=== PATIENT | male | born 1945 | race Caucasian/White ===

== ENCOUNTER 2016-04-29 14:59 | Inpatient (IN) | payer MEDICAID, MEDICARE ==
[~2016-04-29] VITALS: Ht 182.9 cm; Wt 86.3 kg
[2016-04-29] VITALS (9 sets, daily range): BP systolic 110–142; BP diastolic 62–98; PULSE 105–118; RESP 20–28; O2SAT 95–98
[~2016-04-29 14:59] MED LIST: AMLO10TA3 PO; ATOR20TA65 PO; BUPR150T12 PO; DOXY100C PO; METF1000 PO; MUPI22OI2 TOPICAL; ZOV800 PO
--- NOTE | 2016-04-29 15:19 | ED.REPORT ---
HPI-General Illness Date of Service Apr 29, 2016 ED Provider: Ricki Manriquez MD Pt is a 70 y/o male w/ a hx of HTN, diabetes, presenting to the ED via EMS c/o flu-like symptoms onset 3 days ago. He c/o fever, chills, myalgias, fatigue, cough, vomiting, diarrhea, left-sided abdominal pain. He denies bloody stool, chest pain, hematemesis, SOB. He has a caregiver that comes and sees him occasionally because he is "tired and old". His caregiver has noticed that he has had a decline in general function for the past 2 months. Nursing Notes Stated Complaint: WEAKNESS Chief Complaint: FLU/Cold Symptoms Nursing Notes Reviewed: Yes Allergies: Coded Allergies: No Known Allergies (Unverified , 04/29/16) Scheduled Acyclovir (Acyclovir) 800 Mg Tab 800 MG PO BID Amlodipine (Amlodipine) 10 Mg Tablet 10 MG PO DAILY Atorvastatin Calcium (Atorvastatin Calcium) 20 Mg Tablet 20 MG PO PM Bupropion ER (Bupropion ER) 150 Mg Tablet.er 150 MG PO BID Doxycycline Hyclate (Vibramycin) 100 Mg Capsule 100 MG PO BID Metformin (Glucophage) 1,000 Mg Tablet 1,000 MG PO BIDWM Mupirocin (Mupirocin Ointment) 22 Gm Oint...g. 1 APPLIC TOPICAL BID General Time Seen by MD: 15:19 Chief Complaint Multip medical complaints Hx Obtained From: Patient, EMS Arrived By: Ambulance Sudden in Onset?: No Onset Occurred: 3 days ago Symptom Duration: Since onset Quality: Aching (diffuse) Severity: Current: Mild Severity: Maximum: Mild Past Medical History Past Medical History Hypertension Diabetes Depression Denies: Asthma, COPD, Cancer, Coronary artery disease, Stroke Past Surgical History None reported Smoking History Current Some Day Smoker Social History Alcohol Use: "Social" Drug Use: Meth, THC Ambulatory Status Independent Review of Systems Full Review of Systems Constitutional: Reports: Chills, Fatigue, Fever, Weakness - generalized Respiratory: Reports: Non-productive cough, Denies: Shortness of breath Cardiovascular: Denies: Chest pain GI: Reports: Abdominal pain, Diarrhea, Nausea, Vomiting, Denies: Hematemesis, Hematochezia Musculoskeletal: Reports: Myalgia Complete sys rev & neg: except as marked. Physical Exam Vital Signs Vital Signs Date Time Temp Pulse Resp B/P Pulse Ox O2 Delivery O2 Flow Rate FiO2 04/29/16 18:12 39.2 118 04/29/16 17:41 117 25 110/66 98 Room Air 04/29/16 17:02 111 20 98 Room Air 04/29/16 16:57 38.6 117 28 142/85 95 Room Air 04/29/16 15:41 112 23 98 Room Air 04/29/16 15:04 36.5 105 23 141/98 98 Room Air Initial VS: Reviewed, Vital signs abnormal Head / Eyes: Atraumatic, Normocephalic, PERRL ENT: Mucous membranes moist, Conjunctiva normal, No scleral icterus Neck: Supple, Full range of motion Abdomen / GI: Soft, Non-tender, No guarding, No rebound, No distention Skin: Warm, Dry, No cyanosis Neurologic: Alert, Oriented, Nonfocal Psychiatric: Mood/affect normal, Behavior normal, Normal thought content General/Constitutional: Awake, Alert, No acute distress, Cooperative, Not toxic appearing Respiratory / Chest: Atraumatic, Breath sounds = bilat, No respiratory distress , No rales, No rhonchi, No retractions, No stridor, No chest tenderness, No chest wall deformity, No crepitus Scattered expiratory wheezing Cardiovascular: Regular rhythm, Heart sounds NL, No gallop, No murmurs, No rubs , Cap refill not delayed, Peripheral circulation NL Heart Rate / Rhythm: Positive: Tachycardia Lower Extremity / Pelvis / MS: Atraumatic, No deformity, Neurologic intact, Vascular intact Significant edema of the left leg with significant erythema and warmth. 1x1 cm open sore over lateral left leg. Interpretation & Diagnostics Lab Results Interpretation Result Diagram: 04/29/16 1516 04/29/16 1720 Test 04/29/16 15:16 04/29/16 17:20 White Blood Count 14.8th/mm3 (3.8-10.1) Red Blood Count 3.90mil/mm3 (4.40-5.80) Hemoglobin 11.5g/dL (13.8-17.2) Hematocrit 33.3% (41.0-50.0) Mean Corpuscular Volume 85.4fL (81-100) Mean Corpuscular Hemoglobin 29.5pg (27.0-35.0) Mean Corpuscular Hemoglobin Concent 34.5% (32.0-37.0) Red Cell Distribution Width 12.8% (12.3-15.4) Platelet Count 110bil/L (150-400) Neutrophils (%) (Auto) 84% (40-74) Lymphocytes (%) (Auto) 2% (14-46) Monocytes (%) (Auto) 1% (4-12) Eosinophils (%) (Auto) 0% (0-5) Basophils (%) (Auto) 0% (0-3) Band Neutrophils % 13% (1-5) Sodium Level 129mEq/L (134-144) Potassium Level 4.6mEq/L (3.5-5.2) Chloride Level 89mEq/L (97-108) Carbon Dioxide Level 19mmol/L (18-29) Blood Urea Nitrogen 102mg/dL (8-27) Creatinine 5.42mg/dL (0.76-1.27) Estimat Glomerular Filtration Rate 11mL/min (>59) Glucose Level 192mg/dL (60-99) Lactic Acid Level 2.8mmol/L (0.4-2.0) Calcium Level 8.8mg/dL (8.5-10.1) Magnesium Level 1.7mg/dL (1.6-2.6) Total Bilirubin 0.7mg/dL (0.0-1.2) Aspartate Amino Transf (AST/SGOT) 80U/L (0-50) Alanine Aminotransferase (ALT/SGPT) 53U/L (0-44) Alkaline Phosphatase 72U/L (25-160) Total Protein 7.4g/dL (6.4-8.4) Albumin 3.6g/dL (3.4-5.0) Lipase 29U/L (13-60) Lab Results Interpretation: Flu negative ECG Interpretation ECG Interpretation: Sinus tachycardia rate 109 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 Dictated by: Tara Martin M.D. on 04/29/2016 at 16:26 Approved by: Tara Martin M.D. on 04/29/2016 at 16:26 View: Portable, 1 view Interpretation / Wet Read by: Interpret - Radiologist Re-Eval/Medical Decision Med Decision/Clinical Course Newman catheter placed with difficulty. Cloudy urine present. Time of Eval: 17:06 Re-Evaluation/Progress Note: Pt rechecked. His temperature is increasing and he is becoming increasingly tachycardic and tachypneic. IV Tylenol ordered. He will likely be admitted. Time of Eval: 17:59 Re-Evaluation/Progress Note: Pt rechecked. Pt informed of need for admission. Pt understands and agrees with plan for admission. All questions addressed. Consultation #1: Referral / Consult Name: Jose G Diana MD Consulted With: Nephrology Call Returned at: 18:06 Term[employer] Service Representative: Accepts admit Note: Recommends noncontrast CT Consultation #2: Referral / Consult Name: Bora Velazquez MD Consulted With: Hospitalist Call Returned at: 18:19 Termite Control Service Representative: Accepts admit Counseled Regarding: Diagnosis, Lab results, Need for admission Discharge & Departure Primary Impression: Sepsis Sepsis type: sepsis due to unspecified organism Qualified Code: A41.9 - Sepsis, unspecified organism Additional Impressions: Cellulitis Site of cellulitis: extremity Site of cellulitis of extremity: lower extremity Laterality: left Qualified Code: L03.116 - Cellulitis of left lower limb Acute renal failure Acute urinary retention Urinary tract infection Disposition: ADMITTED TO HOSPITAL Discharge Condition All VS Reviewed: Yes Condition: Stable Referrals: NOPCP (PCP) Crit Care Except Billable Proc Time Spent: 30-74 minutes Services Performed: Patient management by me, Time spent at bedside, Reviewing test results, Reviewing imaging, Discussing patient care, Documentation in record Scribe Attestation Portions of this note were transcribed by Guanaco Bradley. I, Dr. Manriquez personally performed the history, physical exam and medical decision-making; I reviewed and confirmed the accuracy of the information in the transcribed note. Signed by Errol Khalil, 04/29/16 - 1599 Ricki Manriquez MD Apr 29, 2016 15:19 GUANACO BRADLEY Apr 29, 2016 15:20
[2016-04-29 16:16] LABS: Mean Corpuscular Hemoglobin 29.5 pg (27.0-35.0); Mean Corpuscular Volume 85.4 fL (81-100)
[2016-04-29 16:17] LABS: BASOPHILS % (AUTO) 0 % (0-3); EOSINOPHILS % (AUTO) 0 % (0-5); MONOCYTES % (AUTO) 1 % (4-12); NEUTROPHILS % (AUTO) 84 % (40-74); Platelet Count 110 bil/L (150-400)
--- NOTE | 2016-04-29 16:28 | DRSVH ---
PROCEDURE: X-RAY CHEST ONE VIEW, PORTABLE ([id number]) INDICATIONS: cough wheezing TECHNIQUE: One view of the chest was acquired. COMPARISON: [facility], CR, XR CHEST 1VW (PORTABLE), 01/21/2016, 5:25. FINDINGS: Surgical changes and devices: None. Lungs and pleura: No pleural effusions or pneumothorax. Lungs are clear. Mediastinum: Mediastinal contours appear normal. Heart size is normal. Bones and chest wall: No suspicious bony lesions. Overlying soft tissues appear unremarkable. IMPRESSION: No acute process. Dictated by: Tara Martin M.D. on 04/29/2016 at 16:26 Approved by: Tara Martin M.D. on 04/29/2016 at 16:26
[2016-04-29] MEDS ORDERED: 0.9% Sodium Chloride 1,000 ML IV ONE (16:37)
[2016-04-29] MEDS ORDERED: Albuterol-Ipratropium 3 mL Inhalation Solution NEB ONE (16:40)
[2016-04-29] MEDS ORDERED: Meropenem Inj 1,000 MG in 0.9% Sodium Chloride 100 ML IV ONE (16:40)
[2016-04-29] MEDS ORDERED: metroNIDAZOLE Inj 500 MG in IV Premix 1 EACH IV ONE (16:40)
[2016-04-29] MEDS ORDERED: Clindamycin Inj 900 MG in IV Premix 1 EACH IV ONE (16:40)
[2016-04-29] MEDS ORDERED: Acetaminophen IV 1,000 MG in IV Premix 1 EACH IV ONE (17:05)
[2016-04-29 17:53] LABS: Magnesium 1.7 mg/dL (1.6-2.6)
[2016-04-29] MEDS ORDERED: Ondansetron 2 mg/mL 2 mL Inj IVPUSH PRN ×2 (18:30→19:55)
[2016-04-29] MEDS ORDERED: Alum-Mag Hydrox-Simeth 30 mL Suspension PO PRN ×2 (18:30→19:55)
[2016-04-29 18:53] LABS: APPEARANCE,URINE HAZY (CLEAR,HAZY); COLOR,URINE YELLOW (YELLOW); OCCULT BLOOD,URINE LARGE (NEGATIVE); UROBILINOGEN,URINE NORMAL (NORMAL)
--- NOTE | 2016-04-29 19:18 | DRSVH ---
PROCEDURE: CT ABDOMEN AND PELVIS WITHOUT CONTRAST ([id number]) INDICATIONS: acute renal failure TECHNIQUE: Noncontrast 5 mm thick sections acquired from the diaphragms to the symphysis. 5 mm coronal and sagi ttal reformats were then performed. For radiation dose reduction, the following was used: automated exposure control, adjustment of mA and/or kV according to patient size. COMPARISON: None. FINDINGS: Image quality: Degraded by motion artifact. ABDOMEN: Lung bases: Lung bases are clear. Heart size is normal. Solid organs: Liver and spleen are normal in size. Gallbladder demonstrates high density foci withi n its lumen. Pancreas is normal in contours. Calcification of the pancreatic head is present. No ad renal nodules. Kidneys are normal in size. Mild bilateral hydronephrosis and ureteral dilatation. Peritoneum and bowel: Unenhanced bowel loops demonstrate normal wall thickness and caliber. No free fluid or air. Nodes and vessels: No retroperitoneal or mesenteric adenopathy by size criteria. Aorta and inferior vena cava are normal in caliber. Miscellaneous: No ventral hernias. PELVIS: Genitourinary: The urinary bladder is decompressed, limiting evaluation. A Newman catheter is present. There appears to be severe diffuse urinary bladder wall thickening, allowing for decompression. Miscellaneous: No inguinal hernias or adenopathy. Bones: No suspicious bony lesions. Multilevel endplate osteophytes within the thoracolumbar spine. No vertebral body compression fractures. IMPRESSION: 1. Findings suggestive of severe cystitis. Recommend correlation with urinalysis. There is associated bilateral ureteral dilatation and hydronephrosis, without evidence of ureteral calcifications. 2. Cholelithiasis. 3. Chronic pancreatitis. 4. Appendix not seen. No evidence of appendicitis. Dictated by: Tara Martin M.D. on 04/29/2016 at 19:14 Approved by: Tara Martin M.D. on 04/29/2016 at 19:16
[2016-04-29] MEDS ORDERED: 0.9% Sodium Chloride 1,000 ML IV SCH (19:51)
[2016-04-29] MEDS ORDERED: Polyethylene Glycol (PEG) 17 Gm Powder PO PRN (19:55)
--- NOTE | 2016-04-29 20:16 | ABG ---
DateTimeAnalyzed 20:12:00 -_ pH ____7.383 - 7.350 7.450 pCO2 ___29.8__ -mmHg 35.0 45.0 pO2 ___71.4__ -mmHg 69.0 116 HCO3- ___17.3__ -mmol/L 22.0 26.0 ABE ___-6.4__ -mmol/L -2.0 2.0 tHb ____8.9__ -g/dL O2Hb ___92.2__ -% COHb ____1.0__ -% MetHb ____1.1__ -% sO2 ___94.2__ -% 25.0 FIO2 ___21.0__ -% Drawn By blf - Date/Time Notified____ 20:16:00 -_ Spontaneous_RR ___22.0__ -b/min Oxygen Device 1 _ROOM AIR - Notified By blf - Notified Whom ___Dr. Shayan - B 768 -mmHg tO2 ___11.7__ -Vol% Solomon test _Positive -
[2016-04-29] MEDS: 0.9% Sodium Chloride 1,000 ML IV SCH (21:03)
--- NOTE | 2016-04-29 21:13 | NUR ---
Admit Pt arrived on unit at 193 on [facility]. Pt is total assist to transfer to bed. VSS. Pt arousable only to painful stimuli at this time. aware. CPOx placed, 95% on RA, HR 100's. Tele placed. IVF started. Pt very diaphoretic. At 2100 pt arousable to voice for a short time, unable to answer orientation questions. Answered date correctly. Most other questions answered inappropriately. Pt asked why he is here, responded "To see you. You're the one babe." to this RN. Pt reoriented to place and year. Pt falls back asleep quickly, snoring and heavy breathing. Admission assessment completed using recall data. See flowsheet for full assessment.
--- NOTE | 2016-04-29 21:32 | PCM.HPMED ---
Subjective Date of Service Apr 29, 2016 Primary Provider: Admitting Physician: Bora Velazquez MD Primary Care Physician: Nopsahil Attending Physician: Bora Velazquez MD Admit Status: From the Emergency Department, [facility] Telemetry Chief Complaint: fever, chills, myalgias, fatigue, cough, vomiting, diarrhea, left-sided abdominal pain History of Present Illness: Patient is a 70 y/o male w/ a hx of HTN, diabetes, presenting to the ED via EMS c/o flu-like symptoms onset 3 days ago. He c/o fever, chills, myalgias, fatigue , cough, vomiting, diarrhea, left-sided abdominal pain. He denies bloody stool, chest pain, hematemesis, SOB. He has a caregiver that comes and sees him occasionally because he is "tired and old". His caregiver has noticed that he has had a decline in general function for the past 2 months. In the ED, initial vitals T 36.5, P 105, RR 23, BP 141/98, 98% on RA. Later with T Labs significant for WBC 14.8 with left shift, sodium 129, Cl 89, BUN 102 , Creatinine 5.43, glucose 192. UA positive for leukocyte esterase, WBC >50. Flu swab negative. CXR negative for any acute processes.CT abd showed severe cystitis with bilateral ureteral dilation and hydronephrosis. Cholelithiasis. Patient started on IV Meropenem, Clindamycin and metronidazole in the ED. Patient was admitted for further treatment and management. Review of Systems: Unable to obtain due to patient being unresponsive to questioning. Allergies Coded Allergies: No Known Allergies (Unverified , 04/29/16) Home Medications Acyclovir (Acyclovir) 800 Mg Tab 800 MG PO BID Amlodipine (Amlodipine) 10 Mg Tablet 10 MG PO DAILY Atorvastatin Calcium (Atorvastatin Calcium) 20 Mg Tablet 20 MG PO PM Bupropion ER (Bupropion ER) 150 Mg Tablet.er 150 MG PO BID Doxycycline Hyclate (Vibramycin) 100 Mg Capsule 100 MG PO BID Metformin (Glucophage) 1,000 Mg Tablet 1,000 MG PO BIDWM Mupirocin (Mupirocin Ointment) 22 Gm Oint...g. 1 APPLIC TOPICAL BID PMH Hypertension Diabetes Depression Denies: Asthma, COPD, Cancer, Coronary artery disease, Stroke Surgical History None reported Family History Unable to obtain at this time. Social History Hx Alcohol Use: Yes (does not quantify) Hx Substance Use: Yes (meth, THC) Hx Tobacco Use: No Smoking Status: Current Some Day Smoker Living Arrangement: with Friends/Roommate Exam Vital Signs Vital Sign - Last Date Time Temp Pulse Resp B/P Pulse Ox O2 Delivery O2 Flow Rate FiO2 04/29/16 19:10 38.6 118 23 117/68 95 Room Air Exam GEN: In moderate distress Diaphoretic, not responding to questions, but responds to painful stimuli HEENT: NC/AT, sluggish pupils, does not follow object, sclera anicteric, dry mucous membranes, swollen tongue Neck: Supple, full passive ROM, trachea at midline CV: Tachycardia, regular rhythm, normal S1, S2, no murmurs, rubs or gallops. Cap fill <3 sec. Normal peripheral pulses Lungs: CTAB, in mild respiratory distress Skin: left lower leg swollen with significant erythema and warmth, with 1x1cm open sore on anterior mcmahan, poor skin turgor Neuro: not alert or oriented Lab and Diagnostics Result Diagram: 04/29/16 1516 04/29/16 1720 X-Rays, CTs and MRIs Date of Service: 04/29/16 1602 PROCEDURE: X-RAY CHEST ONE VIEW, PORTABLE ([id number]) IMPRESSION: No acute process. Dictated by: Tara Martin M.D. on 04/29/2016 at 16:26 Date of Service: 04/29/16 1811 PROCEDURE: CT ABDOMEN AND PELVIS WITHOUT CONTRAST ([id number]) INDICATIONS: acute renal failure IMPRESSION: 1. Findings suggestive of severe cystitis. Recommend correlation with urinalysis. There is associated bilateral ureteral dilatation and hydronephrosis , without evidence of ureteral calcifications. 2. Cholelithiasis. 3. Chronic pancreatitis. 4. Appendix not seen. No evidence of appendicitis. Dictated by: Tara Martin M.D. 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 He c/o fever, chills, myalgias, fatigue , cough, vomiting, diarrhea, left-sided abdominal pain. Sepsis (T39.2, P118, RR25, WBC14.8) Lactic acid 2.8, with cystitis and cellulitis, present on admission. Acute. - ABG 7.38/30/71.4/17.3 - IVF - Procal, BCx, UCx pending - trend lactic acid Q2H until normalizes Acute kidney injury, present on admission. Active. - BUN 102, creatinine 5.42, most likely post renal due to his severe cystitis with hydronephrosis - baseline creatinine 0.67 on 01/20/16 - IVF - telemetry - Dr. Park to see patient in am Severe cystitis with bilateral hydronephrosis, present on admission. Acute. - CT abd/pelv showed "severe cystitis with bilateral ureteral dilation and hydronephrosis" - Metronidazole started in ED - now on Zosyn - Urology consult in am Cellulitis of lower leg, present on admission. Acute. - patient's med list shows doxycycline and mupirocin, most likely has been treating - Meropenem and clindamycin started in ED - now on Linezolid and Zosyn - consult ID in am - wound care Hyponatremia, present on admission. Acute. - serum osmolality elevated at 305, hyponatremia most likely due to renal failure with elevated BUN - IVF NS Anion gap metabolic acidosis, present on admission. Acute. - most likely due to elevated lactic acid and BUN Elevated liver enzymes, present on admission. Acute. - patient on statin, patient also has chronic pancreatitis, may also be acute reactant to current infection - CMP in am Chronic conditions: Diabetes mellitus type 2 - metformin held,continue atorvastatin - low correctional insulin protocol - HgbA1c pending Hypertension - continue home dose amlodipine Chronic pancreatitis - as seen on CT Depression - will hold Bupropion due to being on Linezolid PRNs - Acetaminophen as needed for mild pain/fever/headache - Bowel regimen as needed - Antiemetic as needed Patient admitted under inpatient status with expected length of stay greater than 2 midnights due to severity of presenting symptoms, risk of adverse event, and complexity of treatment plan. DVT: heparin subQ GI: not indicated CODE: FULL GI Prophylaxis: Not indicated VTE Prophylaxis: Sub-Q Heparin (Unfractionated) Resuscitation Status: CPR: Attempt Resuscitation Attending Statement The patient was seen and examined together with house staff on 04/30/2016 and I agree with the history, exam and plan as outlined in the note above. Massimo Downey DO Apr 29, 2016 19:34 Neda Cueto DO Apr 30, 2016 05:58
[2016-04-29 22:59] LABS: Magnesium 1.6 mg/dL (1.6-2.6); Phosphorus 4.6 mg/dL (2.5-4.9)
[2016-04-30] VITALS (9 sets, daily range): BP systolic 109–130; BP diastolic 68–82; PULSE 96–110; RESP 19–20; O2SAT 93–99
[2016-04-30] MEDS: Sodium Chloride LOK Flush 10 mL Syringe IVFLUSH SCH ×4 (00:30→23:14)
[2016-04-30] MEDS: Heparin 5,000 Unit/mL Inj SUBQ SCH ×3 (01:40→18:47)
[2016-04-30] MEDS ORDERED: Glucose 40% Oral Gel 15 Gm Tube PO PRN (02:20)
[2016-04-30 03:23] LABS: BASOPHILS % (AUTO) 0 % (0-3); EOSINOPHILS % (AUTO) 0 % (0-5); MONOCYTES % (AUTO) 10.2 % (4-12); Mean Corpuscular Volume 85.3 fL (81-100); NEUTROPHILS % (AUTO) 85.5 % (40-74); Platelet Count 101 bil/L (150-400)
[2016-04-30] MEDS: Albuterol-Ipratropium 3 mL Inhalation Solution NEB PRN (03:24)
[2016-04-30] MEDS: 0.9% Sodium Chloride 1,000 ML IV SCH ×3 (04:26→20:38)
[2016-04-30] MEDS: Piperacillin-Tazo 3.375 Gm Inj 3.375 GM in Dextrose 5% Minibag Plus 50 ML IV SCH ×2 (05:28→18:47)
--- NOTE | 2016-04-30 07:25 | PCM.PNMED ---
Subjective Date of Service Apr 30, 2016 Subjective Patient denies chest pain, dyspnea or nausea and vomiting Exam Vital Signs Vital Sign - Last Date Time Temp Pulse Resp B/P Pulse Ox O2 Delivery O2 Flow Rate FiO2 04/30/16 04:33 37.4 110 20 115/68 97 Room Air Intake and Output 04/29/16 04/29/16 04/30/16 Cumulative From/Thru 14:59 22:59 06:59 04/29/16 15:04 - 04/30/16 06:15 Intake Total 1000 ml 400 ml 1400 ml Output Total 1900 ml 1900 ml Balance 1000 ml -1500 ml -500 ml Intake Oral 400 ml 400 ml IV Total 1000 ml 1000 ml Output Urine Total 1900 ml 1900 ml # Voids 1 1 Exam Gen.- A+ O 3 no apparent distress. Lying in bed pleasant Eyes- open conjunctiva clear, pupils equal nonicteric ENT- ears normal, nose normal Neck- supple/trach midline CVS- RRR no murmur or gallop Lungs CTA GI- NABS/NT soft Musc- moving 4 no obvious deformity Neuro- cranial nerves II through XII intact to gross examination, nonfocal Skin- warm, no rashes/lesions/wounds noted a little diaphoretic Psych- pleasant and appropriate, Lab and Diagnostics AST 88, ALT 53 04/29, 68/51 04/30, lactate 2.81, 1.2 04/30 Result Diagram: 04/30/16 0310 04/30/16 0310 X-Rays, CTs and MRIs us kidney: 04/30 1. Mild left hydronephrosis and inferior pole left renal exophytic cyst redemonstrated. 2. Newman catheter present and there is diffuse urinary bladder wall thickening as was seen on prior CT scan in this patient with history of severe cystitis. Correlate clinically. CT abd/pelvis w/o contrast 04/29 personally/concurrently reviewed by Daniel 1. Findings suggestive of severe cystitis. Recommend correlation with urinalysis. There is associated bilateral ureteral dilatation and hydronephrosis , without evidence of ureteral calcifications. 2. Cholelithiasis. 3. Chronic pancreatitis. 4. Appendix not seen. No evidence of appendicitis. Date of Service: 04/29/16 1602 PROCEDURE: X-RAY CHEST ONE VIEW, PORTABLE ([id number]) IMPRESSION: No acute process. Dictated by: Tara Martin M.D. on 04/29/2016 at 16:26 Date of Service: 04/29/16 181 PROCEDURE: CT ABDOMEN AND PELVIS WITHOUT CONTRAST ([id number]) INDICATIONS: acute renal failure IMPRESSION: 1. Findings suggestive of severe cystitis. Recommend correlation with urinalysis. There is associated bilateral ureteral dilatation and hydronephrosis , without evidence of ureteral calcifications. 2. Cholelithiasis. 3. Chronic pancreatitis. 4. Appendix not seen. No evidence of appendicitis. Dictated by: Tara Martin M.D. 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 He c/o fever, chills, myalgias, fatigue, cough, vomiting, diarrhea, left-sided abdominal pain. Sepsis -urinary source being treated 2 blood cultures positive patient's on Zosyn sepsis resolved Gram-negative bacteremia-secondary to UTI patient is on Zosyn awaiting cultures and sensitivities ESTELA- likely secondary to urinary obstruction, hydrating however BUN and creatinine are not returning to normal yet. cr 0.67 01/20/16, 5.42 04/29, 5.49 , cont- IVF. Renal? to see her admit her but I am not sure this is necessary given that this seems urologic. Severe cystitis with bilateral hydronephrosis, flagyl in ED? Zosyn 04/29-, I may speak to urology but the Newman catheterization patient needs Flomax/+/- finasteride and probably urology Urology follow-up as outpatient Cellulitis LEs?, Suspect only stasis dermatitis will discontinue linezolid no indication. I do not see an indication for an infectious disease consultation either. We will examine whether wound care is necessary may have already been ordered from ED. Hyponatremia, serum osmolality elevated at 305, hyponatremia most likely due to renal failure with elevated BUN, continue IVF NS, Na 129 04/29, 132 04/30 Anion gap metabolic acidosis, most likely due to elevated lactic acid and BUN treat underlying cause/ sepsis Transaminitis- patient on statin, patient also has chronic pancreatitis, may also be acute reactant to current infection, will follow also has something of a pattern for alcohol AST double ALT and AST/ALT 89/53 04/29, 68/51 04/30 Diabetes mellitus type 2-- metformin 2' renal failure, low correctional insulin protocol, HgbA1c pending Hypertension - continue home dose amlodipine Chronic pancreatitis- as seen on CT Depression- resume Bupropion 04/30 due to being on Linezolid d/c' 04/30 Prophylaxis-DVT, heparin probably no SCDs given stasis dermatitis, GI not indicated Disposition-from home with caregivers for code First day meeting medically complex patient at high risk for complications 04/30 GI Prophylaxis: Not indicated VTE Prophylaxis: Sub-Q Heparin (Unfractionated) Resuscitation Status: CPR: Attempt Resuscitation Romulo Sanchez MD Apr 30, 2016 07:25 - will hold Bupropion due to being on Linezolid PRNs - Acetaminophen as needed for mild pain/fever/headache - Bowel regimen as needed - Antiemetic as needed Patient admitted under inpatient status with expected length of stay greater than 2 midnights due to severity of presenting symptoms, risk of adverse event, and complexity of treatment plan. DVT: heparin subQ GI: not indicated CODE: FULL GI Prophylaxis: Not indicated VTE Prophylaxis: Sub-Q Heparin (Unfractionated) Resuscitation Status: CPR: Attempt Resuscitation Romulo Sanchez MD Apr 30, 2016 07:25 VTE Prophylaxis: Sub-Q Heparin (Unfractionated) Resuscitation Status: CPR: Attempt Resuscitation Romulo Sanchez MD Apr 30, 2016 07:25
[2016-04-30] MEDS: Insulin LISPRO 300 Unit/3 mL Inj SUBQ SCH ×4 (08:00→22:00)
[2016-04-30] MEDS ORDERED: buPROPion SR 150 mg ER12 Tablet PO SCH (08:30)
[2016-04-30] MEDS ORDERED: Linezolid Inj 600 MG in IV Premix 1 EACH IV SCH (08:30)
--- NOTE | 2016-04-30 13:56 | DRSVH ---
PROCEDURE: US RENAL SONOGRAM INDICATIONS: obstruction/hydronephrosis TECHNIQUE: Real-time scanning was performed of the kidneys and bladder, with image documentation. COMPARISON: [facility], CT, CT ABD PELVIS WO CON, 04/29/2016, 18:49. FINDINGS: Kidneys: Kidneys are normal in size. Right kidney measures 13.8 cm long; left kidney measures 12.3 cm long. Right renal cortical thickness is 2.2 cm; left renal cortical thickness is 1.5 cm. Renal c ortical echotexture is normal. Mild left hydronephrosis. Exophytic, simple in left renal cyst measu ring 3.2 cm in the inferior pole left kidney. Bladder: A Newman catheter is present. The urinary bladder is decompressed. Urinary bladder wall dif fusely thickened measuring up to 2.5 cm. Miscellaneous: No free pelvic fluid. IMPRESSION: 1. Mild left hydronephrosis. 2. A simple cyst in the inferior pole left kidney. 3. Diffuse urinary bladder wall thickening. Differential diagnoses include cystitis, bladder outlet o bstruction and bladder neoplasm. Dictated by: Pepe Reyes [facility] Interpreted: Shantal Adame MD on 04/30/2016 at 13:53 Transcribed by: NILDA on 04/30/2016 at 13:56 Approved by: Shantal Adame M.D. on 05/01/2016 at 8:11
--- NOTE | 2016-04-30 14:55 | NUR ---
CARLOS Initial Assessment: SW met with patient at bedside to discuss discharge plan. SW attempted to verify information with patient at bedside to discuss discharge plan. Patient became irritable during assessment and requested that contact to friend Carin be made. SW contacted friend Carin, who verified patient information. Patient is a 70 year old male admitted on 04/29/16 for sepsis, acute renal failure and cellulitis. Patient payer as Medicare. Patient has no VA benefits. Patient has penitentiary disability per patient friend. patient PCP as MD Ojeda. Patient resides in a one story home in [facility] with friend Carin. Patient friend states that she works realtime captioner and assists patient with care needs. Carin states that patient is primarily independent with needs with feeding and bathing. Patient no long drives and friend assists with transport. Patient has no previous HHC or SNF history. Patient has AD per friend dictating Carin as POA, SW encouraged her to bring in copy for hospital records. Patient has a walker, cane and wheelchair at home for use. Carin requesting possible SNF vs HHC assistance. SNF/HHC choice list provided to patient at bedside for review. Carin states that patient care needs have increased and she prefers SNF placement if appropriate. SW discussed SNF and HHC expectations. Carin requesting referral to [facility] if recommended by therapy. SW to request PT eval in rounds. SW to follow. PLAN: Resides with friend Jovana who assists with patient needs. Possible SNF ([facility]) vs HHC, pending PT eval and clinical course. CARLOS to follow. Melchor GUEVARA Addendum: 04/30/16 at 1506 by FATUMA VALDIVIA Amended: Links added.
[2016-04-30] MEDS ORDERED: Lactulose 20 Gm/30 mL 30 mL Syrup PO PRN (15:00)
--- NOTE | 2016-04-30 16:22 | DRSVH ---
PROCEDURE: X-RAY KUB ([id number]) INDICATIONS: Acute kidney injury TECHNIQUE: One view of the abdomen acquired. COMPARISON: [facility], CT, CT ABD PELVIS WO CON, 04/29/2016, 18:49. FINDINGS: Surgical changes and devices: Newman catheter present. Bowel: Bowel gas pattern is normal. Soft tissues: No suspicious abdominal calcifications. Visualized solid organ contours appear normal in size. Vascular calcifications indicate atherosclerosis. Bones: No suspicious bony lesions. IMPRESSION: Normal bowel gas pattern. Dictated by: Pepe Reyes RRPeter Interpreted: Estella Lou MD on 04/30/2016 at 16:20 Transcribed by: RACHEL on 04/30/2016 at 16:21 Approved by: Estella Lou MD, PhD on 04/30/2016 at 17:09
--- NOTE | 2016-04-30 17:26 | NUR ---
Wound Care Wound evaluation to address left lower leg was received, pt seen at bedside this afternoon with nursing present. Patient is a 70 y/o male w/ a hx of HTN, diabetes, presenting to the ED via EMS c/o flu-like symptoms onset 3 days ago. His white count at admit was 14.8 and temp 39.2. Currently patient is in a regular hospital bed and has a Newman catheter in place, patient is pleasantly confused and rather rigid with bed mobility requiring max assist of 2 for turning. Patient has erythema at his left lower leg in a gaiter distribution and a small lateral ulceration that is crusted over and dime sized, on his left lateral leg he has 2 small skin abrasions that are dry and without erythema. I don't think that this patients leg ulcers are the root of his infectious problem. I do recommend however placement of mepilex foam dressings at the left and right lateral leg ulcers to be changed by nursing staff q 48 to 72 hrs. Also please foot this patients heels when he is on his back.
--- NOTE | 2016-04-30 19:45 | NUR ---
Output/Skin/Strength Patient alert and oriented x3 throughout shift, answering questions appropriately, tolerating clear liquid diet well. No reports of pain, no n/v/d/c. Coude catheter patent draining light caty, cloudy urine with sediment to gravity -- 3000 out and 3970 in (1650 IV, 2320 oral). Patient very stiff and 2PA to turn when providing patient care/skin check with wound therapy. Patient was unable to stand at bedside. Red, macerated R groin fold as well as skin break down on scrotum. See wound care note.
--- NOTE | 2016-04-30 20:39 | CONS ---
[address] [address] CONSULTATION REPORT PATIENT: GLADYS CLAY : 1945 MR#: [id number] ADMIT: 04/29/2016 JOB ID: [id number] DATE OF SERVICE: The patient is a 70-year-old white male who was admitted to [facility] for sepsis and acute kidney injury. Renal consultation is being sought for further evaluation of his acute kidney injury. The patient is a very poor historian and is unable to give much information. Majority of the information has been obtained from his caregiver and the previous admission charts. In December 2015, during an admission, his creatinine was 0.67. Upon admission yesterday, his creatinine had risen to a level of 5.42, with a BUN of 102 respectively. He denies a history of any prior renal problems but does have a history of both diabetes and hypertension for which he could tell me very little. He lives with several other people and has a guest relations representative who make sure he gets his medications on a regular basis. Apparently, three days prior to admission, he began to have flu-like symptoms which included fever, chills, fatigue, myalgias, cough, vomiting, diarrhea, left-sided abdominal pain, and decreased oral intake. Apparently, in the last several months, his general condition has worsened with a decreasing level of activity, appetite, and increasing confusion. His initial evaluation in the emergency department revealed an elevated urinary leukocyte esterase, with urinary WBCs greater than 50. The cultures at that time are still pending. His chest x-ray was negative. However, his CT showed severe bladder wall thickening with cystitis and hydronephrosis. He was started on antibiotics and admitted. This morning, his blood pressure has been in the upper 100s to one-teens. His BUN and creatinine have worsened somewhat at a level of 101 and 5.49, respectively. During our interview, he was able to only answer the simplest of questions. He denies any history of any prostate problems, hematuria, proteinuria, new medications, or frequent use of nonsteroidal anti-inflammatory medications. PAST MEDICAL HISTORY: Significant for bdx-adzrurd-jcrtozthh diabetes mellitus, hypertension with probable hypertensive heart disease, depression, and history of alcoholism. Although, he denies a history of COPD, I would suspect that there is probably a component of this. PAST SURGICAL HISTORY: Unremarkable. He is not allergic to any food or any medications. SOCIAL HISTORY: He apparently has had a history of heavy ethanol use in the past and continues to drink. However, the quantity is unsure. Apparently, there is a history in the past of both methamphetamine and cannabis use. He also is a daily smoker and has smoked for a number of decades. FAMILY HISTORY: Noncontributory. REVIEW OF SYSTEMS: As detailed above. Otherwise, he denies any abdominal pain, skin rashes, diarrhea, arthralgias, or wheezing. MEDICATIONS: At time of admission include acyclovir, amlodipine, atorvastatin, bupropion, doxycycline, metformin, and mupirocin. PHYSICAL EXAMINATION: Revealed a somewhat frail-appearing, 70-year-old, white male who looked considerably older than his stated age. He was only able answer the simplest of questions. His vital signs at time of my evaluation include a blood pressure of 129/76, and a pulse of 106. HEENT examination is remarkable for pale sclerae and dry mucous membranes. Neck is supple without adenopathy or thyromegaly. However, there was some mild to moderate jugular venous distention at about 60 degrees. Lungs showed a few scattered end-expiratory wheezes but no rales or rhonchi were noted. Heart was regular and rhythmical with a soft systolic murmur. Abdomen is soft, without any tenderness, rebound, guarding, masses or hepatosplenomegaly. Extremities showed evidence of clubbing. However, there was no cyanosis or edema noted. Skin turgor was diminished and there was no evidence of any rashes. LABORATORY EXAMINATION: This morning, his sodium is 142, potassium is 4.3, chloride 93, CO2 17. BUN and creatinine are 101 and 5.49. His AST was 68 with an ALT of 51. His albumin was 2.9. Lactic acid from yesterday evening was 1.2. His blood sugar is 150, phosphorus is 4.6, and magnesium is 1.6. This morning, his white count was 11.4, which is down from yesterday. Hemoglobin also had dropped to 9.9 and hematocrit was 29.1. Red cell indices were unremarkable. Platelet count was slightly diminished at 101, and there were 85% neutrophils and 4% lymphs. On yesterday's CBC, there were 13 bands. Urinalysis showed a specific gravity of 1.015, pH was 6. Tests for protein and occult blood were positive. There were 3-10 RBCs per high-power field and greater than 50 WBCs per high-power field, and remaining urinalysis was unremarkable. His urine sodium was 49. A followup renal ultrasound showed left hydronephrosis with a left renal exophytic cyst and diffuse thickening of the bladder wall was noted. His blood cultures revealed gram-negative rods. However, a species has not been completed. IMPRESSION: 1. Acute tubular necrosis secondary to hypotension, pyelonephritis, and left hydronephrosis. 2. Obstructive uropathy. 3. Diabetic nephropathy. 4. Hypertension with hypertensive heart disease and hypertensive nephrosclerosis. RECOMMENDATION: 1. I would like to get a urine for eosinophils along with a total CPK. 2. I would strongly recommend discontinuing Zosyn and linezolid as these are nephrotoxins and I would use them only if absolutely necessary. 3. I would continue his cautious hydration. 4. I would like to check a serum protein electrophoresis, uric acid level, and a hepatitis profile. Once again, I would like to thank you for allowing me to participate in the care of this rather unfortunate patient. I will be following him closely with you.
[2016-05-01] VITALS (9 sets, daily range): BP systolic 105–121; BP diastolic 63–75; PULSE 82–96; RESP 16–28; O2SAT 96–97
[2016-05-01] MEDS: Heparin 5,000 Unit/mL Inj SUBQ SCH ×4 (01:21→23:58)
[2016-05-01] MEDS: 0.9% Sodium Chloride 1,000 ML IV SCH ×3 (01:51→21:51)
[2016-05-01] MEDS: Albuterol-Ipratropium 3 mL Inhalation Solution NEB PRN (02:56)
--- NOTE | 2016-05-01 03:51 | NUR ---
Respiratory: this AM expiatory wheeze noted to be more prominent. Pt had been placed on 2 L for desating when sleeping. RT at bedside to assess pt and administer nex tx. Wheezing decreased and pt reports breathing more comfortably post nex tx. Dr. Solomon paged and made aware of pt new 02 requirements, as well as intake and output. Pt had NS running @125 ml/hr-- pt taking in ample amount of fluid and putting out over 3 L from reyes cath. Order received to decrease IVF to 100ml/hr. Pt currently resting comfortably, Sp02 high 90s on 2 L NC
[2016-05-01] MEDS: Piperacillin-Tazo 3.375 Gm Inj 3.375 GM in Dextrose 5% Minibag Plus 50 ML IV SCH (05:45)
[2016-05-01] MEDS: Insulin LISPRO 300 Unit/3 mL Inj SUBQ SCH ×4 (08:04→20:50)
[2016-05-01] MEDS: Sodium Chloride LOK Flush 10 mL Syringe IVFLUSH SCH ×3 (08:10→20:55)
[2016-05-01 08:58] LABS: BASOPHILS % (AUTO) 0.1 % (0-3); EOSINOPHILS % (AUTO) 0.1 % (0-5); MONOCYTES % (AUTO) 11.2 % (4-12); Mean Corpuscular Hemoglobin 29.1 pg (27.0-35.0); Mean Corpuscular Volume 83.4 fL (81-100); NEUTROPHILS % (AUTO) 81.3 % (40-74); Platelet Count 99 bil/L (150-400)
--- NOTE | 2016-05-01 09:43 | NUR ---
Infection Prevention Patient is in strict Contact isolation precautions; urine positive for possible carbapenum resistant e. coli; blood cultures also positive for gram negative rods ,4/4 bottles. Nurses instructed to wear full PPE (gown, gloves, shoe covers); restrict visitors to adults only. Patient has negative MRSA screen this admission.
--- NOTE | 2016-05-01 10:14 | PCM.PNMED ---
Subjective Date of Service May 01, 2016 Subjective Little sore and tired for lying in bed but otherwise no chest pain, no dyspnea, no nausea vomiting Exam Vital Signs Vital Sign - Last Date Time Temp Pulse Resp B/P Pulse Ox O2 Delivery O2 Flow Rate FiO2 05/01/16 02:58 96 24 97 Nasal Cannula 2.00 05/01/16 02:53 37.0 120/75 Intake and Output 04/30/16 04/30/16 05/01/16 Cumulative From/Thru 15:00 23:00 07:00 04/29/16 15:04 - 05/01/16 06:26 Intake Total 3970 ml 4452 ml 9822 ml Output Total 3000 ml 5000 ml 9900 ml Balance 970 ml -548 ml -78 ml Intake Oral 2320 ml 3280 ml 6000 ml IV Total 1650 ml 1172 ml 3822 ml Output Urine Total 3000 ml 5000 ml 9900 ml # Voids 1 Exam Gen.- A+ O 3 no apparent distress. Lying in bed pleasant Eyes- open conjunctiva clear, pupils equal nonicteric ENT- ears normal, nose normal Neck- supple/trach midline CVS- RRR no murmur or gallop Lungs CTA GI- NABS/NT soft Musc- moving 4 no obvious deformity Neuro- cranial nerves II through XII intact to gross examination, nonfocal Skin- warm, no rashes/lesions/wounds noted a little diaphoretic Psych- pleasant and appropriate, Lab and Diagnostics Organism 1 CARBAPENEM RESISTANT E. COLI U COLONY COUNT/QUANTITY >100,000 CFU/ml SENSITIVITY COMMENTS Presumptive Identification confirmation pending Result Diagram: 05/01/16 0850 05/01/16 0320 X-Rays, CTs and MRIs us kidney: 04/30 1. Mild left hydronephrosis and inferior pole left renal exophytic cyst redemonstrated. 2. Newman catheter present and there is diffuse urinary bladder wall thickening as was seen on prior CT scan in this patient with history of severe cystitis. Correlate clinically. CT abd/pelvis w/o contrast 04/29 personally/concurrently reviewed by Daniel 1. Findings suggestive of severe cystitis. Recommend correlation with urinalysis. There is associated bilateral ureteral dilatation and hydronephrosis , without evidence of ureteral calcifications. 2. Cholelithiasis. 3. Chronic pancreatitis. 4. Appendix not seen. No evidence of appendicitis. Date of Service: 04/29/16 1602 PROCEDURE: X-RAY CHEST ONE VIEW, PORTABLE ([id number]) IMPRESSION: No acute process. Dictated by: Tara Martin M.D. on 04/29/2016 at 16:26 Date of Service: 04/29/16 1811 PROCEDURE: CT ABDOMEN AND PELVIS WITHOUT CONTRAST ([id number]) INDICATIONS: acute renal failure IMPRESSION: 1. Findings suggestive of severe cystitis. Recommend correlation with urinalysis. There is associated bilateral ureteral dilatation and hydronephrosis , without evidence of ureteral calcifications. 2. Cholelithiasis. 3. Chronic pancreatitis. 4. Appendix not seen. No evidence of appendicitis. Dictated by: Tara Martin M.D. 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 He c/o fever, chills, myalgias, fatigue, cough, vomiting, diarrhea, left-sided abdominal pain. Cultured carbomepenem resistant Escherichia coli (CRE) from urine, blood culture still pending. Patient anxious to get up and about he will leave his room or getting a physical therapy consult. He was pretty somnolent today 05/01 reportedly and may be having some metabolic encephalopathy. CRE/Sepsis - urine/2 blood cultures (+) on Zosyn 03/29-05/01 sepsis resolved 04/30, CRE urine 05/01, ID consult 05/[address] Tucker Colistin 05/01- Grm (-) bacteremia-secondary to UTI patient is on Zosyn awaiting cultures and sensitivities, carbomepenem resistant Escherichia coli from urine 05/01 ID consult 05/[address] Tucker ESTELA- likely secondary to urinary obstruction, hydrating however BUN and creatinine are not returning to normal yet. cr 0.67 01/20/16, 5.42 04/29, 5.49 , 3.96 05/01 cont- IVF i/os match 05/04 roughly thank you renal consult will need out pt f/u. Severe cystitis w/ bilateral hydron, flagyl in ED? Zosyn 04/29-, I may speak to urology but the Newman catheterization patient needs Flomax/+/-finasteride and probably urology Urology follow-up as outpatient Cellulitis LEs? ruled out 05/01, Suspect only stasis dermatitis will discontinue linezolid no indication. Hyponatremia, serum osmolality elevated at 305, hyponatremia most likely due to renal failure with elevated BUN, continue IVF NS, Na 129 04/29, 132 04/30 Anion gap metabolic acidosis, most likely due to elevated lactic acid and BUN treat underlying cause/ sepsis Transaminitis- pt on statin, AST/ALT 89/53 04/29, 68/51, 04/30 40/47 05/01 resolved Diabetes mellitus type 2-- metformin 2' renal failure, low correctional insulin protocol, HgbA1c 7.9 04/30 BS [id number] 05/01 will add 5U prandial 05/01 Hypertension - continue home dose amlodipine SBP 110-120 Chronic pancreatitis- as seen on CT Depression- resume Bupropion 04/30 due to being on Linezolid d/c' 04/30 Prophylaxis-DVT, heparin probably no SCDs given stasis dermatitis, GI not indicated Disposition-from home with caregivers for code First day meeting medically complex patient at high risk for complications 04/30 GI Prophylaxis: Not indicated VTE Prophylaxis: Sub-Q Heparin (Unfractionated) Resuscitation Status: CPR: Attempt Resuscitation Romulo Sanchez MD May 01, 2016 10:14
[2016-05-01] MEDS ORDERED: Potassium Chloride 20 mEq SR Tablet PO ONE (10:25)
[2016-05-01] MEDS: DEXTROSE 5% IV SCH ×3 (12:38→20:45)
[2016-05-01] MEDS: AVIBACTAM IV SCH ×2 (12:38→20:45)
[2016-05-01] MEDS: CEFTAZIDIME IV SCH ×2 (12:38→20:45)
--- NOTE | 2016-05-01 13:21 | NUR ---
Temp/PO intake Pt had a temp of 38.0 this am, during rounds asked for Tylenol. Administered tylenol at 1230. Will check back and see if it worked. Pt has been taking in lots of PO liquids and already has voided 2400 pale urine.MD made aware, IV fluids discontinued, Will only use as IV push through.
--- NOTE | 2016-05-01 15:11 | CONS ---
[address] [address] CONSULTATION REPORT PATIENT: GLADYS CLAY : 1945 MR#: [id number] ADMIT: 04/29/2016 JOB ID: [id number] DATE OF SERVICE: 05/01/2016 INFECTIOUS DISEASE CONSULTATION: I thank Dr. Sanchez for this consult. 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 HISTORY OF PRESENT ILLNESS: The patient is a complex gentleman known to me from an admission late in 2015. He has a history of hypertension, diabetes, and polysubstance abuse. He presented to the ED on April 29 and was admitted with flu-like symptoms he said started about April 26. He specifically noted fevers, chills, sweats, fatigue, myalgias, arthralgias, vomiting, diarrhea, nausea, and some left-sided abdominal pain. He denied having any significant shortness of breath, cough, or chest pain. He was subsequently admitted to the hospital and cultures of both blood and urine are growing highly resistant organisms. It is worth noting the patient has been followed in the wound clear center for some shallow ulcerations over his bilateral lower extremities and has been receiving doxycycline for that on an ongoing basis. Other than that, the patient states he has no prior recent antibiotic use other than some acyclovir for oral herpes. When I speak to the patient this afternoon he is slightly confused, which is from his admission in the fall. The patient is aware of where he is, and in general time and place, but his answers are sometimes quite tangential or odd. He tells me he did not have fevers, chills, or sweats when he came to the ER two days ago, which is inconsistent with the medical record. Additionally he does not now recall having any significant pulmonary or GI symptoms and he specifically denies urgency, frequency, or dysuria. At this point he states he feels relatively well and actually would like to be discharged home. This is at variance with the story he gave in the ED and also with his markedly abnormal lab values, which when he came to the emergency department included a white count of 15,000 and a creatinine of 5.5. Intense history taking from this patient is virtually impossible. He basically denies his symptoms, or he denies having any symptoms, or makes fun of the questions that were asked, but supplies no additional information other than what was stated above. PAST MEDICAL HISTORY: 1. Diabetes. 2. Hypertension. 3. Depression. 4. Diabetic neuropathy. 5. History of diabetic foot infections. 6. Polysubstance abuse including meth, cocaine, and marijuana. SOCIAL HISTORY: The patient is an infrequent cigarette smoker but says he has smoked meth, cocaine, and marijuana in the past. He states lately that has tapered off, but when pressed for any details about quantities, frequency, or last use he is very very unclear. The patient also reports he was a heavy alcohol drinker in the past but he says that has also tapered off, but the details are vague. FAMILY HISTORY: Including his parents, siblings, and children negative for tuberculosis. REVIEW OF SYSTEMS: Was done. The patient says he does not have a headache, except when I talk to him too much, and then he does. He denies any visual change, sore throat, trouble swallowing, stiff neck, cough, shortness of breath, chest pain, nausea, vomiting, diarrhea, dysuria, urgency, frequency, or additional problems with his legs. He does note he has had some scrapes or shallow ulcers on his legs and has been seen in the [facility], and then things start getting better. When pressed for details about how far he can ambulate and how much he can do for himself, he basically just said he is old and cannot do as much as he used to, but there is no quantitation or detail with it. Otherwise the complete review of systems was noncontributory. PHYSICAL EXAMINATION: Reveals a gentleman who is currently febrile to 38 degrees, pulse 96, respiratory rate 18, blood pressure 121/68. He is saturating well on 2 L. He is in no acute distress; in fact, I think he is a bit sharper from a mental status view than he was when I saw him earlier, when I saw him previously in 2016. He is oriented but his answers are tangential and sometimes very fanciful. Examination of the head reveals no trauma. His sinuses are nontender. Eyes without conjunctivitis or scleral icterus. Oral cavity without thrush or hairy leukoplakia. His teeth are in fair repair. His neck is supple and without any adenopathy. His lungs are relatively clear. Cardiac tones without significant murmur. Regular rate and rhythm. His abdomen is soft and nontender today, without hepatosplenomegaly. He has a Newman catheter. Penis and scrotum appear normal. Urine is pale yellow and clear. The extremities notable for some minimal edema in the lower extremities. There are shallow ulcers underneath dressings, which I removed, on both of his lateral calves. These lesions are quite shallow and definitely uninfected. His feet are without any diabetic foot type ulcerations he does have a significant peripheral neuropathy in the stocking distribution. His muscle strength is reasonably good throughout. No skin rashes noted. LABORATORIES: Include a white count of 11,300, platelet count 99,000, which has been declining since admission basically. He had 13 bands on admission; that is resolved. His creatinine is 3.96; it was 5.5 yesterday, so much better without dialysis. Potassium 3.3. Glucose 164. Calcium 7.3, ALT is 47, albumin 2.7. Urinalysis was notable for packed white cells when he came in on the . A urine tox screen was positive for amphetamines as well as cannabinoids. Alcohol blood level negative when he came in. Hep C is pending from this admission. During his admission in December he had a negative HIV and negative QuantiFERON gold, so these need to be repeated on this admission. Micro studies are of great interest. On April 29, the day of admission, two sets of blood cultures grew an E. coli. A simultaneous urine culture yielded a panresistant, carbapenem-resistant E. coli. This is completely resistant to all tested drugs including imipenem, with an PRASANNA of 16 for imipenem. Meropenem was not tested. Ertapenem was greater than 8. I have requested additional testing including ceftazidime, avibactam, ceftolozane, tazobactam, tigecycline, and colistin on this highly-resistant organism. IMAGING: Includes a chest x-ray which is clear, an abdominopelvic CT that shows severe cystitis. There is also bilateral hydronephrosis. An ultrasound shows mild left hydronephrosis and diffuse bladder wall thickening. IMPRESSION: This is a perplexing case. This patient is well known to this medical facility for history of shallow leg ulcers as well as a prior admission in December when there was concerned about herpes encephalitis, which ultimately was proven not to be the case. He has really had little in the way of antibiotic pressure over the past few months, though he has been going to our wound clinic for ongoing care. He now presents with bacteremic carbapenem-resistant E. coli complicated urinary tract infection with associated leukocytosis and renal failure. Where he would have acquired such a super-resistant organism is really a bit unclear, as he has not received a great deal of antibiotics. It is conceivable that he acquired it in wound care, although this would seem to be quite unusual. The next question is what to do with this very resistant organism. These carbapenem-resistant organisms are associated with high mortality, especially in bacteremic patients. The standard drug until recently was colistin, which is a drug which often produces renal failure. Alternatives might include tigecycline, though the data is fairly limited in terms of bacteremic infections, and it is often used as an add-on drug in an attempt to give two drugs for the possible CRE. Other possibilities here would include the new drugs and ceftazidime/avibactam and ceftolozane/tazobactam. Recent presentations at the ID meetings in the fall suggested that these were useful in the majority of cases, but by no means in all cases, and the data is fairly limited today. RECOMMENDATIONS: 1. After prolonged discussion with the intensive care unit pharmacist and reviewing the literature, I think the best way to proceed is with colistin in a total dose of 2.5 mg/kg once a day plus ceftazidime/avibactam with appropriate renal adjustments, which I am working out with the pharmacist. 2. I have asked the lab to send this for susceptibility to all four of the above-mentioned drugs. 3. Followup studies of his ureters and kidneys are going to be indicated to see if there is some structural reason that he was predisposed to this life-threatening and bacteremic urinary tract infection. 4. I have discussed this with the infection control team as we recently have had two of these CRE cases and we are trying to figure out if there could be a common source. 5. This case discussed in great detail with Dr. Sanchez as well as the nursing staff, infection control, pharmacy, and many others.
[2016-05-01] MEDS: COLISTIN IV SCH (15:34)
--- NOTE | 2016-05-01 16:18 | PCM.PNMED ---
Subjective Date of Service May 01, 2016 Subjective Nephrology Progress Note: Attending Dr. Dais Dawit Millerjuan diegolidia is a 70-year-old male who presented to [facility] emergency department via EMS 04/29/2016 for complaints of flu-like symptoms including fever, chills, myalgias, fatigue, cough, vomiting, diarrhea and left- sided abdominal pain 3 days. Hospital day #3. Overnight: The patient had increased oxygen needs and was placed on supplemental oxygen. His IV fluids were decreased from NS at 125 mL/hr to 100 mL/hr. Otherwise there are no acute events. The patient is resting comfortably in bed in no acute distress. The patient appears diaphoretic and is hot to the touch. He is rather somnolent and a very vague historian. He reports occasional cough. He denies headache, chest pain, shortness of breath, abdominal pain, nausea, vomiting, fever, chills, dysuria, diarrhea or constipation. He is voiding via Newman catheter with light yellow urine output. He has not had a bowel movement in several days. . Exam Vital Signs Vital Sign - Last Date Time Temp Pulse Resp B/P Pulse Ox O2 Delivery O2 Flow Rate FiO2 05/01/16 12:31 37.0 96 18 121/68 96 Nasal Cannula 2.00 Intake and Output 04/30/16 04/30/16 05/01/16 Cumulative From/Thru 15:00 23:00 07:00 04/29/16 15:04 - 05/01/16 06:26 Intake Total 3970 ml 4452 ml 9822 ml Output Total 3000 ml 5000 ml 9900 ml Balance 970 ml -548 ml -78 ml Intake Oral 2320 ml 3280 ml 6000 ml IV Total 1650 ml 1172 ml 3822 ml Output Urine Total 3000 ml 5000 ml 9900 ml # Voids 1 Exam General: Elderly disheveled gentleman lying in bed and in no acute distress, well-developed, well-nourished, rather somnolent. HEENT: Normocephalic, atraumatic. External ears without defect. Pupils equal, round, and reactive to light. Anicteric sclerae, moist conjunctivae, and no lid lag. Neck: Supple with full range of motion. No jugular venous distension. No bruits. Poor skin turgor. No lymphadenopathy or thyromegaly. Cardiovascular: Regular rate and rhythm with soft systolic murmur. No rubs or gallops appreciated. Pulmonary: Clear to auscultation bilaterally with no crackles, wheezes, or rhonchi. Normal respiratory effort with no use of accessory muscles. Genitourinary: Newman catheter in place. Abdomen: Soft, nontender, mildly distended, bowel sounds present. No hepatosplenomegaly or masses appreciated. Extremities: No cyanosis or edema. Clubbing present. Skin: Hot to touch, poor skin turgor,; no rash, ulcers, or subcutaneous nodules appreciated. Neurological: Cranial nerves grossly intact. Psychiatric: Somnolent. . IVs and Medications Medications Reviewed: Medications were reviewed in detail Lab and Diagnostics Item Value Date Time Uric Acid 7.5 mg/dL H 05/01/16 0320 Calcium Level 7.3 mg/dL L 05/01/16 032 Total Bilirubin 0.7 mg/dL 05/01/16 032 Aspartate Amino Transf (AST/SGOT) 40 U/L 05/01/16 0320 Alanine Aminotransferase (ALT/SGPT) 47 U/L H 05/01/16 032 Alkaline Phosphatase 61 U/L 05/01/16 0320 Total Protein 5.6 g/dL L 05/01/16 0320 Albumin 2.7 g/dL L 05/01/16 032 Result Diagram: 05/01/16 0850 05/01/16319 Microbiology Influenza screen negative. Blood cultures 2 positive for out of 4 bottles for gram-negative rods preliminarily Escherichia coli. Urine culture positive for carbon dependent resistant Escherichia coli. Respiratory viral PCR negative. MRSA screen negative. Urine eosinophil negative. . X-Rays, CTs and MRIs X-RAY CHEST ONE VIEW, PORTABLE IMPRESSION: No acute process. Dictated by: Tara Martin M.D. on 04/29/2016 at 16:26 Approved by: Tara Martin M.D. on 04/29/2016 at 16:26 CT ABDOMEN AND PELVIS WITHOUT CONTRAST IMPRESSION: 1. Findings suggestive of severe cystitis. Recommend correlation with urinalysis. There is associated bilateral ureteral dilatation and hydronephrosis , without evidence of ureteral calcifications. 2. Cholelithiasis. 3. Chronic pancreatitis. 4. Appendix not seen. No evidence of appendicitis. Dictated by: Tara Martin M.D. on 04/29/2016 at 19:14 Approved by: Tara Martin M.D. on 04/29/2016 at 19:16 US RENAL SONOGRAM IMPRESSION: 1. Mild left hydronephrosis. 2. A simple cyst in the inferior pole left kidney. 3. Diffuse urinary bladder wall thickening. Differential diagnoses include cystitis, bladder outlet obstruction and bladder neoplasm. Dictated by: Pepe LEONARD Interpreted: Shantal Adame MD on 04/30/2016 at 13:53 Transcribed by: NILDA on 04/30/2016 at 13:56 Approved by: Shantal Adame M.D. on 05/01/2016 at 8:11 X-RAY KUB IMPRESSION: Normal bowel gas pattern. Dictated by: Pepe LEONARD Interpreted: Estella Lou MD on 04/30/2016 at 16:20 Transcribed by: RACHEL on 04/30/2016 at 16:21 Approved by: Estella Lou MD, PhD on 04/30/2016 at 17:09 . Assessment & Plan Dawit Hansen is a 70-year-old male who presented to [facility] emergency department via EMS 04/29/2016 for complaints of flu-like symptoms including fever, chills, myalgias, fatigue, cough, vomiting, diarrhea and left- sided abdominal pain 3 days. Hospital day #3. Impression: 1. Acute tubular necrosis secondary to hypotension, pyelonephritis secondary to CRE, and left hydronephrosis. 2. Obstructive uropathy. 3. Diabetic nephropathy. 4. Hypertension with hypertensive heart disease and hypertensive nephrosclerosis. 5. Postobstructive diuresis. Recommendations: - Urine eosinophils negative. No rhabdo present as total CPK is only slightly elevated at 837. - Baseline renal function 0.64. Renal function slowly improving. Avoid nephrotoxic agents. - Continue to cautiously hydrate with fluid repletion at approximately two thirds the urine output over 8 hours. - SPEP pending. - Hepatitis profile pending. - KUB shows ileus for which we will start lactulose 20 g 3 times a day or until having a bowel movement then may stop. . GI Prophylaxis: Not indicated VTE Prophylaxis: Sub-Q Heparin (Unfractionated) Resuscitation Status: CPR: Attempt Resuscitation Attending Statement She was seen and examined along with the internal medicine resident. We have thoroughly discussed the patient's case and I have reviewed the patient's progress note and agree with findings. Norah Chowdhury DO May 01, 2016 16:18 Son Dias DO May 01, 2016 17:27
[2016-05-01] MEDS ORDERED: Lactulose 20 Gm/30 mL 30 mL Syrup PO SCH (20:30)
[2016-05-02] VITALS (7 sets, daily range): BP systolic 106–134; BP diastolic 63–78; PULSE 77–93; RESP 16–20; O2SAT 94–99
[2016-05-02] MEDS: 0.9% Sodium Chloride 1,000 ML IV SCH ×2 (03:56→17:51)
--- NOTE | 2016-05-02 05:06 | NUR ---
BM/ TEMP Pt had 2, x large incontinent stools overnight post lactulose administration. Pt did spike tep of 38.3 PO Tylenol given with good results. pt currently afebrile.
[2016-05-02 06:11] LABS: Hepatitis A Antibody IgM Negative (Negative); Hepatitis B Core Antibody IgM Negative (Negative)
[2016-05-02] MEDS ORDERED: Lactulose 20 Gm/30 mL 30 mL Syrup PO PRN (09:00)
[2016-05-02] MEDS: Heparin 5,000 Unit/mL Inj SUBQ SCH ×2 (09:19→17:28)
[2016-05-02] MEDS: Insulin LISPRO 300 Unit/3 mL Inj SUBQ SCH ×4 (09:20→20:56)
[2016-05-02] MEDS: Sodium Chloride LOK Flush 10 mL Syringe IVFLUSH SCH ×3 (09:21→20:57)
[2016-05-02] MEDS: COLISTIN IV SCH (09:22)
[2016-05-02] MEDS: DEXTROSE 5% IV SCH (09:22)
[2016-05-02 09:35] LABS: BASOPHILS % (AUTO) 0.2 % (0-3); EOSINOPHILS % (AUTO) 0.8 % (0-5); MONOCYTES % (AUTO) 10.8 % (4-12); Mean Corpuscular Hemoglobin 29.2 pg (27.0-35.0); Mean Corpuscular Volume 84.5 fL (81-100); NEUTROPHILS % (AUTO) 79.2 % (40-74); Platelet Count 125 bil/L (150-400)
[2016-05-02 10:10] LABS: Magnesium 1.3 mg/dL (1.6-2.6); Phosphorus 3.2 mg/dL (2.5-4.9)
--- NOTE | 2016-05-02 10:57 | PROG NOTE ---
[address] [address] PROGRESS NOTE PATIENT: GLADYS CLAY : 1945 MR#: [id number] ADMIT: 04/29/2016 JOB ID: [id number] DATE: 05/02/2016 INFECTIOUS DISEASE FOLLOW UP NOTE: REASON FOR FOLLOWUP: Bacteremia and sepsis due to ESBL E. coli. INTERVAL HISTORY: The patient has improved somewhat overnight. He has noted that his fevers, chills and sweats have dramatically improved as has to some degree his left-sided abdominal pain. He is not having any significant pulmonary symptoms such as cough, shortness of breath or chest pain. He is thirsty and hopes that in the near future he can start to drink and eat. Today, he is much more alert than he was yesterday in terms of mental status and ability to give history. He is confused, however, a little bit about why he has a Newman catheter. PHYSICAL EXAMINATION: Reveals a gentleman whose temperature was 37.9 late last night but otherwise has been afebrile, right now 37.4. Pulse 93, respiratory rate 18, blood pressure 134/78, without vasopressor agents. He is saturating well on 2 L. The patient is awake and oriented and much better than yesterday. Eyes without conjunctivitis. Oral cavity without thrush. Lungs quite clear. Cardiac tones without murmur. His abdomen is benign. He still has a little bit of trace flank pain bilaterally interestingly but not much and that is just to percussion. Newman catheter is present. There is a great deal of urine output which is pale yellow in color. LABORATORIES: Include white count now down to 12,800, still with left shift, platelets 125. Creatinine 2.7 which is down over a full point from yesterday's 4, which was down in turn from 5.5 on April 30. So his creatinine is rapidly and dramatically improving. Liver function tests normal except ALT 47. Hep C negative. Micro studies are important and have changed. We now have a switch in the E. coli susceptibilities. Recall that E. coli has grown from multiple blood cultures as well as urine and that the patient has heavy pyuria, consistent with a complicated urinary tract infection. Yesterday, the lab had initially reported this was a CRE and that the E. coli was resistant to carbapenems. We now have new and updated susceptibilities that show that this highly resistant organism is at least sensitive to ertapenem and meropenem and is, therefore, an ESBL rather than a CRE. It appears from the blood isolate that it may also be susceptible to Zosyn which may account for his initial improvement when he was started on Zosyn initially but is probably not the drug of choice. RECOMMENDATIONS: 1. Will discontinue the colistin and ceftazidime/avibactam he had been receiving and simplify to ertapenem once a day. 2. I am going to give 1 g a day of ertapenem even though his calculated creatinine clearance is 25, because we know that it is actually much better than that given the rapid fall in his creatinine. Thank you very much. Note that this case was discussed in person at the bedside with nephrology as well as with the nurse.
[2016-05-02] MEDS: Ertapenem Inj 1,000 MG in 0.9% Sodium Chloride 50 ML IV SCH (11:42)
--- NOTE | 2016-05-02 11:49 | PCM.PNMED ---
Subjective Date of Service May 02, 2016 Subjective Nephrology Progress Note: Attending Dr. Arun Pastor Trinadodielidia is a 70-year-old male who presented to [facility] emergency department via EMS 04/29/2016 for complaints of flu-like symptoms including fever, chills, myalgias, fatigue, cough, vomiting, diarrhea and left- sided abdominal pain 3 days. Hospital day #4. Overnight: There are no acute events. Patient had two large BM's after the lactulose. The patient is resting comfortably in bed in no acute distress. The patient is somnolent and is hot to the touch. He is a poor historian. He reports occasional cough. He denies headache, chest pain, shortness of breath, abdominal pain, nausea, vomiting, fever, chills, dysuria, diarrhea or constipation. He is voiding via Newman catheter with light yellow urine output. He is eliminating without difficulty. . Exam Vital Signs Vital Sign - Last Date Time Temp Pulse Resp B/P Pulse Ox O2 Delivery O2 Flow Rate FiO2 05/02/16 09:14 Supplement Oxygen 05/02/16 09:10 37.4 93 18 134/78 99 2.00 Intake and Output 05/01/16 05/01/16 05/02/16 Cumulative From/Thru 15:00 23:00 07:00 04/29/16 15:04 - 05/02/16 05:00 Intake Total 3380 ml 2379 ml 65652 ml Output Total 4300 ml 3000 ml 06060 ml Balance -920 ml -621 ml -1619 ml Intake Oral 2474 ml 1800 ml 49422 ml IV Total 906 ml 579 ml 5307 ml Output Urine Total 4300 ml 3000 ml 13825 ml # Voids 1 # Bowel Movements 0 2 2 Exam General: Elderly disheveled gentleman lying in bed and in no acute distress, well-developed, well-nourished, somnolent. HEENT: Normocephalic, atraumatic. External ears without defect. Pupils equal, round, and reactive to light. Anicteric sclerae, moist conjunctivae, and no lid lag. Neck: Supple with full range of motion. No jugular venous distension. No bruits. Poor skin turgor. No lymphadenopathy or thyromegaly. Cardiovascular: Regular rate and rhythm with soft systolic murmur. No rubs or gallops appreciated. Pulmonary: Clear to auscultation bilaterally with no crackles, wheezes, or rhonchi. Normal respiratory effort with no use of accessory muscles. Genitourinary: Newman catheter in place. Abdomen: Soft, nontender, mildly distended, bowel sounds present. No hepatosplenomegaly or masses appreciated. Extremities: No cyanosis or edema. Clubbing present. Skin: Hot to touch, poor skin turgor,; no rash, ulcers, or subcutaneous nodules appreciated. Neurological: Cranial nerves grossly intact. Psychiatric: Somnolent. . IVs and Medications Medications Reviewed: Medications were reviewed in detail Lab and Diagnostics Item Value Date Time Procalcitonin 1.80 ng/mL H 05/02/16 0859 Item Value Date Time Phosphorus Level 3.2 mg/dL 05/02/1615 Magnesium Level 1.3 mg/dL L 05/02/16914 Result Diagram: 05/02/1691405/02/16814 Microbiology Influenza screen negative. Blood cultures 2 positive for out of 4 bottles for gram-negative rods preliminarily Escherichia coli. Urine culture positive for ESBL. Respiratory viral PCR negative. MRSA screen negative. Urine eosinophil negative. . X-Rays, CTs and MRIs X-RAY CHEST ONE VIEW, PORTABLE IMPRESSION: No acute process. Dictated by: Tara Martin M.D. on 04/29/2016 at 16:26 Approved by: Tara Martin M.D. on 04/29/2016 at 16:26 CT ABDOMEN AND PELVIS WITHOUT CONTRAST IMPRESSION: 1. Findings suggestive of severe cystitis. Recommend correlation with urinalysis. There is associated bilateral ureteral dilatation and hydronephrosis , without evidence of ureteral calcifications. 2. Cholelithiasis. 3. Chronic pancreatitis. 4. Appendix not seen. No evidence of appendicitis. Dictated by: Tara Martin M.D. on 04/29/2016 at 19:14 Approved by: Tara Martin M.D. on 04/29/2016 at 19:16 US RENAL SONOGRAM IMPRESSION: 1. Mild left hydronephrosis. 2. A simple cyst in the inferior pole left kidney. 3. Diffuse urinary bladder wall thickening. Differential diagnoses include cystitis, bladder outlet obstruction and bladder neoplasm. Dictated by: Pepe LEONARD Interpreted: Shantal Adame MD on 04/30/2016 at 13:53 Transcribed by: NILDA on 04/30/2016 at 13:56 Approved by: Shantal Adame M.D. on 05/01/2016 at 8:11 X-RAY KUB IMPRESSION: Normal bowel gas pattern. Dictated by: Pepe Reyes RRA Interpreted: Estella Lou MD on 04/30/2016 at 16:20 Transcribed by: RACHEL on 04/30/2016 at 16:21 Approved by: Estella Lou MD, PhD on 04/30/2016 at 17:09 . Assessment & Plan Dawit Hansen is a 70-year-old male who presented to [facility] emergency department via EMS 04/29/2016 for complaints of flu-like symptoms including fever, chills, myalgias, fatigue, cough, vomiting, diarrhea and left- sided abdominal pain 3 days. Hospital day #4. Impression: 1. Acute tubular necrosis secondary to hypotension, pyelonephritis secondary to ESBL, and left hydronephrosis. 2. Obstructive uropathy. 3. Diabetic nephropathy. 4. Hypertension with hypertensive heart disease and hypertensive nephrosclerosis. 5. Postobstructive diuresis. 6. Ileus. Resolved. Recommendations: - Baseline renal function 0.64. Renal function slowly improving. Avoid nephrotoxic agents. - Continue to cautiously hydrate with fluid repletion at approximately two thirds the urine output over 8 hours. - SPEP pending. - Hepatitis profile pending. - Antibiotics switched from Zosyn to Ertapenem. . GI Prophylaxis: Not indicated VTE Prophylaxis: Sub-Q Heparin (Unfractionated) Resuscitation Status: CPR: Attempt Resuscitation Attending Statement Nephrology attending: Palate and some numbness identification of the patient's organism from their urine and blood. The patient is continuing to show some marked improvement with continuing decrease in his creatinine and increased urine output. I have examined the patient and discussed the case along with our internal medicine resident Dr. Cohwdhury and agree with therapeutic plan detailed above. Norah Chowdhury DO May 02, 2016 11:49 Son Dias DO May 02, 2016 16:09
--- NOTE | 2016-05-02 12:51 | PCM.PNMED ---
Subjective Date of Service May 02, 2016 Subjective He is doing well. He denies any pain or shortness of breath. No nausea. No vomiting. He has some diarrhea. No abdominal bloating. He denies any dysuria. No fevers or chills. Exam Vital Signs Vital Sign - Last Date Time Temp Pulse Resp B/P Pulse Ox O2 Delivery O2 Flow Rate FiO2 05/02/16 11:59 37.1 86 18 113/64 94 Nasal Cannula 2.00 Intake and Output 05/01/16 05/01/16 05/02/16 Cumulative From/Thru 15:00 23:00 07:00 04/29/16 15:04 - 05/02/16 05:00 Intake Total 3380 ml 2379 ml 38475 ml Output Total 4300 ml 3000 ml 18588 ml Balance -920 ml -621 ml -1619 ml Intake Oral 2474 ml 1800 ml 00442 ml IV Total 906 ml 579 ml 5307 ml Output Urine Total 4300 ml 3000 ml 69283 ml # Voids 1 # Bowel Movements 0 2 2 Exam Alert oriented 3, fluent speech. No distress. Normal skull Anicteric sclera. Neck supple. Lungs are clear and normal effort. Heart is irregular without murmur gallop or rub Abdomen is soft nondistended Extremities are free of edema No skin rash or lesions IVs and Medications Medications Reviewed: Medications were reviewed in detail Lab and Diagnostics Result Diagram: 05/02/16 0915 05/02/16 0815 Microbiology Influenza screen negative. Blood cultures 2 positive for out of 4 bottles for gram-negative rods preliminarily Escherichia coli. Urine culture positive for carbon dependent resistant Escherichia coli. Respiratory viral PCR negative. MRSA screen negative. Urine eosinophil negative. . X-Rays, CTs and MRIs X-RAY CHEST ONE VIEW, PORTABLE IMPRESSION: No acute process. Dictated by: Tara Martin M.D. on 04/29/2016 at 16:26 Approved by: Tara Martin M.D. on 04/29/2016 at 16:26 CT ABDOMEN AND PELVIS WITHOUT CONTRAST IMPRESSION: 1. Findings suggestive of severe cystitis. Recommend correlation with urinalysis. There is associated bilateral ureteral dilatation and hydronephrosis , without evidence of ureteral calcifications. 2. Cholelithiasis. 3. Chronic pancreatitis. 4. Appendix not seen. No evidence of appendicitis. Dictated by: Tara Martin M.D. on 04/29/2016 at 19:14 Approved by: Tara Martin M.D. on 04/29/2016 at 19:16 US RENAL SONOGRAM IMPRESSION: 1. Mild left hydronephrosis. 2. A simple cyst in the inferior pole left kidney. 3. Diffuse urinary bladder wall thickening. Differential diagnoses include cystitis, bladder outlet obstruction and bladder neoplasm. Dictated by: Pepe LEONARD Interpreted: Shantal Adame MD on 04/30/2016 at 13:53 Transcribed by: NILDA on 04/30/2016 at 13:56 Approved by: Shantal Adame M.D. on 05/01/2016 at 8:11 X-RAY KUB IMPRESSION: Normal bowel gas pattern. Dictated by: Pepe LEONARD Interpreted: Estella Lou MD on 04/30/2016 at 16:20 Transcribed by: RACHEL on 04/30/2016 at 16:21 Approved by: Estella Lou MD, PhD on 04/30/2016 at 17:09 . Assessment & Plan 1. Pyelonephritis and bacteremia. In fact sensitivities confirm that this is ESBL and not CRE today. -Dr. Tucker has changed antibiotics from previous to ertapenem at this point. 2. ESTELA-multifactorial. Likely partially related to ATN and possibly partially related to obstructive uropathy in context of a chronic diabetic nephropathy. We will continue to encourage volume as well as output with Lasix. Probably she is assisting. 3. Possible bladder outlet obstruction. We will follow closely and decompress if necessary. T 4. Hyponatremia, continue normal saline 5. Anion gap metabolic acidosis, most likely due to elevated lactic acid and BUN treat underlying cause/ sepsis, follow clinically 6. Transaminitis- pt on statin, AST/ALT 89/53 04/29, 68/51, 04/30 40/47 05/01 resolved 7. Diabetes mellitus type 2-- metformin 2' renal failure, low correctional insulin protocol, HgbA1c 7.9 04/30 BS 160-459 05/01 will add 5U prandial 05/01 stable on current medical regimen. Hypertension - continue home dose amlodipine SBP 110-120 Chronic pancreatitis- as seen on CT Depression- resume Bupropion 04/30 due to being on Linezolid d/c' 04/30 Prophylaxis-DVT, heparin probably no SCDs given stasis dermatitis, GI not indicated Disposition-from home with caregivers for code .17:00 addendum. Some signs of tachy danyel . Will continue to watch. Not on blocking drugs. Pain Evaluation: Adequate Pain Control GI Prophylaxis: Not indicated VTE Prophylaxis: Sub-Q Heparin (Unfractionated) Resuscitation Status: CPR: Attempt Resuscitation Time spent 30 minutes Solomon Kaminski MD May 02, 2016 12:51 BUN treat underlying cause/ sepsis, follow clinically 7. Transaminitis- pt on statin, AST/ALT 89/53 04/29, 68/51, 04/30 40/47 05/01 resolved 8. Diabetes mellitus type 2-- metformin 2' renal failure, low correctional insulin protocol, HgbA1c 7.9 04/30 BS 160-459 05/01 will add 5U prandial 05/01 stable on current medical regimen. Hypertension - continue home dose amlodipine SBP 110-120 Chronic pancreatitis- as seen on CT Depression- resume Bupropion 04/30 due to being on Linezolid d/c' 04/30 Prophylaxis-DVT, heparin probably no SCDs given stasis dermatitis, GI not indicated Disposition-from home with caregivers for code .17:00 addendum. Some signs of tachy danyel . Will continue to watch. Not on blocking drugs. Pain Evaluation: Adequate Pain Control GI Prophylaxis: Not indicated VTE Prophylaxis: Sub-Q Heparin (Unfractionated) Resuscitation Status: CPR: Attempt Resuscitation Time spent 30 minutes Solomon Kaminski MD May 02, 2016 12:51
--- NOTE | 2016-05-02 16:01 | NUR ---
Gave access and faxed facesheet to Karen Pino per SILO PAINTER
--- NOTE | 2016-05-02 17:57 | NUR ---
O2 needs/Bradycardia SVT Pt is currently on 2L NC and sats are 94%, sometimes he pulls the NC out and then sats 90-91% on room air. With activity pt will drop to low 80's on room air. Early this am Pt would sometimes have a few beats of SVT and get up to 150's but then would come back down to 70's. Late afternoon Pt started to go danyel sometimes lowest being 38 with non conductive PAC's. MD made aware and he said to continue to monitor and if sustained in the 30's ACLs would cover for Atropine and or needing pacer pads.
[2016-05-03] VITALS (8 sets, daily range): BP systolic 92–122; BP diastolic 59–69; PULSE 55–93; RESP 17–19; O2SAT 94–96
[2016-05-03] MEDS: Heparin 5,000 Unit/mL Inj SUBQ SCH ×3 (00:12→18:11)
[2016-05-03] MEDS: 0.9% Sodium Chloride 1,000 ML IV SCH ×3 (00:13→21:09)
[2016-05-03] MEDS ORDERED: [UNRECOGNIZED DRUG - OTHER] IV ONE (08:15)
[2016-05-03] MEDS ORDERED: MAGNESIUM SULF IV ONE (08:15)
[2016-05-03] MEDS ORDERED: KCl 40 mEq/D5W 500 mL 40 MEQ in IV Premix 500 EACH IV ONE ×2 (08:15→19:50)
[2016-05-03] MEDS: Insulin LISPRO 300 Unit/3 mL Inj SUBQ SCH ×4 (08:53→21:07)
[2016-05-03] MEDS: Sodium Chloride LOK Flush 10 mL Syringe IVFLUSH SCH ×2 (08:54→16:30)
[2016-05-03] MEDS: Ertapenem Inj 1,000 MG in 0.9% Sodium Chloride 50 ML IV SCH (08:54)
[2016-05-03 09:32] LABS: BASOPHILS % (AUTO) 0.2 % (0-3); EOSINOPHILS % (AUTO) 1.1 % (0-5); MONOCYTES % (AUTO) 8.6 % (4-12); Mean Corpuscular Volume 86.6 fL (81-100); NEUTROPHILS % (AUTO) 77.9 % (40-74); Platelet Count 135 bil/L (150-400)
[2016-05-03 10:28] LABS: Magnesium 1.1 mg/dL (1.6-2.6)
[2016-05-03] MEDS ORDERED: Magnesium Sulf 2 Gm/50mL Water 2 GM in IV Premix 1 EACH IV ONE (11:05)
--- NOTE | 2016-05-03 11:14 | PCM.PNMED ---
Subjective Date of Service May 03, 2016 Subjective Nephrology Progress Note: Attending Dr. Arun Pastor Trinadodielidia is a 70-year-old male who presented to [facility] emergency department via EMS 04/29/2016 for complaints of flu-like symptoms including fever, chills, myalgias, fatigue, cough, vomiting, diarrhea and left- sided abdominal pain 3 days. Hospital day #5. Overnight: There are no acute events. Telemetry overnight: Sinus rhythm, heart rate 60 to 80s, frequent PACs. The patient is resting comfortably in bed in no acute distress. The patient is somnolent and is hot to the touch. He is a poor historian. He reports fever and chills with occasional cough. He denies headache, chest pain, shortness of breath, abdominal pain, nausea, vomiting, dysuria, diarrhea or constipation. He is voiding via Newman catheter with light yellow urine output. He is eliminating without difficulty. . Exam Vital Signs Vital Sign - Last Date Time Temp Pulse Resp B/P Pulse Ox O2 Delivery O2 Flow Rate FiO2 05/03/16 09:02 36.9 55 18 122/65 95 Nasal Cannula 2.00 Intake and Output 05/02/16 05/02/16 05/03/16 Cumulative From/Thru 15:00 23:00 07:00 04/29/16 15:04 - 05/03/16 05:44 Intake Total 3031 ml 3025 ml 38227 ml Output Total 4700 ml 3200 ml 80083 ml Balance -1669 ml -175 ml -3463 ml Intake Oral 1720 ml 1840 ml 65603 ml IV Total 1311 ml 1185 ml 7803 ml Output Urine Total 4700 ml 3200 ml 79302 ml # Voids 1 # Bowel Movements 2 1 5 Exam General: Elderly disheveled gentleman lying in bed and in no acute distress, well-developed, well-nourished, somnolent. HEENT: Normocephalic, atraumatic. External ears without defect. Pupils equal, round, and reactive to light. Anicteric sclerae, moist conjunctivae, and no lid lag. Neck: Supple with full range of motion. No jugular venous distension. No bruits. Poor skin turgor. No lymphadenopathy or thyromegaly. Cardiovascular: Regular rate and rhythm with soft systolic murmur. No rubs or gallops appreciated. Pulmonary: Clear to auscultation bilaterally with no crackles, wheezes, or rhonchi. Normal respiratory effort with no use of accessory muscles. Genitourinary: Newman catheter in place. Abdomen: Soft, nontender, mildly distended, bowel sounds present. No hepatosplenomegaly or masses appreciated. Extremities: No cyanosis or edema. Clubbing present. Skin: Hot to touch, poor skin turgor,; no rash, ulcers, or subcutaneous nodules appreciated. Neurological: Cranial nerves grossly intact. Psychiatric: Irritable. IVs and Medications Medications Reviewed: Medications were reviewed in detail Lab and Diagnostics Item Value Date Time Procalcitonin 1.80 ng/mL H 05/02/1659 Procalcitonin 1.07 ng/mL H 05/03/16918 Item Value Date Time Calcium Level 7.1 mg/dL L 05/03/16918 Aspartate Amino Transf (AST/SGOT) 33 U/L 05/03/16918 Total Bilirubin 0.7 mg/dL 05/03/16918 Alanine Aminotransferase (ALT/SGPT) 42 U/L 05/03/16918 Alkaline Phosphatase 66 U/L 05/03/16918 Total Protein 5.7 g/dL L 05/03/16918 Albumin 3.0 g/dL L 05/03/16918 Item Value Date Time Magnesium Level 1.3 mg/dL L 05/02/16914 Magnesium Level 1.1 mg/dL *L 05/03/16918 Result Diagram: 05/03/1691805/03/16918 Microbiology Influenza screen negative. Blood cultures 2 positive for out of 4 bottles for ESBL. Urine culture positive for ESBL. Respiratory viral PCR negative. MRSA screen negative. Urine eosinophil negative. . X-Rays, CTs and MRIs X-RAY CHEST ONE VIEW, PORTABLE IMPRESSION: No acute process. Dictated by: Tara Martin M.D. on 04/29/2016 at 16:26 Approved by: Tara Martin M.D. on 04/29/2016 at 16:26 CT ABDOMEN AND PELVIS WITHOUT CONTRAST IMPRESSION: 1. Findings suggestive of severe cystitis. Recommend correlation with urinalysis. There is associated bilateral ureteral dilatation and hydronephrosis , without evidence of ureteral calcifications. 2. Cholelithiasis. 3. Chronic pancreatitis. 4. Appendix not seen. No evidence of appendicitis. Dictated by: Tara Martin M.D. on 04/29/2016 at 19:14 Approved by: Tara Martin M.D. on 04/29/2016 at 19:16 US RENAL SONOGRAM IMPRESSION: 1. Mild left hydronephrosis. 2. A simple cyst in the inferior pole left kidney. 3. Diffuse urinary bladder wall thickening. Differential diagnoses include cystitis, bladder outlet obstruction and bladder neoplasm. Dictated by: Pepe LEONARD Interpreted: Shantal Adame MD on 04/30/2016 at 13:53 Transcribed by: NILDA on 04/30/2016 at 13:56 Approved by: Shantal Adame M.D. on 05/01/2016 at 8:11 X-RAY KUB IMPRESSION: Normal bowel gas pattern. Dictated by: Pepe LEONARD Interpreted: Estella Lou MD on 04/30/2016 at 16:20 Transcribed by: RACHEL on 04/30/2016 at 16:21 Approved by: Estella Lou MD, PhD on 04/30/2016 at 17:09 . Assessment & Plan Dawit Hansen is a 70-year-old male who presented to [facility] emergency department via EMS 04/29/2016 for complaints of flu-like symptoms including fever, chills, myalgias, fatigue, cough, vomiting, diarrhea and left- sided abdominal pain 3 days. Hospital day #4. Impression: 1. Acute tubular necrosis secondary to hypotension, pyelonephritis secondary to ESBL, and left hydronephrosis. 2. ESBL bacteremia. 3. Obstructive uropathy with now postobstructive diuresis. 4. Diabetic nephropathy. 5. Hypertension with hypertensive heart disease and hypertensive nephrosclerosis. 6. Ileus. Resolved. Recommendations: - Baseline renal function 0.64. Renal function slowly improving. Avoid nephrotoxic agents. - Continue to cautiously hydrate with fluid repletion at approximately two thirds the urine output over 8 hours, NS currently running at 100 mL/hr. - SPEP pending. - Hepatitis profile negative. - Antibiotics switched from Zosyn to Ertapenem. . GI Prophylaxis: Not indicated VTE Prophylaxis: Sub-Q Heparin (Unfractionated) Resuscitation Status: CPR: Attempt Resuscitation Attending Statement Nephrology attending: Discussed the case thoroughly reviewed the note of the internal medicine resident and agree with return above. Need to emphasize that we need to continue to monitor the patient's potassium, magnesium, and phosphorus over the next few days. Norah Chowdhury DO May 03, 2016 11:14 Son Dias DO May 03, 2016 17:07
--- NOTE | 2016-05-03 13:44 | PROG NOTE ---
[address] [address] PROGRESS NOTE PATIENT: GLADYS CLAY : 1945 MR#: [id number] ADMIT: 04/29/2016 JOB ID: [id number] DATE: 05/03/2016 INFECTIOUS DISEASE FOLLOW UP NOTE: REASON FOR FOLLOW UP: Bacteremic ESBL E coli complicated urinary tract infection. INTERVAL HISTORY: The patient reports he continues to feel gradually better. He states he has been up and about walking a little bit in his room. He denies fevers, chills, confusion, shortness of breath or chest pain. He has no nausea or vomiting. He has a Newman catheter so he is not aware of any urinary symptoms. PHYSICAL EXAMINATION: Reveals an afebrile gentleman, temperature 36.8, pulse 91, respiratory rate 18, blood pressure 92/69. He is saturating well on 2 L. He is awake and alert. Oral cavity negative. Lungs fairly clear anteriorly. Abdomen soft and nontender. He has a Newman catheter draining copious amounts of thin yellow urine. LABORATORIES: Include a white count of 12,000, 78% segs. His creatinine is 2.1 down from an admission level of 5.5, so it continues to dramatically improve. His LFTs are normal. Procalcitonin is 1 at this point. It was 1.8 earlier. Hep C is negative. Micro studies include the ESBL which grew from blood in urine. It was an ESBL E. coli. Urine eosinophils have come back and they are negative. IMPRESSION: This patient suffered a bacteremic complicated E coli ESBL infection. This bounced back from this life-threatening infection which was associated with some degree of hypotension as well as acute renal failure and is now rapidly regaining his renal function. We are continuing to treat the patient with ertapenem which is undoubtedly the drug of choice in this circumstance. RECOMMENDATIONS: 1. I would treat with ertapenem 1 g once a day through May 10 to complete 10 days of effective therapy. 2. The patient need not stay in the hospital to complete this but could come back and [place] [facility] [place] or could be transferred to a SNF or some other circumstances to complete his treatment. He is stable enough.
--- NOTE | 2016-05-03 14:58 | PCM.PNMED ---
Subjective Date of Service May 03, 2016 Subjective He is somewhat lethargic but denies any difficulty with rhinorrhea, sore throat chest pain or breathing. No bowel pain nausea or vomiting. He has a Newman in place. No diarrhea. Exam Vital Signs Vital Sign - Last Date Time Temp Pulse Resp B/P Pulse Ox O2 Delivery O2 Flow Rate FiO2 05/03/16 12:33 36.8 91 18 92/69 94 Nasal Cannula 2.00 Intake and Output 05/02/16 05/02/16 05/03/16 Cumulative From/Thru 15:00 23:00 07:00 04/29/16 15:04 - 05/03/16 05:44 Intake Total 3031 ml 3025 ml 13081 ml Output Total 4700 ml 3200 ml 37648 ml Balance -1669 ml -175 ml -3463 ml Intake Oral 1720 ml 1840 ml 41980 ml IV Total 1311 ml 1185 ml 7803 ml Output Urine Total 4700 ml 3200 ml 79989 ml # Voids 1 # Bowel Movements 2 1 5 Exam Lethargic, fluent speech Anicteric sclerae. Neck supple. Lungs are clear. Heart is regular without murmur gallop or rub. Abdomen is soft nontender. Extremities are free of edema good pedal pulses. Skin is free of rash or lesions IVs and Medications Medications Reviewed: Medications were reviewed in detail Lab and Diagnostics Result Diagram: 05/03/1691805/03/16918 Microbiology Influenza screen negative. Blood cultures 2 positive for out of 4 bottles for gram-negative rods preliminarily Escherichia coli. Urine culture positive for ESBL. Respiratory viral PCR negative. MRSA screen negative. Urine eosinophil negative. . X-Rays, CTs and MRIs X-RAY CHEST ONE VIEW, PORTABLE IMPRESSION: No acute process. Dictated by: Tara Martin M.D. on 04/29/2016 at 16:26 Approved by: Tara Martin M.D. on 04/29/2016 at 16:26 CT ABDOMEN AND PELVIS WITHOUT CONTRAST IMPRESSION: 1. Findings suggestive of severe cystitis. Recommend correlation with urinalysis. There is associated bilateral ureteral dilatation and hydronephrosis , without evidence of ureteral calcifications. 2. Cholelithiasis. 3. Chronic pancreatitis. 4. Appendix not seen. No evidence of appendicitis. Dictated by: Tara Martin M.D. on 04/29/2016 at 19:14 Approved by: Tara Martin M.D. on 04/29/2016 at 19:16 US RENAL SONOGRAM IMPRESSION: 1. Mild left hydronephrosis. 2. A simple cyst in the inferior pole left kidney. 3. Diffuse urinary bladder wall thickening. Differential diagnoses include cystitis, bladder outlet obstruction and bladder neoplasm. Dictated by: Pepe LEONARD Interpreted: Shantal Adame MD on 04/30/2016 at 13:53 Transcribed by: NILDA on 04/30/2016 at 13:56 Approved by: Shantal Adame M.D. on 05/01/2016 at 8:11 X-RAY KUB IMPRESSION: Normal bowel gas pattern. Dictated by: Pepe LEONARD Interpreted: Estella Lou MD on 04/30/2016 at 16:20 Transcribed by: RACHEL on 04/30/2016 at 16:21 Approved by: Estella Lou MD, PhD on 04/30/2016 at 17:09 . Assessment & Plan . 1. ESBL Escherichia coli pyelonephritis and bacteremia, septicemia. We will continue ertapenem. The patient appears to be clinically stable to slowly improving 2. AK I. Multifactorial. We will continue fluid resuscitation and follow indices. This is improving. 3. Diabetic nephropathy, POA. 4. Hypertension, POA. 5. DM 2. POA. Controlled. 6. Hypomagnesemia. The patient is given 4 g of magnesium today we will recheck and follow. 7. Hypokalemia. Patient is given repletion today and will recheck. Patient will likely be in the hospital for every 2-3 more days given his slow clinical improvement. GI Prophylaxis: Not indicated VTE Prophylaxis: Sub-Q Heparin (Unfractionated) Resuscitation Status: CPR: Attempt Resuscitation Time spent 25 minutes Solomon Kaminski MD May 03, 2016 14:58
--- NOTE | 2016-05-03 15:19 | NUR ---
Social Work: Readiness for Discharge D: Pt discussed in am rounds. Pt will be medically stable for a discharge to skilled rehab in 1-2 days. Pt will require Ertapenem IV Abx until May 10, 2016, per ID MD note. PT recommendation remains for Skilled rehab as pt is moderate assistance for mobility and will require additional strengthening due to DLOF. CONSUMER SALES REPRESENTATIVE spoke with Tabitha at [facility] to inquire about IV Abx. They will need to review the cost of the medication and review with their director to determine if they are able to accomodate the pt on this medication. She will review and return contact with CONSUMER SALES REPRESENTATIVE. PPW on chart. PASSR lvl 2 exemption required- In folder for MD signature. A: Pt who will require SNF for continued strengthening P: Anticipate pt to discharge to Skilled Rehab pending accepting facility; Karen Pino is reviewing. CONSUMER SALES REPRESENTATIVE to continue to follow ISMAEL Livingston
--- NOTE | 2016-05-03 18:27 | NUR ---
Leg wounds Right leg wound dressing changed at 1800 with saline and guaze with a mepilex placed on top. Other little abrasions on bilateral legs I cleaned and just placed a little antibiotic ointment on them.
[2016-05-03 19:29] LABS: Magnesium 2.3 mg/dL (1.6-2.6)
--- NOTE | 2016-05-03 19:53 | NUR ---
potassium: Repeat k 3.0. Dr. Mcconnell made aware. Order received for additional K rider. AM labs to be rechecked early AM. Addendum: 05/04/16 at 0559 by GREGORY PICKETT RN repeat k 3.3- dr. Mcconnell notified. additional 20MEQ IV ordered and infusing. repeat lab ordered for 11am
[2016-05-04] VITALS (9 sets, daily range): BP systolic 101–125; BP diastolic 51–71; PULSE 71–86; RESP 17–19; O2SAT 93–99
[2016-05-04] MEDS: Heparin 5,000 Unit/mL Inj SUBQ SCH ×3 (00:49→17:19)
[2016-05-04] MEDS: Sodium Chloride LOK Flush 10 mL Syringe IVFLUSH SCH ×3 (00:49→16:30)
[2016-05-04 04:19] LABS: Magnesium 1.9 mg/dL (1.6-2.6); Phosphorus 2.8 mg/dL (2.5-4.9)
[2016-05-04] MEDS ORDERED: KCl 20 mEq/250 mL D5W (K 3 - 3.7 & Cr 2.1 - 2.9) IV ONE ×2 (05:00)
[2016-05-04] MEDS: Insulin LISPRO 300 Unit/3 mL Inj SUBQ SCH ×4 (07:40→22:00)
[2016-05-04] MEDS: Ertapenem Inj 1,000 MG in 0.9% Sodium Chloride 50 ML IV SCH (07:41)
[2016-05-04 11:08] LABS: Mean Corpuscular Hemoglobin 28.8 pg (27.0-35.0); Mean Corpuscular Volume 86.4 fL (81-100)
--- NOTE | 2016-05-04 11:57 | PCM.PNMED ---
Subjective Date of Service May 04, 2016 Subjective Nephrology Progress Note: Attending Dr. Dias Dawit Hansen is a 70-year-old male who presented to [facility] emergency department via EMS 04/29/2016 for complaints of flu-like symptoms including fever, chills, myalgias, fatigue, cough, vomiting, diarrhea and left- sided abdominal pain 3 days. Hospital day #5. Overnight: There are no acute events. Telemetry overnight: Sinus rhythm, heart rate 60 to 80s, frequent PACs. The patient is resting comfortably in bed in no acute distress. The patient is somnolent and is hot to the touch. He is a poor historian. He has no complaints and reports he wants to get out of the hospital. He denies headache , chest pain, shortness of breath, abdominal pain, nausea, vomiting, dysuria, diarrhea or constipation. He is voiding via Newman catheter with light yellow urine output. He is eliminating without difficulty. . Exam Vital Signs Vital Sign - Last Date Time Temp Pulse Resp B/P Pulse Ox O2 Delivery O2 Flow Rate FiO2 05/04/16 08:00 78 05/04/16 07:24 Supplement Oxygen 05/04/16 07:21 36.5 18 103/71 95 2.00 Intake and Output 05/03/16 05/03/16 05/04/16 Cumulative From/Thru 15:00 23:00 07:00 04/29/16 15:04 - 05/04/16 06:52 Intake Total 3268 ml 4016 ml 40214 ml Output Total 3700 ml 7025 ml 02493 ml Balance -432 ml -3009 ml -6904 ml Intake Oral 1518 ml 3010 ml 88651 ml IV Total 1750 ml 1006 ml 58802 ml Output Urine Total 3700 ml 7025 ml 74911 ml # Voids 1 # Bowel Movements 2 7 Exam General: Elderly disheveled gentleman lying in bed and in no acute distress, well-developed, well-nourished, somnolent. HEENT: Normocephalic, atraumatic. External ears without defect. Pupils equal, round, and reactive to light. Anicteric sclerae, moist conjunctivae, and no lid lag. Neck: Supple with full range of motion. No jugular venous distension. No bruits. Poor skin turgor. No lymphadenopathy or thyromegaly. Cardiovascular: Regular rate and rhythm with soft systolic murmur. No rubs or gallops appreciated. Pulmonary: Clear to auscultation bilaterally with no crackles, wheezes, or rhonchi. Normal respiratory effort with no use of accessory muscles. Genitourinary: Newman catheter in place. Abdomen: Soft, nontender, mildly distended, bowel sounds present. No hepatosplenomegaly or masses appreciated. Extremities: No cyanosis or edema. Clubbing present. Skin: Hot to touch, poor skin turgor,; no rash, ulcers, or subcutaneous nodules appreciated. Neurological: Cranial nerves grossly intact. Psychiatric: Irritable. . IVs and Medications Medications Reviewed: Medications were reviewed in detail Lab and Diagnostics Item Value Date Time Calcium Level 7.1 mg/dL L 05/04/16 1100 Total Bilirubin 0.6 mg/dL 05/04/16 1100 Aspartate Amino Transf (AST/SGOT) 57 U/L H 05/04/16 1100 Alanine Aminotransferase (ALT/SGPT) 52 U/L H 05/04/16 1100 Alkaline Phosphatase 77 U/L 05/04/16 1100 Total Protein 5.7 g/dL L 05/04/16 1100 Albumin 2.7 g/dL L 05/04/16 1100 Result Diagram: 05/04/16 1100 05/04/16 1100 Microbiology Influenza screen negative. Blood cultures 2 positive for out of 4 bottles for gram-negative rods preliminarily Escherichia coli. Urine culture positive for ESBL. Respiratory viral PCR negative. MRSA screen negative. Urine eosinophil negative. . X-Rays, CTs and MRIs X-RAY CHEST ONE VIEW, PORTABLE IMPRESSION: No acute process. Dictated by: Tara Martin M.D. on 04/29/2016 at 16:26 Approved by: Tara Martin M.D. on 04/29/2016 at 16:26 CT ABDOMEN AND PELVIS WITHOUT CONTRAST IMPRESSION: 1. Findings suggestive of severe cystitis. Recommend correlation with urinalysis. There is associated bilateral ureteral dilatation and hydronephrosis , without evidence of ureteral calcifications. 2. Cholelithiasis. 3. Chronic pancreatitis. 4. Appendix not seen. No evidence of appendicitis. Dictated by: Tara Martin M.D. on 04/29/2016 at 19:14 Approved by: Tara Martin M.D. on 04/29/2016 at 19:16 US RENAL SONOGRAM IMPRESSION: 1. Mild left hydronephrosis. 2. A simple cyst in the inferior pole left kidney. 3. Diffuse urinary bladder wall thickening. Differential diagnoses include cystitis, bladder outlet obstruction and bladder neoplasm. Dictated by: Pepe LEONARD Interpreted: Shantal Adame MD on 04/30/2016 at 13:53 Transcribed by: NILDA on 04/30/2016 at 13:56 Approved by: Shantal Adame M.D. on 05/01/2016 at 8:11 X-RAY KUB IMPRESSION: Normal bowel gas pattern. Dictated by: Pepe LEONARD Interpreted: Estella Lou MD on 04/30/2016 at 16:20 Transcribed by: RACHEL on 04/30/2016 at 16:21 Approved by: Estella Lou MD, PhD on 04/30/2016 at 17:09 . Assessment & Plan Dawit Hansen is a 70-year-old male who presented to [facility] emergency department via EMS 04/29/2016 for complaints of flu-like symptoms including fever, chills, myalgias, fatigue, cough, vomiting, diarrhea and left- sided abdominal pain 3 days. Hospital day #4. Impression: 1. Acute tubular necrosis secondary to hypotension, pyelonephritis secondary to ESBL, and left hydronephrosis. 2. ESBL bacteremia. 3. Obstructive uropathy with now postobstructive diuresis. 4. Diabetic nephropathy. 5. Hypertension with hypertensive heart disease and hypertensive nephrosclerosis. 6. Ileus. Resolved. Recommendations: - Placed on a fluid restriction of 2000 mL daily. - Baseline renal function 0.64. Renal function slowly improving. Avoid nephrotoxic agents. - Decreased IV fluids to 50 mL/hr. - SPEP pending. - Hepatitis profile negative. - Antibiotics are currently Ertapenem per ID. . GI Prophylaxis: Not indicated VTE Prophylaxis: Sub-Q Heparin (Unfractionated) Resuscitation Status: CPR: Attempt Resuscitation Norah Chowdhury DO May 04, 2016 11:57
--- NOTE | 2016-05-04 13:20 | PCM.PNMED ---
Subjective Date of Service May 04, 2016 Subjective He is comfortable. Denies shortness of breath or abdominal pain. No nausea vomiting or diarrhea. He has a Newman catheter in place. He has not had a lot of thirst and polydipsia. He has had increased urine output as a result. Exam Vital Signs Vital Sign - Last Date Time Temp Pulse Resp B/P Pulse Ox O2 Delivery O2 Flow Rate FiO2 05/04/16 12:38 36.6 84 18 118/67 94 Nasal Cannula 2.00 Intake and Output 05/03/16 05/03/16 05/04/16 Cumulative From/Thru 15:00 23:00 07:00 04/29/16 15:04 - 05/04/16 06:52 Intake Total 3268 ml 4016 ml 42998 ml Output Total 3700 ml 7025 ml 28193 ml Balance -432 ml -3009 ml -6904 ml Intake Oral 1518 ml 3010 ml 03278 ml IV Total 1750 ml 1006 ml 45519 ml Output Urine Total 3700 ml 7025 ml 19694 ml # Voids 1 # Bowel Movements 2 7 Exam Similar lethargic, but alert and oriented 3 Anicteric sclerae. Neck supple Lungs are clear, normal effort and rate. Heart is regular without murmur gallop or rub. Abdomen soft nontender. Extremities significant pedal pulses IVs and Medications Medications Reviewed: Medications were reviewed in detail Lab and Diagnostics Result Diagram: 05/04/16 1100 05/04/16 1100 Microbiology X-Rays, CTs and MRIs X Assessment & Plan Dawit Hansen is a 70-year-old male who presented to [facility] emergency department via EMS 04/29/2016 for complaints of flu-like symptoms including fever, chills, myalgias, fatigue, cough, vomiting, diarrhea and left- sided abdominal pain 3 days. Hospital day #4. 1. ESBL Escherichia coli pyelonephritis and bacteremia. Continue ertapenem through May 10. In working with fdc facility see if this can be managed in that setting. 2. Acute kidney injury, POA. Multifactorial. The predominant component is felt to be obstructed. The patient did have severe cystitis with evidence of bilateral hydroureter likely secondary to the inflammatory process infiltrating obstruction. 3. DM 2, controlled 4. Hypo-May, repleted. We will follow clinically 5. Hypokalemia, repleted. We will follow clinically. Patient is inpatient status. Start plan is as noted above GI Prophylaxis: Not indicated VTE Prophylaxis: Sub-Q Heparin (Unfractionated) Resuscitation Status: CPR: Attempt Resuscitation Time spent 25 minute Solomon Kaminski MD May 04, 2016 13:20 Dictated by: Pepe LEONARD Interpreted: Shantal Adame MD on 04/30/2016 at 13:53 Transcribed by: NILDA on 04/30/2016 at 13:56 Approved by: Shantal Adame M.D. on 05/01/2016 at 8:11 X-RAY KUB IMPRESSION: Normal bowel gas pattern. Dictated by: Pepe LEONARD Interpreted: Estella Lou MD on 04/30/2016 at 16:20 Transcribed by: RACHEL on 04/30/2016 at 16:21 Approved by: Estella Lou MD, PhD on 04/30/2016 at 17:09 . Assessment & Plan Dawit Hansen is a 70-year-old male who presented to [facility] emergency department via EMS 04/29/2016 for complaints of flu-like symptoms including fever, chills, myalgias, fatigue, cough, vomiting, diarrhea and left- sided abdominal pain 3 days. Hospital day #4. 1. ESBL Escherichia coli pyelonephritis and bacteremia. Continue ertapenem through May 10. In working with fdc facility see if this can be managed in that setting. 2. Acute kidney injury, POA. Multifactorial. The predominant component is felt to be obstructed. The patient did have severe cystitis with evidence of bilateral hydroureter likely secondary to the inflammatory process infiltrating obstruction. 3. DM 2, controlled 4. Hypo-May, repleted. We will follow clinically 5. Hypokalemia, repleted. We will follow clinically. Patient is inpatient status. Start plan is as noted above GI Prophylaxis: Not indicated VTE Prophylaxis: Sub-Q Heparin (Unfractionated) Resuscitation Status: CPR: Attempt Resuscitation Time spent 25 minute Solomon Kaminski MD May 04, 2016 13:20 Solomon Kaminski MD May 04, 2016 13:20
--- NOTE | 2016-05-04 14:21 | NUR ---
Social Work: Readiness for Discharge D: Pt discussed in am rounds. From a medical standpoint pt will be stable for discharge to skilled rehab on Saturday. Pt is currently on IV ABX- Ertapenem until May 10, 2016. Pt continues to work with PT require Mod/Max assist for STS; recommendation still remains for SNF cabulance. Pt's preference is for [facility]. RAG WASHER spoke with media coordinator, Tabitha Fofana, who states that they will accept the pt with the Ertapenem tomorrow (05/05). They are requesting pt have his dose of abx tomorrow prior to d/c. They also need clear discharge instructions with pt's isolation precautions. RAG WASHER informed MD. PPW on chart PASSR Signed by and faxed to [facility]. Original on chart A: Pt who will require SNF for continued strengthening. P: Anticipate pt to discharge to [facility] on Saturday via cabulance; RAG WASHER to continue to follow. ISMAEL Livingston
[2016-05-04] MEDS: 0.9% Sodium Chloride 1,000 ML IV SCH (15:01)
--- NOTE | 2016-05-04 15:05 | PROG NOTE ---
[address] [address] PROGRESS NOTE PATIENT: GLADYS CLAY : 1945 MR#: [id number] ADMIT: 04/29/2016 JOB ID: [id number] DATE: 05/04/2016 INFECTIOUS DISEASE FOLLOWUP NOTE: REASON FOR FOLLOWUP: ESBL E. coli bacteremic urinary tract infection. INTERVAL HISTORY: The patient reports he is continuing to do better and better. No fevers, chills, or sweats. No shortness of breath, nausea, vomiting, diarrhea, or dysuria. He still has a Newman catheter in place. PHYSICAL EXAMINATION: Reveals an afebrile gentleman. Temp 36.6, pulse 84, respiratory rate 18, blood pressure 118/67, saturating well on room air. Mental status is increasingly clear. Oral cavity negative, except for some poor dentition. Lungs quite clear. Abdomen benign. LABORATORIES: Include white count 13,600, platelets 184 which is much improved. Creatinine 2.15. It has now stabilized at that level and has stopped dropping, unfortunately. Hep C negative. Urine eosinophils negative. Recall that blood and urine grew a highly resistant ESBL E. coli which was sensitive to ertapenem which we are treating with that agent. IMAGING: No new imaging has been done. IMPRESSION: This patient had a highly resistant bacteremic, complicated Escherichia coli infection. He is now much improved, though his creatinine has stopped improving at a level around 2. We are continuing to treat the patient with ertapenem. RECOMMENDATIONS: 1. I would continue with ertapenem 1 g a day through May 10 to complete 10 days of therapy. 2. It is being considered that the patient be moved to a fdc facility to complete this course of therapy, and I think that would be very reasonable. Unfortunately, we have no viable oral agent, and he will have to continue with ertapenem. Thank you very much for allowing me to see this patient again today. [facility]
--- NOTE | 2016-05-04 15:14 | NUR ---
Oral Intake Pt has been reduced to 2000ml fluid restriction today. Pt seems to have polydipsia and polyuria. Pt's electrolytes have been very low secondary to fluid excessiveness intake. IV NS reduced to 50ml/hr.
[2016-05-05 00:16] VITALS: BP 106/59; PULSE 76; RESP 18; O2SAT 96
[2016-05-05] MEDS: Sodium Chloride LOK Flush 10 mL Syringe IVFLUSH SCH ×2 (00:30→09:13)
[2016-05-05] MEDS: Heparin 5,000 Unit/mL Inj SUBQ SCH ×3 (00:30→09:13)
[2016-05-05 04:57] VITALS: BP 117/74; PULSE 78; RESP 17; O2SAT 95
[2016-05-05 05:42] VITALS: PULSE 79
--- NOTE | 2016-05-05 06:37 | NUR ---
Overnight Patient awake off and on throughout the night. Frequent requests for water despite 2000mL fluid restriction. Becomes agitated and swears at staff when requests for water are deferred. Alert and oriented to self and place. Continue to monitor.
[2016-05-05] MEDS ORDERED: KCl 40 mEq/D5W 500 mL 40 MEQ in IV Premix 500 EACH IV ONE (08:40)
--- NOTE | 2016-05-05 08:45 | PCM.PNMED ---
Subjective Date of Service May 05, 2016 Subjective Nephrology Progress Note: Attending Dr. Dias Dawit Millerjuan diegolidia is a 70-year-old male who presented to [facility] emergency department via EMS 04/29/2016 for complaints of flu-like symptoms including fever, chills, myalgias, fatigue, cough, vomiting, diarrhea and left- sided abdominal pain 3 days. Hospital day #7. Overnight: The patient requested water despite fluid restriction. There are no acute events. Telemetry overnight: Sinus rhythm, heart rate 70 to 80s, IVCD and frequent PACs. The patient is resting comfortably in bed in no acute distress. He is a poor historian. He has continues to be quite agitated. He denies headache, chest pain, shortness of breath, abdominal pain, nausea, vomiting, dysuria, diarrhea or constipation. He is voiding via Newman catheter with light yellow urine output. He has not had a BM in several days. . Exam Vital Signs Vital Sign - Last Date Time Temp Pulse Resp B/P Pulse Ox O2 Delivery O2 Flow Rate FiO2 05/05/16 05:42 79 05/05/16 04:57 36.5 17 117/74 95 Nasal Cannula 3.50 Intake and Output 05/04/16 05/04/16 05/05/16 Cumulative From/Thru 15:00 23:00 07:00 04/29/16 15:04 - 05/05/16 04:57 Intake Total 932 ml 2387 ml 69872 ml Output Total 3300 ml 3300 ml 64790 ml Balance -2368 ml -913 ml -42071 ml Intake Oral 932 ml 580 ml 40227 ml IV Total 1807 ml 16883 ml Output Urine Total 3300 ml 3300 ml 56486 ml # Voids 1 # Bowel Movements 7 Exam General: Elderly disheveled gentleman lying in bed and in no acute distress, well-developed, well-nourished, somnolent. HEENT: Normocephalic, atraumatic. External ears without defect. Pupils equal, round, and reactive to light. Anicteric sclerae, moist conjunctivae, and no lid lag. Neck: Supple with full range of motion. No jugular venous distension. No bruits. Poor skin turgor. No lymphadenopathy or thyromegaly. Cardiovascular: Regular rate and rhythm with soft systolic murmur. No rubs or gallops appreciated. Pulmonary: Clear to auscultation bilaterally with no crackles, wheezes, or rhonchi. Normal respiratory effort with no use of accessory muscles. Genitourinary: Newman catheter in place. Abdomen: Soft, nontender, mildly distended, bowel sounds present. No hepatosplenomegaly or masses appreciated. Extremities: No cyanosis or edema. Clubbing present. Skin: Hot to touch, poor skin turgor,; no rash, ulcers, or subcutaneous nodules appreciated. Neurological: Cranial nerves grossly intact. Psychiatric: Irritable. . IVs and Medications Medications Reviewed: Medications were reviewed in detail Lab and Diagnostics Item Value Date Time Calcium Level 7.1 mg/dL L 05/04/16 1100 Total Bilirubin 0.6 mg/dL 05/04/16 1100 Aspartate Amino Transf (AST/SGOT) 57 U/L H 05/04/16 1100 Alanine Aminotransferase (ALT/SGPT) 52 U/L H 05/04/16 1100 Alkaline Phosphatase 77 U/L 05/04/16 1100 Total Protein 5.7 g/dL L 05/04/16 1100 Albumin 2.7 g/dL L 05/04/16 1100 Procalcitonin 0.47 ng/mL H 05/05/16 0813 Result Diagram: 05/04/16 1100 05/04/16 1100 Microbiology Influenza screen negative. Blood cultures 2 positive for out of 4 bottles for gram-negative rods preliminarily Escherichia coli. Urine culture positive for ESBL. Respiratory viral PCR negative. MRSA screen negative. Urine eosinophil negative. . 12-lead ECG X-RAY CHEST ONE VIEW, PORTABLE IMPRESSION: No acute process. Dictated by: Tara Martin M.D. on 04/29/2016 at 16:26 Approved by: Tara Martin M.D. on 04/29/2016 at 16:26 CT ABDOMEN AND PELVIS WITHOUT CONTRAST IMPRESSION: 1. Findings suggestive of severe cystitis. Recommend correlation with urinalysis. There is associated bilateral ureteral dilatation and hydronephrosis , without evidence of ureteral calcifications. 2. Cholelithiasis. 3. Chronic pancreatitis. 4. Appendix not seen. No evidence of appendicitis. Dictated by: Tara Martin M.D. on 04/29/2016 at 19:14 Approved by: Tara Martin M.D. on 04/29/2016 at 19:16 US RENAL SONOGRAM IMPRESSION: 1. Mild left hydronephrosis. 2. A simple cyst in the inferior pole left kidney. 3. Diffuse urinary bladder wall thickening. Differential diagnoses include cystitis, bladder outlet obstruction and bladder neoplasm. Dictated by: Pepe LEONARD Interpreted: Shantal Adame MD on 04/30/2016 at 13:53 Transcribed by: NILDA on 04/30/2016 at 13:56 Approved by: Shantal Adame M.D. on 05/01/2016 at 8:11 X-RAY KUB IMPRESSION: Normal bowel gas pattern. Dictated by: Pepe LEONARD Interpreted: Estella Lou MD on 04/30/2016 at 16:20 Transcribed by: RACHEL on 04/30/2016 at 16:21 Approved by: Estella Lou MD, PhD on 04/30/2016 at 17:09 . Assessment & Plan Dawit Hansen is a 70-year-old male who presented to [facility] emergency department via EMS 04/29/2016 for complaints of flu-like symptoms including fever, chills, myalgias, fatigue, cough, vomiting, diarrhea and left- sided abdominal pain 3 days. Hospital day #7. Impression: 1. Acute tubular necrosis secondary to hypotension, pyelonephritis secondary to ESBL, and left hydronephrosis. 2. ESBL bacteremia. 3. Obstructive uropathy with now postobstructive diuresis. 4. Diabetic nephropathy. 5. Hypertension with hypertensive heart disease and hypertensive nephrosclerosis. 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 Recommendations: - Start chlorthalidone 25 mg daily and DDAVP for possible nephrogenic diabetes insipidus. - Placed on a fluid restriction of 2000 mL daily. - Replaced potassium with 40 mEq KCl IV. Checked a magnesium level and would replete if low. - Baseline renal function 0.64. Renal function slowly improving. Avoid nephrotoxic agents. - Continue IV fluids with NS to 50 mL/hr. - SPEP shows upper limit of alpha 2 globulins but is relatively within normal limits. - Hepatitis profile negative. - Antibiotics are currently Ertapenem per ID. . GI Prophylaxis: Not indicated VTE Prophylaxis: Sub-Q Heparin (Unfractionated) Resuscitation Status: CPR: Attempt Resuscitation Attending Statement Nephrology attending: The patient was seen and examined along with the internal medicine resident we have thoroughly discussed the case and our findings and plan are detailed above. With his increased urine output I am concerned that he may have a component of nephrogenic diabetes insipidus. We are adding 25 mg of chlorthalidone once a day and I am would like to give him a dose of 2 g of DDAVP IV twice a day for the next several days to see if this has not affect on his urine output. Norah Chowdhury DO May 05, 2016 08:45 Son Dias DO May 05, 2016 12:05
[2016-05-05 09:00] VITALS: BP 107/67; PULSE 89; RESP 16; O2SAT 96
[2016-05-05] MEDS: Ertapenem Inj 1,000 MG in 0.9% Sodium Chloride 50 ML IV SCH (09:23)
[2016-05-05] MEDS: Insulin LISPRO 300 Unit/3 mL Inj SUBQ SCH ×2 (09:26→12:15)
[2016-05-05] MEDS ORDERED: Magnesium Sulf 2 Gm/50mL Water 2 GM in IV Premix 1 EACH IV ONE ×2 (10:00→12:55)
[2016-05-05 10:23] VITALS: PULSE 85
[2016-05-05] MEDS ORDERED: INSLIS SUBQ (11:35)
[2016-05-05] MEDS ORDERED: ERTA1VIA2 IV (11:36)
--- NOTE | 2016-05-05 11:36 | PCM.DIMED ---
Discharge Instructions Date of Service May 05, 2016 Dates of Hospitalization Apr 29, 2016 at 19:11 Discharge Diagnosis Discharge Diagnosis 1. ESBL Escherichia coli pyelonephritis. 2. Acute kidney injury, improved 3. Diabetes mellitus to, controlled 4. Hypomagnesemia, improved 5. Hypokalemia, improved. 6. Obstructive uropathy secondary to severe cystitis 7. Polydipsia with concern for possible diabetes insipidus. Diet Diabetic Activity No restrictions Call your provider Fever or Chills, Shortness of breath Patient Instructions PCP within 10 days Follow-up plan 1. BMP and magnesium Saturday 05/06 and 05/10. Send to [facility] 2. Appt with Dr Dias renal in 7-10 days, 3. 2000 ml free water, liquid restriction each day 4. Newman catheter DC at the time of discharge.. Check PVR Q shift and call MD if greater than 350. Solomon Kaminski MD May 05, 2016 11:36
[2016-05-05] MEDS ORDERED: HYG25 PO (11:39)
[2016-05-05 11:52] LABS: Mean Corpuscular Hemoglobin 28.8 pg (27.0-35.0); Mean Corpuscular Volume 88.3 fL (81-100)
[2016-05-05 12:05] LABS: Magnesium 1.4 mg/dL (1.6-2.6)
--- NOTE | 2016-05-05 12:25 | NUR ---
Social work note - Discharge MUSEUM SERVICE SCHEDULER met with pt - pt's friend Jovana also in the room. Pt states he is willing to go to SNF - he does not like it, stating that he would prefer to go home but knows he needs more help. Jovana states that she will need home health when he is ready to d/c from [facility] - MUSEUM SERVICE SCHEDULER asked her to follow up with SW at [facility]. MUSEUM SERVICE SCHEDULER spoke with Anu at [facility] - [phone] who will set up cabulance transfer for 1400. Chart copied and faxed, paperwork complete. No other needs identified. MUSEUM SERVICE SCHEDULER updated RN. Plan: To [facility] ([facility] by Cabulance. JESICA Davis
[2016-05-05 12:52] VITALS: BP 119/62; PULSE 79; RESP 17; O2SAT 98
[2016-05-05] MEDS ORDERED: MAGN400T39 PO (12:55)
--- NOTE | 2016-05-05 13:40 | PCM.DC.MED ---
Discharge Summary Date of Service May 05, 2016 Dates of Hospitalization Date of Hospital Admission Apr 29, 2016 at 19:11 Date of Discharge: May 05, 2016 Providers: Admitting Physician: Bora Velazquez MD Primary Care Physician: Nopsahil Attending Physician: Bora Velazquez MD Diagnosis at Time of Discharge Diagnosis at Time of Discharge 1. ESBL Escherichia coli pyelonephritis. 2. Acute kidney injury, improved 3. Diabetes mellitus to, controlled 4. Hypomagnesemia, improved 5. Hypokalemia, improved Consultations Infectious disease, Dr. Tucker Nephrology, Dr. Dias Procedures XRay, CTs & MRIs Chest x-ray unremarkable CT scan of the abdomen indicates severe cystitis with bilateral mild hydronephrosis. Renal ultrasound indicates mild left hydronephrosis and a fairly normal- appearing kidneys. ECG 12 Lead X-RAY CHEST ONE VIEW, PORTABLE IMPRESSION: No acute process. Dictated by: Tara Martin M.D. on 04/29/2016 at 16:26 Approved by: Tara Martin M.D. on 04/29/2016 at 16:26 CT ABDOMEN AND PELVIS WITHOUT CONTRAST IMPRESSION: 1. Findings suggestive of severe cystitis. Recommend correlation with urinalysis. There is associated bilateral ureteral dilatation and hydronephrosis , without evidence of ureteral calcifications. 2. Cholelithiasis. 3. Chronic pancreatitis. 4. Appendix not seen. No evidence of appendicitis. Dictated by: Tara Martin M.D. on 04/29/2016 at 19:14 Approved by: Tara Martin M.D. on 04/29/2016 at 19:16 US RENAL SONOGRAM IMPRESSION: 1. Mild left hydronephrosis. 2. A simple cyst in the inferior pole left kidney. 3. Diffuse urinary bladder wall thickening. Differential diagnoses include cystitis, bladder outlet obstruction and bladder neoplasm. Dictated by: Pepe LEONARD Interpreted: Shantal Adame MD on 04/30/2016 at 13:53 Transcribed by: NILDA on 04/30/2016 at 13:56 Approved by: Shantal Adame M.D. on 05/01/2016 at 8:11 X-RAY KUB IMPRESSION: Normal bowel gas pattern. Dictated by: Pepe LEONARD Interpreted: Estella Lou MD on 04/30/2016 at 16:20 Transcribed by: RACHEL on 04/30/2016 at 16:21 Approved by: Estella Lou MD, PhD on 04/30/2016 at 17:09 . Invasive Procedures None Brief History Patient is a 70 y/o male w/ a hx of HTN, diabetes, presenting to the ED via EMS c/o flu-like symptoms onset 3 days ago. He c/o fever, chills, myalgias, fatigue , cough, vomiting, diarrhea, left-sided abdominal pain. He denies bloody stool, chest pain, hematemesis, SOB. He has a caregiver that comes and sees him occasionally because he is "tired and old". His caregiver has noticed that he has had a decline in general function for the past 2 months. In the ED, initial vitals T 36.5, P 105, RR 23, BP 141/98, 98% on RA. Later with T Labs significant for WBC 14.8 with left shift, sodium 129, Cl 89, BUN 102 , Creatinine 5.43, glucose 192. UA positive for leukocyte esterase, WBC >50. Flu swab negative. CXR negative for any acute processes.CT abd showed severe cystitis with bilateral ureteral dilation and hydronephrosis. Cholelithiasis. Patient started on IV Meropenem, Clindamycin and metronidazole in the ED. Patient was admitted for further treatment and management. Hospital Course Dawit Hansen is a 70-year-old male who presented to [facility] emergency department via EMS 04/29/2016 for complaints of flu-like symptoms including fever, chills, myalgias, fatigue, cough, vomiting, diarrhea and left- sided abdominal pain 3 days. Hospital day #7. Impression: 1. Acute tubular necrosis secondary to hypotension, pyelonephritis secondary to ESBL, and left hydronephrosis. 2. ESBL bacteremia. 3. Obstructive uropathy with now postobstructive diuresis. 4. Diabetic nephropathy. 5. Hypertension with hypertensive heart disease and hypertensive nephrosclerosis. 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 Recommendations: - Start chlorthalidone 25 mg daily and DDAVP for possible nephrogenic diabetes insipidus. - Placed on a fluid restriction of 2000 mL daily. - Replaced potassium with 40 mEq KCl IV. Checked a magnesium level and would replete if low. - Baseline renal function 0.64. Renal function slowly improving. Avoid nephrotoxic agents. - Continue IV fluids with NS to 50 mL/hr. - SPEP shows upper limit of alpha 2 globulins but is relatively within normal limits. - Hepatitis profile negative. - Antibiotics are currently Ertapenem per ID. Hospital course. This patient was initially admitted with symptoms of influenza. He had general malaise. A PCR of the nares is negative for influenza. The patient was found have evidence of AK I possibly ATN. He was initially covered with empiric antibiotics blood cultures and urine culture initially grew out GNR is none there was a concern for CRE. The patient was covered with cholestyramine initially. Ultimately these cultures proved to be Escherichia coli, ESBL producing. The patient was then converted to ertapenem per infectious disease. The patient evidence of acute kidney injury with a baseline creatinine of 0.64. He was fluid resuscitated, there was concern for ATN. Ultimately the creatinine plateaued at just around 2 and then began to improve on the day of discharge at about 1.7. The patient had a Newman placed at the time of admission but there is really no evidence of LL obstruction. CT scan indicated a severe cystitis with secondary bilateral hydronephrosis consistent with a secondary obstructive uropathy. The patient did have some polydipsia which she states is fairly chronic. There was a concern for possible diabetes insipidus. He was placed on chlorthalidone for this possibility and fluid restricted. He also had recurrent hypokalemia and hypomagnesemia which was corrected.. If on the day of discharge it was felt that he be reasonable for discharge to residential facility with close follow-up on electrolytes including potassium and magnesium, close follow-up on urinary output and renal functions. We will continue a 2 L day fluid restriction. We will watch his electrolytes twice a week and try to expedite follow-up with nephrology. His Newman catheter will be taken out as early as no evidence of a bladder obstruction and is thought that the risks of clinical malady outweigh the benefits. . Exam Vital Signs (Last) Date Time Temp Pulse Resp B/P Pulse Ox O2 Delivery O2 Flow Rate FiO2 05/05/16 12:52 36.7 79 17 119/62 98 Nasal Cannula 3.50 Exam Alert oriented, somewhat lethargic Lungs clear normal effort rate. Heart is regular without murmur. Abdomen is soft Extremities are free of edema good pedal pulses Skin is free of rash or lesions Test 04/29/16 15:16 04/29/16 17:20 04/29/16 18:34 04/29/16 22:30 Band Neutrophils % 13% (1-5) Miscellaneous Test See comment Lipase 29U/L (13-60) Urine Color Yellow (YELLOW) Urine Appearance Hazy (CLEAR,HAZY) Urine pH 6.0 (5.0-8.0) Urine Specific Dewey 1.015 (1.003-1.035) Urine Protein 30mg/dL (NEG,TRACE) Urine Glucose (UA) Negativemg/dL (NEGATIVE) Urine Ketones Negativemg/dL (NEGATIVE) Urine Occult Blood Large (NEGATIVE) Urine Nitrite Negative (NEGATIVE) Urine Bilirubin Negative (NEGATIVE) Urine Urobilinogen Normalmg/dL (NORMAL) Urine Leukocyte Esterase Large (NEGATIVE) Urine RBC 3-10/hpf (0-2) Urine WBC >50/hpf (0-5) Urine Epithelial Cells Few/hpf (NONE-MOD) Urine Crystals None seen (NONE SEEN) Urine Bacteria Many/hpf (NONE-FEW) Urine Hyaline Casts None/lpf (NONE) Urine Granular Casts None seen (NONE SEEN) Urine Waxy Casts None seen (NONE SEEN) Urine Red Blood Cell Casts None seen (NONE SEEN) Urine White Blood Cell Casts None seen (NONE SEEN) Urine Mucus None seen (None Seen) Urine Trichomonas None seen (NONE SEEN) Urine Yeast None (NONE SEEN) Urinalysis Comment None Urine Culture Reflexed Indicated Urine Random Creatinine 72mg/dL (22-328) Urine Random Sodium 49mEq/L Urine Urea Nitrogen 315mg/dL (Not Estab.) Hemoglobin A1c 7.8% (4.8-5.6) Lactic Acid Level 1.2mmol/L (0.4-2.0) Test 04/30/16 15:15 04/30/16 21:58 05/01/16 03:20 05/03/16 09:19 Total Creatine Kinase 837U/L (21-232) Hold Urine Received (Received) Uric Acid 7.5mg/dL (2.6-7.2) Globulin (PEP) 3.0g/dL (2.2-3.9) Albumin/Globulin Ratio 0.7 (0.7-1.7) Jrpjm-8-Xrollzuvp 0.4g/dL (0.0-0.4) Pppyk-1-Ozsgijesa 1.1g/dL (0.4-1.0) Beta Globulins 0.8g/dL (0.7-1.3) Gamma Globulins 0.8g/dL (0.4-1.8) Serum Monoclonal Protein Not observedg/dL Protein Electrophoresis Comment Comment (.) Protein Electrophoresis Interpret Comment (.) Hepatitis A IgM Antibody Negative (Negative) Hepatitis B Surface Antigen Negative (Negative) Hepatitis B Core IgM Antibody Negative (Negative) Hepatitis C Antibody <0.1s/co ratio (0.0-0.9) Hepatitis C Comment Comment (.) Neutrophils (%) (Auto) 77.9% (40-74) Lymphocytes (%) (Auto) 11.5% (14-46) Monocytes (%) (Auto) 8.6% (4-12) Eosinophils (%) (Auto) 1.1% (0-5) Basophils (%) (Auto) 0.2% (0-3) Test 05/04/16 03:45 05/05/16 08:13 Phosphorus Level 2.8mg/dL (2.5-4.9) White Blood Count 16.3th/mm3 (3.8-10.1) Red Blood Count 3.68mil/mm3 (4.40-5.80) Hemoglobin 10.6g/dL (13.8-17.2) Hematocrit 32.5% (41.0-50.0) Mean Corpuscular Volume 88.3fL (81-100) Mean Corpuscular Hemoglobin 28.8pg (27.0-35.0) Mean Corpuscular Hemoglobin Concent 32.6% (32.0-37.0) Red Cell Distribution Width 13.7% (12.3-15.4) Platelet Count 219bil/L (150-400) Sodium Level 137mEq/L (134-144) Potassium Level 3.8mEq/L (3.5-5.2) Chloride Level 96mEq/L (97-108) Carbon Dioxide Level 23mmol/L (18-29) Blood Urea Nitrogen 31mg/dL (8-27) Creatinine 1.76mg/dL (0.76-1.27) Estimat Glomerular Filtration Rate 41mL/min (>59) Glucose Level 142mg/dL (60-99) Calcium Level 7.8mg/dL (8.5-10.1) Magnesium Level 1.4mg/dL (1.6-2.6) Total Bilirubin 0.8mg/dL (0.0-1.2) Aspartate Amino Transf (AST/SGOT) 89U/L (0-50) Alanine Aminotransferase (ALT/SGPT) 78U/L (0-44) Alkaline Phosphatase 85U/L (25-160) Total Protein 6.4g/dL (6.4-8.4) Albumin 3.0g/dL (3.4-5.0) Procalcitonin 0.47ng/mL (0.00-0.08) Microbiology Results Influenza screen negative. Blood cultures 2 positive for out of 4 bottles for gram-negative rods preliminarily Escherichia coli. Urine culture positive for ESBL. Respiratory viral PCR negative. MRSA screen negative. Urine eosinophil negative. All cultures of urine and blood ultimately were consistent with ESBL Escherichia coli . Discharge Medications Discharge Medications Acyclovir (Acyclovir) 800 Mg Tab 800 MG PO BID Prescribed by: THEODORA BROWN DO Amlodipine (Amlodipine) 10 Mg Tablet 10 MG PO DAILY (Reported) Atorvastatin Calcium (Atorvastatin Calcium) 20 Mg Tablet 20 MG PO PM (Reported) Bupropion ER (Bupropion ER) 150 Mg Tablet.er 150 MG PO BID (Reported) Chlorthalidone (Chlorthalidone) 25 Mg Tablet 25 MG PO DAILY Prescribed by: SOLOMON MONTALVO MD Doxycycline Hyclate (Vibramycin) 100 Mg Capsule 100 MG PO BID Prescribed by: THEODORA BROWN DO Ertapenem Sodium (Invanz) 1 Gm Vial.port 1 GM IV DAILY Prescribed by: SOLOMON MONTALVO MD Insulin Human Lispro (HumaLOG U100 Insulin Vial) 100 Unit/Ml Unit 5 UNIT SUBQ TIDAC Check blood sugars before meals and at bedtime. Use correction factor only before meals. Blood Sugar Lispro Correction: <151, 0 units; 151-175, 1 unit; 176-200, 2 units; 201-225, 3 units; 226-250, 4 units; 251-275, 5 units; 276-300 , 6 units; 301-325, 7 units; 326-350, 8 units; 351-375, 9 units; 376-400, 10 units; >400, 12 units. Prescribed by: SOLOMON MONTALVO MD Magnesium Oxide (Magnesium) 400 Mg Tablet 400 MG PO DAILY Prescribed by: SOLOMON MONTALVO MD Followup Plan [facility] Follow-up plan 1. [facility] and magnesium [facility]06 [facility]. Appt with Dr Dias renal in 7-10 days, 3. 2000 ml free water, liquid restriction each day 4. Newman catheter out in 5 days, 05/10. Check PVR Q shift and call MD if greater than 350. Discharge Diet: Diabetic Discharge Activity: No restrictions Patient Instructions PCP within 10 days Time spent 60 minutes Solomon Montalvo MD May 05, 2016 13:40
--- NOTE | 2016-05-05 14:37 | NUR ---
Discharge Pt. discharged to [facility] with belongings and informational packet. Pt. was taken in wheelchair to transport vehicle, Pt. did not c/o pain, SOB, or CP. Two pairs of glasses and tablet was sent with Pt. in plastic bag. IV in left wrist was left in place for continual medication treatment. Trent was DC'D at `1330. Transfer report done with
== END 2016-05-05 14:30 | DRG 871 ==
LOC: EDBD 14:59 → SED 14:59 → PCC 19:11
PROVIDERS: ADMIT Internal Medicine; ATTEND Internal Medicine
PROC: 4A033R1 Measurement of Arterial Saturation, Peripheral, Percutaneous Approach (ICD-10-PCS; principal; 2016-04-29)
DX: A41.51 Sepsis due to Escherichia coli [E. coli] (principal); N17.0 Acute kidney failure with tubular necrosis; N13.30 Unspecified hydronephrosis; E87.1 Hypo-osmolality and hyponatremia; E87.2 Acidosis; K86.1 Other chronic pancreatitis; K56.7 Ileus, unspecified; N10 Acute pyelonephritis; N30.00 Acute cystitis without hematuria; L97.829 Non-pressure chronic ulcer of other part of left lower leg with unspecified severity; L97.819 Non-pressure chronic ulcer of other part of right lower leg with unspecified severity; B96.20 Unspecified Escherichia coli [E. coli] as the cause of diseases classified elsewhere; I13.10 Hypertensive heart and chronic kidney disease without heart failure, with stage 1 through stage 4 chronic kidney disease, or unspecified chronic kidney disease; E11.21 Type 2 diabetes mellitus with diabetic nephropathy; F32.9 Major depressive disorder, single episode, unspecified; F17.200 Nicotine dependence, unspecified, uncomplicated; E11.40 Type 2 diabetes mellitus with diabetic neuropathy, unspecified; B96.29 Other Escherichia coli [E. coli] as the cause of diseases classified elsewhere; Z16.11 Resistance to penicillins; Z16.19 Resistance to other specified beta lactam antibiotics; Z16.23 Resistance to quinolones and fluoroquinolones; N18.9 Chronic kidney disease, unspecified; E83.42 Hypomagnesemia; Z79.84 Long term (current) use of oral hypoglycemic drugs; Z87.898 Personal history of other specified conditions

== ENCOUNTER 2016-05-11 19:35 | Inpatient (IN) | payer MEDICARE, MEDICAID ==
[~2016-05-11] VITALS: Ht 182.9 cm; Wt 78.2 kg
[~2016-05-11 19:35] MED LIST changes: +ERTA1VIA2 IV; +HYG25 PO; +INSLIS SUBQ; +MAGN400T39 PO; -METF1000 PO; -MUPI22OI2 TOPICAL
[2016-05-11 19:40] VITALS: BP 114/57; PULSE 75; RESP 18; O2SAT 100
--- NOTE | 2016-05-11 20:09 | ED.REPORT ---
HPI-Abd Pain M 40 and Over Date of Service May 11, 2016 ED Provider: Navneet Gregory MD 70 y/o male with a history of ESBL Escherichia coli pyelonephritis, hypertension , diabetes mellitus type II, presents to ED via EMS from [facility] complaining of fatigue. He also reports vague diffuse generalized pain. He denies any fever , SOB, cough, dysuria, abdominal pain, vomiting, diarrhea, rash, or swelling. He reports no falls since he has been out of the hospital and states that his left leg swells up occasionally. Per [facility] report, they attempted to place a Newman catheter 4 times without success. They have noticed confusion and speech changes as well. They also noted a bump in his creatinine to >5.0. Nursing Notes Stated Complaint: UTI, WORSENING KIDNEY FUNCTION Chief Complaint: General Complaint Nursing Notes Reviewed: Yes Allergies: Coded Allergies: No Known Allergies (Unverified , 05/11/16) Scheduled Acyclovir (Acyclovir) 800 Mg Tab 800 MG PO BID Amlodipine (Amlodipine) 10 Mg Tablet 10 MG PO DAILY Atorvastatin Calcium (Atorvastatin Calcium) 20 Mg Tablet 20 MG PO PM Bupropion ER (Bupropion ER) 150 Mg Tablet.er 150 MG PO BID Chlorthalidone (Chlorthalidone) 25 Mg Tablet 25 MG PO DAILY Doxycycline Hyclate (Vibramycin) 100 Mg Capsule 100 MG PO BID Ertapenem Sodium (Invanz) 1 Gm Vial.port 1 GM IV DAILY Insulin Human Lispro (HumaLOG U100 Insulin Vial) 100 Unit/Ml Unit 5 UNIT SUBQ TIDAC Check blood sugars before meals and at bedtime. Use correction factor only before meals. Blood Sugar Lispro Correction: <151, 0 units; 151-175, 1 unit; 176-200, 2 units; 201-225, 3 units; 226-250, 4 units; 251-275, 5 units; 276-300 , 6 units; 301-325, 7 units; 326-350, 8 units; 351-375, 9 units; 376-400, 10 units; >400, 12 units. Magnesium Oxide (Magnesium) 400 Mg Tablet 400 MG PO DAILY General Time Seen by MD: 19:59 Chief Complaint Other (Fatigue) Hx Obtained From: Patient, EMS Arrived By: Ambulance Sudden in Onset?: No Onset Occurred: 5 - 8 hours ago Symptom Duration: Since onset Progression since Onset: Unchanged Severity: Current: Mild (vague diffuse) Severity: Maximum: Mild Recent Healthcare: Recent doctor visit, Recent hospitalization, Recent testing , Previous diagnosis, Prior workup Similar Sx Previous: No Past Medical History Past Medical History ESBL E. coli pyelonephritis Hypertension Diabetes Depression Past Surgical History Neck Smoking History Never Smoker Social History Alcohol Use: "Social" Drug Use: Meth, THC Other Social History: Lives in [facility] Ambulatory Status Independent Review of Systems Constitutional: Reports: Fatigue, Denies: Fever Respiratory: Denies: Non-productive cough, Shortness of breath GI: Denies: Abdominal pain, Diarrhea, Vomiting Male: Denies Dysuria Complete sys rev & neg: except as marked. Skin: Denies Rash, Denies Swelling Neurologic: Reports: Confusion, Slurred speech Physical Exam Initial Vital Signs Vital Signs (First) Date Time Temp Pulse Resp B/P Pulse Ox O2 Delivery O2 Flow Rate FiO2 05/11/16 19:40 36.3 75 18 114/57 100 Room Air Initial VS: Reviewed Skin: Warm, Dry, No cyanosis General/Constitutional: Awake Fatigued and globally weak Pt opens eyes when he tries to aswer questions. He complains of weakness but nothing else. He cannot articulate what brought him to the ED. Respiratory / Chest: Atraumatic, Breath sounds NL, Breath sounds = bilat, No respiratory distress, No rales, No rhonchi, No wheezing, No retractions, No stridor, No chest tenderness, No chest wall deformity, No crepitus Cardiovascular: Heart rate NL, Regular rhythm, Heart sounds NL, No gallop, No murmurs, No rubs Abdomen: Atraumatic, Soft, Non-tender, No guarding, No rebound Back: Full range of motion Head / Eyes: Atraumatic, Normocephalic Conjunctiva / Sclera: Positive: Pallor Neurologic: No sensory deficits No focal deficit. Symmetric smile. Can lift either leg off the bed 3 inches with struggle. His speech is very difficult to interpret but when he really focuses, his speech is interpretable. Lower Extremity / Pelvis / MS: Atraumatic, No deformity, Vascular intact, No compartment syndrome Edema present on both legs, left being slightly larger than right. Interpretation & Diagnostics Lab Results Interpretation Result Diagram: 05/11/16 2100 05/11/16 2100 Test 05/11/16 21:00 05/11/16 22:09 White Blood Count 10.6th/mm3 (3.8-10.1) Red Blood Count 2.80mil/mm3 (4.40-5.80) Hemoglobin 8.2g/dL (13.8-17.2) Hematocrit 25.2% (41.0-50.0) Mean Corpuscular Volume 90.0fL (81-100) Mean Corpuscular Hemoglobin 29.3pg (27.0-35.0) Mean Corpuscular Hemoglobin Concent 32.5% (32.0-37.0) Red Cell Distribution Width 13.5% (12.3-15.4) Platelet Count 292bil/L (150-400) Neutrophils (%) (Auto) 75.8% (40-74) Lymphocytes (%) (Auto) 11.7% (14-46) Monocytes (%) (Auto) 11.6% (4-12) Eosinophils (%) (Auto) 0.5% (0-5) Basophils (%) (Auto) 0.2% (0-3) Sodium Level 136mEq/L (134-144) Potassium Level 4.4mEq/L (3.5-5.2) Chloride Level 95mEq/L (97-108) Carbon Dioxide Level 22mmol/L (18-29) Blood Urea Nitrogen 88mg/dL (8-27) Creatinine 4.35mg/dL (0.76-1.27) Estimat Glomerular Filtration Rate 14mL/min (>59) Glucose Level 167mg/dL (60-99) Lactic Acid Level 1.2mmol/L (0.4-2.0) Calcium Level 8.3mg/dL (8.5-10.1) Total Bilirubin 0.4mg/dL (0.0-1.2) Aspartate Amino Transf (AST/SGOT) 20U/L (0-50) Alanine Aminotransferase (ALT/SGPT) 23U/L (0-44) Alkaline Phosphatase 83U/L (25-160) Total Protein 6.8g/dL (6.4-8.4) Albumin 3.3g/dL (3.4-5.0) Urine Color Straw (YELLOW) Urine Appearance Clear (CLEAR,HAZY) Urine pH 5.5 (5.0-8.0) Urine Specific [place] 1.015 (1.003-1.035) Urine Protein Negativemg/dL (NEG,TRACE) Urine Glucose (UA) Negativemg/dL (NEGATIVE) Urine Ketones Negativemg/dL (NEGATIVE) Urine Occult Blood Moderate (NEGATIVE) Urine Nitrite Negative (NEGATIVE) Urine Bilirubin Negative (NEGATIVE) Urine Urobilinogen Normalmg/dL (NORMAL) Urine Leukocyte Esterase Trace (NEGATIVE) Urine RBC 3-10/hpf (0-2) Urine WBC 0-5/hpf (0-5) Urine Epithelial Cells Occasional/hpf (NONE-MOD) Urine Crystals None seen (NONE SEEN) Urine Bacteria Few/hpf (NONE-FEW) Urine Hyaline Casts None/lpf (NONE) Urine Granular Casts None seen (NONE SEEN) Urine Waxy Casts None seen (NONE SEEN) Urine Red Blood Cell Casts None seen (NONE SEEN) Urine White Blood Cell Casts None seen (NONE SEEN) Urine Mucus None seen (None Seen) Urine Trichomonas None seen (NONE SEEN) Urine Yeast None (NONE SEEN) Urinalysis Comment None Urine Culture Reflexed Indicated Lab Results Interpretation: CBC leukocytosis is improved, anemia significant-and represents a significant decline from May 05, but is a value that is unchanged from May 01 CMP, acute renal failure X-Ray Chest Interpretation Chest Xray Interpretation: IMPRESSION: Diffuse scarring and blunted appearance of the left costophrenic angle however unchanged appearance since 04/29/16. No new consolidation Dictated by: Aaron Garcia M.D. on 05/11/2016 at 21:02 Approved by: Aaron Garcia M.D. on 05/11/2016 at 21:03 View: Portable, 1 view Interpretation / Wet Read by: Interpret - Radiologist CT Head Interpretation IMPRESSION: No acute intracranial process Dictated by: Aaron Garcia M.D. on 05/11/2016 at 20:51 Approved by: Aaron Garcia M.D. on 05/11/2016 at 20:53 Study: Head CT no contrast Interpretation / Wet Read by: Interpret - Radiologist US Focused Lower Ext Venous Exam Performed by: Allied health pract Exam Interpreted by: Allied health pract Indication: Leg swelling left Interpretation: No evid deep vein thromb Re-Eval/Medical Decision Med Decision/Clinical Course This is a 70-year-old male who was recently admitted ESBL E Coli pyelonephritis and bacteremia along with acute obstructive uropathy leading to acute renal failure who was discharged to a care home facility on May 05 with a PICC line and CONTINUED IV ANTIBIOTICS WITH MEROPENEM. The patient today according to the written notes and sentiment from [facility] had outpatient labs revealed a climbing creatinine, and is concern for recurrent neuropathy as his Newman. Removed prior to discharge. However attempt 4 were unsuccessful at Newman catheter placement admit history, so sent to the ED. On arrival to ED, the patient is also noted to be somewhat altered, his speech is quite abnormal and difficult to understand, although when pressed he can make his speech clear. However the time of onset and last known normal unknown. Hospital records there is some periods dimensions of description of confusion, but nonobstructive description of difficulties with expressive aphasia and slurring of his speech. I contacted the [facility], however shift transfer had occurred and I was not able to talk to a provider who knew the recent course of the patient-although the provider indicated that according to their recollection several days ago the patient's speech was normal. he does not have any visible signs of trauma, does not have focal deficits on exam but is globally weak, and can lift both legs up off the gurney for only a few inches with mild drift, but it is symmetric without focal motor deficit. Patient also appears clinically profoundly fatigued and mildly ill. Patient is not a candidate for TPA, as the diagnosis is unclear if it is related to stroke and the timeline's are totally unclear. Further more the patient has multiple complications/comorbitieis and a clinical prsentation suggesting it is likely not a stroke, and more likely to be alternate metabolic or infectious pathology causing his altered mental status and potentially speech findings. CT head was obtained and was normal. Blood work read demonstrated anemia, the same levels as May 01, and new worsening renal failure with a recurrence of a creatinine bump, with an elevated BM-such that uremia is in the differential as well. The patient did indeed found to have obstructive uropathy with a coudet Newman placed in the department and draining 1100 mL of urine. (Note I contacted urology prior to attempting Newman placement, given the history of failed placement attempts at the care home facility, the verified urology was okay with our attempting in the [facility], and they did approve our attempted placement.) Repeat cultures were drawn given the recent Escherichia coli bacteremia, the patient was maintained with isolation precautions given the ESBL status. The patient is being hydrated, received a liter fluids, was giving a second liter 250 mL per hour for that second liter. The case is been discussed with urology. Urology as indicated that at this time they do not see signs for need for the initial consultation request, as they would simply recommend Flomax and Newman catheter with outpatient follow them-but they have indicated that if the hospitalist team wants urology to see the patient to have them call urology directly. This seems reasonable, and certainly there is no need for emergent urology intervention tonight. Nephrology was consulted again, they followed the patient previously. They will continue to follow. Additionally the patient had some swelling of his lower extremities, left greater than right duplex ultrasound given his recent immobilized status was obtained and was negative for DVT bilaterally. Patient maintained nothing by mouth. A speech evaluation will be indicated. Source of Hx: Old records, EMS Time of Eval: 22:20 Re-Evaluation/Progress Note: Pt rechecked. Informed pt of need for admission. Pt understands and agrees with plan for admission. All questions addressed. Consultation #1: Referral / Consult Name: Carla Bermudez MD Consulted With: Urology Call Returned at: 20:49 Manager Managed Care: Agrees with eval, Agrees with plan Consultation #2: Call Returned at: 21:09 Note: Discussed case with [facility]. To their knowledge patient speech and confusion is new or worse. Consultation #3: Referral / Consult Name: Francisco Benoit MD Consulted With: Hospitalist Call Returned at: 22:11 Manager Managed Care: Will see patient, Agrees with eval, Agrees with plan, Accepts admit Consultation #4: Referral / Consult Name: Carla Bermudez MD Consulted With: Urology Call Returned at: 22:21 Manager Managed Care: Agrees with eval, Agrees with plan Note: She says, "I'm willing to consult but all we're going to do is say keep the Newman in and add Flomax and have pt follow up after discharge. If hospitalist want consult, they should ask Consultation #5: Referral / Consult Name: Jose G Diana MD Consulted With: Nephrology Call Returned at: 22:26 Manager Managed Care: Will see patient, Agrees with eval, Agrees with plan Differential Diagnosis: Negative: Abdominal aortic aneurysm, Angina / [place], Dyspepsia, Esophageal rupture, Pancreatitis, Stab wound abdomen, Trauma, abdominal Counseled Regarding: Diagnosis, Lab results, Need for admission Discharge & Departure Primary Impression: Acute renal failure Acute renal failure type: unspecified Qualified Code: N17.9 - Acute kidney failure, unspecified Additional Impressions: Altered mental status Altered mental status type: unspecified Qualified Code: R41.82 - Altered mental status, unspecified Complication of Newman catheter Encounter type: initial encounter Qualified Code: T83.9XXA - Unspecified complication of genitourinary prosthetic device, implant and graft, initial encounter Anemia Anemia type: unspecified type Qualified Code: D64.9 - Anemia, unspecified Pyelonephritis Acute urinary retention Expressive aphasia Obstructive uropathy History of infection due to ESBL Escherichia coli Disposition: ADMITTED TO HOSPITAL Vital Signs - All Vital Signs Date Time Temp Pulse Resp B/P Pulse Ox O2 Delivery O2 Flow Rate FiO2 05/11/16 19:40 36.3 75 18 114/57 100 Room Air )( All Prior VS Reviewed: Yes Condition: Stable Referrals: NOPCP (PCP) Crit Care Except Billable Proc Time Spent: 30-74 minutes Services Performed: Patient management by me, Time spent at bedside, Reviewing test results, Reviewing imaging, Discussing patient care, Documentation in record Scribe Attestation Portions of this note were transcribed by Ernesto Bradley. I, Dr. Gregory personally performed the history, physical exam and medical decision -making; I reviewed and confirmed the accuracy of the information in the transcribed note. Signed by: Errol James, 05/11/2016 and Navneet Gregory MD May 11, 2016 20:09 Ernesto Galvan May 11, 2016 20:25 SOLO BRADLEY May 11, 2016 20:56
[2016-05-11] MEDS ORDERED: Lidocaine 2% 5 mL Urojet Topical Jelly Syringe MUC_MEMBRM ONE (20:50)
--- NOTE | 2016-05-11 20:55 | DRSVH ---
PROCEDURE: CT BRAIN WITHOUT CONTRAST ([id number]) INDICATIONS: altered LOC TECHNIQUE: Noncontrast 4.5 mm thick angled axial sections acquired from the foramen magnum to the vertex, with c oronal reformats. COMPARISON: [facility], CT, CT BRAIN WO CON, 01/17/2016, 20:23. FINDINGS: Image quality: Excellent. CSF spaces: Basal cisterns are patent. No extra-axial fluid collections. The ventricles are symmet sonya in size and shape. Brain: No intracranial bleeds or masses. There is cerebral volume loss for age, with resultant vent ricular and sulcal prominence. There are periventricular and deep white matter chronic small vessel ischemic changes. There is intracranial internal carotid artery atherosclerosis. Skull and face: Calvarium and visualized facial bones appear intact, without suspicious lesions. Po ssible subcutaneous stranding involving the left posterior neck and base of skull however the appeara nce is grossly unchanged since 01/17/16. Recommend clinical correlation Sinuses: Visualized sinuses and mastoids are clear. IMPRESSION: No acute intracranial process Dictated by: Aaron Garcia M.D. on 05/11/2016 at 20:51 Approved by: Aaron Garcia M.D. on 05/11/2016 at 20:53
--- NOTE | 2016-05-11 21:05 | DRSVH ---
PROCEDURE: X-RAY CHEST ONE VIEW, PORTABLE ([id number]) INDICATIONS: recent bacteremia, now altered ro pneumonia TECHNIQUE: One view of the chest was acquired. COMPARISON: [facility], CR, XR CHEST 1VW (PORTABLE), 04/29/2016, 16:00. FINDINGS: Surgical changes and devices: None. Lungs and pleura: No pleural effusions or pneumothorax. Lungs are clear. Blunting of the left costo phrenic angle however this is unchanged. There is diffuse scarring/atelectasis Mediastinum: Mediastinal contours appear normal. Heart size is normal. Bones and chest wall: No suspicious bony lesions. Overlying soft tissues appear unremarkable. IMPRESSION: Diffuse scarring and blunted appearance of the left costophrenic angle however unchanged appearance since 04/29/16. No new consolidation Dictated by: Aaron Garcia M.D. on 05/11/2016 at 21:02 Approved by: Aaron Garcia M.D. on 05/11/2016 at 21:03
[2016-05-11 21:12] LABS: BASOPHILS % (AUTO) 0.2 % (0-3); EOSINOPHILS % (AUTO) 0.5 % (0-5); MONOCYTES % (AUTO) 11.6 % (4-12); Mean Corpuscular Hemoglobin 29.3 pg (27.0-35.0); NEUTROPHILS % (AUTO) 75.8 % (40-74); Platelet Count 292 bil/L (150-400)
[2016-05-11] MEDS ORDERED: Lidocaine 2% 6mL Topical Jelly ONE (21:49)
[2016-05-11] MEDS ORDERED: Ondansetron 2 mg/mL 2 mL Inj IVPUSH PRN (22:15)
[2016-05-11] MEDS ORDERED: Polyethylene Glycol (PEG) 17 Gm Powder PO PRN (22:15)
[2016-05-11] MEDS ORDERED: Alum-Mag Hydrox-Simeth 30 mL Suspension PO PRN (22:15)
[2016-05-11 22:18] LABS: APPEARANCE,URINE CLEAR (CLEAR,HAZY); COLOR,URINE STRAW (YELLOW); OCCULT BLOOD,URINE MODERATE (NEGATIVE); PH,URINE 5.5 (5.0-8.0); UROBILINOGEN,URINE NORMAL (NORMAL)
[2016-05-11] MEDS ORDERED: Glucose 40% Oral Gel 15 Gm Tube PO PRN (23:00)
[2016-05-11] MEDS ORDERED: 0.9% Sodium Chloride 1,000 ML IV ONE (23:10)
[2016-05-11] MEDS: 0.9% Sodium Chloride 1,000 ML IV SCH (23:25)
[2016-05-11 23:42] VITALS: BP 119/64; PULSE 81; RESP 20; O2SAT 98
[2016-05-11 23:55] VITALS: BP 120/80; PULSE 81; RESP 18; O2SAT 98
[2016-05-12] VITALS (8 sets, daily range): BP systolic 113–131; BP diastolic 51–72; PULSE 74–84; RESP 16–22; O2SAT 97–100
--- NOTE | 2016-05-12 00:21 | PCM.HPMED ---
Subjective Date of Service May 11, 2016 Primary Provider: Admitting Physician: Primary Care Physician: César Attending Physician: Admit Status: From the Emergency Department, Full Admit Chief Complaint: Weakness with worsening renal failure History of Present Illness: Dawit Hansen is a 70 yo male with ESBL Escherichia coli pyelonephritis, hypertension, diabetes mellitus type II, presents to [facility] emergency department via EMS from [facility] complaining of fatigue. For the last few days patient has been complaining of vague diffuse generalized pain. Denies any fever, dyspnea, cough, dysuria, abdominal pain, vomiting, diarrhea, rash, or swelling. He was noted to be confused and poor historian Per [facility]'s report, they attempted to place a Reyes catheter 4 times without success. They also noted a bump in his creatinine to >5.0. It is unclear if the patient was exposed to a nephrotoxic medication at [facility] Patient was on Ertapenem Iv till May 11 for treatment of ESBL E coli pyelonephritis. He also had renal issues during last hospitalization that resolved by the time of discharge. Case discussed with Dr Gregory, reyes placed with significant amount of urine output. Patient noted to be confused with some speech delay noted in the department. CT head negative. Review of Systems: unable to be obtained due to confusion Allergies Coded Allergies: No Known Allergies (Unverified , 05/11/16) Home Medications From Discharge Summary Acyclovir (Acyclovir) 800 Mg Tab 800 MG PO BID Prescribed by: THEODORA BROWN DO Amlodipine (Amlodipine) 10 Mg Tablet 10 MG PO DAILY (Reported) Atorvastatin Calcium (Atorvastatin Calcium) 20 Mg Tablet 20 MG PO PM (Reported) Bupropion ER (Bupropion ER) 150 Mg Tablet.er 150 MG PO BID (Reported) Chlorthalidone (Chlorthalidone) 25 Mg Tablet 25 MG PO DAILY Prescribed by: ALEKSANDER MONTALVO MD Doxycycline Hyclate (Vibramycin) 100 Mg Capsule 100 MG PO BID Prescribed by: THEODORA BROWN DO Ertapenem Sodium (Invanz) 1 Gm Vial.port 1 GM IV DAILY Prescribed by: ALEKSANDER MONTALVO MD Insulin Human Lispro (HumaLOG U100 Insulin Vial) 100 Unit/Ml Unit 5 UNIT SUBQ TIDAC Check blood sugars before meals and at bedtime. Use correction factor only before meals. Blood Sugar Lispro Correction: <151, 0 units; 151-175, 1 unit; 176-200, 2 units; 201-225, 3 units; 226-250, 4 units; 251-275, 5 units; 276-300 , 6 units; 301-325, 7 units; 326-350, 8 units; 351-375, 9 units; 376-400, 10 units; >400, 12 units. Prescribed by: ALEKSANDER MONTALVO MD Magnesium Oxide (Magnesium) 400 Mg Tablet 400 MG PO DAILY Prescribed by: ALEKSANDER MONTALVO MD [facility] Hypertension Diabetes Depression Asthma COPD Cancer Coronary artery disease Stroke . Surgical History None reported Family History No of significance Social History Hx Alcohol Use: Yes (does not quantify) Hx Substance Use: Yes (meth, THC) Hx Tobacco Use: No Smoking Status: Never Smoker Living Arrangement: Care Home Facility ([facility]) Exam Vital Signs Vital Sign - Last Date Time Temp Pulse Resp B/P Pulse Ox O2 Delivery O2 Flow Rate FiO2 05/11/16 19:40 36.3 75 18 114/57 100 Room Air Exam General: Alert, Oriented X3, Cooperative, No acute Distress Eyes: PERRLA, Scleral Anicteric Mouth: Mouth Normal, Mucous Membranes Moist/[place] Neck: Supple, no Thyromegaly, trachea central. Chest & Lungs: Clear to auscultation & percussion, No adventitious breath sounds, no crackles, no wheeze Cardiovascular: Normal S1, Normal S2, No Murmurs/Rubs/Gallops, Regular Rate/ Rhythm, (No JVD, no peripheral edema) Pulses: Radial (present and equal), Dorsalis Pedi (present and equal) Abdomen: Soft, Non-tender, Non-distended, Normoactive bowel tones. Musculoskeletal: Unremarkable. Normal range of motion, no swollen or erythematous joints Extremities: No edema, no cyanosis, no clubbing. Skin: No rashes. Warm and dry, no erythematous areas Neurological: Grossly neurologically intact, has generalized weakness, Normal Speech, Sensation Intact Lymphatic: Lymph nodes Cervical and Axillary not palpable. Lab and Diagnostics Labs Laboratory Tests Test 05/11/16 21:00 05/11/16 22:09 White Blood Count 10.6th/mm3 (3.8-10.1) Red Blood Count 2.80mil/mm3 (4.40-5.80) Hemoglobin 8.2g/dL (13.8-17.2) Hematocrit 25.2% (41.0-50.0) Mean Corpuscular Volume 90.0fL (81-100) Mean Corpuscular Hemoglobin 29.3pg (27.0-35.0) Mean Corpuscular Hemoglobin Concent 32.5% (32.0-37.0) Red Cell Distribution Width 13.5% (12.3-15.4) Platelet Count 292bil/L (150-400) Neutrophils (%) (Auto) 75.8% (40-74) Lymphocytes (%) (Auto) 11.7% (14-46) Monocytes (%) (Auto) 11.6% (4-12) Eosinophils (%) (Auto) 0.5% (0-5) Basophils (%) (Auto) 0.2% (0-3) Sodium Level 136mEq/L (134-144) Potassium Level 4.4mEq/L (3.5-5.2) Chloride Level 95mEq/L (97-108) Carbon Dioxide Level 22mmol/L (18-29) Blood Urea Nitrogen 88mg/dL (8-27) Creatinine 4.35mg/dL (0.76-1.27) Estimat Glomerular Filtration Rate 14mL/min (>59) Glucose Level 167mg/dL (60-99) Lactic Acid Level 1.2mmol/L (0.4-2.0) Calcium Level 8.3mg/dL (8.5-10.1) Total Bilirubin 0.4mg/dL (0.0-1.2) Aspartate Amino Transf (AST/SGOT) 20U/L (0-50) Alanine Aminotransferase (ALT/SGPT) 23U/L (0-44) Alkaline Phosphatase 83U/L (25-160) Total Protein 6.8g/dL (6.4-8.4) Albumin 3.3g/dL (3.4-5.0) Urine Color Straw (YELLOW) Urine Appearance Clear (CLEAR,HAZY) Urine pH 5.5 (5.0-8.0) Urine Specific [place] 1.015 (1.003-1.035) Urine Protein Negativemg/dL (NEG,TRACE) Urine Glucose (UA) Negativemg/dL (NEGATIVE) Urine Ketones Negativemg/dL (NEGATIVE) Urine Occult Blood Moderate (NEGATIVE) Urine Nitrite Negative (NEGATIVE) Urine Bilirubin Negative (NEGATIVE) Urine Urobilinogen Normalmg/dL (NORMAL) Urine Leukocyte Esterase Trace (NEGATIVE) Result Diagram: 05/11/16209905/11/162099 X-Rays, CTs and MRIs X-RAY CHEST ONE VIEW, PORTABLE 05/11 IMPRESSION: Diffuse scarring and blunted appearance of the left costophrenic angle however unchanged appearance since 04/29/16. No new consolidation Dictated by: Aaron Garcia M.D. on 05/11/2016 at 21:02 Approved by: Aaron Garcia M.D. on 05/11/2016 at 21:03 CT BRAIN WITHOUT CONTRAST 05/11 IMPRESSION: No acute intracranial process Dictated by: Aaron Garcia M.D. on 05/11/2016 at 20:51 Approved by: Aaron Garcia M.D. on 05/11/2016 at 20:53 Assessment & Plan Dawit Hansen is a 70 yo male with ESBL Escherichia coli pyelonephritis, hypertension, diabetes mellitus type II, presents to [facility] emergency department via EMS from [facility] complaining of fatigue and found to have renal failure again 1. Acute Kidney Injury. Present on admission Possible bladder outlet obstruction was discussed during last hospitalization. Patient also had recent renal injury possible related to Acute tubular necrosis and chronic diabetic nephropathy. - continue Reyes catheter - IV fluids resuscitations - Urology and Nephrology was consulted 2. Acute Encephalopathy. 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 Differential diagnosis includes Stroke (no focal neurological deficit) - avoid psychoactive medications - high risk for delirium - treat underlying cause 3. Recent ESBL Pyelonephritis. under therapy, improving Dr. Tucker was following - today was the last course for Ertapenem - new urinalysis to follow up 4. Diabetes mellitus type 2 Previously on Metformin but was appropriately discontinued due to renal issues - low correctional Lispro protocol 5. Hypertension presumed stable - continue Amlodipine - Acetaminophen as needed for mild pain/fever/headache - Bowel regimen as needed - Antiemetic as needed Patient admitted under inpatient status with expected length of stay > 2 midnights for severity of present symptoms, complexities of treatment plan and risk for adverse event . Resuscitation Status: CPR: Attempt Resuscitation Francisco Benoit MD May 11, 2016 22:29
[2016-05-12] MEDS: 0.9% Sodium Chloride 1,000 ML IV SCH ×6 (02:40→20:33)
--- NOTE | 2016-05-12 03:25 | NUR ---
Admit Patient admitted to [facility] 2001 from the ED at 2340. Patient alert, restless, oriented to self and location. Oriented to room, bed, call light. Patient verbalizes understanding of all instructions. Continue to monitor.
[2016-05-12 03:46] LABS: BASOPHILS % (AUTO) 0.3 % (0-3); EOSINOPHILS % (AUTO) 0.4 % (0-5); MONOCYTES % (AUTO) 8.1 % (4-12); Mean Corpuscular Hemoglobin 29.3 pg (27.0-35.0); Mean Corpuscular Volume 89.2 fL (81-100); NEUTROPHILS % (AUTO) 76.3 % (40-74); Platelet Count 282 bil/L (150-400)
--- NOTE | 2016-05-12 07:56 | DRSVH ---
PROCEDURE: US VENOUS LEG DUPLEX BILATERAL INDICATIONS: L>R leg swelling in immobilized pt ro DVT TECHNIQUE: Real-time imaging, as well as color and pulse Doppler interrogation, were performed of the deep veins of both legs from the inguinal ligament to the popliteal fossa. COMPARISON: None. FINDINGS: The deep veins are normally compressible, and free of intraluminal thrombus. Color and pu lse Doppler demonstrate normal phasic intravascular flow. There is normal augmentation response to d istal compression maneuver. IMPRESSION: No DVT of the bilateral lower extremities. Dictated by: Mirlande Thompson M.D. on 05/12/2016 at 7:53 Approved by: Mirlande Thompson M.D. on 05/12/2016 at 7:54
--- NOTE | 2016-05-12 08:06 | NUR ---
Social Work: Initial Assessment Attempt: Data& Assessment: EMR reviewed. Patient is a 70 y/o male who admitted on 05/11/2016 for Acute Renal Failure. SW attempted to complete initial assessment with patient, but the patient was unable to answer the questions. SW attempted to call MARIBEL Myers at the following numbers [phone], and [phone], but there was no answer. SW left a message with her name and number requesting a call back. Pt has Medicare for insurance coverage and no MD listed for primary care. Pt is a resident at [facility]. SW will attempt to complete assessment tomorrow. SW to continue to follow if any needs arise. Plan: Anticipated discharge back to [facility] when medically ready. SW to continue to follow and attempt to contact family. Edelmira Marc, FLO, ACM
[2016-05-12] MEDS: Insulin LISPRO 300 Unit/3 mL Inj SUBQ SCH ×4 (08:40→22:00)
--- NOTE | 2016-05-12 10:26 | NUR ---
Evaluation completed. Please go to "Notes" then click on "Assessments and Notes" (bottom left corner of screen). Then select appropriate discipline tab on top of screen.
[2016-05-12 13:33] LABS: Magnesium 1.8 mg/dL (1.6-2.6); Phosphorus 6.6 mg/dL (2.5-4.9)
--- NOTE | 2016-05-12 13:53 | PCM.PNMED ---
Subjective Date of Service May 12, 2016 Subjective Dawit Hansen is a 70 yo male with ESBL Escherichia coli pyelonephritis, hypertension, diabetes mellitus type II, presents to [facility] emergency department via EMS from [facility] complaining of fatigue. For the last few days patient has been complaining of vague diffuse generalized pain. Denies any fever, dyspnea, cough, dysuria, abdominal pain, vomiting, diarrhea, rash, or swelling. He was noted to be confused and poor historian Per [facility]'s report, they attempted to place a Reyes catheter 4 times without success. They also noted a bump in his creatinine to >5.0. It is unclear if the patient was exposed to a nephrotoxic medication at [facility] Patient was on Ertapenem Iv till May 11 for treatment of ESBL E coli pyelonephritis. He also had renal issues during last hospitalization that resolved by the time of discharge. Case discussed with Dr Gregory, reyes placed with significant amount of urine output. Patient noted to be confused with some speech delay noted in the department. CT head negative. Of note, patient was placed on doxycycline and acyclovir in December and should not be continued upon discharge. Overnight: Patient had no acute overnight events. Currently polyuric overnight after Reyes catheter was placed patient on a roughly 4600 mL output of urine. Patient stated the Reyes catheter placement was very painful. Today: Patient lying in bed comfortably. Speech is bit muffled and garbled at times, and is most likely baseline. Patient has no other reports of pain or discomfort aside from initial placement of Reyes catheter. He denies nausea, vomiting, headache, dizziness, chest pain, shortness of breath, abdominal pain, constipation. Exam Vital Signs Vital Sign - Last Date Time Temp Pulse Resp B/P Pulse Ox O2 Delivery O2 Flow Rate FiO2 05/12/16 12:10 36.7 74 22 113/62 98 Room Air Intake and Output 05/11/16 05/11/16 05/12/16 Cumulative From/Thru 15:00 23:00 07:00 05/11/16 19:40 - 05/12/16 06:11 Intake Total 4146 ml 4146 ml Output Total 1100 ml 4600 ml 5700 ml Balance -1100 ml -454 ml -1554 ml Intake Oral 1100 ml 1100 ml IV Total 3046 ml 3046 ml Output Urine Total 1100 ml 4600 ml 5700 ml Bladder Scan Volume Amount >999mL Exam Review of Systems: unable to be obtained due to confusion Allergies Coded Allergies: No Known Allergies (Unverified , 05/11/16) Home Medications From Discharge Summary Acyclovir (Acyclovir) 800 Mg Tab 800 MG PO BID Prescribed by: THEODORA BROWN DO Amlodipine (Amlodipine) 10 Mg Tablet 10 MG PO DAILY (Reported) Atorvastatin Calcium (Atorvastatin Calcium) 20 Mg Tablet 20 MG PO PM (Reported) General: Alert, Oriented X3, Cooperative, No acute Distress Eyes: PERRLA, Scleral Anicteric Mouth: Mouth Normal, Mucous Membranes Moist/[place] Neck: Supple, no Thyromegaly, trachea central. Chest & Lungs: Clear to auscultation & percussion, No adventitious breath sounds, no crackles, no wheeze Cardiovascular: Normal S1, Normal S2, No Murmurs/Rubs/Gallops, Regular Rate/ Rhythm, (No JVD, no peripheral edema) Pulses: Radial (present and equal), Dorsalis Pedi (present and equal) Abdomen: Soft, Non-tender, Non-distended, Normoactive bowel tones. Musculoskeletal: Unremarkable. Normal range of motion, no swollen or erythematous joints Extremities: No edema, no cyanosis, no clubbing. Skin: No rashes. Warm and dry, no erythematous areas Neurological: Grossly neurologically intact, has generalized weakness, Normal Speech, Sensation Intact Lymphatic: Lymph nodes Cervical and Axillary not palpable. IVs and Medications Medications Reviewed: Medications were reviewed in detail Lab and Diagnostics Result Diagram: 05/12/16 0321 05/12/16 0321 X-Rays, CTs and MRIs X-RAY CHEST ONE VIEW, PORTABLE 05/11 IMPRESSION: Diffuse scarring and blunted appearance of the left costophrenic angle however unchanged appearance since 04/29/16. No new consolidation Dictated by: Aaron Garcia M.D. on 05/11/2016 at 21:02 Approved by: Aaron Garcia M.D. on 05/11/2016 at 21:03 CT BRAIN WITHOUT CONTRAST 05/11 IMPRESSION: No acute intracranial process Dictated by: Aaron Garcia M.D. on 05/11/2016 at 20:51 US VENOUS LEG DUPLEX BILATERAL IMPRESSION: No DVT of the bilateral lower extremities. Dictated by: Mirlande Thompson M.D. on 05/12/2016 at 7:53 Assessment & Plan Dawit Hansen is a 70 yo male with ESBL Escherichia coli pyelonephritis, hypertension, diabetes mellitus type II, presents to [facility] emergency department via EMS from [facility] complaining of fatigue and found to have renal failure again. 1. Acute Kidney Injury. Present on admission, active. Possible bladder outlet obstruction was discussed during last hospitalization, obstruction most likely prostatic. Patient also had recent renal injury possible related to Acute tubular necrosis and chronic diabetic nephropathy. - Continue Reyes catheter - Creatinine on admission 4.35, currently 3.30. - Urology and Nephrology was consulted - Urine osmol pending. - Fluid rate currently at 150 mls/hour NS. 2. Recent ESBL Pyelonephritis. Under therapy, improving - Dr. Tucker was following - Today was the last course for Ertapenem - New urinalysis to follow up 3. Diabetes mellitus type 2, present on admission. Active. - Previously on Metformin but was appropriately discontinued due to renal issues - Low correctional Lispro protocol 4. History of Hypertension, not present on admission. Stable. - Continue Amlodipine 5. Acute Encephalopathy. Present on admission, stable. 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 Differential diagnosis includes Stroke (no focal neurological deficit) - Avoid psychoactive medications - High risk for delirium Acetaminophen as needed for mild pain/fever/headache Bowel regimen as needed Antiemetic as needed SubQ heparin held for now. SCDs in place. High-risk medications: Patient admitted under inpatient status with expected length of stay > 2 midnights for severity of present symptoms, complexities of treatment plan and risk for adverse event. . Pain Evaluation: Adequate Pain Control Resuscitation Status: CPR: Attempt Resuscitation Attending Statement The patient was seen and examined together with Dr. Irving on 05/12/2016 and I agree with the history, exam and plan as outlined in the note above. . DANIKA IRVING DO May 12, 2016 13:53 Scout Vance MD May 13, 2016 08:07
--- NOTE | 2016-05-12 14:07 | CONS ---
[address] [address] CONSULTATION REPORT PATIENT: GLADYS CLAY : 1945 MR#: [id number] ADMIT: 05/11/2016 JOB ID: [id number] DATE OF SERVICE: 05/12/2016 NEPHROLOGY CONSULTATION: REQUESTING PHYSICIAN: Francisco Benoit MD REASON FOR CONSULTATION: Management of abnormal kidney function. CHIEF COMPLAINT: Abnormal kidney function test and urinary retention. HISTORY OF PRESENT ILLNESS: This is a 70-year-old male with significant past medical history of hypertension, type 2 diabetes, depression, dyslipidemia, COPD, who was sent from [facility] due to urinary retention and worsening kidney function test. The patient was recently admitted at [facility] between April 29 and May 05, 2016, due to acute kidney injury secondary to obstructive uropathy and ESBL E. coli, acute pyelonephritis. At that time he came in with a serum creatinine of 5.43 and improved to 1.7 on discharge. The patient will finished the course of IV ertapenem. Yesterday I received a call from Dr. Berta Clarke stating that the patient had worsening kidney function with the serum creatinine over 4. Nursing staff at [facility] attempted Newman catheter placement x4 without success. I discussed with Dr. Clarke. We decided to bring the patient to the emergency department for further investigation. The ER physician was able to evaluate the patient. Newman catheter was inserted. Overnight, he had urine output over 5 L. Of note, the ED physician reported that the patient had altered mental status. CT brain was done, showed no acute intracranial process. His initial serum creatinine was 4.35. Today came down to 3.50. Repeat UA did not show any pyuria, though with mild hematuria noted. RBC between 3 and 10. Of note, the patient was started on chlorthalidone 25 mg daily and DDAVP during the last hospitalization. Dr. Dias evaluated the patient and raised the concern of nephrogenic DI. During my visit today, the patient is comfortable. He has no chest pain. No shortness of breath. PAST MEDICAL HISTORY: 1. Type 2 diabetes. 2. Hypertension. 3. Depression. 4. Polysubstance abuse. 5. Diabetic neuropathy. 6. Diabetic retinopathy. PAST SURGICAL HISTORY: None. SOCIAL HISTORY: The patient has history of alcoholism. He had history of polysubstance abuse including meth, cannabis, alcohol, and tobacco abuse. He is a [facility] resident. FAMILY HISTORY: Noncontributory. SOCIAL HISTORY: Denies current use of alcohol, tobacco, or illicit drugs. MEDICATIONS: Reviewed. ALLERGIES: No known drug allergies. PHYSICAL EXAMINATION: Vitals: Temperature 36.7, pulse 74, respiratory rate 22, blood pressure 113/62, 98% on room air. General appearance: Awake, alert, oriented x3, in no acute distress. HEENT: Mild pallor. No jaundice. No JVD. No lymphadenopathy. No thyroid enlargement. Atraumatic. Moist mucous membranes. Heart: Regular rhythm. Normal S1 and S2. No murmurs, rubs, or gallops. Lungs: Clear to auscultation bilaterally. No wheezing. No rhonchi. Abdomen: Soft, active bowel sounds. Nontender, nondistended. No hepatosplenomegaly. Extremities: No edema, cyanosis, or clubbing of the fingers. Diffuse muscle atrophy. LABORATORY: UA: pH 5.5, specific gravity 1.015, RBC 3-10, WBC 0-5. Sodium 139, potassium 4.4, chloride 100, bicarb 22, BUN 80, creatinine 3.50, glucose 152, calcium 8.3. CT brain showed no acute intracranial process. Chest x-ray showed diffuse scarring and blunted appearance of the left costophrenic angle. No new consolidation. Lower extremity venous Doppler showed no evidence of DVT. ASSESSMENT: 1. Acute kidney injury secondary to obstructive uropathy. 2. Status post Newman catheter reinsertion. The patient produces urine volume more than [address] Bermudez was contacted by the ED physician and was told that she would like to keep the Newman catheter, start Flomax, and see the patient in the clinic. No urgent intervention required at this moment. 3. Polyuria with underlying disease of obstructive uropathy. 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 The patient does not have hypokalemia or hypercalcemia leading to nephrogenic diabetes insipidus. 4. History of hypertension. 5. Recent history of ESBL E. coli, acute pyelonephritis, status post IV ertapenem. 6. 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 7. Acute altered mental status, resolved. PLAN: At this point I will add checked his urine osmolality. Will continue normal saline rehydration. Will increase the rate to 150 mL/hour. Add Flomax 0.4 mg at bedtime. Will resume chlorthalidone 12.5 mg once a day in the morning. Repeat kidney function test in the morning. Repeat magnesium and phosphorus level. Thank you for the consultation. We will monitor along with you.
[2016-05-12] MEDS ORDERED: buPROPion SR 150 mg ER12 Tablet PO SCH ×2 (16:25→17:30)
[2016-05-12] MEDS: buPROPion SR 150 mg ER12 Tablet PO SCH (18:07)
--- NOTE | 2016-05-12 18:38 | NUR ---
Activity Pt up to chair w/ FWW and [address]. Sat in chair for about an hour. No c/o SOB or pain.
[2016-05-13 02:42] VITALS: BP 131/75; PULSE 74; RESP 20; O2SAT 99
[2016-05-13 03:16] LABS: BASOPHILS % (AUTO) 0.3 % (0-3); EOSINOPHILS % (AUTO) 0.6 % (0-5); MONOCYTES % (AUTO) 9.5 % (4-12); Mean Corpuscular Volume 89.7 fL (81-100); NEUTROPHILS % (AUTO) 74.1 % (40-74); Platelet Count 288 bil/L (150-400)
[2016-05-13] MEDS: 0.9% Sodium Chloride 1,000 ML IV SCH ×3 (03:20→17:22)
--- NOTE | 2016-05-13 04:26 | NUR ---
Urine Output/Mental Status Patient continues to have significant urine output overnight; reyes bag emptied multiple times for >1000 ml each time. Patient oriented to self and place, confused frequently. Difficult to reorient, but easily distracted with snacks. Continue to monitor.
[2016-05-13 07:58] VITALS: BP 112/64; PULSE 66; RESP 20; O2SAT 99
[2016-05-13] MEDS: buPROPion SR 150 mg ER12 Tablet PO SCH ×2 (08:04→17:26)
[2016-05-13] MEDS: Insulin LISPRO 300 Unit/3 mL Inj SUBQ SCH ×4 (08:05→21:57)
[2016-05-13 12:14] VITALS: BP 115/63; PULSE 74; RESP 16; O2SAT 98
--- NOTE | 2016-05-13 13:28 | NUR ---
[place] Patient is non-decisional and SW attempted to call NOK, Carin Myers, but there was no answer. SW will continue to try and contact patient's NOK.
--- NOTE | 2016-05-13 13:50 | PCM.PNMED ---
Subjective Date of Service May 13, 2016 Subjective (+) polyuria, stable BP. improving kidney function. no new complaint today. Exam Vital Signs Vital Sign - Last Date Time Temp Pulse Resp B/P Pulse Ox O2 Delivery O2 Flow Rate FiO2 05/13/16 12:52 Room Air 05/13/16 12:14 36.5 74 16 115/63 98 Intake and Output 05/12/16 05/12/16 05/13/16 Cumulative From/Thru 15:00 23:00 07:00 05/11/16 19:40 - 05/13/16 05:59 Intake Total 2639 ml 2368 ml 9153 ml Output Total 4900 ml 3300 ml 76127 ml Balance -2261 ml -932 ml -4747 ml Intake Oral 1200 ml 660 ml 2960 ml IV Total 1439 ml 1708 ml 6193 ml Output Urine Total 4900 ml 3300 ml 85482 ml # Bowel Movements 0 0 Exam General appearance: Awake, alert, oriented x3, in no acute distress. HEENT: Mild pallor. No jaundice. No JVD. No lymphadenopathy. No thyroid enlargement. Atraumatic. Moist mucous membranes. Heart: Regular rhythm. Normal S1 and S2. No murmurs, rubs, or gallops. Lungs: Clear to auscultation bilaterally. No wheezing. No rhonchi. Abdomen: Soft, active bowel sounds. Nontender, nondistended. No hepatosplenomegaly. Extremities: No edema, cyanosis, or clubbing of the fingers. Diffuse muscle atrophy. : reyes cath in place with yellowish urine. Lab and Diagnostics Result Diagram: 05/13/165 05/13/16 0245 X-Rays, CTs and MRIs X-RAY CHEST ONE VIEW, PORTABLE 05/11 IMPRESSION: Diffuse scarring and blunted appearance of the left costophrenic angle however unchanged appearance since 04/29/16. No new consolidation Dictated by: Aaron Garcia M.D. on 05/11/2016 at 21:02 Approved by: Aaron Garcia M.D. on 05/11/2016 at 21:03 CT BRAIN WITHOUT CONTRAST 05/11 IMPRESSION: No acute intracranial process Dictated by: Aaron Garcia M.D. on 05/11/2016 at 20:51 US VENOUS LEG DUPLEX BILATERAL IMPRESSION: No DVT of the bilateral lower extremities. Dictated by: Mirlande Thompson M.D. on 05/12/2016 at 7:53 Assessment & Plan ASSESSMENT: 1. Acute kidney injury secondary to obstructive uropathy s/p reyes cath placement. 2. 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 3. History of hypertension. 4. Recent history of ESBL E. coli, acute pyelonephritis, status post IV ertapenem. 5. 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 6. Acute altered mental status, resolved. PLAN: - continue NS 150 ml/hr. - chlorthalidone 25 mg daily. - will give one dose of DDAVP 1 mcg subQ x 1. Resuscitation Status: CPR: Attempt Resuscitation Jose G Diana MD May 13, 2016 13:50
[2016-05-13 16:00] VITALS: BP 100/61; PULSE 86; RESP 14; O2SAT 99
--- NOTE | 2016-05-13 16:09 | PCM.PNMED ---
Subjective Date of Service May 13, 2016 Subjective Overnight: He continues to have significant urine output, pt oriented x2 but becomes confused easily. No acute events overnight. Today: He reports neck and arm pain, but denies chest pain, shortness of breath , abdominal pain, nausea, vomiting, diarrhea, fevers, or chills. Exam Vital Signs Vital Sign - Last Date Time Temp Pulse Resp B/P Pulse Ox O2 Delivery O2 Flow Rate FiO2 05/13/16 16:00 36.5 86 14 100/61 99 Room Air Intake and Output 05/12/16 05/12/16 05/13/16 Cumulative From/Thru 15:00 23:00 07:00 05/11/16 19:40 - 05/13/16 05:59 Intake Total 2639 ml 2368 ml 9153 ml Output Total 4900 ml 3300 ml 73876 ml Balance -2261 ml -932 ml -4747 ml Intake Oral 1200 ml 660 ml 2960 ml IV Total 1439 ml 1708 ml 6193 ml Output Urine Total 4900 ml 3300 ml 75584 ml # Bowel Movements 0 0 Exam General: Alert, Oriented X3, Cooperative, No Acute Distress Head: Normocephalic, atraumatic. External ears normal. Eyes: PERRLA, EOMI. Anicteric sclerae. Mouth: Mouth Normal, Mucous Membranes Moist/Gu-Win Neck: Neck supple with full range of motion. Chest & Lungs: Clear to auscultation bilaterally with no crackles, wheezes, or rhonchi. Cardiovascular: Regular Rate/Rhythm, Normal S1, Normal S2, No Murmurs/Rubs/ Gallops Abdomen: Non-tender, Non-distended, No masses, Normoactive bowel tones, Soft Musculoskeletal: Normal Range of Motion Extremities: No cyanosis/clubbing/edema bilaterally Neurological: Grossly Neurologically Intact, Normal Speech Lab and Diagnostics Result Diagram: 05/13/1624405/13/16244 X-Rays, CTs and MRIs X-RAY CHEST ONE VIEW, PORTABLE 05/11 IMPRESSION: Diffuse scarring and blunted appearance of the left costophrenic angle however unchanged appearance since 04/29/16. No new consolidation Dictated by: Aaron Garcia M.D. on 05/11/2016 at 21:02 Approved by: Aaron Garcia M.D. on 05/11/2016 at 21:03 CT BRAIN WITHOUT CONTRAST 05/11 IMPRESSION: No acute intracranial process Dictated by: Aaron Garcia M.D. on 05/11/2016 at 20:51 US VENOUS LEG DUPLEX BILATERAL IMPRESSION: No DVT of the bilateral lower extremities. Dictated by: Mirlande Thompson M.D. on 05/12/2016 at 7:53 Assessment & Plan Dawit Hansen is a 70 yo male with ESBL Escherichia coli pyelonephritis, hypertension, diabetes mellitus type II, presents to [facility] emergency department via EMS from [facility] complaining of fatigue and found to have renal failure again. 1. Acute Kidney Injury. Present on admission. Improving. 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 Pt had 9.5 L out of urine yesterday through the Newman. Patient also had recent renal injury possible related to Acute tubular necrosis and chronic diabetic nephropathy. Cr is currently improving. - Continue Newman catheter. - Urology and Nephrology were consulted - Urine osmol pending. - Fluid rate currently at 150 mls/hour NS. - Chlorthalidone 25 mg daily. 2. Recent ESBL Pyelonephritis. Under therapy, improving - Dr. Tucker was following - Today was the last course for Ertapenem - New urinalysis to follow up 3. Diabetes mellitus type 2, present on admission. Active. - Previously on Metformin but was appropriately discontinued due to renal issues - Low correctional Lispro protocol 4. History of Hypertension, not present on admission. Stable. - Continue Amlodipine 5. Acute Encephalopathy. Present on admission, stable. 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 Differential diagnosis includes Stroke (no focal neurological deficit) vs delirium. - Avoid psychoactive medications Acetaminophen as needed for mild pain/fever/headache Bowel regimen as needed Antiemetic as needed SubQ heparin held for now. SCDs in place. Resuscitation Status: CPR: Attempt Resuscitation Attending Statement The patient was seen and examined together with Dr. Gayle on 05/13/2016 and I agree with the history, exam and plan as outlined in the note above. . Grayson Gayle May 13, 2016 16:09 Scout Vance MD May 14, 2016 04:28
--- NOTE | 2016-05-13 16:24 | NUR ---
Mentation/Activity Pt alert and oriented to self and place. Pt became very agitated when asked place and time, stating that everyone keeps asking him that question. Pt mumbles and talks very quickly and it is difficult to decipher what he is saying as he becomes agitated. Pt up with PT today, in chair for meals, one person assist. tolerates activity fair. Pt has difficulty processing multiple commands when transferring, he is able to follow commands in regards to using his hands to help move himself, but continues to have an unsteady gait and has difficulty coordinating movement of his lower extremities.
[2016-05-13 19:59] VITALS: BP 125/73; PULSE 75; RESP 16; O2SAT 97
[2016-05-14] MEDS: 0.9% Sodium Chloride 1,000 ML IV SCH ×3 (00:32→18:12)
[2016-05-14 00:36] VITALS: BP 115/66; PULSE 78; RESP 16; O2SAT 97
--- NOTE | 2016-05-14 01:23 | NUR ---
Skin Patient restless in bed at 2330. Assisted patient up to dangle at bedside; new open area noted on left mcmahan. Patient states "it just gets that way, that happens all the time." Patient's lower legs have been mildly edematous with dry, scaling skin since admit. Non-adherent pad placed over wound and secured with tegaderm.
--- NOTE | 2016-05-14 04:31 | NUR ---
Arrival to Room 1027 Patient arrived to room 1027 at 0211 accompanied by Mirella AGUIAR and BULLDOGGER. Patient cooperative but confused. VSS. NS running at 150ml/hr. Patient has right arm PICC. Bedside blood glucose 143 at 0320. Patient resting off and on. Call light within reach. Care continues.
[2016-05-14 05:44] LABS: BASOPHILS % (AUTO) 0.5 % (0-3); EOSINOPHILS % (AUTO) 1.2 % (0-5); MONOCYTES % (AUTO) 9.5 % (4-12); Mean Corpuscular Hemoglobin 28.8 pg (27.0-35.0); Mean Corpuscular Volume 91.2 fL (81-100); NEUTROPHILS % (AUTO) 72.6 % (40-74); Platelet Count 244 bil/L (150-400)
[2016-05-14 06:20] VITALS: BP 136/72; PULSE 82; RESP 16; O2SAT 98
[2016-05-14] MEDS: buPROPion SR 150 mg ER12 Tablet PO SCH ×2 (08:22→18:12)
[2016-05-14] MEDS: Insulin LISPRO 300 Unit/3 mL Inj SUBQ SCH ×4 (08:28→21:51)
--- NOTE | 2016-05-14 08:44 | NUR ---
NESHA: Patient is unable to accept NESHA asked REGIONAL ACCOUNT DIRECTOR to follow up with family via phone.
--- NOTE | 2016-05-14 11:11 | NUR ---
Social Work-initial Assessment: Data:See initial assessment. Patient is a 70 year old male admitted on 05/11/16 for acute renal failure per H&P. Pt's insurance is [facility] and PCP Is Dr. Ojeda. EMR reviewed. CARLOS placed a call to friend Carin [phone] to complete assessment, SW role explained. Pt normally resides in a one story home in [facility] with friend Carin. Pt's friend states that she works maritime pilot and assists patient with care needs. Carin states that pt is normally independent, but needs assistance with feeding and bathing. Pt does not drive and friend assists with transport. Pt has no history of HH, but has been to [facility]. Pt has a walker, cane and wheelchair at home for use. Jovana states for the last few weeks pt has been at [facility] for Rehab and she anticipates pt to return to [facility]. CARLOS discussed DPOA/advanced directive, Carin states that [facility] has a copy of this paperwork. CARLOS called and spoke with Vashti,catia at [facility] who states they are able to accept pt back at discharge with Dr. Clarke to follow. Vashti to look into DPOA/ advanced directive paperwork and fax it over to CARLOS. Paperwork placed in the chart. CARLOS will continue to follow. Assessment:Pt to benefit from SNF. Plan:Pt to discharge back to [facility] with Dr. Clarke to follow when medically stable. Paperwork placed in the chart. CARLOS will continue to follow. ISMAEL Newton Addendum: 05/14/16 at 1120 by FRANCIS VALDIVIA Amended: Links added.
--- NOTE | 2016-05-14 11:20 | NUR ---
Karen Pino can accept back with Dr. Clarke to follow. ISMAEL Newton
--- NOTE | 2016-05-14 11:20 | NUR ---
NESHA signed with Friend Jovana Isaac MSW
[2016-05-14 13:49] VITALS: BP 104/66; PULSE 83; RESP 20; O2SAT 99
--- NOTE | 2016-05-14 14:58 | PCM.PNMED ---
Subjective Date of Service May 14, 2016 Subjective Continues to have good urine output, creatinine continues to improve. Had dark stool today, send for occult blood test. 1 g hemoglobin drop noted Exam Vital Signs Vital Sign - Last Date Time Temp Pulse Resp B/P Pulse Ox O2 Delivery O2 Flow Rate FiO2 05/14/16 13:49 37.2 83 20 104/66 99 Room Air Intake and Output 05/13/16 05/13/16 05/14/16 Cumulative From/Thru 15:00 23:00 07:00 05/11/16 19:40 - 05/14/16 06:37 Intake Total 2848 ml 1776 ml 84409 ml Output Total 2700 ml 43873 ml Balance 148 ml 1776 ml -2823 ml Intake Oral 1100 ml 4060 ml IV Total 1748 ml 1776 ml 9717 ml Output Urine Total 2700 ml 86928 ml # Bowel Movements 2 2 Exam General: Alert, Oriented X3, Cooperative, No Acute Distress Head: Normocephalic, atraumatic. External ears normal. Eyes: PERRLA, EOMI. Anicteric sclerae. Mouth: Mouth Normal, Mucous Membranes Moist/Keeler Neck: Neck supple with full range of motion. Chest & Lungs: Clear to auscultation bilaterally with no crackles, wheezes, or rhonchi. Cardiovascular: Regular Rate/Rhythm, Normal S1, Normal S2, GII/Vi systolic murmur at LLSB Abdomen: Non-tender, Non-distended, No masses, Normoactive bowel tones, Soft Musculoskeletal: Normal Range of Motion Extremities: No cyanosis/clubbing/edema bilaterally Neurological: Grossly Neurologically Intact, Normal Speech SAE reyes in place draining clear urine IVs and Medications Medications Reviewed: Medications were reviewed in detail Lab and Diagnostics Result Diagram: 05/14/1652405/14/16524 X-Rays, CTs and MRIs X-RAY CHEST ONE VIEW, PORTABLE 05/11 IMPRESSION: Diffuse scarring and blunted appearance of the left costophrenic angle however unchanged appearance since 04/29/16. No new consolidation Dictated by: Aaron Garcia M.D. on 05/11/2016 at 21:02 Approved by: Aaron Garcia M.D. on 05/11/2016 at 21:03 CT BRAIN WITHOUT CONTRAST 05/11 IMPRESSION: No acute intracranial process Dictated by: Aaron Garcia M.D. on 05/11/2016 at 20:51 US VENOUS LEG DUPLEX BILATERAL IMPRESSION: No DVT of the bilateral lower extremities. Dictated by: Mirlande Thompson M.D. on 05/12/2016 at 7:53 Assessment & Plan Dawit Hansen is a 70 yo male with ESBL Escherichia coli pyelonephritis, hypertension, diabetes mellitus type II, presents to [facility] emergency department via EMS from [facility] complaining of fatigue and found to have renal failure again. 1. Acute Kidney Injury due to obstructive uropathy. Present on admission. Improving. 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 Pt had 9.5 L out of urine yesterday through the Reyes. Patient also had recent renal injury possible related to Acute tubular necrosis and chronic diabetic nephropathy. Cr is currently improving. - Continue Reyes catheter. - Urology Dr Bermudez consulted by ED,recommended dischargeing with reyes and on flomax and followup with her outpatient - Nephrology were consulted - Fluid rate currently at 150 mls/hour NS. - Chlorthalidone 25 mg daily. 2. Recent ESBL Pyelonephritis. Under therapy, improving - Dr. Tucker was following - completed a course for Ertapenem on 05/13 - New urinalysis to follow up 3. Diabetes mellitus type 2, present on admission. Active. - Previously on Metformin but was appropriately discontinued due to renal issues - Low correctional Lispro protocol 4. History of Hypertension, not present on admission. Stable. - Continue Amlodipine 5. Acute Encephalopathy. Present on admission, stable. 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 Differential diagnosis includes Stroke (no focal neurological deficit) vs delirium. - Avoid psychoactive medications 6.Anemia,acute on chronic -stool for occult blood pending Acetaminophen as needed for mild pain/fever/headache Bowel regimen as needed Antiemetic as needed SubQ heparin held for now. SCDs in place. disposition:possible discharge to SNF tomorrow with reyes VTE Mechanical Devices: Intermittant Pneumatic CD Resuscitation Status: CPR: Attempt Resuscitation Viraj Saldaña MD May 14, 2016 14:58
--- NOTE | 2016-05-14 15:49 | NUR ---
Social Work-readiness for discharge: Data:EMR reviewed. Pt is on day 3 of hospitalization for acute renal failure per H&P. Per Md, pt may be ready to discharge tomorrow. PT has been working with pt and recommending SNF. SW confirmed with pt's friend Carin of return to [facility]. Vashti at [facility] confirms they can accept pt back at discharge. CARLOS received a call from HCS worker Radha Draper [phone] questioning she should complete assessment in the hospital or back at [facility]. CARLOS explained that pt will likely be ready to discharge tomorrow, but CARLOS will plan on following up with Radha when pt does discharge. Paperwork in the chart. SW will continue to follow. Assessment:Pt who would benefit from SNF. Plan:Pt to discharge back to [facility] when medically stable with Dr. Clarke to follow. Paperwork in the chart. CARLOS will continue to follow. ISMAEL Newton
--- NOTE | 2016-05-14 17:31 | PCM.PNMED ---
Subjective Date of Service May 14, 2016 Subjective Patient is well-known to me from previous extended evaluation from approximately a week and a half ago. He had developed acute kidney injury and also had pyelonephritis along with bladder obstruction. He initially went to a postobstructive diuresis which maintained itself for as greater than expected time period. I was concerned about possible nephrogenic diabetes insipidus and he was discharged to extended care facility prior to her workup. Last week in my office spent a considerable time trying to get some blood work and urine test done and trying to coordinate a follow-up appointment none of which were successful. He states that he still feels thirsty and is continuing to have a considerable amount of urine output. Exam Vital Signs Vital Sign - Last Date Time Temp Pulse Resp B/P Pulse Ox O2 Delivery O2 Flow Rate FiO2 05/14/16 13:49 37.2 83 20 104/66 99 Room Air Intake and Output 05/13/16 05/13/16 05/14/16 Cumulative From/Thru 15:00 23:00 07:00 05/11/16 19:40 - 05/14/16 06:37 Intake Total 2848 ml 1776 ml 26734 ml Output Total 2700 ml 73916 ml Balance 148 ml 1776 ml -2823 ml Intake Oral 1100 ml 4060 ml IV Total 1748 ml 1776 ml 9717 ml Output Urine Total 2700 ml 91294 ml # Bowel Movements 2 2 Exam Neck is supple without adenopathy, thyromegaly, venous distention. Lungs are clear to auscultation. Heart was regular and rhythmic with a soft systolic murmur. Abdomen soft without any tenderness rebound guarding masses or hepatosplenomegaly. Extremities not 20 evidence of any clubbing cyanosis or edema. Skin turgor diminished there is no evidence of any rashes. Lab and Diagnostics Result Diagram: 05/14/16 0525 05/14/16 0525 X-Rays, CTs and MRIs X-RAY CHEST ONE VIEW, PORTABLE 05/11 IMPRESSION: Diffuse scarring and blunted appearance of the left costophrenic angle however unchanged appearance since 04/29/16. No new consolidation Dictated by: Aaron Garcia M.D. on 05/11/2016 at 21:02 Approved by: Aaron Garcia M.D. on 05/11/2016 at 21:03 CT BRAIN WITHOUT CONTRAST 05/11 IMPRESSION: No acute intracranial process Dictated by: Aaron Garcia M.D. on 05/11/2016 at 20:51 US VENOUS LEG DUPLEX BILATERAL IMPRESSION: No DVT of the bilateral lower extremities. Dictated by: Mirlande Thompson M.D. 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 I will on based on this I may continue his DDAVP. VTE Mechanical Devices: Intermittant Pneumatic CD Resuscitation Status: CPR: Attempt Resuscitation Son Dias DO May 14, 2016 17:31
--- NOTE | 2016-05-14 18:35 | NUR ---
Update: Pt has been alert and awake most of this shift. He is not word searching as he was this a.m., less mumbling. Has had 0 px or aggitation. Newman cath is patent and Pt has had no complaints of pain at meatus or attempts to remove. He was up with PT to chair. Continues with low H/H, 2 loose BM's, awaiting results of guaiac.
[2016-05-14 19:47] VITALS: BP 127/61; PULSE 78; RESP 18; O2SAT 98
[2016-05-15 04:06] VITALS: BP 116/74; PULSE 82; RESP 20; O2SAT 99
[2016-05-15] MEDS: 0.9% Sodium Chloride 1,000 ML IV SCH ×4 (04:24→18:31)
[2016-05-15 07:23] LABS: BASOPHILS % (AUTO) 0.5 % (0-3); EOSINOPHILS % (AUTO) 1.7 % (0-5); MONOCYTES % (AUTO) 10.7 % (4-12); Mean Corpuscular Hemoglobin 29.3 pg (27.0-35.0); Mean Corpuscular Volume 91.4 fL (81-100); NEUTROPHILS % (AUTO) 73.2 % (40-74); Platelet Count 262 bil/L (150-400)
--- NOTE | 2016-05-15 07:27 | NUR ---
Activity Pt up to commode, bedside chair, and transfers w/ walker and 1-2 p assist. Pt calls but is frustrated with caregivers and word searches when asked his preferences. IV patent infusing NS at 150. Attempted BM with no luck. Newman in place for urinary retention, patent and draining. Care continues
[2016-05-15 07:55] LABS: Phosphorus 2.9 mg/dL (2.5-4.9)
[2016-05-15] MEDS: Insulin LISPRO 300 Unit/3 mL Inj SUBQ SCH ×4 (08:00→22:00)
[2016-05-15 08:12] LABS: Magnesium 1.2 mg/dL (1.6-2.6)
[2016-05-15] MEDS ORDERED: Potassium Chloride 20 mEq SR Tablet PO ONE (08:25)
[2016-05-15] MEDS ORDERED: Magnesium Sulf 4 Gm/100 mL H2O 4 GM in IV Premix 1 EACH IV ONE ×2 (08:25→11:05)
[2016-05-15 08:40] LABS: OSMOLALITY, URINE 320 mOs/kH2O (250-1200)
[2016-05-15] MEDS: buPROPion SR 150 mg ER12 Tablet PO SCH ×2 (09:18→17:26)
[2016-05-15] MEDS ORDERED: DESMOPRESSIN 4 MCG/ML SUBQ SCH (11:05)
[2016-05-15] MEDS ORDERED: Darbepoetin Alfa 60 mCg/0.3 mL Inj SUBQ ONE (15:00)
--- NOTE | 2016-05-15 15:02 | PCM.PNMED ---
Subjective Date of Service May 15, 2016 Subjective The patient has not been given any previously ordered DDAVP from admission. Because of this he has continued to have significant urine output requiring additional fluid replacement. Yesterday he had 5043 in and 4850 out. I have ordered the DDAVP and had a lengthy discussion with the pharmacist about this. Otherwise the patient continues to be thirsty and denies any chest pain, shortness of breath, or diarrhea. Lab obtained this morning showed a urine osmolarity of 320 and a urine sodium of 41. His serum osmolarity was 298 with a sodium of 142, potassium 3.4, chloride 105, CO2 24, BUN and creatinine were 20 and 1.58 which is improved. His magnesium is low at 1.2. Exam Vital Signs Vital Sign - Last Date Time Temp Pulse Resp B/P Pulse Ox O2 Delivery O2 Flow Rate FiO2 05/15/16 04:06 37.0 82 20 116/74 99 Room Air Intake and Output 05/14/16 05/14/16 05/15/16 Cumulative From/Thru 15:00 23:00 07:00 05/11/16 19:40 - 05/15/16 06:11 Intake Total 920 ml 2347 ml 650 ml 22698 ml Output Total 2450 ml 2400 ml 3300 ml 07247 ml Balance -1530 ml -53 ml -2650 ml -7056 ml Intake Oral 920 ml 1250 ml 650 ml 6880 ml IV Total 1097 ml 24990 ml Output Urine Total 2450 ml 2400 ml 3300 ml 93209 ml # Bowel Movements 1 2 5 Exam HEENT examination is remarkable for L sclera and some mild bitemporal wasting. Neck is supple without adenopathy, thyromegaly, or jugular venous distention. Clear to auscultation. Heart regular with soft systolic murmur. Abdomen is soft nontender rebound guarding masses or hepatosplenomegaly. Extremities and actually evidence of any clubbing cyanosis or edema. Skin turgor is good nourished no evidence of any rashes. Lab and Diagnostics Result Diagram: 05/15/1671405/15/16714 X-Rays, CTs and MRIs X-RAY CHEST ONE VIEW, PORTABLE 05/11 IMPRESSION: Diffuse scarring and blunted appearance of the left costophrenic angle however unchanged appearance since 04/29/16. No new consolidation Dictated by: Aaron Garcia M.D. on 05/11/2016 at 21:02 Approved by: Aaron Garcia M.D. on 05/11/2016 at 21:03 CT BRAIN WITHOUT CONTRAST 05/11 IMPRESSION: No acute intracranial process Dictated by: Aaron Garcia M.D. on 05/11/2016 at 20:51 US VENOUS LEG DUPLEX BILATERAL IMPRESSION: No DVT of the bilateral lower extremities. Dictated by: Mirlande Thompson M.D. 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 Recommendations #1 I will restart his DDAVP with 4 g subcutaneous now and 2 mg twice a day. I would like to gauge status against his urine output. Would also like to start him on Aranesp 60 mg subcutaneous now. VTE Mechanical Devices: Intermittant Pneumatic CD Resuscitation Status: CPR: Attempt Resuscitation Son Dias DO May 15, 2016 15:02
[2016-05-15 15:13] VITALS: BP 130/70; PULSE 77; RESP 16; O2SAT 100
--- NOTE | 2016-05-15 17:06 | PCM.PNMED ---
Subjective Date of Service May 15, 2016 Subjective Patient continues to be polyuric. He did not receive DDAVP which was ordered on 05/13 as per pharmacy Exam Vital Signs Vital Sign - Last Date Time Temp Pulse Resp B/P Pulse Ox O2 Delivery O2 Flow Rate FiO2 05/15/16 15:13 36.8 77 16 130/70 100 Room Air Intake and Output 05/14/16 05/14/16 05/15/16 Cumulative From/Thru 15:00 23:00 07:00 05/11/16 19:40 - 05/15/16 06:11 Intake Total 920 ml 2347 ml 650 ml 13355 ml Output Total 2450 ml 2400 ml 3300 ml 02901 ml Balance -1530 ml -53 ml -2650 ml -7056 ml Intake Oral 920 ml 1250 ml 650 ml 6880 ml IV Total 1097 ml 69015 ml Output Urine Total 2450 ml 2400 ml 3300 ml 71084 ml # Bowel Movements 1 2 5 Exam General: Alert, Oriented X3, Cooperative, No Acute Distress Head: Normocephalic, atraumatic. External ears normal. Eyes: PERRLA, EOMI. Anicteric sclerae. Mouth: Mouth Normal, Mucous Membranes Moist/[place] Neck: Neck supple with full range of motion. Chest & Lungs: Clear to auscultation bilaterally with no crackles, wheezes, or rhonchi. Cardiovascular: Regular Rate/Rhythm, Normal S1, Normal S2, GII/Vi systolic murmur at LLSB Abdomen: Non-tender, Non-distended, No masses, Normoactive bowel tones, Soft Musculoskeletal: Normal Range of Motion Extremities: No cyanosis/clubbing/edema bilaterally Neurological: Grossly Neurologically Intact, Normal Speech SAE reyes in place draining clear urine IVs and Medications Medications Reviewed: Medications were reviewed in detail Lab and Diagnostics Result Diagram: 05/15/1671405/15/16714 X-Rays, CTs and MRIs X-RAY CHEST ONE VIEW, PORTABLE 05/11 IMPRESSION: Diffuse scarring and blunted appearance of the left costophrenic angle however unchanged appearance since 04/29/16. No new consolidation Dictated by: Aaron Garcia M.D. on 05/11/2016 at 21:02 Approved by: Aaron Garcia M.D. on 05/11/2016 at 21:03 CT BRAIN WITHOUT CONTRAST 05/11 IMPRESSION: No acute intracranial process Dictated by: Aaron Garcia M.D. on 05/11/2016 at 20:51 US VENOUS LEG DUPLEX BILATERAL IMPRESSION: No DVT of the bilateral lower extremities. Dictated by: Mirlande Thompson M.D. on 05/12/2016 at 7:53 Assessment & Plan Dawit Hansen is a 70 yo male with ESBL Escherichia coli pyelonephritis, hypertension, diabetes mellitus type II, presents to [facility] emergency department via EMS from [facility] complaining of fatigue and found to have renal failure again. 1. Acute Kidney Injury due to obstructive uropathy. Present on admission. Improving. 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 Pt had 9.5 L out of urine yesterday through the Reyes. Patient also had recent renal injury possible related to Acute tubular necrosis and chronic diabetic nephropathy. Cr is currently improving. -polyuria due to postobstructive diuresis VS diabetes insipidus versus psychogenic polydipsia -started DDAVP with 4 g subcutaneous now and 2 mg twice a day by nephrology - Urology Dr Bermudez consulted by ED,recommended discharging with reyes and on flomax and followup with her outpatient - Nephrology on board - Fluid rate currently at 150 mls/hour NS. - Chlorthalidone 25 mg daily. 2. Recent ESBL Pyelonephritis. Under therapy, improving - Dr. Tucker was following - completed a course for Ertapenem on 05/13 - New urinalysis to follow up 3. Diabetes mellitus type 2, present on admission. Active. - Previously on Metformin but was appropriately discontinued due to renal issues - Low correctional Lispro protocol 4. History of Hypertension, not present on admission. Stable. - Continue Amlodipine 5. Acute Encephalopathy. Present on admission, stable. 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 - Avoid psychoactive medications 6.Anemia,acute on chronic -stool for occult blood pending 7.Low Mg -due to dieresis -repelete Acetaminophen as needed for mild pain/fever/headache Bowel regimen as needed Antiemetic as needed SubQ heparin held for now. SCDs in place. disposition:possible discharge to SNF 1-2 with reyes VTE Mechanical Devices: Intermittant Pneumatic CD Resuscitation Status: CPR: Attempt Resuscitation Viraj Saldaña MD May 15, 2016 17:06
--- NOTE | 2016-05-15 18:44 | NUR ---
Shift update Pt up to chair x1, refused all other offers/attempts to get OOB, refused to get up with Pt. Pt alert to self, pleasant. Continues to mumble words at times and get agitated when he forgets what he wants to say. Rec'd darbepoetin inj, desmopression inj due to anemia and low H/H, platelets. Magnesium value 1.2, rec'd magnesium sulf. Pt c/o px to upper arms- stated they ache, like arthritis, PRN tylenol effective. Midline patent, NS running at 150ml. 0 BM today.
--- NOTE | 2016-05-15 18:49 | NUR ---
addition: Newman cath remains in place due to retention. Draining clear yellow urine to gravity with no c/o px at meatus
[2016-05-15 19:11] VITALS: BP 123/72; PULSE 79; RESP 16; O2SAT 98
[2016-05-16] MEDS: 0.9% Sodium Chloride 1,000 ML IV SCH (01:03)
--- NOTE | 2016-05-16 02:09 | NUR ---
Activity Pt is confused at times, oriented to self and place. Begins to yell when you try to ask him questions. Denies pain. NS continues at 150. Pt has already had out 2,000 ml from reyes cath, clear and pale urine. Desmopressin subq given per eMAR. [place] bed alarm in place.
[2016-05-16 06:06] LABS: Unsaturated Iron Binding 164.3 ug/dL
[2016-05-16 06:14] VITALS: BP 129/73; PULSE 75; RESP 20; O2SAT 97
[2016-05-16] MEDS ORDERED: Potassium Chloride 20 mEq SR Tablet PO ONE (08:00)
[2016-05-16] MEDS: buPROPion SR 150 mg ER12 Tablet PO SCH ×2 (09:04→16:20)
--- NOTE | 2016-05-16 09:08 | NUR ---
NESHA: Patient unable to accept NESHA asked LEARNING CENTER COORDINATOR to follow up with family/friend via phone to deliver NESHA
[2016-05-16] MEDS: Insulin LISPRO 300 Unit/3 mL Inj SUBQ SCH ×4 (09:30→22:00)
--- NOTE | 2016-05-16 12:14 | NUR ---
NESHA Signed. Mellisa Cheatham TANK CAR REPAIRER
[2016-05-16 13:04] VITALS: BP 92/61; PULSE 78; RESP 18; O2SAT 97
--- NOTE | 2016-05-16 13:04 | NUR ---
Social Work- Readiness for Discharge Data: EMR reviewed. Pt is on day 5 of hospitalization for acute renal failure per H&P. Pt is not medically stable for discharge, anticipate 1-2 more days. PT recommending SNF via cabulance at this time. Pt comes to hospital from [facility] and is amenable to returning there. CARLOS called Vashti, admissions at [facility] [phone], and they have accepted patient to return at time of discharge with Dr. Clarke to follow. Paperwork is in chart. CARLOS updated Home and Community Services worker Radha [phone] so that she can perform timely re-evaluation. CARLOS also updated friend Carin [phone], NESHA signed at this time. SW continues to follow. Assessment: Pt who would benefit from SNF. Plan: Anticipate pt to discharge in 1-2 more days to [facility]. Paperwork in chart. CARLOS continues to follow. ISMAEL Aquino
[2016-05-16] MEDS ORDERED: KCl 20 mEq/100 mL(CENTRAL) 20 MEQ in IV Premix 1 EACH IV ONE (14:35)
--- NOTE | 2016-05-16 14:35 | PCM.PNMED ---
Subjective Date of Service May 16, 2016 Subjective She continues to have considerable urine output despite multiple doses of DDAVP. Should his intake was 3619 was 6000 in urine output. Sodium is 140, potassium 3.4, chloride of 103, and bicarbonate was 24. BUN/creatinine were 23 and 1.14 respectively. Exam Vital Signs Vital Sign - Last Date Time Temp Pulse Resp B/P Pulse Ox O2 Delivery O2 Flow Rate FiO2 05/16/16 13:04 36.6 78 18 92/61 97 Room Air Intake and Output 05/15/16 05/15/16 05/16/16 Cumulative From/Thru 15:00 23:00 07:00 05/11/16 19:40 - 05/16/16 06:13 Intake Total 1869 ml 1100 ml 86382 ml Output Total 2700 ml 40681 ml Balance 1869 ml -1600 ml -6787 ml Intake Oral 1100 ml 7980 ml IV Total 1869 ml 03944 ml Output Urine Total 2700 ml 04135 ml # Bowel Movements 1 6 Exam Neck is supple without adenopathy thyromegaly or jugular venous distention. Lungs are clear to auscultation. Heart is regular and rhythmical with a soft systolic murmur. Abdomen is soft without tenderness rebound guarding masses or hepatosplenomegaly. Extremities do not show any evidence of any clubbing, cyanosis, or edema. Lab and Diagnostics Result Diagram: 05/15/16 0715 05/16/16 0500 X-Rays, CTs and MRIs X-RAY CHEST ONE VIEW, PORTABLE 05/11 IMPRESSION: Diffuse scarring and blunted appearance of the left costophrenic angle however unchanged appearance since 04/29/16. No new consolidation Dictated by: Aaron Garcia M.D. on 05/11/2016 at 21:02 Approved by: Aaron Garcia M.D. on 05/11/2016 at 21:03 CT BRAIN WITHOUT CONTRAST 05/11 IMPRESSION: No acute intracranial process Dictated by: Aaron Garcia M.D. on 05/11/2016 at 20:51 US VENOUS LEG DUPLEX BILATERAL IMPRESSION: No DVT of the bilateral lower extremities. Dictated by: Mirlande Thompson M.D. on 05/12/2016 at 7:53 Assessment & Plan Impression #1 resolving acute kidney injury with postobstructive diuresis. #2 polyuria which does not appear to be consistent with diabetes insipidus Recommendations #1 over to stop his IV fluid and the DDAVP. I would also like to see how he adjusts to be enough fluids. VTE Mechanical Devices: Intermittant Pneumatic CD Resuscitation Status: CPR: Attempt Resuscitation Son Dias DO May 16, 2016 14:35
[2016-05-16] MEDS ORDERED: SODIUM CHLORIDE 0.9% IV ONE (14:50)
[2016-05-16] MEDS ORDERED: POTASSIUM CHLORIDE IV ONE (14:50)
--- NOTE | 2016-05-16 15:27 | PCM.PNMED ---
Subjective Date of Service May 16, 2016 Subjective No new complaints. Continues to have polyuria, uop 6L / 24-hour despite DDAVP. Exam Vital Signs Vital Sign - Last Date Time Temp Pulse Resp B/P Pulse Ox O2 Delivery O2 Flow Rate FiO2 05/16/16 13:04 36.6 78 18 92/61 97 Room Air Intake and Output 05/15/16 05/15/16 05/16/16 Cumulative From/Thru 15:00 23:00 07:00 05/11/16 19:40 - 05/16/16 06:13 Intake Total 1869 ml 1100 ml 84231 ml Output Total 2700 ml 56186 ml Balance 1869 ml -1600 ml -6787 ml Intake Oral 1100 ml 7980 ml IV Total 1869 ml 62112 ml Output Urine Total 2700 ml 78530 ml # Bowel Movements 1 6 Exam General: Alert, Oriented X3, Cooperative, No Acute Distress Head: Normocephalic, atraumatic. External ears normal. Eyes: PERRLA, EOMI. Anicteric sclerae. Mouth: Mouth Normal, Mucous Membranes Moist/[place] Neck: Neck supple with full range of motion. Chest & Lungs: Clear to auscultation bilaterally with no crackles, wheezes, or rhonchi. Cardiovascular: Regular Rate/Rhythm, Normal S1, Normal S2, GII/Vi systolic murmur at LLSB Abdomen: Non-tender, Non-distended, No masses, Normoactive bowel tones, Soft Musculoskeletal: Normal Range of Motion Extremities: No cyanosis/clubbing/edema bilaterally Neurological: Grossly Neurologically Intact, Normal Speech SAE reyes in place draining clear urine IVs and Medications Medications Reviewed: Medications were reviewed in detail Lab and Diagnostics Result Diagram: 05/15/16 0715 05/16/16 0500 X-Rays, CTs and MRIs X-RAY CHEST ONE VIEW, PORTABLE 05/11 IMPRESSION: Diffuse scarring and blunted appearance of the left costophrenic angle however unchanged appearance since 04/29/16. No new consolidation Dictated by: Aaron Garcia M.D. on 05/11/2016 at 21:02 Approved by: Aaron Garcia M.D. on 05/11/2016 at 21:03 CT BRAIN WITHOUT CONTRAST 05/11 IMPRESSION: No acute intracranial process Dictated by: Aaron Garcia M.D. on 05/11/2016 at 20:51 US VENOUS LEG DUPLEX BILATERAL IMPRESSION: No DVT of the bilateral lower extremities. Dictated by: Mirlande Thompson M.D. on 05/12/2016 at 7:53 Assessment & Plan Dawit Hansen is a 70 yo male with ESBL Escherichia coli pyelonephritis, hypertension, diabetes mellitus type II, presents to [facility] emergency department via EMS from [facility] complaining of fatigue and found to have renal failure again. #. Acute Kidney Injury due to obstructive uropathy. Present on admission. Improving. 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 Cr is currently improving. -Patient continues to have polyuria -polyuria due to postobstructive diuresis VS diabetes insipidus versus psychogenic polydipsia -started DDAVP with 4 g subcutaneous now and 2 mg twice a day by nephrology , no response,will stop ddavp and IV fluid and re evaluate - Urology Dr Bermudez consulted by ED,recommended discharging with reyes and on flomax and followup with her outpatient - Nephrology on board - Chlorthalidone 25 mg daily. #. Recent ESBL Pyelonephritis. Under therapy, improving - Dr. Tucker was following - completed a course for Ertapenem on 05/13 - New urinalysis to follow up #. Diabetes mellitus type 2, present on admission. Active. - Previously on Metformin but was appropriately discontinued due to renal issues - Low correctional Lispro protocol #. History of Hypertension, not present on admission. Stable. - Continue Amlodipine #. Acute Encephalopathy. Present on admission, stable.resolved -due to Uremic encephalopathy which is resolved #.Anemia,acute on chronic -stool for occult blood positive -recommend outpatient workup 7.Low Mg -due to dieresis -repelete Acetaminophen as needed for mild pain/fever/headache Bowel regimen as needed Antiemetic as needed SubQ heparin . SCDs in place. disposition:possible discharge to SNF 1-2 with reyes VTE Mechanical Devices: Intermittant Pneumatic CD Resuscitation Status: CPR: Attempt Resuscitation Viraj Saldaañ MD May 16, 2016 15:27
--- NOTE | 2016-05-16 18:06 | NUR ---
Mentation patient is alert with mild confusion. Able to make needs known. Denies pain or discomfort. new orders for potassium chloride and it is running IV as ordered. Physical therapy this shift and patient up in the stone way with PT and walked 80 feet. stable blood sugars and insulin given as ordered. Bed alarm on for safety. Newman draining clear yellow urine and patent. Urine out put 1100cc. continue to monitor urine out put, pain, safety and mental status. PICC line to right arm and dressing site is clean dry and intact.
[2016-05-16] MEDS: Heparin 5,000 Unit/mL Inj SUBQ SCH (20:09)
[2016-05-16 20:20] VITALS: BP 121/74; PULSE 72; RESP 18; O2SAT 96
--- NOTE | 2016-05-17 05:16 | NUR ---
Activity Pt restful and relaxed this shift, calls appropriately and makes needs known. AOx2. No complaints of pain, SOB, or GI distress. Pt requests snacks this shift, HS blood sugar required no insulin coverage. Monitoring reyes output, PO fluids only this shift. Care continues
[2016-05-17 05:30] VITALS: BP 122/72; PULSE 71; RESP 16; O2SAT 99
[2016-05-17 07:30] LABS: Magnesium 1.6 mg/dL (1.6-2.6)
[2016-05-17] MEDS: buPROPion SR 150 mg ER12 Tablet PO SCH ×2 (10:02→18:01)
[2016-05-17] MEDS: Heparin 5,000 Unit/mL Inj SUBQ SCH ×2 (10:03→21:07)
[2016-05-17] MEDS: Insulin LISPRO 300 Unit/3 mL Inj SUBQ SCH ×4 (10:03→20:59)
--- NOTE | 2016-05-17 11:10 | PCM.PNMED ---
Subjective Date of Service May 17, 2016 Subjective Patient's overall condition continues to improve. Patient is much more alert and interactive and denies any chest pain, shortness of breath, vomiting or diarrhea. He is also has some increased strength and is able to ambulate with a walker. His blood pressures are good and his intake and output plus 24-hour sitters 2546 and and 4500 out. Exam Vital Signs Vital Sign - Last Date Time Temp Pulse Resp B/P Pulse Ox O2 Delivery O2 Flow Rate FiO2 05/17/16 05:30 37.0 71 16 122/72 99 Room Air Intake and Output 05/16/16 05/16/16 05/17/16 Cumulative From/Thru 15:00 23:00 07:00 05/11/16 19:40 - 05/16/16 17:09 Intake Total 2906 ml 640 ml 42084 ml Output Total 3400 ml 1100 ml 49803 ml Balance -494 ml -460 ml -7741 ml Intake Oral 800 ml 640 ml 9420 ml IV Total 2106 ml 36830 ml Output Urine Total 3400 ml 1100 ml 44098 ml # Bowel Movements 0 6 Exam HEENT examination is remarkable for bitemporal wasting and pale sclera. Lungs were clear to auscultation. Heart is regular with a soft systolic murmur. Abdomen is soft without tenderness rebound guarding masses or hepatosplenomegaly. Extremities do not show any evidence of any clubbing, cyanosis, or edema. Skin turgor is good and there was no evidence of any rashes. Lab and Diagnostics Result Diagram: 05/15/16 0715 05/17/16 0600 X-Rays, CTs and MRIs X-RAY CHEST ONE VIEW, PORTABLE 05/11 IMPRESSION: Diffuse scarring and blunted appearance of the left costophrenic angle however unchanged appearance since 04/29/16. No new consolidation Dictated by: Aaron Garcia M.D. on 05/11/2016 at 21:02 Approved by: Aaron Garcia M.D. on 05/11/2016 at 21:03 CT BRAIN WITHOUT CONTRAST 05/11 IMPRESSION: No acute intracranial process Dictated by: Aaron Garcia M.D. on 05/11/2016 at 20:51 US VENOUS LEG DUPLEX BILATERAL IMPRESSION: No DVT of the bilateral lower extremities. Dictated by: Mirlande Thompson M.D. on 05/12/2016 at 7:53 Assessment & Plan Impression #1 acute on chronic kidney injury which is resolving #2 polyuria multiple etiologies clearly is not diabetes insipidus #3 anemia which is multifactorial #4 chronic interstitial nephritis #5 hypertension with hypertensive heart disease and hypertensive nephrosclerosis Recommendations #1 I would like to put him on a 2000 mL fluid restriction and continue to follow his I's and O's. Most likely he can be discharged tomorrow. VTE Mechanical Devices: Intermittant Pneumatic CD Resuscitation Status: CPR: Attempt Resuscitation Son Dias DO May 17, 2016 11:10
[2016-05-17 14:08] VITALS: BP 90/59; PULSE 78; RESP 16; O2SAT 98
[2016-05-17 14:09] VITALS: BP 84/54; PULSE 78; RESP 16; O2SAT 98
[2016-05-17] MEDS ORDERED: 0.9% Sodium Chloride 500 ML IV ONE (14:10)
--- NOTE | 2016-05-17 14:50 | PCM.PNMED ---
Subjective Date of Service May 17, 2016 Subjective polyuria improving, UOP 4.5 L in 24 hours. Had dizziness and orthostatic hypotension, BP 84/54. Gave 500 ml NS bolus and put him back on NS at 100ml/h Exam Vital Signs Vital Sign - Last Date Time Temp Pulse Resp B/P Pulse Ox O2 Delivery O2 Flow Rate FiO2 05/17/16 14:09 36.3 78 16 84/54 98 Room Air Intake and Output 05/16/16 05/16/16 05/17/16 Cumulative From/Thru 15:00 23:00 07:00 05/11/16 19:40 - 05/16/16 17:09 Intake Total 2906 ml 640 ml 03804 ml Output Total 3400 ml 1100 ml 51150 ml Balance -494 ml -460 ml -7741 ml Intake Oral 800 ml 640 ml 9420 ml IV Total 2106 ml 22299 ml Output Urine Total 3400 ml 1100 ml 35183 ml # Bowel Movements 0 6 Exam General: Alert, Oriented X3, Cooperative, No Acute Distress Head: Normocephalic, atraumatic. External ears normal. Eyes: PERRLA, EOMI. Anicteric sclerae. Mouth: Mouth Normal, Mucous Membranes Moist/[place] Neck: Neck supple with full range of motion. Chest & Lungs: Clear to auscultation bilaterally with no crackles, wheezes, or rhonchi. Cardiovascular: Regular Rate/Rhythm, Normal S1, Normal S2, GII/Vi systolic murmur at LLSB Abdomen: Non-tender, Non-distended, No masses, Normoactive bowel tones, Soft Musculoskeletal: Normal Range of Motion Extremities: No cyanosis/clubbing/edema bilaterally Neurological: Grossly Neurologically Intact, Normal Speech SAE reyes in place draining clear urine IVs and Medications Medications Reviewed: Medications were reviewed in detail Lab and Diagnostics Result Diagram: 05/15/16 0715 05/17/16 0600 X-Rays, CTs and MRIs X-RAY CHEST ONE VIEW, PORTABLE 05/11 IMPRESSION: Diffuse scarring and blunted appearance of the left costophrenic angle however unchanged appearance since 04/29/16. No new consolidation Dictated by: Aaron Garcia M.D. on 05/11/2016 at 21:02 Approved by: Aaron Garcia M.D. on 05/11/2016 at 21:03 CT BRAIN WITHOUT CONTRAST 05/11 IMPRESSION: No acute intracranial process Dictated by: Aaron Garcia M.D. on 05/11/2016 at 20:51 US VENOUS LEG DUPLEX BILATERAL IMPRESSION: No DVT of the bilateral lower extremities. Dictated by: Mirlande Thompson M.D. on 05/12/2016 at 7:53 Assessment & Plan Dawit Hansen is a 70 yo male with ESBL Escherichia coli pyelonephritis, hypertension, diabetes mellitus type II, presents to [facility] emergency department via EMS from [facility] complaining of fatigue and found to have renal failure again. #. Acute Kidney Injury due to obstructive uropathy. Present on admission. Improving. 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 Cr is currently improving. -Patient continues to have polyuria - Urology Dr Bermudez consulted by ED,recommended discharging with reyes and on flomax and followup with her outpatient - Nephrology on board - Chlorthalidone 25 mg daily. # Polyuria due to post obstructive diuresis -polyuria due to postobstructive diuresis VS diabetes insipidus versus psychogenic polydipsia -started DDAVP with 4 g subcutaneous now and 2 mg twice a day by nephrology , no response, stopped ddavp and IV fluid on 05/16 -as above -failed DDAVP challenge # hypotension due to postobstructive diuresis -BP 84/54 today 05/17 -gave 500ml bolus and styarted NS at 100ml/h #. Recent ESBL Pyelonephritis. Under therapy, improving - Dr. Tucker was following - completed a course for Ertapenem on 05/13 - New urinalysis to follow up #. Diabetes mellitus type 2, present on admission. Active. - Previously on Metformin but was appropriately discontinued due to renal issues - Low correctional Lispro protocol #. History of Hypertension, not present on admission. Stable. - Continue Amlodipine #. Acute Encephalopathy. Present on admission, stable.resolved -due to Uremic encephalopathy which is resolved #.Anemia,acute on chronic -stool for occult blood positive -recommend outpatient workup #.Low Mg -due to dieresis -repelete Acetaminophen as needed for mild pain/fever/headache Bowel regimen as needed Antiemetic as needed SubQ heparin . SCDs in place. disposition:possible discharge to SNF 1-2 with reyes VTE Mechanical Devices: Intermittant Pneumatic CD Resuscitation Status: CPR: Attempt Resuscitation Viraj Saldaña MD May 17, 2016 14:50
[2016-05-17] MEDS: 0.9% Sodium Chloride 1,000 ML IV SCH (15:10)
[2016-05-17 18:30] VITALS: BP 101/63; PULSE 75; RESP 16; O2SAT 95
--- NOTE | 2016-05-17 18:31 | NUR ---
Activity Pt became agitated during AM assessment when asking neuro questions, but mood improved over day. Is A&O x 3, but forgetful and slightly confused when woken up. Pt is agreeable to care, but can be gruff. PT tried working with pt, but he became lightheaded when standing. BP taken and they were 90/59 and 84/54. 500ml fluid bolus given and then NS 100ml/hr running into right PICC line. Pt's repeat BP was 101/63. Encouraged increased PO intake. Hospitalist dc'd fluid restrictions on pt. Pt's Newman output was 1050.
[2016-05-17 20:57] VITALS: BP 106/67; PULSE 75; RESP 16; O2SAT 97
[2016-05-18] MEDS: 0.9% Sodium Chloride 1,000 ML IV SCH ×3 (02:28→20:41)
--- NOTE | 2016-05-18 04:16 | NUR ---
Behavior/Activity Patient alert and appropriate this shift. Cooperative with care and noted to be joking around with staff. Up to BSC with one person assist using FWW. No episodes of hypotension or dizziness/lightheadedness. VSS this shift thus far.
[2016-05-18 05:21] VITALS: BP 125/75; PULSE 72; RESP 16; O2SAT 96
[2016-05-18 05:39] LABS: BASOPHILS % (AUTO) 0.3 % (0-3); EOSINOPHILS % (AUTO) 0.8 % (0-5); MONOCYTES % (AUTO) 10.9 % (4-12); Mean Corpuscular Hemoglobin 29.7 pg (27.0-35.0); Mean Corpuscular Volume 91.6 fL (81-100); NEUTROPHILS % (AUTO) 71.4 % (40-74); Platelet Count 233 bil/L (150-400)
[2016-05-18 06:04] LABS: Magnesium 1.5 mg/dL (1.6-2.6)
[2016-05-18] MEDS: Insulin LISPRO 300 Unit/3 mL Inj SUBQ SCH ×4 (08:00→21:53)
[2016-05-18] MEDS: Heparin 5,000 Unit/mL Inj SUBQ SCH ×2 (08:44→20:41)
[2016-05-18] MEDS: buPROPion SR 150 mg ER12 Tablet PO SCH ×2 (08:44→17:48)
[2016-05-18] MEDS ORDERED: Magnesium Sulf 4 Gm/100 mL H2O 4 GM in IV Premix 1 EACH IV ONE (09:05)
--- NOTE | 2016-05-18 10:29 | NUR ---
NESHA: Patient is unable to accept NESHA at this time asked CABLE ARMORER to follow up with family.
--- NOTE | 2016-05-18 10:33 | NUR ---
Called and spoke with Vashti Arana and checked on patient status and if she can take patient back today. She is needing to go in a review patient as of today and make sure she has appropriate bed. Updated OPTIC FIBRE DRAWER Addendum: 05/18/16 at 1054 by BETTY CALZADA Vashti has reviewed and is able to take patient today when ready Updated [employer] DRAWER
[2016-05-18 11:30] VITALS: BP 82/54
[2016-05-18 12:19] VITALS: BP 116/75; PULSE 61; RESP 16; O2SAT 97
--- NOTE | 2016-05-18 14:13 | PCM.PNMED ---
Subjective Date of Service May 18, 2016 Subjective Patient had some increased urine output so this considerably less than yesterday. He is orthostatic and I feel that he may once again have some transient intravascular volume depletion. Patient offers no new complaints. His intake and output from yesterday was 20 7320 450 out with 2350 out the first 8 hours of today. His sodium is 137, potassium 3.7, chloride 99, CO2 25, BUN and creatinine were 29 and 1.76 which is a bit higher than it was yesterday. Exam Vital Signs Vital Sign - Last Date Time Temp Pulse Resp B/P Pulse Ox O2 Delivery O2 Flow Rate FiO2 05/18/16 12:19 36.6 61 16 116/75 97 Room Air Intake and Output 05/17/16 05/17/16 05/18/16 Cumulative From/Thru 15:00 23:00 07:00 05/11/16 19:40 - 05/18/16 06:23 Intake Total 250 ml 1823 ml 1790 ml 10693 ml Output Total 1400 ml 1050 ml 2350 ml 46334 ml Balance -1150 ml 773 ml -560 ml -8678 ml Intake Oral 250 ml 1076 ml 800 ml 35114 ml IV Total 747 ml 990 ml 41463 ml Output Urine Total 1400 ml 1050 ml 2350 ml 12226 ml # Bowel Movements 0 1 7 Exam Patient's neck is supple without adenopathy or jugular venous distention. Lungs clear to auscultation. Heart was regular rhythm abdomen soft systolic murmur. Abdomen soft benign tenderness rebound guarding masses or hepatosplenomegaly. Extremities do not show any evidence of any clubbing, cyanosis, or edema. Skin turgor is Lab and Diagnostics Result Diagram: 05/18/16 0520 05/18/16 0520 X-Rays, CTs and MRIs X-RAY CHEST ONE VIEW, PORTABLE 05/11 IMPRESSION: Diffuse scarring and blunted appearance of the left costophrenic angle however unchanged appearance since 04/29/16. No new consolidation Dictated by: Aaron Garcia M.D. on 05/11/2016 at 21:02 Approved by: Aaron Garcia M.D. on 05/11/2016 at 21:03 CT BRAIN WITHOUT CONTRAST 05/11 IMPRESSION: No acute intracranial process Dictated by: Aaron Garcia M.D. on 05/11/2016 at 20:51 US VENOUS LEG DUPLEX BILATERAL IMPRESSION: No DVT of the bilateral lower extremities. Dictated by: Mirlande Thompson M.D. on 05/12/2016 at 7:53 Assessment & Plan Impression #1 dehydration with mild increase in his renal indices #2 orthostatic hypotension from transient intravascular volume depletion #3 obstructive uropathy #4 chronic interstitial nephritis. Condition #1 with getting him some saline for the next 12 hours and then see how he responds to this. VTE Mechanical Devices: Intermittant Pneumatic CD Resuscitation Status: CPR: Attempt Resuscitation Son Dias DO May 18, 2016 14:13
--- NOTE | 2016-05-18 17:12 | PCM.PNMED ---
Subjective Date of Service May 18, 2016 Subjective Continues to have orthostatic hypotension despite IV fluids and slowing of polyuria to only 2.5 L. Chlorthalidone discontinued. ESTELA slightly worse today Exam Vital Signs Vital Sign - Last Date Time Temp Pulse Resp B/P Pulse Ox O2 Delivery O2 Flow Rate FiO2 05/18/16 12:19 36.6 61 16 116/75 97 Room Air Intake and Output 05/17/16 05/17/16 05/18/16 Cumulative From/Thru 15:00 23:00 07:00 05/11/16 19:40 - 05/18/16 06:23 Intake Total 250 ml 1823 ml 1790 ml 35328 ml Output Total 1400 ml 1050 ml 2350 ml 57925 ml Balance -1150 ml 773 ml -560 ml -8678 ml Intake Oral 250 ml 1076 ml 800 ml 39390 ml IV Total 747 ml 990 ml 91885 ml Output Urine Total 1400 ml 1050 ml 2350 ml 31174 ml # Bowel Movements 0 1 7 Exam General: Alert, Oriented X3, Cooperative, No Acute Distress Head: Normocephalic, atraumatic. External ears normal. Eyes: PERRLA, EOMI. Anicteric sclerae. Mouth: Mouth Normal, Mucous Membranes Moist/[place] Neck: Neck supple with full range of motion. Chest & Lungs: Clear to auscultation bilaterally with no crackles, wheezes, or rhonchi. Cardiovascular: Regular Rate/Rhythm, Normal S1, Normal S2, GII/Vi systolic murmur at LLSB Abdomen: Non-tender, Non-distended, No masses, Normoactive bowel tones, Soft Musculoskeletal: Normal Range of Motion Extremities: No cyanosis/clubbing/edema bilaterally Neurological: Grossly Neurologically Intact, Normal Speech SAE reyes in place draining clear urine IVs and Medications Medications Reviewed: Medications were reviewed in detail Lab and Diagnostics Result Diagram: 05/18/1651905/18/16519 X-Rays, CTs and MRIs X-RAY CHEST ONE VIEW, PORTABLE 05/11 IMPRESSION: Diffuse scarring and blunted appearance of the left costophrenic angle however unchanged appearance since 04/29/16. No new consolidation Dictated by: Aaron Garcia M.D. on 05/11/2016 at 21:02 Approved by: Aaron Garcia M.D. on 05/11/2016 at 21:03 CT BRAIN WITHOUT CONTRAST 05/11 IMPRESSION: No acute intracranial process Dictated by: Aaron Garcia M.D. on 05/11/2016 at 20:51 US VENOUS LEG DUPLEX BILATERAL IMPRESSION: No DVT of the bilateral lower extremities. Dictated by: Mirlande Thompson M.D. on 05/12/2016 at 7:53 Assessment & Plan Dawit Hansen is a 70 yo male with ESBL Escherichia coli pyelonephritis, hypertension, diabetes mellitus type II, presents to [facility] emergency department via EMS from [facility] complaining of fatigue and found to have renal failure again. #. Acute Kidney Injury due to obstructive uropathy. Present on admission. Improving. 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 Cr is currently improving. -Patient continues to have polyuria - Urology Dr Bermudez consulted by ED,recommended discharging with reyes and on flomax and followup with her outpatient - Nephrology on board - On Chlorthalidone 25 mg daily. Discontinued today 05/18 # Polyuria due to post obstructive diuresis -polyuria due to postobstructive diuresis VS diabetes insipidus versus psychogenic polydipsia -started DDAVP with 4 g subcutaneous now and 2 mg twice a day by nephrology , no response, stopped ddavp and IV fluid on 05/16 -as above -failed DDAVP challenge # hypotension due to postobstructive diuresis -Continues to have orthostatic hypotension despite IV fluids and slowing of polyuria to only 2.5 L. Chlorthalidone discontinued. -on NS at 100ml/h #. Recent ESBL Pyelonephritis. Under therapy, improving - Dr. Tucker on consult - completed a course for Ertapenem on 05/13 #. Diabetes mellitus type 2, present on admission. Active. - Previously on Metformin but was appropriately discontinued due to renal issues - Low correctional Lispro protocol #. History of Hypertension, not present on admission. Stable. - Continue Amlodipine #. Acute Encephalopathy. Present on admission, stable.resolved -due to Uremic encephalopathy which is resolved #.Anemia,acute on chronic -stool for occult blood positive -recommend outpatient workup #.Low Mg -due to dieresis -repelete Acetaminophen as needed for mild pain/fever/headache Bowel regimen as needed Antiemetic as needed SubQ heparin . SCDs in place. disposition:possible discharge to SNF 1-2 with reyes pending improvement of hypotension VTE Mechanical Devices: Intermittant Pneumatic CD Resuscitation Status: CPR: Attempt Resuscitation Viraj Saldaña MD May 18, 2016 17:12
--- NOTE | 2016-05-18 18:29 | NUR ---
orthostatic hypotension, pain, constipation pt. worked with PT today; standing at eob pt. had symptomatic orthostatic hypotension, 82/54; c/o dizziness and weakness. notified; iv fluids infusing per orders. C/o generalized pain this am; prn tylenol given with relief. Pt. states he has a bm everyday and did not have one today; prn senna given per pt. request, gave half dose per pt. request; no stool at this time.
[2016-05-18 20:29] VITALS: BP 127/74; PULSE 72; RESP 16; O2SAT 96
[2016-05-19] VITALS (8 sets, daily range): BP systolic 95–138; BP diastolic 59–83; PULSE 62–76; RESP 16–18; O2SAT 95–98
--- NOTE | 2016-05-19 04:13 | NUR ---
Pain Patient c/o mild left shoulder pain, rating it a 2/10. Received Tylenol 650mg PO at HS per request, with effective results. No further c/o breakthrough pain or discomfort. Noted to be resting with eyes closed most of shift.
[2016-05-19] MEDS: 0.9% Sodium Chloride 1,000 ML IV SCH ×2 (06:24→12:35)
[2016-05-19] MEDS: Insulin LISPRO 300 Unit/3 mL Inj SUBQ SCH ×4 (07:42→21:11)
[2016-05-19] MEDS: buPROPion SR 150 mg ER12 Tablet PO SCH ×2 (07:49→17:38)
[2016-05-19] MEDS: Heparin 5,000 Unit/mL Inj SUBQ SCH ×2 (07:50→20:30)
[2016-05-19] MEDS ORDERED: Potassium Chloride 20 mEq SR Tablet PO ONE (08:55)
[2016-05-19] MEDS ORDERED: 0.9% Sodium Chloride 500 ML IV ONE (10:05)
--- NOTE | 2016-05-19 12:28 | NUR ---
Orthostatic hypotension Continues; symptomatic with pt stating "I feel weak, I need to sit down" and becoming pale and tilting sideways. Recovers when laying down. Fluid bolus given as ordered, hypotension and symptoms improved but still present when standing. See VS. MD aware. Will hold discharge for today. Continue to monitor.
--- NOTE | 2016-05-19 12:41 | PCM.PNMED ---
Subjective Date of Service May 19, 2016 Subjective Recent blood pressure has improved somewhat as has his renal function. Last 24 hours he has had 4434 4500 out. He denies any headache, chest pain, or shortness of breath. This morning his sodium is 137, potassium 3.3, or 99, carbonate 27 his creatinine is 1.5. Exam Vital Signs Vital Sign - Last Date Time Temp Pulse Resp B/P Pulse Ox O2 Delivery O2 Flow Rate FiO2 05/19/16 10:56 76 95/62 05/19/16 04:45 36.6 16 97 Room Air Intake and Output 05/18/16 05/18/16 05/19/16 Cumulative From/Thru 15:00 23:00 07:00 05/11/16 19:40 - 05/19/16 05:44 Intake Total 2644 ml 1958 ml 11218 ml Output Total 2151 ml 2750 ml 53696 ml Balance 493 ml -792 ml -8977 ml Intake Oral 1417 ml 920 ml 24143 ml IV Total 1227 ml 1038 ml 67068 ml Output Urine Total 2151 ml 2750 ml 00237 ml # Bowel Movements 1 8 Exam Neck is supple without adenopathy, thyromegaly, or jugular venous distention. Lungs are clear to auscultation. Heart regular rhythm with soft systolic murmur. Abdomen soft without any tenderness rebound guarding masses or hepatosplenomegaly. Skin turgor is good. Lab and Diagnostics Result Diagram: 05/18/16 0520 05/19/16 0500 X-Rays, CTs and MRIs X-RAY CHEST ONE VIEW, PORTABLE 05/11 IMPRESSION: Diffuse scarring and blunted appearance of the left costophrenic angle however unchanged appearance since 04/29/16. No new consolidation Dictated by: Aaron Garcia M.D. on 05/11/2016 at 21:02 Approved by: Aaron Garcia M.D. on 05/11/2016 at 21:03 CT BRAIN WITHOUT CONTRAST 05/11 IMPRESSION: No acute intracranial process Dictated by: Aaron Garcia M.D. on 05/11/2016 at 20:51 US VENOUS LEG DUPLEX BILATERAL IMPRESSION: No DVT of the bilateral lower extremities. Dictated by: Mirlande Thompson M.D. on 05/12/2016 at 7:53 Assessment & Plan Impression #1 acute kidney injury which is resolving number to intravascular volume depletion which is resolving Recommendations #1 VTE Mechanical Devices: Intermittant Pneumatic CD Resuscitation Status: CPR: Attempt Resuscitation Son Dias DO May 19, 2016 12:41
--- NOTE | 2016-05-19 14:30 | NUR ---
Social work Note - Readiness for d/c. REFERRAL AGENT met with pt - pt identifies that he is planning to go to SNF for rehab when medically stable. EMR reviewed: Pt continues to have orthostatic hypotension, identifies pt may be ready for transfer tomorrow. REFERRAL AGENT called [facility] and spoke with Anu who states that they will have a bed for pt tomorrow. Plan: To [facility] when medically stable. JESICA Mcgarry
--- NOTE | 2016-05-19 14:30 | NUR ---
SUPERVISOR MOLD YARD witnessed [facility]'s signature Lata Miller
--- NOTE | 2016-05-19 16:26 | PCM.PNMED ---
Subjective Date of Service May 19, 2016 Subjective Continues to have dizziness and orthostatic hypotension.UOP 4.5/24h. Exam Vital Signs Vital Sign - Last Date Time Temp Pulse Resp B/P Pulse Ox O2 Delivery O2 Flow Rate FiO2 05/19/16 13:05 37.0 71 128/75 96 Room Air 05/19/16 04:45 16 Intake and Output 05/18/16 05/18/16 05/19/16 Cumulative From/Thru 15:00 23:00 07:00 05/11/16 19:40 - 05/19/16 05:44 Intake Total 2644 ml 1958 ml 35160 ml Output Total 2151 ml 2750 ml 08900 ml Balance 493 ml -792 ml -8977 ml Intake Oral 1417 ml 920 ml 04864 ml IV Total 1227 ml 1038 ml 18300 ml Output Urine Total 2151 ml 2750 ml 79836 ml # Bowel Movements 1 8 Exam General: Alert, Oriented X3, Cooperative, No Acute Distress Head: Normocephalic, atraumatic. External ears normal. Eyes: PERRLA, EOMI. Anicteric sclerae. Mouth: Mouth Normal, Mucous Membranes Moist/[place] Neck: Neck supple with full range of motion. Chest & Lungs: Clear to auscultation bilaterally with no crackles, wheezes, or rhonchi. Cardiovascular: Regular Rate/Rhythm, Normal S1, Normal S2, GII/Vi systolic murmur at LLSB Abdomen: Non-tender, Non-distended, No masses, Normoactive bowel tones, Soft Musculoskeletal: Normal Range of Motion Extremities: No cyanosis/clubbing/edema bilaterally Neurological: Grossly Neurologically Intact, Normal Speech SAE reyes in place draining clear urine IVs and Medications Medications Reviewed: Medications were reviewed in detail Lab and Diagnostics Result Diagram: 05/18/16 0520 05/19/16 0500 X-Rays, CTs and MRIs X-RAY CHEST ONE VIEW, PORTABLE 05/11 IMPRESSION: Diffuse scarring and blunted appearance of the left costophrenic angle however unchanged appearance since 04/29/16. No new consolidation Dictated by: Aaron Garcia M.D. on 05/11/2016 at 21:02 Approved by: Aaron Garcia M.D. on 05/11/2016 at 21:03 CT BRAIN WITHOUT CONTRAST 05/11 IMPRESSION: No acute intracranial process Dictated by: Aaron Garcia M.D. on 05/11/2016 at 20:51 US VENOUS LEG DUPLEX BILATERAL IMPRESSION: No DVT of the bilateral lower extremities. Dictated by: Mirlande Thompson M.D. on 05/12/2016 at 7:53 Assessment & Plan Dawit Hansen is a 70 yo male with ESBL Escherichia coli pyelonephritis, hypertension, diabetes mellitus type II, presents to [facility] emergency department via EMS from [facility] complaining of fatigue and found to have renal failure again. #. Acute Kidney Injury due to obstructive uropathy. Present on admission. Improving. 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 Cr is currently improving. -Patient continues to have polyuria - Urology Dr Bermudez consulted by ED,recommended discharging with reyes and on flomax and followup with her outpatient - Nephrology on board - On Chlorthalidone 25 mg daily. Discontinued today 05/18 # Polyuria due to post obstructive diuresis -polyuria due to postobstructive diuresis VS diabetes insipidus versus psychogenic polydipsia -started DDAVP with 4 g subcutaneous now and 2 mg twice a day by nephrology , no response, stopped ddavp and IV fluid on 05/16 -as above -failed DDAVP challenge # hypotension due to postobstructive diuresis -Continues to have orthostatic hypotension despite IV fluids . Chlorthalidone discontinued. -on NS at 100ml/h.bolused 500ml today #. Recent ESBL Pyelonephritis. Under therapy, improving - Dr. Tucker on consult - completed a course for Ertapenem on 05/13 #. Diabetes mellitus type 2, present on admission. Active. - Previously on Metformin but was appropriately discontinued due to renal issues - Low correctional Lispro protocol #. History of Hypertension, not present on admission. Stable. - Continue Amlodipine #. Acute Encephalopathy. Present on admission, stable.resolved -due to Uremic encephalopathy which is resolved #.Anemia,acute on chronic -stool for occult blood positive -recommend outpatient workup #.Low Mg -due to dieresis -repelete Acetaminophen as needed for mild pain/fever/headache Bowel regimen as needed Antiemetic as needed SubQ heparin . SCDs in place. disposition:possible discharge to SNF 1-2 with reyes pending improvement of hypotension VTE Mechanical Devices: Intermittant Pneumatic CD Resuscitation Status: CPR: Attempt Resuscitation Viraj Saldaña MD May 19, 2016 16:26
[2016-05-20] MEDS: 0.9% Sodium Chloride 1,000 ML IV SCH (01:34)
--- NOTE | 2016-05-20 03:22 | NUR ---
Pain Patient c/o left shoulder pain @ HS, rating it a 2/10. Received Tylenol PO for pain management with effective results. Resting with eyes closed remainder of shift thus far.
[2016-05-20 04:36] LABS: BASOPHILS % (AUTO) 0.3 % (0-3); EOSINOPHILS % (AUTO) 1.1 % (0-5); MONOCYTES % (AUTO) 10.5 % (4-12); Mean Corpuscular Hemoglobin 29.7 pg (27.0-35.0); Mean Corpuscular Volume 92.2 fL (81-100); NEUTROPHILS % (AUTO) 69.5 % (40-74); Platelet Count 248 bil/L (150-400)
[2016-05-20 04:59] VITALS: BP 144/80; PULSE 71; RESP 18; O2SAT 95
[2016-05-20 05:00] LABS: Magnesium 1.8 mg/dL (1.6-2.6)
[2016-05-20] MEDS: Insulin LISPRO 300 Unit/3 mL Inj SUBQ SCH ×4 (08:00→22:00)
[2016-05-20] MEDS: buPROPion SR 150 mg ER12 Tablet PO SCH ×2 (08:16→17:16)
[2016-05-20] MEDS: Heparin 5,000 Unit/mL Inj SUBQ SCH ×2 (08:17→21:24)
[2016-05-20 08:34] VITALS: BP 143/79
[2016-05-20 08:36] VITALS: BP 126/56
[2016-05-20 08:40] VITALS: BP 84/60
[2016-05-20] MEDS ORDERED: 0.9% Sodium Chloride 500 ML IV ONE (09:00)
--- NOTE | 2016-05-20 11:21 | PCM.PNMED ---
Subjective Date of Service May 20, 2016 Subjective Patient's polyuria continues. His blood pressure has fluctuated considerably from the upper 80s to the mid 1 teens. Her last 24 hours she had 4971 and 4925 out with 2775 out this morning. He states that he has a good appetite and remains thirsty. Exam Vital Signs Vital Sign - Last Date Time Temp Pulse Resp B/P Pulse Ox O2 Delivery O2 Flow Rate FiO2 05/20/16 08:40 84/60 05/20/16 04:59 37.0 71 18 95 Room Air Intake and Output 05/19/16 05/19/16 05/20/16 Cumulative From/Thru 15:00 23:00 07:00 05/11/16 19:40 - 05/20/16 05:45 Intake Total 3013 ml 1804 ml 76196 ml Output Total 2175 ml 2775 ml 50775 ml Balance 838 ml -971 ml -9110 ml Intake Oral 1520 ml 780 ml 35727 ml IV Total 1493 ml 1024 ml 80249 ml Output Urine Total 2175 ml 2775 ml 70072 ml # Bowel Movements 2 0 10 Exam Neck is supple without adenopathy thyromegaly or jugular venous distention.Lungs are clear.Heart regular Abdomen soft, no masses or tenderness, No edema but skin turgor is poor. Lab and Diagnostics Result Diagram: 05/20/1641905/20/16419 X-Rays, CTs and MRIs X-RAY CHEST ONE VIEW, PORTABLE 05/11 IMPRESSION: Diffuse scarring and blunted appearance of the left costophrenic angle however unchanged appearance since 04/29/16. No new consolidation Dictated by: Aaron Garcia M.D. on 05/11/2016 at 21:02 Approved by: Aaron Garcia M.D. on 05/11/2016 at 21:03 CT BRAIN WITHOUT CONTRAST 05/11 IMPRESSION: No acute intracranial process Dictated by: Aaron Garcia M.D. on 05/11/2016 at 20:51 US VENOUS LEG DUPLEX BILATERAL IMPRESSION: No DVT of the bilateral lower extremities. Dictated by: Mirlande Thompson M.D. on 05/12/2016 at 7:53 Assessment & Plan Impression 1. ESTELA resolving with polyuria. 2. Polyruia not DI, but perhaps a component of a solute diuresis from NS Recommendations 1. change IV to 1/2 nS at 75 and see if this will help VTE Mechanical Devices: Intermittant Pneumatic CD Resuscitation Status: CPR: Attempt Resuscitation Son Dias DO May 20, 2016 11:21
[2016-05-20 12:49] VITALS: BP 122/66; PULSE 69; O2SAT 97
--- NOTE | 2016-05-20 14:57 | NUR ---
Ortho HTN Continues symptomatic. Worked with physical therapy per MD. Changed IVF per MD. Continue to monitor.
--- NOTE | 2016-05-20 18:30 | PCM.PNMED ---
Subjective Date of Service May 20, 2016 Subjective Continues to have polyuria UOP 4.5/24h, continues to have dizziness and orthostatic hypotension despite NS at 100ml/h, Exam Vital Signs Vital Sign - Last Date Time Temp Pulse Resp B/P Pulse Ox O2 Delivery O2 Flow Rate FiO2 05/20/16 12:49 36.3 69 122/66 97 Room Air 05/20/16 04:59 18 Intake and Output 05/19/16 05/19/16 05/20/16 Cumulative From/Thru 15:00 23:00 07:00 05/11/16 19:40 - 05/20/16 05:45 Intake Total 3013 ml 1804 ml 69789 ml Output Total 2175 ml 2775 ml 29819 ml Balance 838 ml -971 ml -9110 ml Intake Oral 1520 ml 780 ml 31861 ml IV Total 1493 ml 1024 ml 43983 ml Output Urine Total 2175 ml 2775 ml 84749 ml # Bowel Movements 2 0 10 Exam General: Alert, Oriented X3, Cooperative, No Acute Distress Head: Normocephalic, atraumatic. External ears normal. Eyes: PERRLA, EOMI. Anicteric sclerae. Mouth: Mouth Normal, Mucous Membranes Moist/[place] Neck: Neck supple with full range of motion. Chest & Lungs: Clear to auscultation bilaterally with no crackles, wheezes, or rhonchi. Cardiovascular: Regular Rate/Rhythm, Normal S1, Normal S2, GII/Vi systolic murmur at LLSB Abdomen: Non-tender, Non-distended, No masses, Normoactive bowel tones, Soft Musculoskeletal: Normal Range of Motion Extremities: No cyanosis/clubbing/edema bilaterally Neurological: Grossly Neurologically Intact, Normal Speech SAE reyes in place draining clear urine IVs and Medications Medications Reviewed: Medications were reviewed in detail Lab and Diagnostics Result Diagram: 05/20/1641905/20/16419 X-Rays, CTs and MRIs X-RAY CHEST ONE VIEW, PORTABLE 05/11 IMPRESSION: Diffuse scarring and blunted appearance of the left costophrenic angle however unchanged appearance since 04/29/16. No new consolidation Dictated by: Aaron Garcia M.D. on 05/11/2016 at 21:02 Approved by: Aaron Garcia M.D. on 05/11/2016 at 21:03 CT BRAIN WITHOUT CONTRAST 05/11 IMPRESSION: No acute intracranial process Dictated by: Aaron Garcia M.D. on 05/11/2016 at 20:51 US VENOUS LEG DUPLEX BILATERAL IMPRESSION: No DVT of the bilateral lower extremities. Dictated by: Mirlande Thompson M.D. on 05/12/2016 at 7:53 Assessment & Plan Dawit Hansen is a 70 yo male with ESBL Escherichia coli pyelonephritis, hypertension, diabetes mellitus type II, presents to [facility] emergency department via EMS from [facility] complaining of fatigue and found to have renal failure again. # Polyuria due to post obstructive diuresis -polyuria due to postobstructive diuresis -gave DDAVP with 4 g subcutaneous once and 2 mg twice a day by nephrology on ,no response, stopped ddavp and IV fluid on 05/16 -Patient continues to have polyuria.chlorthalidone stopped but continues to have polyuria,effect may linger more. Diuresis may also worsened by NS, switched 1/2 NS as per nephrology -EFFECT OF CHLORTHALIDONE and postobstruction diuresis MAY LINGER AND MAY NEED TO DISCHARGE PATIENT WITH INSTRUCTION TO [facility] TO REPLACE FLUID BALANCE PRN WITH NS BOLUSES -failed DDAVP challenge # hypotension due to postobstructive diuresis -Continues to have orthostatic hypotension despite IV fluids . Chlorthalidone discontinued. -on NS at 100ml/h.bolused 500ml today #. Acute Kidney Injury due to obstructive uropathy. Present on admission. Improving. 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 Cr is currently improving. - Urology Dr Bermudez consulted by ED,recommended discharging with reyes and on flomax and followup with her outpatient - Nephrology on board - was On Chlorthalidone 25 mg daily. Discontinued 05/18 #. Recent ESBL Pyelonephritis. Under therapy, improving - Dr. Tucker on consult - completed a course for Ertapenem on 05/13 #. Diabetes mellitus type 2, present on admission. Active. - Previously on Metformin but was appropriately discontinued due to renal issues - Low correctional Lispro protocol #. History of Hypertension, not present on admission. Stable. - Continue Amlodipine #. Acute Encephalopathy. Present on admission, stable.resolved -due to Uremic encephalopathy which is resolved #.Anemia,acute on chronic -stool for occult blood positive -recommend outpatient workup #.Low Mg -due to dieresis -repelete Acetaminophen as needed for mild pain/fever/headache Bowel regimen as needed Antiemetic as needed SubQ heparin . SCDs in place. disposition:possible discharge to SNF 1-2 with reeys pending improvement of hypotension VTE Mechanical Devices: Intermittant Pneumatic CD Resuscitation Status: CPR: Attempt Resuscitation Viraj Saldaña MD May 20, 2016 18:30
[2016-05-20 20:56] VITALS: BP 142/73; PULSE 66; RESP 18; O2SAT 98
[2016-05-21 04:36] VITALS: BP_SYST 122; BP_SYST 149; BP_DIAS 79; BP_DIAS 82; PULSE 60; PULSE 67; RESP 18; O2SAT 97
[2016-05-21 04:43] VITALS: BP 112/73; PULSE 69
[2016-05-21 05:21] LABS: BASOPHILS % (AUTO) 0.2 % (0-3); EOSINOPHILS % (AUTO) 1.8 % (0-5); MONOCYTES % (AUTO) 10.5 % (4-12); Mean Corpuscular Hemoglobin 29.8 pg (27.0-35.0); Mean Corpuscular Volume 92.8 fL (81-100); NEUTROPHILS % (AUTO) 69.9 % (40-74); Platelet Count 261 bil/L (150-400)
[2016-05-21 05:58] LABS: Magnesium 1.4 mg/dL (1.6-2.6)
[2016-05-21] MEDS: Heparin 5,000 Unit/mL Inj SUBQ SCH ×2 (08:03→21:12)
[2016-05-21] MEDS: buPROPion SR 150 mg ER12 Tablet PO SCH ×2 (08:03→17:11)
[2016-05-21] MEDS ORDERED: Magnesium Sulf 2 Gm/50mL Water 2 GM in IV Premix 1 EACH IV ONE (08:05)
[2016-05-21] MEDS: Insulin LISPRO 300 Unit/3 mL Inj SUBQ SCH ×4 (08:06→21:19)
--- NOTE | 2016-05-21 09:12 | NUR ---
NESHA: Patient unable to receive NESHA, asked TAPING SUPERVISOR to follow up with NOK or family.
--- NOTE | 2016-05-21 10:20 | NUR ---
NESHA signed by MARIBEL [place]. Mellisa Cheatham, [employer]
--- NOTE | 2016-05-21 11:56 | PCM.PNMED ---
Subjective Date of Service May 21, 2016 Subjective no new event overnight. on 04/02 NS 75 ml/hr, UOP has decreased. I&O: 1672/2300 Exam Vital Signs Vital Sign - Last Date Time Temp Pulse Resp B/P Pulse Ox O2 Delivery O2 Flow Rate FiO2 05/21/16 04:43 69 112/73 05/21/16 04:36 37.0 18 97 Room Air Intake and Output 05/20/16 05/20/16 05/21/16 Cumulative From/Thru 15:00 23:00 07:00 05/11/16 19:40 - 05/21/16 06:05 Intake Total 3162 ml 800 ml 13044 ml Output Total 2150 ml 2300 ml 97486 ml Balance 1012 ml -1500 ml -9598 ml Intake Oral 1570 ml 800 ml 88492 ml IV Total 1592 ml 10741 ml Output Urine Total 2150 ml 2300 ml 84469 ml # Bowel Movements 1 1 12 Exam General appearance: Awake, alert, oriented x3, in no acute distress. HEENT: Mild pallor. No jaundice. No JVD. No lymphadenopathy. No thyroid enlargement. Atraumatic. Moist mucous membranes. Heart: Regular rhythm. Normal S1 and S2. No murmurs, rubs, or gallops. Lungs: Clear to auscultation bilaterally. No wheezing. No rhonchi. Abdomen: Soft, active bowel sounds. Nontender, nondistended. No hepatosplenomegaly. Extremities: No edema, cyanosis, or clubbing of the fingers. Diffuse muscle atrophy. : reyes cath in place with yellowish urine. Lab and Diagnostics Result Diagram: 05/21/16 0510 05/21/16 0510 X-Rays, CTs and MRIs X-RAY CHEST ONE VIEW, PORTABLE 05/11 IMPRESSION: Diffuse scarring and blunted appearance of the left costophrenic angle however unchanged appearance since 04/29/16. No new consolidation Dictated by: Aaron Garcia M.D. on 05/11/2016 at 21:02 Approved by: Aaron Garcia M.D. on 05/11/2016 at 21:03 CT BRAIN WITHOUT CONTRAST 05/11 IMPRESSION: No acute intracranial process Dictated by: Aaron Garcia M.D. on 05/11/2016 at 20:51 US VENOUS LEG DUPLEX BILATERAL IMPRESSION: No DVT of the bilateral lower extremities. Dictated by: Mirlande Thompson M.D. on 05/12/2016 at 7:53 Assessment & Plan 1. Acute kidney injury secondary to obstructive uropathy s/p reyes cath placement. Resolved. 2. Polyuria with underlying disease of obstructive uropathy. - unresponsive with DDAVP and thiazide diuretics. - ? solute diuresis. 3. History of hypertension. 4. Recent history of ESBL E. coli, acute pyelonephritis, status post IV ertapenem. 5. 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 PLAN: - decrease 1/2 NS to 50 ml/hr. - repeat urine Na and urine osm. - monitor UOP closely. VTE Mechanical Devices: Intermittant Pneumatic CD Resuscitation Status: CPR: Attempt Resuscitation Jose G Diana MD May 21, 2016 11:56
[2016-05-21 13:54] VITALS: BP 110/70; PULSE 71; RESP 19; O2SAT 97
--- NOTE | 2016-05-21 14:57 | NUR ---
Fatigue Hypotension Pt continues to have orthostatic hypotension. Educated pt on sitting up slowly and to sit sitting up for a while prior to standing. See PT Ortho vital signs for AM ortho-stats. Pt has been fatigued all day. states that he hasn't slept at all and does nap all day. Awakens easily to sound. Encouraging pt to sit up for longer periods of time but pt continues to lay himself back down. Care continues
[2016-05-21 15:43] LABS: OSMOLALITY, URINE 174 mOs/kH2O (250-1200)
--- NOTE | 2016-05-21 18:24 | PCM.PNMED ---
Subjective Date of Service May 21, 2016 Subjective denies any new issues/complaints Exam Vital Signs Vital Sign - Last Date Time Temp Pulse Resp B/P Pulse Ox O2 Delivery O2 Flow Rate FiO2 05/21/16 13:54 36.3 71 19 110/70 97 Room Air Intake and Output 05/20/16 05/20/16 05/21/16 Cumulative From/Thru 15:00 23:00 07:00 05/11/16 19:40 - 05/21/16 06:05 Intake Total 3162 ml 800 ml 36268 ml Output Total 2150 ml 2300 ml 30847 ml Balance 1012 ml -1500 ml -9598 ml Intake Oral 1570 ml 800 ml 76248 ml IV Total 1592 ml 98917 ml Output Urine Total 2150 ml 2300 ml 87296 ml # Bowel Movements 1 1 12 General: Alert, Cooperative, No Acute Distress Eyes: Scleral Anicteric Nose: Mucous Membr Moist/[place] Mouth: Mucous Membr Moist/[place] Neck: Supple Chest & Lungs: Chest Wall Normal, Clear to auscultation & percussion Cardiovascular: Regular Rate/Rhythm Pulses: NL carotid, radial, femoral, DP, PT Abdomen: Non-tender, Non-distended, Normoactive bowel tones, Soft Extremities: No cyanosis/clubbing/edma bilat Neurological: Grossly Neurologically Intact, Normal Speech IVs and Medications Medications Reviewed: Medications were reviewed in detail Lab and Diagnostics Result Diagram: 05/21/16 0510 05/21/16 0510 X-Rays, CTs and MRIs X-RAY CHEST ONE VIEW, PORTABLE 05/11 IMPRESSION: Diffuse scarring and blunted appearance of the left costophrenic angle however unchanged appearance since 04/29/16. No new consolidation Dictated by: Aaron Garcia M.D. on 05/11/2016 at 21:02 Approved by: Aaron Garcia M.D. on 05/11/2016 at 21:03 CT BRAIN WITHOUT CONTRAST 05/11 IMPRESSION: No acute intracranial process Dictated by: Aaron aGrcia M.D. on 05/11/2016 at 20:51 US VENOUS LEG DUPLEX BILATERAL IMPRESSION: No DVT of the bilateral lower extremities. Dictated by: Mirlande Thompson M.D. on 05/12/2016 at 7:53 Assessment & Plan 70 yo male with ESBL Escherichia coli pyelonephritis, hypertension, diabetes mellitus type II, presents to [facility] emergency department via EMS from [facility] complaining of fatigue and found to have renal failure again. # Acute polyuria with underlying disease of obstructive uropathy, poa. improving - unresponsive with DDAVP and thiazide diuretics (DDAVP with 4 g subcutaneous once and 2 mg twice a day by nephrology on 05/16,no response, stopped ddavp on ) - ? solute diuresis. - appreciate nephrology consult. will f/u w/ recs - decrease 1/2 NS to 50 ml/hr. - repeat urine Na and urine osm. - monitor UOP closely. # Acute kidney injury secondary to obstructive uropathy, poa. - s/p reyes cath placement. - Resolved. - per earlier notes: "Urology Dr Bermudez consulted by ED, recommended discharging with Reyes and on Flomax and followup with her outpatient" # History of hypertension with hypotension due to postobstructive diuresis during this hospital - improving - f/u # Recent ESBL Pyelonephritis. Under therapy, improving - Dr. Tucker on consult - completed a course for Ertapenem on 05/13 # Diabetes mellitus type 2, present on admission. Active. - Previously on Metformin but was appropriately discontinued due to renal issues - Low correctional Lispro protocol # Acute Encephalopathy. Present on admission - resolved - due to Uremic encephalopathy which is resolved # Anemia, acute on chronic - stool for occult blood positive - recommend outpatient workup - h/h stable Dispo: 1-2 days VTE Mechanical Devices: Intermittant Pneumatic CD Resuscitation Status: CPR: Attempt Resuscitation Bartolo Ritchie May 21, 2016 18:24
[2016-05-21 20:37] VITALS: BP 117/66; PULSE 71; RESP 18; O2SAT 99
[2016-05-22] VITALS (8 sets, daily range): BP systolic 57–125; BP diastolic 41–71; PULSE 69–76; RESP 16–18; O2SAT 97–99
--- NOTE | 2016-05-22 04:17 | NUR ---
Shift Note A&Ox3 on RA. Pt has been sleeping throughout shift. Has no c/o pain. Awakens easily to voice. Instructed on use of call light and agrees to use it when needing to get up to the bathroom, reyes in place. Bed down, locked and call light within reach.
[2016-05-22 06:11] LABS: Magnesium 1.9 mg/dL (1.6-2.6)
[2016-05-22] MEDS: Insulin LISPRO 300 Unit/3 mL Inj SUBQ SCH ×4 (07:56→21:02)
[2016-05-22] MEDS: buPROPion SR 150 mg ER12 Tablet PO SCH ×2 (08:22→17:37)
[2016-05-22] MEDS: Heparin 5,000 Unit/mL Inj SUBQ SCH ×2 (08:23→21:01)
--- NOTE | 2016-05-22 11:10 | NUR ---
NUTRITION ASSESSMENT: ASSESS: 70 YO male admitted for acute renal failure which has been improving, but is not yet back to baseline and started trending upward again today. Nephrology following. PMHx: ESBL E Coli pyelonephritis, obstructive uropathy, HTN, DM type 2, depression, asthma, COPD, Cancer, CAD, Stroke. LABS: Reviewed. BUN 28, Cr 1.41, Glu 145, Alb 3.7. MEDS: Reviewed. GI: BM x 1 (05/21) CURRENT WT: 78 kg. Admit wt: 82 kg. Wt changes likely due to fluid losses. DIET: Renal. PO 75-100% of meals. EST. NEEDS (ESTELA, COPD): 1417-4958 kcals (25-35 kcals/kg BW), 65-95 g protein (0.8-1.2 g/kg BW) NUTRITION DIAGNOSIS: 1.) Increased nutrient needs related to increased demand for nutrients for disease state as evidenced by ESTELA and COPD. NUTRITION INTERVENTION: 1.) Continue current diet at this time as po intake appears adequate to meet pt est. needs. MONITOR / EVAL: PO intake, labs, weights, nutritional status. Follow per low nutritional risk guidelines. Addendum: 05/22/16 at [address] DIET: RENAL/DIABETIC, LOW PROTEIN (60 G PER DAY)
--- NOTE | 2016-05-22 11:44 | PCM.PNMED ---
Subjective Date of Service May 22, 2016 Subjective He wants to go home. UOP has been less but he remains polyuric. He is not thirst. He drinks 4-5 glasses of water a day. Exam Vital Signs Vital Sign - Last Date Time Temp Pulse Resp B/P Pulse Ox O2 Delivery O2 Flow Rate FiO2 05/22/16 05:28 36.9 75 18 111/70 97 Room Air Intake and Output 05/21/16 05/21/16 05/22/16 Cumulative From/Thru 15:00 23:00 07:00 05/11/16 19:40 - 05/22/16 06:18 Intake Total 872 ml 1586 ml 1283 ml 81337 ml Output Total 1200 ml 2250 ml 88760 ml Balance 872 ml 386 ml -967 ml -9307 ml Intake Oral 836 ml 750 ml 34768 ml IV Total 872 ml 750 ml 533 ml 93409 ml Output Urine Total 1200 ml 2250 ml 07621 ml # Bowel Movements 12 Exam General appearance: Awake, alert, oriented x3, in no acute distress. HEENT: Mild pallor. No jaundice. No JVD. No lymphadenopathy. No thyroid enlargement. Atraumatic. Moist mucous membranes. Heart: Regular rhythm. Normal S1 and S2. No murmurs, rubs, or gallops. Lungs: Clear to auscultation bilaterally. No wheezing. No rhonchi. Abdomen: Soft, active bowel sounds. Nontender, nondistended. No hepatosplenomegaly. Extremities: No edema, cyanosis, or clubbing of the fingers. Diffuse muscle atrophy. : reyes cath in place with yellowish urine. Lab and Diagnostics Result Diagram: 05/21/16 0510 05/22/16 0530 X-Rays, CTs and MRIs X-RAY CHEST ONE VIEW, PORTABLE 05/11 IMPRESSION: Diffuse scarring and blunted appearance of the left costophrenic angle however unchanged appearance since 04/29/16. No new consolidation Dictated by: Aaron Garcia M.D. on 05/11/2016 at 21:02 Approved by: Aaron Garcia M.D. on 05/11/2016 at 21:03 CT BRAIN WITHOUT CONTRAST 05/11 IMPRESSION: No acute intracranial process Dictated by: Aaron Garcia M.D. on 05/11/2016 at 20:51 US VENOUS LEG DUPLEX BILATERAL IMPRESSION: No DVT of the bilateral lower extremities. Dictated by: Mirlande Thompson M.D. on 05/12/2016 at 7:53 Assessment & Plan 1. Acute kidney injury secondary to obstructive uropathy s/p reyes cath placement. - Resolved. 2. Polyuria with underlying disease of obstructive uropathy. - unresponsive with DDAVP and thiazide diuretics. - ? solute diuresis. - repeat urine osm 174, urine Na 53, serum osm 294, 3. History of hypertension. 4. Recent history of ESBL E. coli, acute pyelonephritis, status post IV ertapenem. 5. 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 PLAN: - d/c 1/2 NS. - drink when thirsty - continue to record intake and output. - likely d/c home within 24 hr. VTE Mechanical Devices: Intermittant Pneumatic CD Resuscitation Status: CPR: Attempt Resuscitation Jose G Diana MD May 22, 2016 11:44
--- NOTE | 2016-05-22 14:41 | NUR ---
Social Work- Readiness for Discharge Data: EMR reviewed. Pt is on day 11 of hospitalization for acute renal failure her H&P. Pt is not medically stable at this time, anticipate 1-2 more days. PT continues to recommend SNF. Pt to return to [facility], who is accepting pt with Vince to follow. CARLOS updated Tabitha at [facility] [phone] of pt discharge status. Paperwork in chart. SW continues to follow. Assessment: Pt who would benefit from SNF. Plan: Pt to discharge back to [facility] at discharge. Paperwork in chart. SW continues to follow. ISMAEL Aquino
--- NOTE | 2016-05-22 16:33 | NUR ---
Blood Pressure Pt got up with PT. When pt stood bp dropped to 57/41. BP laying down is 113/67. notified. Will continue to monitor.
--- NOTE | 2016-05-22 17:31 | PCM.PNMED ---
Subjective Date of Service May 22, 2016 Subjective denies any new issues/complaints Exam Vital Signs Vital Sign - Last Date Time Temp Pulse Resp B/P Pulse Ox O2 Delivery O2 Flow Rate FiO2 05/22/16 17:15 70 05/22/16 16:28 36.6 16 111/71 97 Room Air Intake and Output 05/21/16 05/21/16 05/22/16 Cumulative From/Thru 15:00 23:00 07:00 05/11/16 19:40 - 05/22/16 06:18 Intake Total 872 ml 1586 ml 1283 ml 10605 ml Output Total 1200 ml 2250 ml 08914 ml Balance 872 ml 386 ml -967 ml -9307 ml Intake Oral 836 ml 750 ml 07329 ml IV Total 872 ml 750 ml 533 ml 57831 ml Output Urine Total 1200 ml 2250 ml 40015 ml # Bowel Movements 12 Exam General: Alert, Cooperative, No Acute Distress Eyes: Scleral Anicteric Nose: Mucous Membr Moist/[place] Mouth: Mucous Membr Moist/[place] Neck: Supple Chest & Lungs: Chest Wall Normal, Clear to auscultation bilat Cardiovascular: Regular Rate/Rhythm Pulses: NL carotid, radial, femoral, DP, PT Abdomen: Non-tender, Non-distended, Normoactive bowel tones, Soft Extremities: No cyanosis/clubbing/edema bilat Neurological: Grossly Neurologically Intact, Normal Speech IVs and Medications Medications Reviewed: Medications were reviewed in detail Lab and Diagnostics Result Diagram: 05/21/16 0510 05/22/16 0530 X-Rays, CTs and MRIs X-RAY CHEST ONE VIEW, PORTABLE 05/11 IMPRESSION: Diffuse scarring and blunted appearance of the left costophrenic angle however unchanged appearance since 04/29/16. No new consolidation Dictated by: Aaron Garcia M.D. on 05/11/2016 at 21:02 Approved by: Aaron Garcia M.D. on 05/11/2016 at 21:03 CT BRAIN WITHOUT CONTRAST 05/11 IMPRESSION: No acute intracranial process Dictated by: Aaron Garcia M.D. on 05/11/2016 at 20:51 US VENOUS LEG DUPLEX BILATERAL IMPRESSION: No DVT of the bilateral lower extremities. Dictated by: Mirlande Thompson M.D. on 05/12/2016 at 7:53 Assessment & Plan 70 yo male with ESBL Escherichia coli pyelonephritis, hypertension, diabetes mellitus type II, presents to [facility] emergency department via EMS from [facility] complaining of fatigue and found to have renal failure again. # Acute polyuria with underlying disease of obstructive uropathy, poa. improving - unresponsive with DDAVP and thiazide diuretics (DDAVP with 4 g subcutaneous once and 2 mg twice a day by nephrology on 05/16,no response, stopped ddavp on ) - ? solute diuresis. - appreciate nephrology consult. will f/u w/ recs - stop IVF per nephrology rec - monitor UOP closely. # Acute kidney injury secondary to obstructive uropathy, poa. - s/p reyes cath placement. - Resolved but Cr up again today - per earlier notes: "Urology Dr Bermudez consulted by ED, recommended discharging with Reyes and on Flomax and followup with her outpatient" # History of hypertension with hypotension due to postobstructive diuresis during this hospital - improving - f/u # Recent ESBL Pyelonephritis. Under therapy, improving - Dr. Tucker on consult - completed a course for Ertapenem on 05/13 # Diabetes mellitus type 2, present on admission. Active. - Previously on Metformin but was appropriately discontinued due to renal issues - Low correctional Lispro protocol # Acute Encephalopathy. Present on admission - resolved - due to Uremic encephalopathy which is resolved # Anemia, acute on chronic - stool for occult blood positive - recommend outpatient workup - h/h stable Dispo: 1-2 days pending improved or stable Cr VTE Mechanical Devices: Intermittant Pneumatic CD Resuscitation Status: CPR: Attempt Resuscitation Time spent 30 min Bartolo Ritchie May 22, 2016 17:31
[2016-05-23] VITALS (8 sets, daily range): BP systolic 89–130; BP diastolic 56–74; PULSE 69–84; RESP 16–20; O2SAT 95–98
--- NOTE | 2016-05-23 03:20 | NUR ---
Activity Patient in bed all of shift so far. Noted to be resting with eyes closed pretty much all of shift. Arouses to verbal & tactile stimuli. A&O when awake, cooperative with care. No c/o pain or discomfort. VSS.
[2016-05-23] MEDS: Insulin LISPRO 300 Unit/3 mL Inj SUBQ SCH ×4 (08:00→22:00)
[2016-05-23 08:25] LABS: Mean Corpuscular Hemoglobin 29.6 pg (27.0-35.0); Mean Corpuscular Volume 92.4 fL (81-100)
[2016-05-23] MEDS: buPROPion SR 150 mg ER12 Tablet PO SCH ×2 (08:36→16:43)
[2016-05-23] MEDS: Heparin 5,000 Unit/mL Inj SUBQ SCH ×2 (08:37→22:44)
--- NOTE | 2016-05-23 09:25 | NUR ---
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
--- NOTE | 2016-05-23 09:26 | NUR ---
SW called Carin Myers regarding Dawit Hansen's NESHA. Left message requesting return call. ISMAEL Aquino
[2016-05-23] MEDS: 0.9% Sodium Chloride 1,000 ML IV SCH ×2 (10:44→22:45)
--- NOTE | 2016-05-23 11:59 | PCM.PNMED ---
Subjective Date of Service May 23, 2016 Subjective Despite stopping IVF, his urine output remains high. Of note, he becomes more prerenal and orthostatic. He is feeling weak. Exam Vital Signs Vital Sign - Last Date Time Temp Pulse Resp B/P Pulse Ox O2 Delivery O2 Flow Rate FiO2 05/23/16 10:35 82 05/23/16 09:12 107/57 05/23/16 09:11 36.8 18 98 Room Air Intake and Output 05/22/16 05/22/16 05/23/16 Cumulative From/Thru 15:00 23:00 07:00 05/11/16 19:40 - 05/23/16 06:25 Intake Total 311 ml 1073 ml 1346 ml 67555 ml Output Total 800 ml 2000 ml 80332 ml Balance 311 ml 273 ml -654 ml -9377 ml Intake Oral 1073 ml 1346 ml 76060 ml IV Total 311 ml 10864 ml Output Urine Total 800 ml 2000 ml 04484 ml # Bowel Movements 1 13 Exam General appearance: Awake, alert, oriented x3, in no acute distress. HEENT: Mild pallor. No jaundice. No JVD. No lymphadenopathy. No thyroid enlargement. Atraumatic. Moist mucous membranes. Heart: Regular rhythm. Normal S1 and S2. No murmurs, rubs, or gallops. Lungs: Clear to auscultation bilaterally. No wheezing. No rhonchi. Abdomen: Soft, active bowel sounds. Nontender, nondistended. No hepatosplenomegaly. Extremities: No edema, cyanosis, or clubbing of the fingers. Diffuse muscle atrophy. : reyes cath in place with yellowish urine. Lab and Diagnostics Result Diagram: 05/23/1681105/23/16811 X-Rays, CTs and MRIs X-RAY CHEST ONE VIEW, PORTABLE 05/11 IMPRESSION: Diffuse scarring and blunted appearance of the left costophrenic angle however unchanged appearance since 04/29/16. No new consolidation Dictated by: Aaron Garcia M.D. on 05/11/2016 at 21:02 Approved by: Aaron Garcia M.D. on 05/11/2016 at 21:03 CT BRAIN WITHOUT CONTRAST 05/11 IMPRESSION: No acute intracranial process Dictated by: Aaron Garcia M.D. on 05/11/2016 at 20:51 US VENOUS LEG DUPLEX BILATERAL IMPRESSION: No DVT of the bilateral lower extremities. Dictated by: Mirlande Thompson M.D. on 05/12/2016 at 7:53 Assessment & Plan 1. Acute kidney injury secondary to obstructive uropathy s/p reyes cath placement. - now with prerenal azotemia. 2. Polyuria with underlying disease of obstructive uropathy. - Despite stopping IVF, his urine output remains high. - Of note, he becomes more prerenal and orthostatic. - Repeat urine osm 323, seurm osm 300. - MRI brain in Dec and CT brain showed no brain tumor. 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 - will resume NS 100 ml/hr. - start fludrocortisone to increase Na and fluid retention. 3. History of hypertension. 4. Recent history of ESBL E. coli, acute pyelonephritis, status post IV ertapenem. 5. 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 VTE Mechanical Devices: Intermittant Pneumatic CD Resuscitation Status: CPR: Attempt Resuscitation Jose G Diana MD May 23, 2016 11:59
[2016-05-23 12:35] LABS: APPEARANCE,URINE CLOUDY (CLEAR,HAZY); COLOR,URINE STRAW (YELLOW); OCCULT BLOOD,URINE SMALL (NEGATIVE); UROBILINOGEN,URINE NORMAL (NORMAL)
--- NOTE | 2016-05-23 14:29 | NUR ---
BP/activity Pt was up to chair with PLAN MANAGER. Symptomatic orthostatic hypotension continues. New orders from nephrology. Will continue bedrest with careful, monitored dangling at bedside. Pt agreeable, uses call light appropriately.
--- NOTE | 2016-05-23 16:03 | PCM.PNMED ---
Subjective Date of Service May 23, 2016 Subjective denies any new issues/complaints Exam Vital Signs Vital Sign - Last Date Time Temp Pulse Resp B/P Pulse Ox O2 Delivery O2 Flow Rate FiO2 05/23/16 14:21 36.3 77 113/68 98 Room Air 05/23/16 09:11 18 Intake and Output 05/22/16 05/22/16 05/23/16 Cumulative From/Thru 15:00 23:00 07:00 05/11/16 19:40 - 05/23/16 06:25 Intake Total 311 ml 1073 ml 1346 ml 51113 ml Output Total 800 ml 2000 ml 87308 ml Balance 311 ml 273 ml -654 ml -9377 ml Intake Oral 1073 ml 1346 ml 42586 ml IV Total 311 ml 76696 ml Output Urine Total 800 ml 2000 ml 18714 ml # Bowel Movements 1 13 Exam General: Alert, Cooperative, No Acute Distress Eyes: Scleral Anicteric Nose: Mucous Membr Moist/[place] Mouth: Mucous Membr Moist/[place] Neck: Supple Chest & Lungs: Chest Wall Normal, Clear to auscultation bilat Cardiovascular: Regular Rate/Rhythm Pulses: NL carotid, radial, femoral, DP, PT Abdomen: Non-tender, Non-distended, Normoactive bowel tones, Soft Extremities: No cyanosis/clubbing/edema bilat Neurological: Grossly Neurologically Intact, Normal Speech IVs and Medications Medications Reviewed: Medications were reviewed in detail Lab and Diagnostics Result Diagram: 05/23/16 0812 05/23/16 0812 X-Rays, CTs and MRIs X-RAY CHEST ONE VIEW, PORTABLE 05/11 IMPRESSION: Diffuse scarring and blunted appearance of the left costophrenic angle however unchanged appearance since 04/29/16. No new consolidation Dictated by: Aaron Garcia M.D. on 05/11/2016 at 21:02 Approved by: Aaron Garcia M.D. on 05/11/2016 at 21:03 CT BRAIN WITHOUT CONTRAST 05/11 IMPRESSION: No acute intracranial process Dictated by: Aaron Garcia M.D. on 05/11/2016 at 20:51 US VENOUS LEG DUPLEX BILATERAL IMPRESSION: No DVT of the bilateral lower extremities. Dictated by: Mirlande Thompson M.D. on 05/12/2016 at 7:53 Assessment & Plan 70 yo male with ESBL Escherichia coli pyelonephritis, hypertension, diabetes mellitus type II, presents to [facility] emergency department via EMS from [facility] complaining of fatigue and found to have renal failure again. # Acute polyuria with underlying disease of obstructive uropathy, poa. - unresponsive with DDAVP and thiazide diuretics (DDAVP with 4 g subcutaneous once and 2 mg twice a day by nephrology on 05/16,no response, stopped ddavp on ) - ? solute diuresis. - appreciate nephrology consult. will f/u w/ recs # Acute kidney injury secondary to obstructive uropathy, poa. - s/p reyes cath placement. - Resolved but now with acute worsening again since 05/22 - further management per nephrology recs - resume NS 100 ml/hr. - start fludrocortisone to increase Na and fluid retention. - per earlier notes: "Urology Dr Bermudez consulted by ED, recommended discharging with Reyes and on Flomax and followup with her outpatient" # History of hypertension with hypotension due to postobstructive diuresis during this hospital. - currently with acute orthostatic hypotension - plan as noted above - f/u # Recent ESBL Pyelonephritis. Under therapy, improving - Dr. Tucker on consult - completed a course for Ertapenem on 05/13 # Diabetes mellitus type 2, present on admission. Active. - Previously on Metformin but was appropriately discontinued due to renal issues - Low correctional Lispro protocol # Acute Encephalopathy. Present on admission - resolved - due to Uremic encephalopathy which is resolved # Anemia, acute on chronic - stool for occult blood positive - recommend outpatient workup - h/h stable Dispo: 2-4 days pending improved renal function and orthostatic hypotension VTE Mechanical Devices: Intermittant Pneumatic CD Resuscitation Status: CPR: Attempt Resuscitation Time spent 35 min Bartolo Ritchie May 23, 2016 16:03
[2016-05-24] VITALS (12 sets, daily range): BP systolic 94–152; BP diastolic 66–81; PULSE 55–80; RESP 16–18; O2SAT 96–100
[2016-05-24 05:48] LABS: Magnesium 1.5 mg/dL (1.6-2.6)
--- NOTE | 2016-05-24 07:34 | NUR ---
constipation pt complained of constipation this shift. he says he went yesterday but feels as if he needs to pass a large amount of hard stool. nurse explained to pt that we did not want him trying to strenuously pass stool as this could cause him to pass out with his already low BPs. he was given miralax. no BM yet. will continue to monitor.
[2016-05-24] MEDS ORDERED: Magnesium Sulf 2 Gm/50mL Water 2 GM in IV Premix 1 EACH IV ONE (07:45)
[2016-05-24] MEDS: Insulin LISPRO 300 Unit/3 mL Inj SUBQ SCH ×4 (08:00→22:00)
[2016-05-24] MEDS: 0.9% Sodium Chloride 1,000 ML IV SCH ×2 (09:52→23:03)
[2016-05-24] MEDS: buPROPion SR 150 mg ER12 Tablet PO SCH ×2 (09:59→17:42)
[2016-05-24] MEDS: Heparin 5,000 Unit/mL Inj SUBQ SCH ×2 (10:00→20:41)
--- NOTE | 2016-05-24 11:39 | PCM.PNMED ---
Subjective Date of Service May 24, 2016 Subjective feeling better today. BP improved. Exam Vital Signs Vital Sign - Last Date Time Temp Pulse Resp B/P Pulse Ox O2 Delivery O2 Flow Rate FiO2 05/24/16 08:00 66 05/24/16 04:00 37.0 16 152/80 99 Room Air Intake and Output 05/23/16 05/23/16 05/24/16 Cumulative From/Thru 15:00 23:00 07:00 05/11/16 19:40 - 05/24/16 05:30 Intake Total 1690 ml 513 ml 47523 ml Output Total 1000 ml 1700 ml 40419 ml Balance 690 ml -1187 ml -9874 ml Intake Oral 1040 ml 513 ml 98082 ml IV Total 650 ml 42437 ml Output Urine Total 1000 ml 1700 ml 59124 ml # Bowel Movements 0 13 Exam General appearance: Awake, alert, oriented x3, in no acute distress. HEENT: Mild pallor. No jaundice. No JVD. No lymphadenopathy. No thyroid enlargement. Atraumatic. Moist mucous membranes. Heart: Regular rhythm. Normal S1 and S2. No murmurs, rubs, or gallops. Lungs: Clear to auscultation bilaterally. No wheezing. No rhonchi. Abdomen: Soft, active bowel sounds. Nontender, nondistended. No hepatosplenomegaly. Extremities: No edema, cyanosis, or clubbing of the fingers. Diffuse muscle atrophy. : reyes cath in place with yellowish urine. Lab and Diagnostics Result Diagram: 05/23/16 0812 05/24/16 0517 X-Rays, CTs and MRIs X-RAY CHEST ONE VIEW, PORTABLE 05/11 IMPRESSION: Diffuse scarring and blunted appearance of the left costophrenic angle however unchanged appearance since 04/29/16. No new consolidation Dictated by: Aaron Garcia M.D. on 05/11/2016 at 21:02 Approved by: Aaron Garcia M.D. on 05/11/2016 at 21:03 CT BRAIN WITHOUT CONTRAST 05/11 IMPRESSION: No acute intracranial process Dictated by: Aaron Garcia M.D. on 05/11/2016 at 20:51 US VENOUS LEG DUPLEX BILATERAL IMPRESSION: No DVT of the bilateral lower extremities. Dictated by: Mirlande Thompson M.D. on 05/12/2016 at 7:53 Assessment & Plan 1. Acute kidney injury secondary to obstructive uropathy s/p reyes cath placement. - now with prerenal azotemia. 2. Polyuria with underlying disease of obstructive uropathy. - Despite stopping IVF, his urine output remains high. - Of note, he becomes more prerenal and orthostatic. - Repeat urine osm 323, seurm osm 300. DDAVP given without response. - Chlorthalidone d/c'd due to hypotension. - MRI brain in Oct and CT brain showed no brain tumor. 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 - fludrocortisone started yesterday. - flomax was d/c'd due to orthostatic hypotension. 3. History of hypertension. 4. Recent history of ESBL E. coli, acute pyelonephritis, status post IV ertapenem. 5. 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 6. Hypomagnesemia. Plan: repeat orthostatic BPs if negative, will d/c IVF. increase fludrocortisone to 0.2 mg daily. likely d/c home within 24 hr. VTE Mechanical Devices: Intermittant Pneumatic CD Resuscitation Status: CPR: Attempt Resuscitation Jose G Diana MD May 24, 2016 11:39
--- NOTE | 2016-05-24 17:28 | PCM.PNMED ---
Subjective Date of Service May 24, 2016 Subjective denies any new issues/complaints Exam Vital Signs Vital Sign - Last Date Time Temp Pulse Resp B/P Pulse Ox O2 Delivery O2 Flow Rate FiO2 05/24/16 13:54 36.5 80 16 94/66 99 Room Air Intake and Output 05/23/16 05/23/16 05/24/16 Cumulative From/Thru 15:00 23:00 07:00 05/11/16 19:40 - 05/24/16 05:30 Intake Total 1690 ml 513 ml 88144 ml Output Total 1000 ml 1700 ml 54461 ml Balance 690 ml -1187 ml -9874 ml Intake Oral 1040 ml 513 ml 64696 ml IV Total 650 ml 64840 ml Output Urine Total 1000 ml 1700 ml 63783 ml # Bowel Movements 0 13 Exam General: Alert, Cooperative, No Acute Distress Eyes: Scleral Anicteric Nose: Mucous Membr Moist/[place] Mouth: Mucous Membr Moist/[place] Neck: Supple Chest & Lungs: Chest Wall Normal, Clear to auscultation bilat Cardiovascular: Regular Rate/Rhythm Pulses: NL carotid, radial, femoral, DP, PT Abdomen: Non-tender, Non-distended, Normoactive bowel tones, Soft Extremities: No cyanosis/clubbing/edema bilat Neurological: Grossly Neurologically Intact, Normal Speech IVs and Medications Medications Reviewed: Medications were reviewed in detail Lab and Diagnostics Result Diagram: 05/23/16 0812 05/24/16 0517 X-Rays, CTs and MRIs X-RAY CHEST ONE VIEW, PORTABLE 05/11 IMPRESSION: Diffuse scarring and blunted appearance of the left costophrenic angle however unchanged appearance since 04/29/16. No new consolidation Dictated by: Aaron Garcia M.D. on 05/11/2016 at 21:02 Approved by: Aaron Garcia M.D. on 05/11/2016 at 21:03 CT BRAIN WITHOUT CONTRAST 05/11 IMPRESSION: No acute intracranial process Dictated by: Aaron Garcia M.D. on 05/11/2016 at 20:51 US VENOUS LEG DUPLEX BILATERAL IMPRESSION: No DVT of the bilateral lower extremities. Dictated by: Mirlande Thompson M.D. on 05/12/2016 at 7:53 Assessment & Plan 70 yo male with ESBL Escherichia coli pyelonephritis, hypertension, diabetes mellitus type II, presents to [facility] emergency department via EMS from [facility] complaining of fatigue and found to have renal failure again. # Acute polyuria with underlying disease of obstructive uropathy, poa. - unresponsive with DDAVP and thiazide diuretics (DDAVP with 4 g subcutaneous once and 2 mg twice a day by nephrology on 05/16,no response, stopped ddavp on ) - ? solute diuresis. - appreciate nephrology consult. will f/u w/ recs # Acute kidney injury secondary to obstructive uropathy, poa. - s/p reyes cath placement. - Resolved but now with acute worsening again since 05/22 - further management per nephrology recs - resumed NS 100 ml/hr on 05/23 - started fludrocortisone to increase Na and fluid retention on 05/23 - repeat orthostatic BPs if negative, will d/c IVF. - increase fludrocortisone to 0.2 mg daily. - per earlier notes: "Urology Dr Bermudez consulted by ED, recommended discharging with Reyes and on Flomax and followup with her outpatient" # History of hypertension with hypotension due to postobstructive diuresis during this hospital. - currently with acute orthostatic hypotension - plan as noted above - f/u # Recent ESBL Pyelonephritis. Under therapy, improving - Dr. Tucker on consult - completed a course for Ertapenem on 05/13 # Diabetes mellitus type 2, present on admission. Active. - Previously on Metformin but was appropriately discontinued due to renal issues - Low correctional Lispro protocol # Acute Encephalopathy. Present on admission - resolved - due to Uremic encephalopathy which is resolved # Anemia, acute on chronic - stool for occult blood positive - recommend outpatient workup - h/h stable Dispo: possibly SNF within 24 hr pending improved orthostatic hypotension, improving renal function and nephrology clearance. VTE Mechanical Devices: Intermittant Pneumatic CD Resuscitation Status: CPR: Attempt Resuscitation Time spent 30 min Bartolo Ritchie May 24, 2016 17:28
--- NOTE | 2016-05-24 19:22 | NUR ---
GI/Orthos Pt stating feeling the need to have BM. Received Miralax from NOC shift and PO senna during day. In afternoon pt still stating no BM. Pt up and down to BSC for attempted BM - instructed not to strain for BM. Pt understanding. Orthos - per [facility] Provider Communication. RN FIELD CASE MANAGER and PT both obtained orthostatics on pt. RN FIELD CASE MANAGER's was right at the jono for being positive and per PT, first reading with standing was in the 70s but stated pt was moving his arm and was unsure of the accuracy. Rechecked and BP in mid90s SBP. IVF remain in place until definite neg orthos obtained. Care continues.
[2016-05-25] VITALS (8 sets, daily range): BP systolic 95–151; BP diastolic 61–77; PULSE 61–76; RESP 16–18; O2SAT 96–100
--- NOTE | 2016-05-25 06:12 | NUR ---
Mobility Ortho B/P still shows some drop, pt denies dizziness when up to BSC. Stability is poor, requires assistance; bed alarm engaged for safety. Large BM in evening, pt reports feeling better. Hourly rounding ongoing.
[2016-05-25 07:06] LABS: Magnesium 1.9 mg/dL (1.6-2.6)
[2016-05-25] MEDS: Insulin LISPRO 300 Unit/3 mL Inj SUBQ SCH ×3 (07:47→17:11)
[2016-05-25] MEDS: buPROPion SR 150 mg ER12 Tablet PO SCH ×2 (08:00→17:11)
[2016-05-25] MEDS: Heparin 5,000 Unit/mL Inj SUBQ SCH ×2 (08:00→20:46)
[2016-05-25] MEDS: 0.9% Sodium Chloride 1,000 ML IV SCH ×3 (10:41→20:22)
[2016-05-25] MEDS: cefTRIAXone Inj 1,000 MG in Dextrose 5% Minibag Plus 50 ML IV SCH (12:38)
--- NOTE | 2016-05-25 13:20 | PCM.PNMED ---
Subjective Date of Service May 25, 2016 Subjective U/cx grew GNR 100,000. (+) orthostatic v/s but improved. Exam Vital Signs Vital Sign - Last Date Time Temp Pulse Resp B/P Pulse Ox O2 Delivery O2 Flow Rate FiO2 05/25/16 11:46 36.8 76 18 95/61 99 Room Air Intake and Output 05/24/16 05/24/16 05/25/16 Cumulative From/Thru 15:00 23:00 07:00 05/11/16 19:40 - 05/25/16 06:14 Intake Total 2275 ml 1740 ml 68191 ml Output Total 2450 ml 2400 ml 87989 ml Balance -175 ml -660 ml -65391 ml Intake Oral 1220 ml 800 ml 02930 ml IV Total 1055 ml 940 ml 32625 ml Output Urine Total 2450 ml 2400 ml 61953 ml # Bowel Movements 0 2 15 Exam General appearance: Awake, alert, oriented x3, in no acute distress. HEENT: Mild pallor. No jaundice. No JVD. No lymphadenopathy. No thyroid enlargement. Atraumatic. Moist mucous membranes. Heart: Regular rhythm. Normal S1 and S2. No murmurs, rubs, or gallops. Lungs: Clear to auscultation bilaterally. No wheezing. No rhonchi. Abdomen: Soft, active bowel sounds. Nontender, nondistended. No hepatosplenomegaly. Extremities: No edema, cyanosis, or clubbing of the fingers. Diffuse muscle atrophy. : reyes cath in place with yellowish urine. Lab and Diagnostics Result Diagram: 05/23/16 0812 05/25/16 0500 X-Rays, CTs and MRIs X-RAY CHEST ONE VIEW, PORTABLE 05/11 IMPRESSION: Diffuse scarring and blunted appearance of the left costophrenic angle however unchanged appearance since 04/29/16. No new consolidation Dictated by: Aaron Garcia M.D. on 05/11/2016 at 21:02 Approved by: Aaron Garcia M.D. on 05/11/2016 at 21:03 CT BRAIN WITHOUT CONTRAST 05/11 IMPRESSION: No acute intracranial process Dictated by: Aaron Garcia M.D. on 05/11/2016 at 20:51 US VENOUS LEG DUPLEX BILATERAL IMPRESSION: No DVT of the bilateral lower extremities. Dictated by: Mirlande Thompson M.D. on 05/12/2016 at 7:53 Assessment & Plan 1. Acute kidney injury secondary to obstructive uropathy s/p reyes cath placement. - now with prerenal azotemia. 2. Polyuria with underlying disease of obstructive uropathy. - Despite stopping IVF, his urine output remains high. - Of note, he becomes more prerenal and orthostatic. - Repeat urine osm 323, seurm osm 300. DDAVP given without response. - Chlorthalidone d/c'd due to hypotension. - MRI brain in Dec and CT brain showed no brain tumor. - fludrocortisone started on 05/23. - flomax was d/c'd due to orthostatic hypotension. - suspected renal salt wasting and postobstructive uropathy, recovery phase of ATN. 3. History of hypertension. 4. Recurrent UTI. 5. 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 6. Hypomagnesemia. 7. Recent history of ESBL E. coli, acute pyelonephritis, status post IV ertapenem. Plan: continue NS and fludrocortisone to 0.2 mg daily start IV rocephin for UTI. VTE Mechanical Devices: Intermittant Pneumatic CD Resuscitation Status: CPR: Attempt Resuscitation Jose G Diana MD May 25, 2016 13:20
--- NOTE | 2016-05-25 15:25 | NUR ---
Social Work Discharge: CARLOS conducted discharge planning update. Plan is SNF placement at [facility] with MD Clarke to follow. CARLOS spoke to [facility] rep Lu who states patient accepted and bed to be available over the weekend. SW to follow. PLAN: [facility], bed available over weekend. SW to follow. Melchor GUEVARA Addendum: 05/25/16 at 1547 by FATUMA VALDIVIA Social Work Continued Discharge Planning* not Discharge note as referenced above in title.
--- NOTE | 2016-05-25 19:36 | NUR ---
UTI Pt UA results showing Gram Neg UTI - restarted on Rocephin. Pt tolerated abx. Newman remains in place. POLITICAL CARTOONIST provided sparkle care. Newman patent and continues to appear cloudy; good UO. No acute issues this shift. Continue to monitor.
[2016-05-26] VITALS (11 sets, daily range): BP systolic 106–168; BP diastolic 66–87; PULSE 59–73; RESP 16–20; O2SAT 95–100
--- NOTE | 2016-05-26 00:09 | PCM.PNMED ---
Subjective Date of Service May 25, 2016 Subjective The patient has no new complaints. He still feels very weak but is feeling a little bit better than he was yesterday. Exam Vital Signs Vital Sign - Last Date Time Temp Pulse Resp B/P Pulse Ox O2 Delivery O2 Flow Rate FiO2 05/25/16 20:39 37.0 66 16 151/72 100 Room Air Intake and Output 05/24/16 05/24/16 05/25/16 Cumulative From/Thru 15:00 23:00 07:00 05/11/16 19:40 - 05/25/16 06:14 Intake Total 2275 ml 1740 ml 94257 ml Output Total 2450 ml 2400 ml 51679 ml Balance -175 ml -660 ml -33609 ml Intake Oral 1220 ml 800 ml 02493 ml IV Total 1055 ml 940 ml 59659 ml Output Urine Total 2450 ml 2400 ml 90731 ml # Bowel Movements 0 2 15 Exam General: The patient is very weak and is unable to sit up on his own when asked to do so to evaluate his lungs. HEENT: Head is atraumatic and normocephalic. Eyes: Pupils are equally round and reactive to light and accommodation. Extraocular muscles are intact. Sclera are white, anicteric. Subconjunctival mucosa is pink. Ears and nose are unremarkable. Oropharynx: There is no mucosal lesions, there is no thrush, there is no pharyngitis. Neck: Is supple, there are no nodes, or masses or tenderness. Chest: Is clear to auscultation and percussion. There are no rales, rhonchi, wheezes or rubs. Heart: Rate, rhythm is regular. There is a grade 3/6 systolic ejection murmur heard best at the left sternal border radiating to the base and the right clavicle. There is no rub or gallop. Abdomen: Good bowel sounds are present. Abdomen is soft, nontender, no organomegaly or masses were appreciated. Extremities: Are symmetrical and well perfused. There is no edema, there is no cellulitis, however there is some erythema of the lower extremities which appears to be chronic. Neurologic: There are no focal neurological deficits. Cranial nerves II through XII are intact. There are no sensory or motor deficits. Patient exhibits diffuse weakness Psychiatric: Patients mood is calm and he shows no sign of agitation. Genital: Deferred Rectal: Deferred Lab and Diagnostics Result Diagram: 05/23/16 0812 05/25/16 0500 Microbiology Name: GLADYS CLAY Age/Sex: 70/M Attend Dr: Francisco Benoit MD Acct: [id number] Unit: [id number] Status: ADM IN Location: [facility] [place] 1027-1 Re05/11/16 Disch: Specimen: [id number] Collected: 05/23/16 Status: RES Req#: [id number] Received: 05/23/16111 Source: URINE CC Sp Desc : ROSETTA Corona Dr: Jose G Diana MD Ordered: URINE CULT Procedure Result Verified Site Microbiology PRASANNA CULT URINE Preliminary 05/25/16-736 PRELIMINARY ID GRAM NEGATIVE GABBY ID AND SENS TO FOLLOW COLONY COUNT/QUANTITY >100,000 CFU/ml Blood and stool cultures are negative X-Rays, CTs and MRIs X-RAY CHEST ONE VIEW, PORTABLE 05/11 IMPRESSION: Diffuse scarring and blunted appearance of the left costophrenic angle however unchanged appearance since 04/29/16. No new consolidation Dictated by: Aaron Garcia M.D. on 05/11/2016 at 21:02 Approved by: Aaron Garcia M.D. on 05/11/2016 at 21:03 CT BRAIN WITHOUT CONTRAST 05/11 IMPRESSION: No acute intracranial process Dictated by: Aaron Garcia M.D. on 05/11/2016 at 20:51 US VENOUS LEG DUPLEX BILATERAL IMPRESSION: No DVT of the bilateral lower extremities. Dictated by: Mirlande Thompson M.D. on 05/12/2016 at 7:53 Cardiac Echo Impressions Echocardiogram Report Name: GLADYS CLAY Study Date: 01/18/2016 Height: 72 in Hospital Exam Location: [facility] Weight: 176 lb Gender: Male BSA: 2.0 m2 : 1945 Age: 70 yrs BP: 153/ 88 mmHg Reason For Study: Cardiomyopathy Ordering Physician: HOSPITALIST SV Performed By: Ray Sal Referring Physician: GLEN VALVERDE Interpretation Summary The left ventricle is normal in size. The ejection fraction is estimated to be 60-65%. The right ventricle is grossly normal size. The right ventricular systolic function is normal. There is mild mitral regurgitation. The aortic valve is moderately calcified. Leaflet mobility is mild to moderately reduced. The peak aortic velocity is 243 cm/sec. The aortic valve mean gradient is 12 mmHg. The calculated aortic valve area is 1.7 cm2. There is mild aortic stenosis. There is mild tricuspid regurgitation. The right ventricular systolic pressure is estimated at least 33 mmHg assuming a right atrial pressure of 3 mm Hg. The ascending aorta is mild-moderately enlarged. Assessment & Plan The patient is a 70 yo male with ESBL Escherichia coli pyelonephritis, hypertension, diabetes mellitus type II, presents to [facility] emergency department via EMS from [facility] complaining of fatigue and found to have renal failure again. # Acute polyuria with underlying disease of obstructive uropathy, present at the time of admission. - Patient was unresponsive with DDAVP and thiazide diuretics (DDAVP with 4 g subcutaneous once and 2 mg twice a day by nephrology on 05/16,no response, stopped ddavp on 05/16) - ? solute diuresis. - We appreciate nephrology consult. will f/u w/ recs # Acute kidney injury secondary to obstructive uropathy, present at the time of admission - s/p reyes cath placement. - Resolved but now with acute worsening again since 05/22 - further management per nephrology recs - resumed NS 100 ml/hr on 05/23 - started fludrocortisone to increase Na and fluid retention on 05/23 - repeat orthostatic BPs if negative, will d/c IVF. - increase fludrocortisone to 0.2 mg daily. - per earlier notes: "Urology Dr Bermudez consulted by ED, recommended discharging with Reyes and on Flomax and followup with her outpatient" # History of hypertension with hypotension due to postobstructive diuresis during this hospital. - currently with acute orthostatic hypotension - plan as noted above - f/u # Recent ESBL Pyelonephritis. Under therapy, improving - Dr. Tucker was on consult - Patient completed a course for Ertapenem on 05/18 - Patient now has greater than 100,000 colonies of gram-negative rods in his urine will await identification and susceptibility testing - We will start Rocephin pending culture results # Diabetes mellitus type 2, present on admission. Active. - Previously on Metformin but was appropriately discontinued due to renal issues - Low correctional Lispro protocol # Acute Encephalopathy. Present on admission - Has resolved - Apparently due to Uremic encephalopathy which is resolved # Anemia, acute on chronic - Patient stool for occult blood positive - We have recommend outpatient workup - The patient's h/h has remained stable Disposition: I have discussed case at length with Dr. Park and she recommends the following: "continue NS and fludrocortisone to 0.2 mg daily start IV rocephin for UTI." Pain Evaluation: Adequate Pain Control GI Prophylaxis: Not indicated VTE Prophylaxis: Sub-Q Heparin (Unfractionated) VTE Mechanical Devices: Intermittant Pneumatic CD Resuscitation Status: CPR: Attempt Resuscitation Glen Valverde MD May 26, 2016 00:09
[2016-05-26] MEDS: Insulin LISPRO 300 Unit/3 mL Inj SUBQ SCH ×5 (00:29→22:00)
--- NOTE | 2016-05-26 00:34 | NUR ---
Level of consciousness Patient is alert and orientated. Patient mumbles his words but responds appropriately to questions. Patient has used call light when needing assistance and is able to communicate his needs. Addendum: 05/26/16 at 0120 by MAKI BUSTOS Patient has called for assistance to bedside commode twice during shift. He was unable to have a bm either time. Patient needs significant assistance up to the commode. Patient has significant weakness.
[2016-05-26] MEDS: 0.9% Sodium Chloride 1,000 ML IV SCH ×4 (03:22→20:49)
[2016-05-26 06:26] LABS: BASOPHILS % (AUTO) 0.1 % (0-3); EOSINOPHILS % (AUTO) 1.2 % (0-5); MONOCYTES % (AUTO) 11.2 % (4-12); Mean Corpuscular Hemoglobin 29.4 pg (27.0-35.0); Mean Corpuscular Volume 90.1 fL (81-100); NEUTROPHILS % (AUTO) 69.9 % (40-74); Platelet Count 191 bil/L (150-400)
[2016-05-26 07:00] LABS: Magnesium 1.5 mg/dL (1.6-2.6); Phosphorus 2.5 mg/dL (2.5-4.9)
--- NOTE | 2016-05-26 08:35 | NUR ---
[facility] meds Unable to obtain a.m. meds atorvastatin, florinef, and Wellbutrin from [facility] this a.m. Called pharmacy. They will tube medications to floor.
[2016-05-26] MEDS: buPROPion SR 150 mg ER12 Tablet PO SCH ×2 (09:06→17:49)
[2016-05-26] MEDS: cefTRIAXone Inj 1,000 MG in Dextrose 5% Minibag Plus 50 ML IV SCH (09:06)
[2016-05-26] MEDS: Heparin 5,000 Unit/mL Inj SUBQ SCH ×2 (09:07→20:49)
[2016-05-26] MEDS ORDERED: Magnesium Sulf 2 Gm/50mL Water 2 GM in IV Premix 1 EACH IV ONE (09:35)
[2016-05-26] MEDS ORDERED: Potassium Chloride 20 mEq SR Tablet PO ONE (09:35)
[2016-05-26] MEDS ORDERED: Magnesium Sulf 4 Gm/100 mL H2O 4 GM in IV Premix 1 EACH IV ONE (09:35)
--- NOTE | 2016-05-26 11:03 | NUR ---
Called Carin to sign NESHA. Left message. Mellisa Cheatham MSW
--- NOTE | 2016-05-26 12:37 | DRSVH ---
[facility] [address] [facility] [place] [address] Echocardiogram Report Name: GLADYS CLAY Study Date: 05/26/2016 Height: 72 in Hospital Exam Location: [facility] Weight: 172 lb Gender: Male BSA: 2.0 m2 : 1945 Age: 70 yrs BP: 168/87 mmHg Reason For Study: AORTIC VALVE STENOSIS Ordering Physician: Performed By: Ash Palacios Interpretation Summary Left ventricular size is at the upper limits of normal and left ventricular systolic function is borderline reduced with the ejection fraction roughly estimated to be 50% +/- 5%, and appears slightly less dynamic compared to the previous study. There is a significant dyssynchronous contraction pattern, consistent with a conduction abnormality but no other obvious focal wall motion abnormalities. Assessment of diastolic parameters indicates a relaxation abnormality of the left ventricle, consistent with normal filling pressures, and is unchanged compared to the previous study. The right ventricle is normal in size and function, and appears unchanged compared to the previous study. The right ventricular systolic pressure is estimated at 22 mmHg assuming a right atrial pressure of 3 mm Hg, and is likely lower than on the previous study. The left atrial size is normal and the right atrium is mildly dilated. Both are grossly unchanged compared to the previous study. There is mild to moderate mitral regurgitation that is slightly more prominent compared to the previous study and trace tricuspid regurgitation that is less prominent. There is moderate aortic stenosis that is likely mildly progressive compared to the previous study with a peak aortic velocity of 3.0 m/sec compared to 2.4 m/sec on the previous exam, now with a mean gradient of 22 mmHg and a calculated aortic valve area of 1.2 cm2. The ascending aorta is mildly enlarged but is unchanged compared to the previous study. Procedure: A limited 2D, color and Doppler echocardiogram was performed to assess for aortic valve stenosis. The study quality was technically good. Comparison is made with the echocardiogram of 01/18/16. The patient was in normal sinus rhythm during the exam. Left Ventricle: There is normal left ventricular wall thickness. Left ventricular size is at the upper limits of normal. Left ventricular systolic function is borderline reduced. Left ventricular ejection fraction is estimated to be 50 +/- 5%. This is slightly less dynamic compared to the previous study. There is a significant dyssynchronous contraction pattern, consistent with a conduction abnormality. There are no other obvious focal wall motion abnormalities. Assessment of diastolic parameters indicates a relaxation abnormality of the left ventricle, consistent with normal filling pressures. This is unchanged compared to the previous study. Right Ventricle: The right ventricle is normal in size and function. This is unchanged compared to the previous study. Atria: The left atrial size is normal. The right atrium is mildly dilated. This is unchanged compared to the previous study. The interatrial septum is intact with no evidence for an atrial septal defect. Mitral Valve: There is mild mitral annular calcification. There is mild to moderate mitral regurgitation. This is slightly more prominent compared to the previous study. Aortic Valve: The aortic valve is trileaflet. The aortic valve is moderately calcified. Leaflet mobility is moderately reduced. There is moderate aortic stenosis. This is likely mildly progressive compared to the previous study. The peak aortic velocity is 3.0 m/sec. The peak aortic velocity on the previous exam was 2.4 m/sec. The aortic valve mean gradient is 22 mmHg. The calculated aortic valve area is 1.2 cm2. The aortic valve area is 1.3 centimeters squared by planimetry. No aortic regurgitation is present. Tricuspid Valve: The tricuspid valve is normal in structure and function. There is trace tricuspid regurgitation. This is less prominent compared to the previous study. The right ventricular systolic pressure is estimated at 22 mmHg assuming a right atrial pressure of 3 mm Hg. This is likely lower than on the previous study. Pulmonic Valve: The pulmonic valve is not well visualized. Great Vessels: The aortic root is normal size. The ascending aorta is mildly enlarged. This is unchanged compared to the previous study. The IVC is of normal diameter and collapses greater than 50% with a sniff. This suggests a low right atrial pressure of 3 mm Hg. Pericardium/ Pleura There is no pericardial effusion. There is no pleural effusion. MMode/2D Measurements & Calculations LVIDd: 5.7 cm LA A2 area RA long axis: 5.5 cm LVOT diam: 2.3 cm LVIDs: 4.2 cm AoV Openin.92 cm FS: 27.1 % RA area: 21.5 cm Ao root diam: 3.8 cm IVSd: 0.95 cm LA A4 area RA vol: 71.3 ml Aortic Jxn: 3.1 cm LVPWd: 1.0 cm RA : 35.7 ml/m2 asc Aorta Diam: 3.8 cm LA length (vol) Ao Arch Diam (Prox Trans): 2.8 cm LA vol: 65.4 ml LA vol index IVC diam: 1.7 cm EDV(MOD-sp2) EMILY (plan) LV degroot. diameter/BSA LV sys. diameter/BSA : 100.3 ml : 1.3 cm2 (cm/m^2): 2.9 (cm/m^2): 2.1 Doppler Measurements & Calculations Ao V2 max MV E max titus MV E/A: 0.69 TR max titus : 300.0 cm/sec : 53.8 cm/sec Med Peak E' Titus : 217.0 cm/sec Ao max PG MV A max titus TR max P.8 mmHg : 36.0 mmHg : 78.4 cm/sec E/E' med: 11.6 Ao mean PG MV A dur : 21.7 mmHg : 0.12 sec LVOT Max Titus : 84.1 cm/sec EMILY(I,D): 1.2 cm sev ratio MV dec time Ao V2 mean LV V1 max PG EMILY indexed to BSA : 0.22 sec : 223.8 cm/sec (cm^2/m^2): 0.61 Ao V2 VTI: 61.2 cmLV V1 VTI EMILY(V,D): 1.2 cm2 : 17.8 cm Reading Physician:12:[id number] PM
[2016-05-26] MEDS: Ertapenem Inj 1,000 MG in 0.9% Sodium Chloride 50 ML IV SCH (14:19)
--- NOTE | 2016-05-26 14:24 | PCM.PNMED ---
Subjective Date of Service May 26, 2016 Subjective (+) ESBL E.coli, IV invanz started. (+) orthostatic v/s, on IVF. Exam Vital Signs Vital Sign - Last Date Time Temp Pulse Resp B/P Pulse Ox O2 Delivery O2 Flow Rate FiO2 05/26/16 10:54 18 106/79 05/26/16 10:52 36.8 65 100 Room Air Intake and Output 05/25/16 05/25/16 05/26/16 Cumulative From/Thru 15:00 23:00 07:00 05/11/16 19:40 - 05/26/16 06:16 Intake Total 1574 ml 3807 ml 03650 ml Output Total 1925 ml 3600 ml 94600 ml Balance -351 ml 207 ml -21664 ml Intake Oral 520 ml 1946 ml 65017 ml IV Total 1054 ml 1861 ml 55773 ml Output Urine Total 1925 ml 3600 ml 28314 ml # Bowel Movements 0 0 15 Lab and Diagnostics Result Diagram: 05/26/16 0545 05/26/16 0545 Microbiology Name: GLADYS CLAY Age/Sex: 70/M Attend Dr: Francisco Benoit MD Acct: [id number] Unit: [id number] Status: ADM IN Location: [facility] [place] 1027-1 Re05/11/16 Disch: Specimen: [id number] Collected: 05/23/16-1034 Status: RES Req#: [id number] Received: 05/23/16-5 Source: URINE CC Sp Desc : PP Subm Dr: Jose G Diana MD Ordered: URINE CULT Procedure Result Verified Site Microbiology PRASANNA CULT URINE Preliminary 05/25/16-736 PRELIMINARY ID GRAM NEGATIVE GABBY ID AND SENS TO FOLLOW COLONY COUNT/QUANTITY >100,000 CFU/ml Blood and stool cultures are negative X-Rays, CTs and MRIs X-RAY CHEST ONE VIEW, PORTABLE 05/11 IMPRESSION: Diffuse scarring and blunted appearance of the left costophrenic angle however unchanged appearance since 04/29/16. No new consolidation Dictated by: Aaron Garcia M.D. on 05/11/2016 at 21:02 Approved by: Aaron Garcia M.D. on 05/11/2016 at 21:03 CT BRAIN WITHOUT CONTRAST 05/11 IMPRESSION: No acute intracranial process Dictated by: Aaron Garcia M.D. on 05/11/2016 at 20:51 US VENOUS LEG DUPLEX BILATERAL IMPRESSION: No DVT of the bilateral lower extremities. Dictated by: Mirlande Thompson M.D. on 05/12/2016 at 7:53 Cardiac Echo Impressions Echocardiogram Report Name: GLADYS CLAY Study Date: 01/18/2016 Height: 72 in Hospital Exam Location: [facility] Weight: 176 lb Gender: Male BSA: 2.0 m2 : 1945 Age: 70 yrs BP: 153/ 88 mmHg Reason For Study: Cardiomyopathy Ordering Physician: [facility]PITAL[facility] Performed By: Ray Sal Referring Physician: ABRAHAM FAY Interpretation Summary The left ventricle is normal in size. The ejection fraction is estimated to be 60-65%. The right ventricle is grossly normal size. The right ventricular systolic function is normal. There is mild mitral regurgitation. The aortic valve is moderately calcified. Leaflet mobility is mild to moderately reduced. The peak aortic velocity is 243 cm/sec. The aortic valve mean gradient is 12 mmHg. The calculated aortic valve area is 1.7 cm2. There is mild aortic stenosis. There is mild tricuspid regurgitation. The right ventricular systolic pressure is estimated at least 33 mmHg assuming a right atrial pressure of 3 mm Hg. The ascending aorta is mild-moderately enlarged. Assessment & Plan 1. Acute kidney injury secondary to obstructive uropathy s/p reyes cath placement. - now with prerenal azotemia. 2. Polyuria with underlying disease of obstructive uropathy. - Repeat urine osm 323, seurm osm 300. DDAVP given without response. - Chlorthalidone d/c'd due to hypotension. - MRI brain in Oct and CT brain showed no brain tumor. - fludrocortisone started on 05/23. - flomax was d/c'd due to orthostatic hypotension. - The etiology of polyuria could be simply due to postobstructive uropathy and recovery phase of ATN. 3. History of hypertension. 4. Recurrent UTI, ESBL E.coli. 5. 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 6. Hypomagnesemia. 7. Recent history of ESBL E. coli, acute pyelonephritis, status post IV ertapenem. Plan: continue NS and fludrocortisone to 0.2 mg daily add PO Magnesium 400 mg BID x 5 days. GI Prophylaxis: Not indicated VTE Prophylaxis: Sub-Q Heparin (Unfractionated) VTE Mechanical Devices: Intermittant Pneumatic CD Resuscitation Status: CPR: Attempt Resuscitation Jose G Diana MD May 26, 2016 14:24
--- NOTE | 2016-05-26 20:39 | PCM.PNMED ---
Subjective Date of Service May 26, 2016 Subjective The patient states he is feeling a little bit better. He has no other new complaints. Exam Vital Signs Vital Sign - Last Date Time Temp Pulse Resp B/P Pulse Ox O2 Delivery O2 Flow Rate FiO2 05/26/16 17:00 36.7 59 18 139/71 99 Room Air Intake and Output 05/25/16 05/25/16 05/26/16 Cumulative From/Thru 15:00 23:00 07:00 05/11/16 19:40 - 05/26/16 06:16 Intake Total 1574 ml 3807 ml 46725 ml Output Total 1925 ml 3600 ml 11158 ml Balance -351 ml 207 ml -18483 ml Intake Oral 520 ml 1946 ml 59726 ml IV Total 1054 ml 1861 ml 21437 ml Output Urine Total 1925 ml 3600 ml 26958 ml # Bowel Movements 0 0 15 Exam General: The patient appears to be a little bit stronger, however he is still very weak.. HEENT: Head is atraumatic and normocephalic. Eyes: Pupils are equally round and reactive to light and accommodation. Extraocular muscles are intact. Sclera are white, anicteric. Subconjunctival mucosa is pink. Ears and nose are unremarkable. Oropharynx: There is no mucosal lesions, there is no thrush, there is no pharyngitis. Neck: Is supple, there are no nodes, or masses or tenderness. Chest: Is clear to auscultation and percussion. There are no rales, rhonchi, wheezes or rubs. Heart: Rate, rhythm is regular. There is a grade 3/6 systolic ejection murmur heard best at the left sternal border radiating to the base and the right clavicle. There is no rub or gallop. Abdomen: Good bowel sounds are present. Abdomen is soft, nontender, no organomegaly or masses were appreciated. Extremities: Are symmetrical and well perfused. There is no edema, there is no cellulitis, however there is some erythema of the lower extremities which appears to be chronic. The erythema does appear to be slightly less angry than before. Neurologic: There are no focal neurological deficits. Cranial nerves II through XII are intact. There are no sensory or motor deficits. Patient exhibits diffuse weakness Psychiatric: Patients mood is calm and he shows no sign of agitation. Genital: Deferred Rectal: Deferred Lab and Diagnostics Result Diagram: 05/26/16 0545 05/26/16 0545 Microbiology Name: GLADYS CLAY Age/Sex: 70/M Attend Dr: Francisco Benoit MD Acct: [id number] Unit: [id number] Status: ADM IN Location: [facility] [place] 1027-1 Re05/11/16 Disch: Specimen: [id number] Collected: 05/23/16-1034 Status: RES Req#: [id number] Received: 05/23/16-1115 Source: URINE CC Sp Desc : ROSETTA Corona Dr: Jose G Diana MD Ordered: URINE CULT Procedure Result Verified Site Microbiology PRASANNA CULT URINE Preliminary 05/25/16-736 PRELIMINARY ID GRAM NEGATIVE GABBY ID AND SENS TO FOLLOW COLONY COUNT/QUANTITY >100,000 CFU/ml Blood and stool cultures are negative X-Rays, CTs and MRIs X-RAY CHEST ONE VIEW, PORTABLE 05/11 IMPRESSION: Diffuse scarring and blunted appearance of the left costophrenic angle however unchanged appearance since 04/29/16. No new consolidation Dictated by: Aaron Garcia M.D. on 05/11/2016 at 21:02 Approved by: Aaron Garcia M.D. on 05/11/2016 at 21:03 CT BRAIN WITHOUT CONTRAST 05/11 IMPRESSION: No acute intracranial process Dictated by: Aaron Garcia M.D. on 05/11/2016 at 20:51 US VENOUS LEG DUPLEX BILATERAL IMPRESSION: No DVT of the bilateral lower extremities. Dictated by: Mirlande Thompson M.D. on 05/12/2016 at 7:53 Cardiac Echo Impressions Echocardiogram Report Name: GLADYS CLAY Study Date: 05/26/2016 Height: 72 in Hospital Exam Location: [facility] Weight: 172 lb Gender: Male BSA: 2.0 m2 : 1945 Age: 70 yrs BP: 168/87 mmHg Reason For Study: AORTIC VALVE STENOSIS Ordering Physician: Performed By: Ash Palacios Interpretation Summary Left ventricular size is at the upper limits of normal and left ventricular systolic function is borderline reduced with the ejection fraction roughly estimated to be 50% +/- 5%, and appears slightly less dynamic compared to the previous study. There is a significant dyssynchronous contraction pattern, consistent with a conduction abnormality but no other obvious focal wall motion abnormalities. Assessment of diastolic parameters indicates a relaxation abnormality of the left ventricle, consistent with normal filling pressures, and is unchanged compared to the previous study. The right ventricle is normal in size and function, and appears unchanged compared to the previous study. The right ventricular systolic pressure is estimated at 22 mmHg assuming a right atrial pressure of 3 mm Hg, and is likely lower than on the previous study. The left atrial size is normal and the right atrium is mildly dilated. Both are grossly unchanged compared to the previous study. There is mild to moderate mitral regurgitation that is slightly more prominent compared to the previous study and trace tricuspid regurgitation that is less prominent. There is moderate aortic stenosis that is likely mildly progressive compared to the previous study with a peak aortic velocity of 3.0 m/sec compared to 2.4 m/sec on the previous exam, now with a mean gradient of 22 mmHg and a calculated aortic valve area of 1.2 cm2. The ascending aorta is mildly enlarged but is unchanged compared to the previous study. Assessment & Plan The patient is a 70 yo male with history of ESBL Escherichia coli pyelonephritis , hypertension, diabetes mellitus type II, presents to [facility] emergency department via EMS from [facility] complaining of fatigue and found to have renal failure again. # Acute polyuria with underlying disease of obstructive uropathy, present at the time of admission. - Patient was unresponsive with DDAVP and thiazide diuretics (DDAVP with 4 g subcutaneous once and 2 mg twice a day by nephrology on 05/16,no response, stopped ddavp on 05/16) - ? solute diuresis. - We appreciate nephrology consult. will follow with their recommendations as follows: "continue NS and fludrocortisone to 0.2 mg daily add PO Magnesium 400 mg BID x 5 days". # Acute kidney injury secondary to obstructive uropathy, present at the time of admission - s/p reyes cath placement. - Resolved but now with acute worsening again since 2/21 - further management per nephrology recs - resumed NS 100 ml/hr on 05/23 - started fludrocortisone to increase Na and fluid retention on 05/23 - repeat orthostatic BPs if negative, will d/c IVF. - increase fludrocortisone to 0.2 mg daily. - per earlier notes: "Urology Dr Bermudez consulted by ED, recommended discharging with Reyes and on Flomax and followup with her outpatient" # History of hypertension with hypotension due to postobstructive diuresis during this hospital. - currently with acute orthostatic hypotension - plan as noted above - f/u # Recurrent ESBL UTI. - We will restart ertapenem - Dr. Tucker was on consult and is not available at this time - Patient completed a course for Ertapenem on 05/18 - Patient now has greater than 100,000 colonies of gram-negative rods in his urine with pyuria. The gram-negative rods have again been identified as Escherichia coli with extended spectrum beta-lactamase resistance. - Patient has been placed back in contact isolation - Patient will need Reyes catheter removed and replaced due to obstructive uropathy. - Consider restarting Flomax this evening as patient will need to have Reyes catheter removed at some point in order to clear this infection completely # Diabetes mellitus type 2, present on admission. Active. - Previously on Metformin but was appropriately discontinued due to renal issues - Low correctional Lispro protocol # Acute Encephalopathy. Present on admission - Has resolved - Apparently due to Uremic encephalopathy which is resolved # Anemia, acute on chronic - Patient stool for occult blood positive - We have recommend outpatient workup - The patient's h/h has remained stable Disposition: I have discussed case at length with Dr. Park again today and patient will likely remain hospitalized for another few days. Pain Evaluation: Adequate Pain Control GI Prophylaxis: Not indicated VTE Prophylaxis: Sub-Q Heparin (Unfractionated) VTE Mechanical Devices: Intermittant Pneumatic CD Resuscitation Status: CPR: Attempt Resuscitation Glen Valverde MD May 26, 2016 20:39
[2016-05-27] VITALS (9 sets, daily range): BP systolic 137–157; BP diastolic 69–81; PULSE 59–70; RESP 16–18; O2SAT 96–98
[2016-05-27] MEDS: 0.9% Sodium Chloride 1,000 ML IV SCH ×3 (03:55→20:52)
--- NOTE | 2016-05-27 03:58 | NUR ---
Uneventful Shift Patient alternated between sleeping and watching television entirety of shift. He had no complaints of pain. Patient remained pleasant throughout shift. He is alert and orientated to self and place but he frequently required reorientation to the time of day due to being confused with morning, afternoon, and evening. Provided frequent reorientation and reminded him of the time of night.
[2016-05-27 05:34] LABS: BASOPHILS % (AUTO) 0.3 % (0-3); EOSINOPHILS % (AUTO) 1.5 % (0-5); MONOCYTES % (AUTO) 10.2 % (4-12); Mean Corpuscular Hemoglobin 29.7 pg (27.0-35.0); Mean Corpuscular Volume 93.8 fL (81-100); NEUTROPHILS % (AUTO) 70.1 % (40-74); Platelet Count 181 bil/L (150-400)
[2016-05-27] MEDS: Insulin LISPRO 300 Unit/3 mL Inj SUBQ SCH ×4 (08:00→22:00)
[2016-05-27] MEDS: Ertapenem Inj 1,000 MG in 0.9% Sodium Chloride 50 ML IV SCH (08:42)
[2016-05-27] MEDS: buPROPion SR 150 mg ER12 Tablet PO SCH ×2 (08:42→16:54)
[2016-05-27] MEDS: Heparin 5,000 Unit/mL Inj SUBQ SCH ×2 (08:49→20:59)
--- NOTE | 2016-05-27 18:23 | NUR ---
Constipation Pt asked for laxative this AM, RN administered. Pt passing gas however no BM resulted this shift. Please CTM for increased constipation.
--- NOTE | 2016-05-27 21:21 | PCM.PNMED ---
Subjective Date of Service May 27, 2016 Subjective Patient is being feel a bit better. He has a very good appetite today and is eating well. He has no other new complaints. Exam Vital Signs Vital Sign - Last Date Time Temp Pulse Resp B/P Pulse Ox O2 Delivery O2 Flow Rate FiO2 05/27/16 20:00 67 05/27/16 19:59 36.8 18 137/73 97 Room Air Intake and Output 05/26/16 05/26/16 05/27/16 Cumulative From/Thru 15:00 23:00 07:00 05/11/16 19:40 - 05/27/16 06:11 Intake Total 1100 ml 3694 ml 81846 ml Output Total 3100 ml 3500 ml 36055 ml Balance -2000 ml 194 ml -21681 ml Intake Oral 1100 ml 600 ml 25695 ml IV Total 3094 ml 12958 ml Output Urine Total 3100 ml 3500 ml 84259 ml # Bowel Movements 0 15 Exam General: The patient appears to be a little bit stronger again today. His appetite is very good. He is still very weak. HEENT: Head is atraumatic and normocephalic. Eyes: Pupils are equally round and reactive to light and accommodation. Extraocular muscles are intact. Sclera are white, anicteric. Subconjunctival mucosa is pink. Ears and nose are unremarkable. Oropharynx: There is no mucosal lesions, there is no thrush, there is no pharyngitis. Neck: Is supple, there are no nodes, or masses or tenderness. Chest: Is clear to auscultation and percussion. There are no rales, rhonchi, wheezes or rubs. Heart: Rate, rhythm is regular. There is a grade 3/6 systolic ejection murmur heard best at the left sternal border radiating to the base and the right clavicle. There is no rub or gallop. Abdomen: Good bowel sounds are present. Abdomen is soft, nontender, no organomegaly or masses were appreciated. Extremities: Are symmetrical and well perfused. There is no edema, there is no cellulitis, however there is some erythema of the lower extremities which appears to be chronic. The erythema does appear to be slightly less angry than before. Neurologic: There are no focal neurological deficits. Cranial nerves II through XII are intact. There are no sensory or motor deficits. Patient exhibits diffuse weakness Psychiatric: Patients mood is calm and he shows no sign of agitation. Genital: Deferred Rectal: Deferred Lab and Diagnostics Result Diagram: 05/27/1650905/27/1610 Microbiology Name: GLADYS CLAY Age/Sex: 70/M Attend Dr: Francisco Benoit MD Acct: [id number] Unit: [id number] Status: ADM IN [place] [facility] [place]27-1 Re05/11/16 Disch: Specimen: [id number] Collected: 05/23/16 Status: RES Req#: [id number] Received: 05/23/161115 Source: URINE CC Sp Desc : ROSETTA Corona Dr: Jose G Diana MD Ordered: URINE CULT Procedure Result Verified Site Microbiology PRASANNA CULT URINE Preliminary 05/25/16-736 PRELIMINARY ID GRAM NEGATIVE GABBY ID AND SENS TO FOLLOW COLONY COUNT/QUANTITY >100,000 CFU/ml Blood and stool cultures are negative X-Rays, CTs and MRIs X-RAY CHEST ONE VIEW, PORTABLE 05/11 IMPRESSION: Diffuse scarring and blunted appearance of the left costophrenic angle however unchanged appearance since 04/29/16. No new consolidation Dictated by: Aaron Garcia M.D. on 05/11/2016 at 21:02 Approved by: Aaron Garcia M.D. on 05/11/2016 at 21:03 CT BRAIN WITHOUT CONTRAST 05/11 IMPRESSION: No acute intracranial process Dictated by: Aaron Garcia M.D. on 05/11/2016 at 20:51 US VENOUS LEG DUPLEX BILATERAL IMPRESSION: No DVT of the bilateral lower extremities. Dictated by: Mirlande Thompson M.D. on 05/12/2016 at 7:53 Cardiac Echo Impressions Echocardiogram Report Name: GLADYS CLAY Study Date: 05/26/2016 Height: 72 in Hospital Exam Location: [facility] Weight: 172 lb Gender: Male BSA: 2.0 m2 : 1945 Age: 70 yrs BP: 168/87 mmHg Reason For Study: AORTIC VALVE STENOSIS Ordering Physician: Performed By: Ash Palacios Interpretation Summary Left ventricular size is at the upper limits of normal and left ventricular systolic function is borderline reduced with the ejection fraction roughly estimated to be 50% +/- 5%, and appears slightly less dynamic compared to the previous study. There is a significant dyssynchronous contraction pattern, consistent with a conduction abnormality but no other obvious focal wall motion abnormalities. Assessment of diastolic parameters indicates a relaxation abnormality of the left ventricle, consistent with normal filling pressures, and is unchanged compared to the previous study. The right ventricle is normal in size and function, and appears unchanged compared to the previous study. The right ventricular systolic pressure is estimated at 22 mmHg assuming a right atrial pressure of 3 mm Hg, and is likely lower than on the previous study. The left atrial size is normal and the right atrium is mildly dilated. Both are grossly unchanged compared to the previous study. There is mild to moderate mitral regurgitation that is slightly more prominent compared to the previous study and trace tricuspid regurgitation that is less prominent. There is moderate aortic stenosis that is likely mildly progressive compared to the previous study with a peak aortic velocity of 3.0 m/sec compared to 2.4 m/sec on the previous exam, now with a mean gradient of 22 mmHg and a calculated aortic valve area of 1.2 cm2. The ascending aorta is mildly enlarged but is unchanged compared to the previous study. Assessment & Plan The patient is a 70 yo male with history of ESBL Escherichia coli pyelonephritis , hypertension, diabetes mellitus type II, presents to [facility] emergency department via EMS from [facility] complaining of fatigue and found to have renal failure again. # Acute polyuria with underlying disease of obstructive uropathy, present at the time of admission. - Patient failed to respond to DDAVP and thiazide diuretics (DDAVP with 4 g subcutaneous once and 2 mg twice a day by nephrology on 05/16,no response, stopped ddavp on 05/16) - ? solute diuresis. - We appreciate nephrology consult. will follow with their recommendations as follows: "continue NS and fludrocortisone to 0.2 mg daily add PO Magnesium 400 mg BID x 5 days". # Acute kidney injury secondary to obstructive uropathy, present at the time of admission - s/p reyes cath placement. - Renal function improved and then worsened and then improved again and creatinine is slightly higher again on 05/27/2016 - We will continue with further management per nephrology recommendations for now as follows: - resumed NS 100 ml/hr on 05/23 - started fludrocortisone to increase Na and fluid retention on 05/23 - repeat orthostatic BPs if negative, will d/c IVF. - increase fludrocortisone to 0.2 mg daily. - per earlier notes: "Urology Dr Bermudez consulted by ED, recommended discharging with Reyes and on Flomax and followup with her outpatient" - We will discuss with nephrology again in a.m. # History of hypertension with hypotension due to postobstructive diuresis during this hospital. - Now with acute orthostatic hypotension - The plan as noted above # Recurrent ESBL UTI. - We have restarted ertapenem day #2 - Dr. Tucker was on consult and is not available at this time - Patient completed a course for Ertapenem on 05/18 - Patient now has greater than 100,000 colonies of gram-negative rods in his urine with pyuria. The gram-negative rods have again been identified as Escherichia coli with extended spectrum beta-lactamase resistance. - Patient has been placed back in contact isolation - Patient will need Reyes catheter removed and replaced due to obstructive uropathy. - Consider restarting Flomax this evening as patient will need to have Reyes catheter removed at some point in order to clear this infection completely # Diabetes mellitus type 2, present on admission. Active. - Previously on Metformin but was appropriately discontinued due to renal issues - Low correctional Lispro protocol # Acute Encephalopathy. Present on admission - Has resolved - Apparently due to Uremic encephalopathy which is resolved # Anemia, acute on chronic - Patient stool for occult blood positive - We have recommend outpatient workup - The patient's h/h has remained stable Disposition: I have discussed case at length with Dr. Park and patient will likely remain hospitalized for another few days. Will discuss with director advertising Dr. Dias in a.m. Pain Evaluation: Adequate Pain Control GI Prophylaxis: Not indicated VTE Prophylaxis: Sub-Q Heparin (Unfractionated) VTE Mechanical Devices: Intermittant Pneumatic CD Resuscitation Status: CPR: Attempt Resuscitation Glen Valverde MD May 27, 2016 21:21
[2016-05-28] VITALS (9 sets, daily range): BP systolic 139–167; BP diastolic 71–83; PULSE 61–85; RESP 16–18; O2SAT 97–99
[2016-05-28] MEDS: 0.9% Sodium Chloride 1,000 ML IV SCH (03:37)
--- NOTE | 2016-05-28 03:41 | NUR ---
Bowel Movement Patient has been constipated but tonight patient had a medium (3 small formed) size bowel movement on bedside commode. Patient continues to deny any pain but sometimes makes noises in sleep that would suggest pain but with further assessment patient continues to deny pain. Patient remains alert and orientated to self and place but continues to struggle with recognizing the time of day. Frequently reminding the patient of the time of day (and morning/evening/etc) reorientates that patient.
[2016-05-28 06:23] LABS: BASOPHILS % (AUTO) 0.4 % (0-3); MONOCYTES % (AUTO) 13.9 % (4-12); Mean Corpuscular Hemoglobin 29.6 pg (27.0-35.0); Mean Corpuscular Volume 94.4 fL (81-100); NEUTROPHILS % (AUTO) 63.2 % (40-74); Platelet Count 172 bil/L (150-400)
[2016-05-28 06:38] LABS: Magnesium 1.6 mg/dL (1.6-2.6); Phosphorus 2.2 mg/dL (2.5-4.9)
[2016-05-28] MEDS: Insulin LISPRO 300 Unit/3 mL Inj SUBQ SCH ×4 (08:00→23:25)
[2016-05-28] MEDS: Ertapenem Inj 1,000 MG in 0.9% Sodium Chloride 50 ML IV SCH (08:13)
[2016-05-28] MEDS: buPROPion SR 150 mg ER12 Tablet PO SCH ×2 (08:14→17:02)
[2016-05-28] MEDS: Heparin 5,000 Unit/mL Inj SUBQ SCH ×2 (08:14→20:19)
[2016-05-28] MEDS ORDERED: Magnesium Sulf 4 Gm/100 mL H2O 4 GM in IV Premix 1 EACH IV ONE (08:20)
--- NOTE | 2016-05-28 08:21 | NUR ---
NESHA signed. Mellisa Cheatham AIRCRAFT ENGINE TECHNICIAN
--- NOTE | 2016-05-28 08:55 | NUR ---
NESHA: Patient unable to accept NESHA asked DOCK OPERATOR to follow up via phone with family.
[2016-05-28] MEDS: 0.9% NaCl + KCl 20 mEq/L 1,000 ML IV SCH ×3 (10:30→23:54)
[2016-05-28] MEDS ORDERED: Lidocaine 2% 6mL Topical Jelly TOPICAL ONE (12:00)
--- NOTE | 2016-05-28 12:22 | NUR ---
Social Work- Continue D/C Planning Data: EMR reviewed. Pt is on day 17 of hospitalization for acute renal failure per H&P. Pt is not medically stable to discharge, anticipate multiple more days of admission. Per MD in rounds, pt to be follow by nephrology. PT continues to recommend SNF. SW updated friend Carin of discharge plan. Carin agreeable to plan. Pt to discharge back to [facility] with MD Clarke to follow. Paperwork in chart. SW continues to follow. Assessment: Pt who would benefit from SNF. Plan: Pt to discharge back to [facility] (accepted) with Dr. Clarke to follow. Paperwork in chart. SW continues to follow. Mellisa Cheatham, FOAM RUBBER FABRICATOR
--- NOTE | 2016-05-28 13:24 | PCM.PNMED ---
Subjective Date of Service May 28, 2016 Subjective Patient is well-known to me from multiple previous examinations. He continues to have persistent polyuria despite a number of different measures. Whenever his restricted he becomes hypotensive and intravascularly volume depleted. He has been tried on thiazide diuretics and DDAVP without any improvement. 4 hours he has had 4590 4N and 5700 out with 20/100 on the last 8 hours. Ice any chest pain, shortness of breath, or excessive thirst. Exam Vital Signs Vital Sign - Last Date Time Temp Pulse Resp B/P Pulse Ox O2 Delivery O2 Flow Rate FiO2 05/28/16 11:31 36.6 65 17 139/75 99 Room Air Intake and Output 05/27/16 05/27/16 05/28/16 Cumulative From/Thru 15:00 23:00 07:00 05/11/16 19:40 - 05/28/16 06:51 Intake Total 900 ml 3774 ml 97502 ml Output Total 2200 ml 2100 ml 60519 ml Balance -1300 ml 1674 ml -97255 ml Intake Oral 900 ml 600 ml 82133 ml IV Total 3174 ml 62966 ml Output Urine Total 2200 ml 2100 ml 79949 ml # Bowel Movements 1 16 Exam Neck is supple without adenopathy thyromegaly or jugular venous distention. Lungs are clear to auscultation. Heart is regular, soft systolic murmur. Abdomen is soft without any tenderness or rebound guarding masses or hepatosplenomegaly. Extremities are 20 evidence of any clubbing, cyanosis, or edema. Skin turgor slightly diminished. Lab and Diagnostics Result Diagram: 05/28/16 0445 05/28/16 0500 Microbiology Name: GLADYS CLAY Age/Sex: 70/M Attend Dr: Francisco Benoit MD Acct: [id number] Unit: [id number] Status: ADM IN [place] [facility] [place]-1 Re05/11/16 Disch: Specimen: [id number] Collected: 05/23/16 Status: RES Req#: [id number] Received: 05/23/16 Source: URINE CC Sp Desc : ROSETTA Corona Dr: Jose G Diana MD Ordered: URINE CULT Procedure Result Verified Site Microbiology PRASANNA CULT URINE Preliminary 05/25/16-736 PRELIMINARY ID GRAM NEGATIVE GABBY ID AND SENS TO FOLLOW COLONY COUNT/QUANTITY >100,000 CFU/ml Blood and stool cultures are negative X-Rays, CTs and MRIs X-RAY CHEST ONE VIEW, PORTABLE 2/10 IMPRESSION: Diffuse scarring and blunted appearance of the left costophrenic angle however unchanged appearance since 04/29/16. No new consolidation Dictated by: Aaron Garcia M.D. on 05/11/2016 at 21:02 Approved by: Aaorn Garcia M.D. on 05/11/2016 at 21:03 CT BRAIN WITHOUT CONTRAST 05/11 IMPRESSION: No acute intracranial process Dictated by: Aaron Garcia M.D. on 05/11/2016 at 20:51 US VENOUS LEG DUPLEX BILATERAL IMPRESSION: No DVT of the bilateral lower extremities. Dictated by: Mirlande Thompson M.D. on 05/12/2016 at 7:53 Cardiac Echo Impressions Echocardiogram Report Name: GLADYS CLAY Study Date: 05/26/2016 Height: 72 in Hospital Exam Location: [facility] Weight: 172 lb Gender: Male BSA: 2.0 m2 : 1945 Age: 70 yrs BP: 168/87 mmHg Reason For Study: AORTIC VALVE STENOSIS Ordering Physician: Performed By: Ash Palacios Interpretation Summary Left ventricular size is at the upper limits of normal and left ventricular systolic function is borderline reduced with the ejection fraction roughly estimated to be 50% +/- 5%, and appears slightly less dynamic compared to the previous study. There is a significant dyssynchronous contraction pattern, consistent with a conduction abnormality but no other obvious focal wall motion abnormalities. Assessment of diastolic parameters indicates a relaxation abnormality of the left ventricle, consistent with normal filling pressures, and is unchanged compared to the previous study. The right ventricle is normal in size and function, and appears unchanged compared to the previous study. The right ventricular systolic pressure is estimated at 22 mmHg assuming a right atrial pressure of 3 mm Hg, and is likely lower than on the previous study. The left atrial size is normal and the right atrium is mildly dilated. Both are grossly unchanged compared to the previous study. There is mild to moderate mitral regurgitation that is slightly more prominent compared to the previous study and trace tricuspid regurgitation that is less prominent. There is moderate aortic stenosis that is likely mildly progressive compared to the previous study with a peak aortic velocity of 3.0 m/sec compared to 2.4 m/sec on the previous exam, now with a mean gradient of 22 mmHg and a calculated aortic valve area of 1.2 cm2. The ascending aorta is mildly enlarged but is unchanged compared to the previous study. Assessment & Plan Impression #1 persistent polyuria although unknown etiology but it does not appear to be due to nephrogenic or central diabetes insipidus. Recommendations #1 over to continue to replace his volume. #2 spironolactone 25 BID GI Prophylaxis: Not indicated VTE Prophylaxis: Sub-Q Heparin (Unfractionated) VTE Mechanical Devices: Intermittant Pneumatic CD Resuscitation Status: CPR: Attempt Resuscitation Son Dias DO May 28, 2016 13:24
--- NOTE | 2016-05-28 17:37 | NUR ---
Activity/Reyes Patient has been tolerating meals, no nausea/vomiting, no complaints of pain, chest pain or SOB. Patient got up this morning to the chair and sat there until this afternoon. Pt is now resting in bed. Per order, pt's reyes was removed and then sparkle care was performed and another reyes was re-inserted. Pt was very worried about the pain with insertion so lidocaine was used. Pt said the pain was not as bad as he thought it would be. Reyes is draining caty urine. Patient has Beatrice on and has been using call light appropriately. Addendum: 05/28/16 at 1820 by LOLA DAVILA RN ACTIVITY Patient is alert and oriented X 4 but has periods of forgetfulness. Mumbles. Patient denies pain. Tolerating liquids PO and his diet well. Denies nausea. No emesis noted. Premedicated with Tylenol PO prior to IFC placement per patients request. IFC- Taiwanese 16 coude was inserted by with my supervision. IFC was inserted without any problems. IFC is draining to caty colored UO. Patient has been able to get OOB and ambulated in the room. Tolerated activity well. Patient sat in the chair for a couple of hours this morning and has been up most of the day. Gem alarm is on. Patient has been using his call light appropriately. Continues to be on contact precaution for + E.coli in his urine.
--- NOTE | 2016-05-28 18:36 | PCM.PNMED ---
Subjective Date of Service May 28, 2016 Subjective Patient was seen sitting up in the bedside chair. He did not appear as energetic as he did yesterday. He appears very tired. Exam Vital Signs Vital Sign - Last Date Time Temp Pulse Resp B/P Pulse Ox O2 Delivery O2 Flow Rate FiO2 05/28/16 16:37 36.5 62 18 147/71 98 Room Air Intake and Output 05/27/16 05/27/16 05/28/16 Cumulative From/Thru 15:00 23:00 07:00 05/11/16 19:40 - 05/28/16 06:51 Intake Total 900 ml 3774 ml 15199 ml Output Total 2200 ml 2100 ml 61616 ml Balance -1300 ml 1674 ml -36250 ml Intake Oral 900 ml 600 ml 37934 ml IV Total 3174 ml 80114 ml Output Urine Total 2200 ml 2100 ml 79711 ml # Bowel Movements 1 16 Exam General: The patient appears to be more tired today sitting in the bedside chair.. His appetite remains very good. He is still very weak. HEENT: Head is atraumatic and normocephalic. Eyes: Pupils are equally round and reactive to light and accommodation. Extraocular muscles are intact. Sclera are white, anicteric. Subconjunctival mucosa is pink. Ears and nose are unremarkable. Oropharynx: There is no mucosal lesions, there is no thrush, there is no pharyngitis. Neck: Is supple, there are no nodes, or masses or tenderness. Chest: Is clear to auscultation and percussion. There are no rales, rhonchi, wheezes or rubs. Heart: Rate, rhythm is regular. There is a grade 3/6 systolic ejection murmur heard best at the left sternal border radiating to the base and the right clavicle. There is no rub or gallop. Abdomen: Good bowel sounds are present. Abdomen is soft, nontender, no organomegaly or masses were appreciated. Extremities: Are symmetrical and well perfused. There is no edema, there is no cellulitis, however there is some erythema of the lower extremities which appears to be chronic. The erythema does appear to be slightly less angry than before. Neurologic: There are no focal neurological deficits. Cranial nerves II through XII are intact. There are no sensory or motor deficits. Patient exhibits diffuse weakness Psychiatric: Patients mood is calm and he shows no sign of agitation. Genital: Deferred Rectal: Deferred Lab and Diagnostics Result Diagram: 05/28/16 0445 05/28/16 0500 Microbiology Name: GLADYS CLAY Age/Sex: 70/M Attend Dr: Francisco Benoit MD Acct: [id number] Unit: [id number] Status: ADM IN Location[place] [facility] [place] 1027-1 Re05/11/16 Disch: Specimen: [id number] Collected: 05/23/16 Status: RES Req#: [id number] Received: 05/23/16-1115 Source: URINE CC Sp Desc : ROSETTA Corona Dr: Jose G Diana MD Ordered: URINE CULT Procedure Result Verified Site Microbiology PRASANNA CULT URINE Preliminary 05/25/16-736 PRELIMINARY ID GRAM NEGATIVE GABBY ID AND SENS TO FOLLOW COLONY COUNT/QUANTITY >100,000 CFU/ml Blood and stool cultures are negative X-Rays, CTs and MRIs X-RAY CHEST ONE VIEW, PORTABLE 05/11 IMPRESSION: Diffuse scarring and blunted appearance of the left costophrenic angle however unchanged appearance since 04/29/16. No new consolidation Dictated by: Aaron Garcia M.D. on 05/11/2016 at 21:02 Approved by: Aaron Garcia M.D. on 05/11/2016 at 21:03 CT BRAIN WITHOUT CONTRAST 05/11 IMPRESSION: No acute intracranial process Dictated by: Aaron Garcia M.D. on 05/11/2016 at 20:51 US VENOUS LEG DUPLEX BILATERAL IMPRESSION: No DVT of the bilateral lower extremities. Dictated by: Mirlande Thompson M.D. on 05/12/2016 at 7:53 Cardiac Echo Impressions Echocardiogram Report Name: GLADYS CLAY Study Date: 05/26/2016 Height: 72 in Hospital Exam Location: [facility] Weight: 172 lb Gender: Male BSA: 2.0 m2 : 1945 Age: 70 yrs BP: 168/87 mmHg Reason For Study: AORTIC VALVE STENOSIS Ordering Physician: Performed By: Ash Palacios Interpretation Summary Left ventricular size is at the upper limits of normal and left ventricular systolic function is borderline reduced with the ejection fraction roughly estimated to be 50% +/- 5%, and appears slightly less dynamic compared to the previous study. There is a significant dyssynchronous contraction pattern, consistent with a conduction abnormality but no other obvious focal wall motion abnormalities. Assessment of diastolic parameters indicates a relaxation abnormality of the left ventricle, consistent with normal filling pressures, and is unchanged compared to the previous study. The right ventricle is normal in size and function, and appears unchanged compared to the previous study. The right ventricular systolic pressure is estimated at 22 mmHg assuming a right atrial pressure of 3 mm Hg, and is likely lower than on the previous study. The left atrial size is normal and the right atrium is mildly dilated. Both are grossly unchanged compared to the previous study. There is mild to moderate mitral regurgitation that is slightly more prominent compared to the previous study and trace tricuspid regurgitation that is less prominent. There is moderate aortic stenosis that is likely mildly progressive compared to the previous study with a peak aortic velocity of 3.0 m/sec compared to 2.4 m/sec on the previous exam, now with a mean gradient of 22 mmHg and a calculated aortic valve area of 1.2 cm2. The ascending aorta is mildly enlarged but is unchanged compared to the previous study. Assessment & Plan The patient is a 70 yo male with history of ESBL Escherichia coli pyelonephritis , hypertension, diabetes mellitus type II, presents to [facility] emergency department via EMS from [facility] complaining of fatigue and found to have renal failure again. # Acute polyuria with underlying disease of obstructive uropathy, present at the time of admission. - Patient failed to respond to DDAVP and thiazide diuretics (DDAVP with 4 g subcutaneous once and 2 mg twice a day by nephrology on 05/16,no response, stopped ddavp on 05/16) - ? solute diuresis. - We appreciate nephrology consult. will follow with their recommendations as follows: "continue NS and fludrocortisone to 0.2 mg daily and PO Magnesium 400 mg BID x 5 days". - Dr. Dias has added Spironolactone 25 mg by mouth twice a day today 2016 # Acute kidney injury secondary to obstructive uropathy, present at the time of admission - s/p reyes cath placement. - Renal function improved and then worsened and then improved again and creatinine is slightly higher again on 05/27/2016 - We will continue with further management per nephrology recommendations for now as follows: - resumed NS 100 ml/hr on 05/23 - started fludrocortisone to increase Na and fluid retention on 05/23 - repeat orthostatic BPs if negative, will d/c IVF. - increase fludrocortisone to 0.2 mg daily. - per earlier notes: "Urology Dr Bermudez consulted by ED, recommended discharging with Reyes and on Flomax and followup with her outpatient" - We will discuss with nephrology again in a.m. # History of hypertension with hypotension due to postobstructive diuresis during this hospital. - Now with acute orthostatic hypotension - The plan as noted above # Recurrent ESBL UTI. This appears to be due to a recurrence of previous infection which may have been partially treated, and not due to patient's Reyes catheter the Escherichia coli has identical susceptibilities to the 1 previously cultured prior to placement of the Reyes catheter. - We have restarted ertapenem day #3 - Dr. Tucker was on consult and is not available at this time - Patient completed a course for Ertapenem on 05/18 - Patient now has greater than 100,000 colonies of gram-negative rods in his urine with pyuria. The gram-negative rods have again been identified as Escherichia coli with extended spectrum beta-lactamase resistance with identical susceptibilities as to the Escherichia coli identified and isolated on 05/23/2016. - Patient has been placed back in contact isolation - Patient will need Reyes catheter removed and replaced due to obstructive uropathy. - Consider restarting Flomax this evening as patient will need to have Reyes catheter removed at some point in order to clear this infection completely # Diabetes mellitus type 2, present on admission. Active. - Previously on Metformin but was appropriately discontinued due to renal issues - Low correctional Lispro protocol # Acute Encephalopathy. Present on admission - Has resolved - Apparently due to Uremic encephalopathy which is resolved # Anemia, acute on chronic - Patient stool for occult blood positive - We have recommend outpatient workup - The patient's h/h has remained stable Disposition: For now patient requires continued repletion of fluids with IV hydration. Will discuss with Dr. Dias future treatment plan. Pain Evaluation: Adequate Pain Control GI Prophylaxis: Not indicated VTE Prophylaxis: Sub-Q Heparin (Unfractionated) VTE Mechanical Devices: Intermittant Pneumatic CD Resuscitation Status: CPR: Attempt Resuscitation Glen Valverde MD May 28, 2016 18:36
[2016-05-29] VITALS (8 sets, daily range): BP systolic 129–166; BP diastolic 67–90; PULSE 63–70; RESP 15–20; O2SAT 96–99
--- NOTE | 2016-05-29 03:34 | NUR ---
Activity Patient A&O able to make needs known. C/O mild headache effectively treated with pain medication. Unable to sleep for more than an hour at a time, patient continues to be cooperative yet restless. Denies CP, SOB, and abdominal discomfort at this time.
[2016-05-29 05:29] LABS: BASOPHILS % (AUTO) 0.3 % (0-3); EOSINOPHILS % (AUTO) 1.4 % (0-5); MONOCYTES % (AUTO) 10.5 % (4-12); Mean Corpuscular Hemoglobin 29.6 pg (27.0-35.0); Mean Corpuscular Volume 92.4 fL (81-100); NEUTROPHILS % (AUTO) 69.6 % (40-74); Platelet Count 192 bil/L (150-400)
[2016-05-29 06:15] LABS: Magnesium 2.1 mg/dL (1.6-2.6); Phosphorus 2.3 mg/dL (2.5-4.9)
[2016-05-29] MEDS: Insulin LISPRO 300 Unit/3 mL Inj SUBQ SCH ×4 (08:00→23:42)
[2016-05-29] MEDS: 0.9% NaCl + KCl 20 mEq/L 1,000 ML IV SCH ×2 (08:53→16:20)
[2016-05-29] MEDS: Heparin 5,000 Unit/mL Inj SUBQ SCH ×2 (09:30→23:34)
[2016-05-29] MEDS: Ertapenem Inj 1,000 MG in 0.9% Sodium Chloride 50 ML IV SCH (09:33)
[2016-05-29] MEDS: buPROPion SR 150 mg ER12 Tablet PO SCH ×2 (09:40→19:00)
--- NOTE | 2016-05-29 11:37 | PCM.PNMED ---
Subjective Date of Service May 29, 2016 Subjective The patient continues to be quite perplexing. Despite all of the testing we have done he is not consistent with nephrogenic or central DI, psychogenic polydipsia nor is he have evidence of cerebral salt wasting. His intake and output from yesterday once again of 6139 and 5900 out. His hemoglobin is 8.6. Sodium is 138, potassium 3.8, chloride 101, bicarbonate 27, BUN and creatinine were 15 and 1.12. His phosphorus is low at 2.3 today. The patient offers no complaints and states that he wants to be discharged. Exam Vital Signs Vital Sign - Last Date Time Temp Pulse Resp B/P Pulse Ox O2 Delivery O2 Flow Rate FiO2 05/29/16 11:08 63 05/29/16 07:58 36.6 16 157/84 98 Room Air Intake and Output 05/28/16 05/28/16 05/29/16 Cumulative From/Thru 15:00 23:00 07:00 05/11/16 19:40 - 05/29/16 06:26 Intake Total 2365 ml 1823 ml 91245 ml Output Total 3800 ml 2800 ml 21477 ml Balance -1435 ml -977 ml -70418 ml Intake Oral 1300 ml 400 ml 57169 ml IV Total 1065 ml 1423 ml 57902 ml Output Urine Total 3800 ml 2800 ml 71385 ml # Bowel Movements 16 Exam Patient remains pale with some bitemporal wasting. Neck is supple without adenopathy thyromegaly or jugular venous distention. Lungs are clear to auscultation. Heart is regular and rhythmic systolic murmur. Abdomen is soft without any tenderness rebound guarding masses or hepatosplenomegaly. Extremities show any evidence of any clubbing cyanosis or edema. Lab and Diagnostics Result Diagram: 05/29/16 0510 05/29/16 0510 Microbiology Name: GLADYS CLAY Age/Sex: 70/M Attend Dr: Francisco Benoit MD Acct: [id number] Unit: [id number] Status: ADM IN Location: [facility] [place] 1027-1 Re05/11/16 Disch: Specimen: [id number] Collected: 05/23/16 Status: RES Req#: [id number] Received: 05/23/16 Source: URINE CC Sp Desc : PP Subm Dr: Jose G Diana MD Ordered: URINE CULT Procedure Result Verified Site Microbiology PRASANNA CULT URINE Preliminary 05/25/16 PRELIMINARY ID GRAM NEGATIVE GABBY ID AND SENS TO FOLLOW COLONY COUNT/QUANTITY >100,000 CFU/ml Blood and stool cultures are negative X-Rays, CTs and MRIs X-RAY CHEST ONE VIEW, PORTABLE 05/11 IMPRESSION: Diffuse scarring and blunted appearance of the left costophrenic angle however unchanged appearance since 04/29/16. No new consolidation Dictated by: Aaron Garcia M.D. on 05/11/2016 at 21:02 Approved by: Aaron Garcia M.D. on 05/11/2016 at 21:03 CT BRAIN WITHOUT CONTRAST 05/11 IMPRESSION: No acute intracranial process Dictated by: Aaron Garcia M.D. on 05/11/2016 at 20:51 US VENOUS LEG DUPLEX BILATERAL IMPRESSION: No DVT of the bilateral lower extremities. Dictated by: Mirlande Thompson M.D. on 05/12/2016 at 7:53 Cardiac Echo Impressions Echocardiogram Report Name: GLADYS CLAY Study Date: 05/26/2016 Height: 72 in Hospital Exam Location: [facility] Weight: 172 lb Gender: Male BSA: 2.0 m2 : 1945 Age: 70 yrs BP: 168/87 mmHg Reason For Study: AORTIC VALVE STENOSIS Ordering Physician: Performed By: Ash Palacios Interpretation Summary Left ventricular size is at the upper limits of normal and left ventricular systolic function is borderline reduced with the ejection fraction roughly estimated to be 50% +/- 5%, and appears slightly less dynamic compared to the previous study. There is a significant dyssynchronous contraction pattern, consistent with a conduction abnormality but no other obvious focal wall motion abnormalities. Assessment of diastolic parameters indicates a relaxation abnormality of the left ventricle, consistent with normal filling pressures, and is unchanged compared to the previous study. The right ventricle is normal in size and function, and appears unchanged compared to the previous study. The right ventricular systolic pressure is estimated at 22 mmHg assuming a right atrial pressure of 3 mm Hg, and is likely lower than on the previous study. The left atrial size is normal and the right atrium is mildly dilated. Both are grossly unchanged compared to the previous study. There is mild to moderate mitral regurgitation that is slightly more prominent compared to the previous study and trace tricuspid regurgitation that is less prominent. There is moderate aortic stenosis that is likely mildly progressive compared to the previous study with a peak aortic velocity of 3.0 m/sec compared to 2.4 m/sec on the previous exam, now with a mean gradient of 22 mmHg and a calculated aortic valve area of 1.2 cm2. The ascending aorta is mildly enlarged but is unchanged compared to the previous study. Assessment & Plan Impression #1 polyuria unknown etiology #2 resolving acute kidney injury Recommendations #1 from my point of view he can probably be discharged to an extended care facility however need to make sure that he has access to free water. GI Prophylaxis: Not indicated VTE Prophylaxis: Sub-Q Heparin (Unfractionated) VTE Mechanical Devices: Intermittant Pneumatic CD Resuscitation Status: CPR: Attempt Resuscitation Son Dias DO May 29, 2016 11:37
--- NOTE | 2016-05-29 14:21 | NUR ---
skin P: R mcmahan abrasion, purple,w/red borders, no open sites, no drainage, pt unaware how he got it I: When MD came to visit, pointed it out, and requested the timber management specialist fortunato Saleem: Monitored for any changed, none noted Addendum: 05/29/16 at 1554 by ABDI FORREST RN Agree with above lexii. Nenita Forrest RN
--- NOTE | 2016-05-29 14:37 | NUR ---
NUTRITION FOLLOW-UP: ASSESS: 70 YO male admitted for acute renal failure which has improved. Nephrology continues to follow. PMHx: ESBL E Coli pyelonephritis, obstructive uropathy, HTN, DM type 2, depression, asthma, COPD, Cancer, CAD, Stroke. LABS: Reviewed. Glu 120, Ca 8.0, Phos 2.3, Alb 3.3. MEDS: Reviewed. GI: BM x 1 (05/28) CURRENT WT: 78 kg. Admit wt: 82 kg. Wt changes likely due to fluid losses. DIET: RENAL/DIABETIC, LOW PROTEIN (60 G PER DAY). PO 75-100% of meals. EST. NEEDS (ESTELA, COPD): 9430-6949 kcals (25-35 kcals/kg BW), 65-95 g protein (0.8-1.2 g/kg BW) NUTRITION DIAGNOSIS: 1.) Increased nutrient needs related to increased demand for nutrients for disease state as evidenced by ESTELA and COPD-PERSISTS. NUTRITION INTERVENTION: 1.) Continue current diet at this time as po intake appears adequate to meet pt est. needs. MONITOR / EVAL: PO intake, labs, weights, nutritional status. Follow per low nutritional risk guidelines.
--- NOTE | 2016-05-29 22:49 | PCM.PNMED ---
Subjective Date of Service May 29, 2016 Subjective Patient is becoming frustrated with his situation and vocalized his frustration to me today. Exam Vital Signs Vital Sign - Last Date Time Temp Pulse Resp B/P Pulse Ox O2 Delivery O2 Flow Rate FiO2 05/29/16 21:34 36.8 67 18 156/84 99 Room Air Intake and Output 05/28/16 05/28/16 05/29/16 Cumulative From/Thru 15:00 23:00 07:00 05/11/16 19:40 - 05/29/16 06:26 Intake Total 2365 ml 1823 ml 47333 ml Output Total 3800 ml 2800 ml 85582 ml Balance -1435 ml -977 ml -81315 ml Intake Oral 1300 ml 400 ml 90264 ml IV Total 1065 ml 1423 ml 35887 ml Output Urine Total 3800 ml 2800 ml 69282 ml # Bowel Movements 16 Exam General: The patient appears to be more frustrated today laying in bed. His appetite remains very good. He is still very weak. HEENT: Head is atraumatic and normocephalic. Eyes: Pupils are equally round and reactive to light and accommodation. Extraocular muscles are intact. Sclera are white, anicteric. Subconjunctival mucosa is pink. Ears and nose are unremarkable. Oropharynx: There is no mucosal lesions, there is no thrush, there is no pharyngitis. Neck: Is supple, there are no nodes, or masses or tenderness. Chest: Is clear to auscultation and percussion. There are no rales, rhonchi, wheezes or rubs. Heart: Rate, rhythm is regular. There is a grade 3/6 systolic ejection murmur heard best at the left sternal border radiating to the base and the right clavicle. There is no rub or gallop. Abdomen: Good bowel sounds are present. Abdomen is soft, nontender, no organomegaly or masses were appreciated. Extremities: Are symmetrical and well perfused. There is no edema, there is no cellulitis, however there is some erythema of the lower extremities which appears to be chronic. The erythema does appear to be slightly less angry than before. Neurologic: There are no focal neurological deficits. Cranial nerves II through XII are intact. There are no sensory or motor deficits. Patient exhibits diffuse weakness Psychiatric: Patients mood is calm and he shows no sign of agitation. Genital: Deferred Rectal: Deferred Lab and Diagnostics Result Diagram: 05/29/1650905/29/16509 Microbiology Name: GLADYS CLAY Age/Sex: 70/M Attend Dr: Francisco Benoit MD Acct: [id number] Unit: [id number] Status: ADM IN Location: [facility] [place] 1027-1 Re05/11/16 Disch: Specimen: [id number] Collected: 05/23/16 Status: RES Req#: [id number] Received: 05/23/16 Source: URINE CC Sp Desc : ROSETTA Corona Dr: Jose G Diana MD Ordered: URINE CULT Procedure Result Verified Site Microbiology PRASANNA CULT URINE Preliminary 05/25/16-736 PRELIMINARY ID GRAM NEGATIVE GABBY ID AND SENS TO FOLLOW COLONY COUNT/QUANTITY >100,000 CFU/ml Blood and stool cultures are negative X-Rays, CTs and MRIs X-RAY CHEST ONE VIEW, PORTABLE 05/11 IMPRESSION: Diffuse scarring and blunted appearance of the left costophrenic angle however unchanged appearance since 04/29/16. No new consolidation Dictated by: Aaron Garcia M.D. on 05/11/2016 at 21:02 Approved by: Aaron Garcia M.D. on 05/11/2016 at 21:03 CT BRAIN WITHOUT CONTRAST 05/11 IMPRESSION: No acute intracranial process Dictated by: Aaron Garcia M.D. on 05/11/2016 at 20:51 US VENOUS LEG DUPLEX BILATERAL IMPRESSION: No DVT of the bilateral lower extremities. Dictated by: Mirlande Thompson M.D. on 05/12/2016 at 7:53 Cardiac Echo Impressions Echocardiogram Report Name: GLADYS CLAY Study Date: 05/26/2016 Height: 72 in Hospital Exam Location: [facility] Weight: 172 lb Gender: Male BSA: 2.0 m2 : 1945 Age: 70 yrs BP: 168/87 mmHg Reason For Study: AORTIC VALVE STENOSIS Ordering Physician: Performed By: Ash Palacios Interpretation Summary Left ventricular size is at the upper limits of normal and left ventricular systolic function is borderline reduced with the ejection fraction roughly estimated to be 50% +/- 5%, and appears slightly less dynamic compared to the previous study. There is a significant dyssynchronous contraction pattern, consistent with a conduction abnormality but no other obvious focal wall motion abnormalities. Assessment of diastolic parameters indicates a relaxation abnormality of the left ventricle, consistent with normal filling pressures, and is unchanged compared to the previous study. The right ventricle is normal in size and function, and appears unchanged compared to the previous study. The right ventricular systolic pressure is estimated at 22 mmHg assuming a right atrial pressure of 3 mm Hg, and is likely lower than on the previous study. The left atrial size is normal and the right atrium is mildly dilated. Both are grossly unchanged compared to the previous study. There is mild to moderate mitral regurgitation that is slightly more prominent compared to the previous study and trace tricuspid regurgitation that is less prominent. There is moderate aortic stenosis that is likely mildly progressive compared to the previous study with a peak aortic velocity of 3.0 m/sec compared to 2.4 m/sec on the previous exam, now with a mean gradient of 22 mmHg and a calculated aortic valve area of 1.2 cm2. The ascending aorta is mildly enlarged but is unchanged compared to the previous study. Assessment & Plan The patient is a 70 yo male with history of ESBL Escherichia coli pyelonephritis , hypertension, diabetes mellitus type II, presents to [facility] emergency department via EMS from [facility] complaining of fatigue and found to have renal failure again. # Acute polyuria with underlying disease of obstructive uropathy, present at the time of admission. Cause of polyuria remains unknown. - Patient failed to respond to DDAVP and thiazide diuretics (DDAVP with 4 g subcutaneous once and 2 mg twice a day by nephrology on 05/16,no response, stopped ddavp on 05/16) - ? solute diuresis. - We appreciate nephrology consult. will follow with their recommendations as follows: "continue NS and fludrocortisone to 0.2 mg daily and PO Magnesium 400 mg BID x 5 days". - Dr. Dias has added Spironolactone 25 mg by mouth twice a day today [address] Dias today and he states that this can be discontinued. - We will check MRI of the brain in a.m. as patient may have a central nervous system pathology such as normal pressure hydrocephalus or neurosarcoidosis that may be causing polyuria undiagnosed by CT scanning. # Acute kidney injury secondary to obstructive uropathy, present at the time of admission - s/p reyes cath placement. - Renal function improved and then worsened and then improved again and creatinine is slightly higher again on 05/27/2016 - We will continue with further management per nephrology recommendations for now as follows: - resumed NS 100 ml/hr on 05/23 - started fludrocortisone to increase Na and fluid retention on 05/23 - repeat orthostatic BPs if negative, will d/c IVF. - increase fludrocortisone to 0.2 mg daily. - per earlier notes: "Urology Dr Bermudez consulted by ED, recommended discharging with Reyes and on Flomax and followup with her outpatient" - We will discuss with nephrology again in a.m. # History of hypertension with hypotension due to postobstructive diuresis during this hospital. - Now with acute orthostatic hypotension - The plan as noted above # Recurrent ESBL UTI. This appears to be due to a recurrence of previous infection which may have been partially treated, and not due to patient's Reyes catheter the Escherichia coli has identical susceptibilities to the 1 previously cultured prior to placement of the Reyes catheter. - We have restarted ertapenem day #4. Patient will need 10 more days of IV antibody therapy. - Dr. Tucker was on consult and is not available at this time - Patient completed a course for Ertapenem on 05/18 - Patient now has greater than 100,000 colonies of gram-negative rods in his urine with pyuria. The gram-negative rods have again been identified as Escherichia coli with extended spectrum beta-lactamase resistance with identical susceptibilities as to the Escherichia coli identified and isolated on 05/23/2016. - Patient has been placed back in contact isolation - Patient will need Reyes catheter removed and replaced due to obstructive uropathy. - Consider restarting Flomax this evening as patient will need to have Reyes catheter removed at some point in order to clear this infection completely # Diabetes mellitus type 2, present on admission. Active. - Previously on Metformin but was appropriately discontinued due to renal issues - Low correctional Lispro protocol # Acute Encephalopathy. Present on admission - Has resolved - Apparently due to Uremic encephalopathy which is resolved # Anemia, acute on chronic - Patient stool for occult blood positive - We have recommend outpatient workup - The patient's h/h has remained stable Disposition: For now patient requires continued repletion of fluids with IV hydration. Will check MRI of the brain in a.m. Will discuss with Dr. Dias future treatment plan. Pain Evaluation: Adequate Pain Control GI Prophylaxis: Not indicated VTE Prophylaxis: Sub-Q Heparin (Unfractionated) VTE Mechanical Devices: Intermittant Pneumatic CD Resuscitation Status: CPR: Attempt Resuscitation Glen Valverde MD May 29, 2016 22:49
[2016-05-30] VITALS (8 sets, daily range): BP systolic 111–161; BP diastolic 75–88; PULSE 61–92; RESP 14–17; O2SAT 97–98
[2016-05-30] MEDS: 0.9% NaCl + KCl 20 mEq/L 1,000 ML IV SCH ×3 (00:20→16:20)
--- NOTE | 2016-05-30 04:05 | NUR ---
Activity Patient alert and oriented, remained in bed for the length of the shift. Denial of pain and or discomfort at this time. Patient education on diabetes management specifically common side effects of hypo and hyperglycemia.
[2016-05-30 05:30] LABS: BASOPHILS % (AUTO) 0.3 % (0-3); EOSINOPHILS % (AUTO) 1.5 % (0-5); MONOCYTES % (AUTO) 10.8 % (4-12); Mean Corpuscular Hemoglobin 30.4 pg (27.0-35.0); Mean Corpuscular Volume 93.7 fL (81-100); NEUTROPHILS % (AUTO) 66.9 % (40-74); Platelet Count 188 bil/L (150-400)
[2016-05-30 06:28] LABS: Magnesium 1.7 mg/dL (1.6-2.6); Phosphorus 2.3 mg/dL (2.5-4.9)
[2016-05-30] MEDS: Insulin LISPRO 300 Unit/3 mL Inj SUBQ SCH ×4 (08:00→22:00)
[2016-05-30] MEDS: buPROPion SR 150 mg ER12 Tablet PO SCH ×2 (08:09→20:29)
[2016-05-30] MEDS: Ertapenem Inj 1,000 MG in 0.9% Sodium Chloride 50 ML IV SCH (08:10)
[2016-05-30] MEDS: Heparin 5,000 Unit/mL Inj SUBQ SCH ×2 (08:13→20:32)
[2016-05-30] MEDS ORDERED: Magnesium Sulf 4 Gm/100 mL H2O 4 GM in IV Premix 1 EACH IV ONE (09:10)
--- NOTE | 2016-05-30 09:21 | NUR ---
NESHA: CARLOS contacted Carin Evans regarding NESHA. Left message and requested return call. ISMAEL Aquino Addendum: 05/30/16 at 0938 by BETTY CALZADA CM Patient is unable to sign NESHA asked [employer] to follow up with MARIBEL via phone.
--- NOTE | 2016-05-30 18:11 | DRSVH ---
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 After the administration of contrast, axial and coronal T1 spin echo with fat saturation through the brain. COMPARISON: [facility], CT, CT BRAIN WO CON, 05/11/2016, 20:09. [facility], MR, MR BRAIN WO CON, 01/17/2016, 21:17. FINDINGS: Image quality: Excellent. CSF spaces: Basal cisterns are patent. No extra-axial fluid collections. Ventricles are normal in size and shape. Brain: No midline shift. No intracranial bleeds or masses. No abnormal intracranial enhancement. There is cerebral volume loss for age. No change in moderate patchy-signal intensity within the corpu s callosum, pericallosal white matter, as well as the periventricular and subcortical white matter. Several of the lesions demonstrate long axes perpendicular to the long axis of the lateral ventricles . Elevated patchy FLAIR signal intensity within the liang and tectum is present, as before, compatible with demyelinating disorder and/or small vessel disease. The brainstem appears normal. Diffusion-we ighted images demonstrate no acute ischemic insults. No chronic ischemic insults. Normal intravascu lar flow voids are present. Skull and face: Calvarial marrow is normal in signal. Orbits appear normal. Sinuses: Sinuses and mastoids appear clear. IMPRESSION: 1. No evidence of hydrocephalus. 2. No acute process. No recent infarct. 3. Moderate white matter disease, in a configuration which would be consistent with multiple sclerosi s in the appropriate clinical setting. Other considerations include small vessel ischemic disease, an d vasculitides. Clinical correlation recommended. Dictated by: Tara Martin M.D. on 05/30/2016 at 18:05 Approved by: Tara Matrin M.D. on 05/30/2016 at 18:08
--- NOTE | 2016-05-30 19:27 | NUR ---
ACTIVITY Patient was up to chair for lunch. 1 person assist with walker. Worked with therapy and ambulated in hallway. No c/o pain. BG have been under 140 all day, no coverage needed. Newman catheter patent and draining. continue to monitor on hourly rounding.
--- NOTE | 2016-05-30 22:34 | PCM.PNMED ---
Subjective Date of Service May 30, 2016 Subjective Patient is a little more cordial and less agitated today. He has no new complaints and maintains a good healthy appetite. Exam Vital Signs Vital Sign - Last Date Time Temp Pulse Resp B/P Pulse Ox O2 Delivery O2 Flow Rate FiO2 05/30/16 19:52 36.5 92 17 161/75 97 Room Air Intake and Output 05/29/16 05/29/16 05/30/16 Cumulative From/Thru 15:00 23:00 07:00 05/11/16 19:40 - 05/30/16 06:13 Intake Total 2089 ml 1158 ml 27276 ml Output Total 1100 ml 3200 ml 04155 ml Balance 989 ml -2042 ml -22393 ml Intake Oral 1049 ml 218 ml 08331 ml IV Total 1040 ml 940 ml 84667 ml Output Urine Total 1100 ml 3200 ml 00898 ml # Bowel Movements 1 17 Exam General: The patient appears comfortable lying in bed today. He is less agitated today and is to be more understanding of his current condition. HEENT: Head is atraumatic and normocephalic. Eyes: Pupils are equally round and reactive to light and accommodation. Extraocular muscles are intact. Sclera are white, anicteric. Subconjunctival mucosa is pink. Ears and nose are unremarkable. Oropharynx: There is no mucosal lesions, there is no thrush, there is no pharyngitis. Neck: Is supple, there are no nodes, or masses or tenderness. Chest: Is clear to auscultation and percussion. There are no rales, rhonchi, wheezes or rubs. Heart: Rate, rhythm is regular. There is a grade 3/6 systolic ejection murmur heard best at the left sternal border radiating to the base and the right clavicle. There is no rub or gallop. Abdomen: Good bowel sounds are present. Abdomen is soft, nontender, no organomegaly or masses were appreciated. Extremities: Are symmetrical and well perfused. There is no edema, there is no cellulitis, however there is some erythema of the lower extremities which appears to be chronic. The erythema does appear to be much less angry than before. Neurologic: There are no focal neurological deficits. Cranial nerves II through XII are intact. There are no sensory or motor deficits. Patient exhibits diffuse weakness. Psychiatric: Patients mood is calm and he shows no sign of agitation. Genital: Deferred Rectal: Deferred Lab and Diagnostics Result Diagram: 05/30/1651905/30/16519 Microbiology Name: GLADYS CLAY Age/Sex: 70/M Attend Dr: Francisco Benoit MD Acct: [id number] Unit: [id number] Status: ADM IN Location: [facility] [place] 1027-1 Re05/11/16 Disch: Specimen: [id number] Collected: 05/23/16 Status: RES Req#: [id number] Received: 05/23/16-1115 Source: URINE CC Sp Desc : ROSETTA Corona Dr: Jose G Diana MD Ordered: URINE CULT Procedure Result Verified Site Microbiology PRASANNA CULT URINE Preliminary 05/25/16-736 PRELIMINARY ID GRAM NEGATIVE GABBY ID AND SENS TO FOLLOW COLONY COUNT/QUANTITY >100,000 CFU/ml Blood and stool cultures are negative X-Rays, CTs and MRIs X-RAY CHEST ONE VIEW, PORTABLE 05/11 IMPRESSION: Diffuse scarring and blunted appearance of the left costophrenic angle however unchanged appearance since 04/29/16. No new consolidation Dictated by: Aaron Garcia M.D. on 05/11/2016 at 21:02 Approved by: Aaron Garcia M.D. on 05/11/2016 at 21:03 CT BRAIN WITHOUT CONTRAST 05/11 IMPRESSION: No acute intracranial process Dictated by: Aaron Garcia M.D. on 05/11/2016 at 20:51 US VENOUS LEG DUPLEX BILATERAL IMPRESSION: No DVT of the bilateral lower extremities. Dictated by: Mirlande Thompson M.D. 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 After the administration of contrast, axial and coronal T1 spin echo with fat saturation through the brain. COMPARISON: [facility], CT, CT BRAIN WO CON, 05/11/2016, 20:09. [facility], MR, MR BRAIN WO CON, 01/17/2016, 21:17. FINDINGS: Image quality: Excellent. CSF spaces: Basal cisterns are patent. No extra-axial fluid collections. Ventricles are normal in size and shape. Brain: No midline shift. No intracranial bleeds or masses. No abnormal intracranial enhancement. There is cerebral volume loss for age. No change in moderate patchy-signal intensity within the corpus callosum, pericallosal white matter, as well as the periventricular and subcortical white matter. Several of the lesions demonstrate long axes perpendicular to the long axis of the lateral ventricles. Elevated patchy FLAIR signal intensity within the liang and tectum is present, as before, compatible with demyelinating disorder and/or small vessel disease. The brainstem appears normal. Diffusion-weighted images demonstrate no acute ischemic insults. No chronic ischemic insults. Normal intravascular flow voids are present. Skull and face: Calvarial marrow is normal in signal. Orbits appear normal. Sinuses: Sinuses and mastoids appear clear. IMPRESSION: 1. No evidence of hydrocephalus. 2. No acute process. No recent infarct. 3. Moderate white matter disease, in a configuration which would be consistent with multiple sclerosis in the appropriate clinical setting. Other considerations include small vessel ischemic disease, and vasculitides. Clinical correlation recommended. Dictated by: Tara Martin M.D. on 05/30/2016 at 18:05 Approved by: Tara Martin M.D. on 05/30/2016 at 18:08 Cardiac Echo Impressions Echocardiogram Report Name: GLADYS CLAY Study Date: 05/26/2016 Height: 72 in Hospital Exam Location: [facility] Weight: 172 lb Gender: Male BSA: 2.0 m2 : 1945 Age: 70 yrs BP: 168/87 mmHg Reason For Study: AORTIC VALVE STENOSIS Ordering Physician: Performed By: Ash Palacios Interpretation Summary Left ventricular size is at the upper limits of normal and left ventricular systolic function is borderline reduced with the ejection fraction roughly estimated to be 50% +/- 5%, and appears slightly less dynamic compared to the previous study. There is a significant dyssynchronous contraction pattern, consistent with a conduction abnormality but no other obvious focal wall motion abnormalities. Assessment of diastolic parameters indicates a relaxation abnormality of the left ventricle, consistent with normal filling pressures, and is unchanged compared to the previous study. The right ventricle is normal in size and function, and appears unchanged compared to the previous study. The right ventricular systolic pressure is estimated at 22 mmHg assuming a right atrial pressure of 3 mm Hg, and is likely lower than on the previous study. The left atrial size is normal and the right atrium is mildly dilated. Both are grossly unchanged compared to the previous study. There is mild to moderate mitral regurgitation that is slightly more prominent compared to the previous study and trace tricuspid regurgitation that is less prominent. There is moderate aortic stenosis that is likely mildly progressive compared to the previous study with a peak aortic velocity of 3.0 m/sec compared to 2.4 m/sec on the previous exam, now with a mean gradient of 22 mmHg and a calculated aortic valve area of 1.2 cm2. The ascending aorta is mildly enlarged but is unchanged compared to the previous study. Assessment & Plan The patient is a 70 yo male with history of ESBL Escherichia coli pyelonephritis , hypertension, diabetes mellitus type II, presents to [facility] emergency department via EMS from [facility] complaining of fatigue and found to have renal failure again. # Acute polyuria with underlying disease of obstructive uropathy, present at the time of admission. Cause of polyuria remains unknown. - Patient failed to respond to DDAVP and thiazide diuretics (DDAVP with 4 g subcutaneous once and 2 mg twice a day by nephrology on 05/16,no response, stopped ddavp on 05/16) - ? solute diuresis. - We appreciate nephrology consult. will follow with their recommendations as follows: "continue NS and fludrocortisone to 0.2 mg daily and PO Magnesium 400 mg BID x 5 days". - Dr. Dias has added Spironolactone 25 mg by mouth twice a day today [address] Dias today and he states that this can be discontinued. - We have checked an MRI of the brain shows the followin. No evidence of hydrocephalus. 2. No acute process. No recent infarct. 3. Moderate white matter disease, in a configuration which would be consistent with multiple sclerosis in the appropriate clinical setting. Other considerations include small vessel ischemic disease, and vasculitides. Clinical correlation recommended. - Therefore will consult neurology in a.m. # Acute kidney injury secondary to obstructive uropathy, present at the time of admission - s/p reyes cath placement. - Renal function improved and then worsened and then improved again and creatinine is slightly higher again on 05/27/2016 - We will continue with further management per nephrology recommendations for now as follows: - resumed NS 100 ml/hr on 05/23 - started fludrocortisone to increase Na and fluid retention on 05/23 - repeat orthostatic BPs if negative, will d/c IVF. - increase fludrocortisone to 0.2 mg daily. - per earlier notes: "Urology Dr Bermudez consulted by ED, recommended discharging with Reyes and on Flomax and followup with her outpatient" - We will discuss with nephrology again in a.m. # History of hypertension with hypotension due to postobstructive diuresis during this hospital. - Now with acute orthostatic hypotension - The plan as noted above # Recurrent ESBL UTI. This appears to be due to a recurrence of previous infection which may have been partially treated, and not due to patient's Reyes catheter the Escherichia coli has identical susceptibilities to the 1 previously cultured prior to placement of the Reyes catheter. - We have restarted ertapenem day #5. Patient will need 9 more days of IV antibody therapy. - Dr. Tucker was on consult and is not available at this time - Patient completed a course for Ertapenem on 05/18 - Patient now has greater than 100,000 colonies of gram-negative rods in his urine with pyuria. The gram-negative rods have again been identified as Escherichia coli with extended spectrum beta-lactamase resistance with identical susceptibilities as to the Escherichia coli identified and isolated on 05/23/2016. Therefore, this is not a catheter associated urinary tract infection. - Patient has been placed back in contact isolation - Patient will need Reyes catheter removed and replaced due to obstructive uropathy. - Consider restarting Flomax this evening as patient will need to have Reyes catheter removed at some point in order to clear this infection completely # Diabetes mellitus type 2, present on admission. Active. - Previously on Metformin but was appropriately discontinued due to renal issues - Low correctional Lispro protocol # Acute Encephalopathy. Present on admission - Has resolved - Apparently due to Uremic encephalopathy which is resolved # Anemia, acute on chronic - Patient stool for occult blood positive - We have recommend outpatient workup - The patient's h/h has remained stable Disposition: For now patient requires continued repletion of fluids with IV hydration. Given the MRI findings will consult neurology in a.m. Pain Evaluation: Adequate Pain Control GI Prophylaxis: Not indicated VTE Prophylaxis: Sub-Q Heparin (Unfractionated) VTE Mechanical Devices: Intermittant Pneumatic CD Resuscitation Status: CPR: Attempt Resuscitation lGen Valverde MD May 30, 2016 22:34
[2016-05-31] VITALS (7 sets, daily range): BP systolic 149–173; BP diastolic 77–87; PULSE 63–71; RESP 15–16; O2SAT 98–99
[2016-05-31] MEDS: 0.9% NaCl + KCl 20 mEq/L 1,000 ML IV SCH ×4 (00:20→22:56)
[2016-05-31 03:34] LABS: BASOPHILS % (AUTO) 0.1 % (0-3); EOSINOPHILS % (AUTO) 1.3 % (0-5); MONOCYTES % (AUTO) 9.3 % (4-12); Mean Corpuscular Hemoglobin 29.6 pg (27.0-35.0); Mean Corpuscular Volume 94.2 fL (81-100); Platelet Count 188 bil/L (150-400)
[2016-05-31 03:52] LABS: Magnesium 2.1 mg/dL (1.6-2.6); Phosphorus 2.7 mg/dL (2.5-4.9)
--- NOTE | 2016-05-31 05:04 | NUR ---
Sleep Patient requested lumped care that he may sleep for a longer stretch of time; slept 6 hours uninterrupted. Denial of pain and discomfort, however agitated about situation. Voiced frustrations of lengthy hospital stay, this RN discussed possible ways to decrease frustration resulting in lumped care above for optimum sleep.
[2016-05-31] MEDS: buPROPion SR 150 mg ER12 Tablet PO SCH (08:15)
[2016-05-31] MEDS: Insulin LISPRO 300 Unit/3 mL Inj SUBQ SCH ×4 (08:16→21:29)
[2016-05-31] MEDS: Ertapenem Inj 1,000 MG in 0.9% Sodium Chloride 50 ML IV SCH (08:17)
[2016-05-31] MEDS: Heparin 5,000 Unit/mL Inj SUBQ SCH ×2 (08:18→21:41)
--- NOTE | 2016-05-31 16:05 | PCM.PNMED ---
Subjective Date of Service May 31, 2016 Subjective The patient's urine output continues to vary. The MRI of his brain was reviewed and there is some significant white matter changes which may be a result of multiple sclerosis versus small vessel disease. Hospice is getting a neurology consult for further evaluation of this. She and I have reviewed his medications and we will go ahead and discontinue the Wellbutrin as this has been associated with polyuria. I will also discontinue the Florinef was not as I do not feel this is benefiting the patient and all. Exam Vital Signs Vital Sign - Last Date Time Temp Pulse Resp B/P Pulse Ox O2 Delivery O2 Flow Rate FiO2 05/31/16 08:00 64 05/31/16 07:41 36.1 15 154/83 98 Room Air Intake and Output 05/30/16 05/30/16 05/31/16 Cumulative From/Thru 15:00 23:00 07:00 05/11/16 19:40 - 05/31/16 05:22 Intake Total 2164 ml 1914 ml 84217 ml Output Total 1825 ml 2400 ml 67142 ml Balance 339 ml -486 ml -90803 ml Intake Oral 1120 ml 700 ml 27304 ml IV Total 1044 ml 1214 ml 49562 ml Output Urine Total 1825 ml 2400 ml 48111 ml # Bowel Movements 0 1 18 Exam Neck is supple without adenopathy thyromegaly or jugular venous distention lungs are clear to auscultation. Heart is regular rhythm with a soft systolic murmur. Abdomen is soft without any tenderness or rebound guarding masses or hepatosplenomegaly. Extremities without 20 evidence of any clubbing cyanosis or edema. Skin turgor is slightly diminished. Lab and Diagnostics Result Diagram: 05/31/1631905/31/16 032 Microbiology Name: GLADYS CLAY Age/Sex: 70/M Attend Dr: Francisco Benoit MD Acct: [id number] Unit: [id number] Status: ADM IN Location: [facility] [place] 1027-1 Re05/11/16 Disch: Specimen: [id number] Collected: 05/23/16 Status: RES Req#: [id number] Received: 05/23/16 Source: URINE CC Sp Desc : PP Subm Dr: Jose G Diana MD Ordered: URINE CULT Procedure Result Verified Site Microbiology PRASANNA CULT URINE Preliminary 05/25/16-736 PRELIMINARY ID GRAM NEGATIVE GABBY ID AND SENS TO FOLLOW COLONY COUNT/QUANTITY >100,000 CFU/ml Blood and stool cultures are negative X-Rays, CTs and MRIs X-RAY CHEST ONE VIEW, PORTABLE 05/11 IMPRESSION: Diffuse scarring and blunted appearance of the left costophrenic angle however unchanged appearance since 04/29/16. No new consolidation Dictated by: Aaron Garcia M.D. on 05/11/2016 at 21:02 Approved by: Aaron Garcia M.D. on 05/11/2016 at 21:03 CT BRAIN WITHOUT CONTRAST 05/11 IMPRESSION: No acute intracranial process Dictated by: Aaron Garcia M.D. on 05/11/2016 at 20:51 US VENOUS LEG DUPLEX BILATERAL IMPRESSION: No DVT of the bilateral lower extremities. Dictated by: Mirlande Thompson M.D. 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 After the administration of contrast, axial and coronal T1 spin echo with fat saturation through the brain. COMPARISON: [facility], CT, CT BRAIN WO CON, 05/11/2016, 20:09. [facility], MR, MR BRAIN WO CON, 01/17/2016, 21:17. FINDINGS: Image quality: Excellent. CSF spaces: Basal cisterns are patent. No extra-axial fluid collections. Ventricles are normal in size and shape. Brain: No midline shift. No intracranial bleeds or masses. No abnormal intracranial enhancement. There is cerebral volume loss for age. No change in moderate patchy-signal intensity within the corpus callosum, pericallosal white matter, as well as the periventricular and subcortical white matter. Several of the lesions demonstrate long axes perpendicular to the long axis of the lateral ventricles. Elevated patchy FLAIR signal intensity within the liang and tectum is present, as before, compatible with demyelinating disorder and/or small vessel disease. The brainstem appears normal. Diffusion-weighted images demonstrate no acute ischemic insults. No chronic ischemic insults. Normal intravascular flow voids are present. Skull and face: Calvarial marrow is normal in signal. Orbits appear normal. Sinuses: Sinuses and mastoids appear clear. IMPRESSION: 1. No evidence of hydrocephalus. 2. No acute process. No recent infarct. 3. Moderate white matter disease, in a configuration which would be consistent with multiple sclerosis in the appropriate clinical setting. Other considerations include small vessel ischemic disease, and vasculitides. Clinical correlation recommended. Dictated by: Tara Martin M.D. on 05/30/2016 at 18:05 Approved by: Tara Martin M.D. on 05/30/2016 at 18:08 Cardiac Echo Impressions Echocardiogram Report Name: GLADYS CLAY Study Date: 05/26/2016 Height: 72 in Hospital Exam Location: [facility] Weight: 172 lb Gender: Male BSA: 2.0 m2 : 1945 Age: 70 yrs BP: 168/87 mmHg Reason For Study: AORTIC VALVE STENOSIS Ordering Physician: Performed By: Ash Palacios Interpretation Summary Left ventricular size is at the upper limits of normal and left ventricular systolic function is borderline reduced with the ejection fraction roughly estimated to be 50% +/- 5%, and appears slightly less dynamic compared to the previous study. There is a significant dyssynchronous contraction pattern, consistent with a conduction abnormality but no other obvious focal wall motion abnormalities. Assessment of diastolic parameters indicates a relaxation abnormality of the left ventricle, consistent with normal filling pressures, and is unchanged compared to the previous study. The right ventricle is normal in size and function, and appears unchanged compared to the previous study. The right ventricular systolic pressure is estimated at 22 mmHg assuming a right atrial pressure of 3 mm Hg, and is likely lower than on the previous study. The left atrial size is normal and the right atrium is mildly dilated. Both are grossly unchanged compared to the previous study. There is mild to moderate mitral regurgitation that is slightly more prominent compared to the previous study and trace tricuspid regurgitation that is less prominent. There is moderate aortic stenosis that is likely mildly progressive compared to the previous study with a peak aortic velocity of 3.0 m/sec compared to 2.4 m/sec on the previous exam, now with a mean gradient of 22 mmHg and a calculated aortic valve area of 1.2 cm2. The ascending aorta is mildly enlarged but is unchanged compared to the previous study. Assessment & Plan Impression #1 persistent polyuria which may be due to Wellbutrin No. 2 resolving acute kidney injury recommendations #1 we will go ahead and stop the Wellbutrin and see if this is an effect on his urine output over the next couple days. GI Prophylaxis: Not indicated VTE Prophylaxis: Sub-Q Heparin (Unfractionated) VTE Mechanical Devices: Intermittant Pneumatic CD Resuscitation Status: CPR: Attempt Resuscitation Son Dias DO May 31, 2016 16:04
--- NOTE | 2016-05-31 18:00 | NUR ---
ACTIVITY Patient cooperative with care, up to chair for lunch. 1 person assist with FWW. Also worked with therapy. Alert and oriented x3, but can sometimes be forgetful, like doesn't remember being at [facility] prior to admitting to hospital, can't recall why he went there. Newman catheter in place and draining clear yellow urine. Continue to monitor on hourly rounding.
--- NOTE | 2016-06-01 00:42 | PCM.PNMED ---
Subjective Date of Service Jun 01, 2016 Subjective Patient is less agitated today and has no new complaints. He does get somewhat agitated when I explained to him that he came to the hospital from [facility] and he does not remember being at [facility]. Exam Vital Signs Vital Sign - Last Date Time Temp Pulse Resp B/P Pulse Ox O2 Delivery O2 Flow Rate FiO2 05/31/16 20:06 37.0 71 16 173/77 98 Room Air Intake and Output 05/31/16 05/31/16 06/01/16 Cumulative From/Thru 15:00 23:00 07:00 05/11/16 19:40 - 05/31/16 18:09 Intake Total 2367 ml 68045 ml Output Total 1650 ml 44923 ml Balance 717 ml -86387 ml Intake Oral 954 ml 30891 ml IV Total 1413 ml 22143 ml Output Urine Total 1650 ml 79963 ml # Bowel Movements 18 Exam General: The patient appears comfortable lying in bed today. He is less agitated today however does get agitated when the subject of [facility] comes up. As he continues to the idea of the was transferred from [facility] here to the hospital for this admission.. HEENT: Head is atraumatic and normocephalic. Eyes: Pupils are equally round and reactive to light and accommodation. Extraocular muscles are intact. Sclera are white, anicteric. Subconjunctival mucosa is pink. Ears and nose are unremarkable. Oropharynx: There is no mucosal lesions, there is no thrush, there is no pharyngitis. Neck: Is supple, there are no nodes, or masses or tenderness. Chest: Is clear to auscultation and percussion. There are no rales, rhonchi, wheezes or rubs. Heart: Rate, rhythm is regular. There is a grade 3/6 systolic ejection murmur heard best at the left sternal border radiating to the base and the right clavicle. There is no rub or gallop. Abdomen: Good bowel sounds are present. Abdomen is soft, nontender, no organomegaly or masses were appreciated. Extremities: Are symmetrical and well perfused. There is no edema, there is no cellulitis, however there is some erythema of the lower extremities which appears to be chronic. The erythema continues to appear to be much less angry than before. Neurologic: There are no focal neurological deficits. Cranial nerves II through XII are intact. There are no sensory or motor deficits. Patient exhibits diffuse weakness. Psychiatric: Patients mood is calm and he shows no sign of agitation. Genital: Deferred Rectal: Deferred Lab and Diagnostics Result Diagram: 05/31/1631905/31/16319 Microbiology Name: GLADYS CLAY Age/Sex: 70/M Attend Dr: Francisco Benoit MD Acct: [id number] Unit: [id number] Status: ADM IN Location: [facility] [place] 1027-1 Re05/11/16 Disch: Specimen: [id number] Collected: 05/23/16 Status: RES Req#: [id number] Received: 05/23/16 Source: URINE CC Sp Desc : ROSETTA Corona Dr: Jose G Diana MD Ordered: URINE CULT Procedure Result Verified Site Microbiology PRASANNA CULT URINE Preliminary 05/25/16-736 PRELIMINARY ID GRAM NEGATIVE GABBY ID AND SENS TO FOLLOW COLONY COUNT/QUANTITY >100,000 CFU/ml Blood and stool cultures are negative X-Rays, CTs and MRIs X-RAY CHEST ONE VIEW, PORTABLE 05/11 IMPRESSION: Diffuse scarring and blunted appearance of the left costophrenic angle however unchanged appearance since 04/29/16. No new consolidation Dictated by: Aaron Garcia M.D. on 05/11/2016 at 21:02 Approved by: Aaron Garcia M.D. on 05/11/2016 at 21:03 CT BRAIN WITHOUT CONTRAST 05/11 IMPRESSION: No acute intracranial process Dictated by: Aaron Garcia M.D. on 05/11/2016 at 20:51 US VENOUS LEG DUPLEX BILATERAL IMPRESSION: No DVT of the bilateral lower extremities. Dictated by: Mirlande Thompson M.D. 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 After the administration of contrast, axial and coronal T1 spin echo with fat saturation through the brain. COMPARISON: [facility], CT, CT BRAIN WO CON, 05/11/2016, 20:09. [facility], MR, MR BRAIN WO CON, 01/17/2016, 21:17. FINDINGS: Image quality: Excellent. CSF spaces: Basal cisterns are patent. No extra-axial fluid collections. Ventricles are normal in size and shape. Brain: No midline shift. No intracranial bleeds or masses. No abnormal intracranial enhancement. There is cerebral volume loss for age. No change in moderate patchy-signal intensity within the corpus callosum, pericallosal white matter, as well as the periventricular and subcortical white matter. Several of the lesions demonstrate long axes perpendicular to the long axis of the lateral ventricles. Elevated patchy FLAIR signal intensity within the liang and tectum is present, as before, compatible with demyelinating disorder and/or small vessel disease. The brainstem appears normal. Diffusion-weighted images demonstrate no acute ischemic insults. No chronic ischemic insults. Normal intravascular flow voids are present. Skull and face: Calvarial marrow is normal in signal. Orbits appear normal. Sinuses: Sinuses and mastoids appear clear. IMPRESSION: 1. No evidence of hydrocephalus. 2. No acute process. No recent infarct. 3. Moderate white matter disease, in a configuration which would be consistent with multiple sclerosis in the appropriate clinical setting. Other considerations include small vessel ischemic disease, and vasculitides. Clinical correlation recommended. Dictated by: Tara Martin M.D. on 05/30/2016 at 18:05 Approved by: Tara Martin M.D. on 05/30/2016 at 18:08 Cardiac Echo Impressions Echocardiogram Report Name: GLADYS CLAY Study Date: 05/26/2016 Height: 72 in Hospital Exam Location: [facility] Weight: 172 lb Gender: Male BSA: 2.0 m2 : 1945 Age: 70 yrs BP: 168/87 mmHg Reason For Study: AORTIC VALVE STENOSIS Ordering Physician: Performed By: Ash Palacios Interpretation Summary Left ventricular size is at the upper limits of normal and left ventricular systolic function is borderline reduced with the ejection fraction roughly estimated to be 50% +/- 5%, and appears slightly less dynamic compared to the previous study. There is a significant dyssynchronous contraction pattern, consistent with a conduction abnormality but no other obvious focal wall motion abnormalities. Assessment of diastolic parameters indicates a relaxation abnormality of the left ventricle, consistent with normal filling pressures, and is unchanged compared to the previous study. The right ventricle is normal in size and function, and appears unchanged compared to the previous study. The right ventricular systolic pressure is estimated at 22 mmHg assuming a right atrial pressure of 3 mm Hg, and is likely lower than on the previous study. The left atrial size is normal and the right atrium is mildly dilated. Both are grossly unchanged compared to the previous study. There is mild to moderate mitral regurgitation that is slightly more prominent compared to the previous study and trace tricuspid regurgitation that is less prominent. There is moderate aortic stenosis that is likely mildly progressive compared to the previous study with a peak aortic velocity of 3.0 m/sec compared to 2.4 m/sec on the previous exam, now with a mean gradient of 22 mmHg and a calculated aortic valve area of 1.2 cm2. The ascending aorta is mildly enlarged but is unchanged compared to the previous study. Assessment & Plan The patient is a 70 yo male with history of ESBL Escherichia coli pyelonephritis , hypertension, diabetes mellitus type II, presents to [facility] emergency department via EMS from [facility] complaining of fatigue and found to have renal failure again. # Acute polyuria with underlying disease of obstructive uropathy, present at the time of admission. Cause of polyuria remains unknown. - Patient failed to respond to DDAVP and thiazide diuretics (DDAVP with 4 g subcutaneous once and 2 mg twice a day by nephrology on 05/16,no response, stopped ddavp on 05/16) - ? solute diuresis. - We appreciate nephrology consult. will follow with their recommendations as follows: "continue NS and fludrocortisone to 0.2 mg daily and PO Magnesium 400 mg BID x 5 days". - Discussed with Dr. Dias the possibility of Wellbutrin causing polyuria. Therefore this drug was discontinued. - We have checked an MRI of the brain shows the followin. No evidence of hydrocephalus. 2. No acute process. No recent infarct. 3. Moderate white matter disease, in a configuration which would be consistent with multiple sclerosis in the appropriate clinical setting. Other considerations include small vessel ischemic disease, and vasculitides. Clinical correlation recommended. - Therefore, I have consulted Dr. Salmon of neurology today and he stated that he would see the patient # Acute kidney injury secondary to obstructive uropathy, present at the time of admission - s/p reyes cath placement. - Tamiflu was restarted - Renal function improved and then worsened and then improved again and creatinine is slightly higher again on 05/27/2016 - We will continue with further management per nephrology recommendations for now as follows: - resumed NS 100 ml/hr on 05/23 - started fludrocortisone to increase Na and fluid retention on 05/23 - repeat orthostatic BPs if negative, will d/c IVF. - increase fludrocortisone to 0.2 mg daily. - per earlier notes: "Urology Dr Bermudez consulted by ED, recommended discharging with Reyes and on Flomax and followup with her outpatient" - We will discuss with nephrology again in a.m. # History of hypertension with hypotension due to postobstructive diuresis during this hospital. - Now with acute orthostatic hypotension - The plan as noted above # Recurrent ESBL UTI. This appears to be due to a recurrence of previous infection which may have been partially treated, and not due to patient's Reyes catheter the Escherichia coli has identical susceptibilities to the 1 previously cultured prior to placement of the Reyes catheter. - We have restarted ertapenem day #6 of 14. Patient will need 8 more days of IV antibody therapy. - Dr. Tucker was on consult and is not available at this time - Patient completed a course for Ertapenem on 05/18 - Patient now has greater than 100,000 colonies of gram-negative rods in his urine with pyuria. The gram-negative rods have again been identified as Escherichia coli with extended spectrum beta-lactamase resistance with identical susceptibilities as to the Escherichia coli identified and isolated on 05/23/2016. Therefore, this is not a catheter associated urinary tract infection. - Patient has been placed back in contact isolation - Patient has had Reyes catheter removed and replaced due to obstructive uropathy. - The patient was restarted on Flomax and is tolerating it well. - Patient will eventually need to have Reyes catheter removed at some point in order to clear this infection completely # Diabetes mellitus type 2, present on admission. Active. - Previously on Metformin but was appropriately discontinued due to renal issues - Low correctional Lispro protocol # Acute Encephalopathy. Present on admission - Has resolved - Apparently due to Uremic encephalopathy which is resolved # Anemia, acute on chronic - Patient stool for occult blood positive - We have recommend outpatient workup - The patient's h/h has remained stable Disposition: For now patient requires continued repletion of fluids with IV hydration. Given the MRI findings awaiting neurology consult in a.m. and the effects of discontinuing the patient's Wellbutrin. Pain Evaluation: Adequate Pain Control GI Prophylaxis: Not indicated VTE Prophylaxis: Sub-Q Heparin (Unfractionated) VTE Mechanical Devices: Intermittant Pneumatic CD Resuscitation Status: CPR: Attempt Resuscitation Geln Valverde MD Jun 01, 2016 00:42
[2016-06-01 04:51] VITALS: BP 152/84; PULSE 68; RESP 18; O2SAT 98
--- NOTE | 2016-06-01 06:34 | NUR ---
Activity Pt. has been up to the commode with SBA w/ FWW. Pt. is tolerating activity well. Will continue to monitor.
[2016-06-01] MEDS: Insulin LISPRO 300 Unit/3 mL Inj SUBQ SCH ×4 (08:00→21:45)
[2016-06-01] MEDS: 0.9% NaCl + KCl 20 mEq/L 1,000 ML IV SCH ×2 (08:46→17:52)
[2016-06-01] MEDS: Ertapenem Inj 1,000 MG in 0.9% Sodium Chloride 50 ML IV SCH (08:48)
[2016-06-01] MEDS: Heparin 5,000 Unit/mL Inj SUBQ SCH ×2 (08:49→20:50)
[2016-06-01 09:54] LABS: BASOPHILS % (AUTO) 0.2 % (0-3); EOSINOPHILS % (AUTO) 2.3 % (0-5); MONOCYTES % (AUTO) 9.8 % (4-12); Mean Corpuscular Hemoglobin 29.2 pg (27.0-35.0); Mean Corpuscular Volume 94.8 fL (81-100); Platelet Count 177 bil/L (150-400)
[2016-06-01 10:15] LABS: Magnesium 1.6 mg/dL (1.6-2.6); Phosphorus 2.7 mg/dL (2.5-4.9)
--- NOTE | 2016-06-01 13:05 | NUR ---
Social Work: Brief Note Patient is a 70 y/o male on his 21 day of hospitalization. SW spoke with patient's NOK and currently the plan is still for the patient to discharge to [facility]. Patient is likely to transfer to [facility] via [facility]. SW will continue to follow and assist patient and keep NOK updated on patient's progress. Edelmira Marc LMSW, JUAN JOSÉ
--- NOTE | 2016-06-01 13:30 | NUR ---
DONALDO verbal from MARIBEL
[2016-06-01 15:32] VITALS: BP 147/79; PULSE 68; RESP 16; O2SAT 98
--- NOTE | 2016-06-01 18:59 | NUR ---
Mood Pt. was upset most of the day, often using profanity. He is tired of being here at the hospital and wants to go home. I talked with him extensively and tried to cheer him up which seemed to help a little. Will continue to monitor behavior.
[2016-06-01 20:22] VITALS: BP 157/86; PULSE 65; RESP 18; O2SAT 98
--- NOTE | 2016-06-01 20:50 | CONS ---
[address] [address] CONSULTATION REPORT PATIENT: GLADYS CLAY : 1945 MR#: [id number] ADMIT: 05/11/2016 JOB ID: [id number] DATE OF SERVICE: 06/01/2016 NEUROLOGY CONSULTATION: REQUESTING PROVIDER: Dr. Valverde CHIEF COMPLAINT: Polyuria. HISTORY OF PRESENT ILLNESS: The patient is a pleasant 70-year-old, right-handed man with multiple medical problems, who was admitted from [facility] due to fatigue. He has a history of ESBL E. coli, pyelonephritis, hypertension, diabetes myelitis type 2. He described generalized fatigue. He reported occasionally his left leg swells. He was noted to be in acute renal failure. An extensive workup has been performed by Dr. Dias and Dr. Diana that has been so far unrevealing. He does have polyuria but it appears to not be consistent with a nephrogenic or a central diabetes insipidus, nor psychogenic polydipsia, nor cerebral salt wasting. He was diagnosed with polyuria of unknown etiology and was noted to have resolving acute kidney injury. A brain magnetic resonance imaging study was performed which demonstrated cerebral volume loss for age. No change in moderate patchy signal intensity within the corpus callosum, pericallosal white matter, as well as the periventricular and subcortical white matter. Several of the lesions demonstrate long axes perpendicular to the long axis of the left ventricle. There is elevated patchy FLAIR signal intensity within the liang and the tectum present, compatible with a demyelinating disorder and/or small-vessel ischemic disease. Brainstem appeared normal. Diffusion-weighted imaging demonstrated no acute ischemic insults, no chronic ischemic insults, and normal intravascular flow voids were present. There was no evidence of hydrocephalus. No acute process. No recent infarct. Moderate white matter disease. In the report it is mentioned that it would be consistent with multiple sclerosis in the appropriate clinical setting. Other considerations include small vessel ischemic disease and vasculitides. The patient reports no headaches. He does report a history of neck pain in the distant past. He reports that he did have a spinal injury and "broke his neck." He reports that he underwent surgery at that time, performed by Dr. Kobi Marshall. This is when he was in his 40s and reports that the surgery was successful. He reports distal lower extremity numbness, however does not note any numbness in his bilateral upper extremities. His examination is remarkable for brisk reflexes at the bilateral patellae and 2+ reflexes at the Achilles bilaterally. However, there is a negative Ralph sign bilaterally and the plantars are equivocal bilaterally. During the course of the hospitalization here he underwent an extensive evaluation; so far the workup has been unrevealing. I reviewed in detail the magnetic resonance imaging study of his brain. He reports no history of any symptoms of intermittent paresthesias or weakness or any ocular symptoms consistent with a history of a demyelinating process. He reports no history of a bull's eye rash or Lyme disease. REVIEW OF SYSTEMS: A complete review of systems was performed and was remarkable for above noted. There was a concern that the polyuria may be secondary to Wellbutrin. The decision was made to discontinue Wellbutrin and Florinef. MEDICATIONS: Home medications include acyclovir, amlodipine, atorvastatin, bupropion, chlorthalidone, doxycycline, ertapenem, insulin, and mag oxide. ALLERGIES: No known drug allergies. PAST MEDICAL HISTORY: Hypertension, diabetes mellitus type 2, depression, asthma, chronic obstructive pulmonary disease, remote history of cancer, coronary artery disease, and a reported history of stroke. However, the patient does not recall that he had a stroke, although this is documented in the chart. PAST SURGICAL HISTORY: None. FAMILY HISTORY: No family history of any neurologic disorders. SOCIAL HISTORY: Occasional alcohol use. He has used substances in the past including methamphetamine and tetrahydrocannabinol. No tobacco. He has never smoked. He lives in a [facility] facility; that is, [facility]. PHYSICAL EXAMINATION: Temperature 36.6, pulse of 68, respiratory rate of 16, blood pressure 147/79, pulse oximetry 98% on room air. General: He is a well-developed man who does appear to have a mild degree of bitemporal wasting. He does not appear to be in acute distress. At the time I examined him, he did not appear agitated. However, upon review of the charts, it appears that he has been agitated in the past. However, there has been improvement in his mood, and his mood was calm at the time I examined him. Head: Normocephalic, atraumatic. Neck: Supple. No carotid bruits were auscultated. Negative Kernig. Negative Brudzinski. Chest: Clear to auscultation. Heart: Regular rate and rhythm. There was a trace grade 3/6 systolic ejection murmur. No rubs or gallops. Abdomen: Bowel sounds positive. Soft, nontender, and nondistended. Extremities: No edema. There appears to be some degree of erythema, which the patient reports is chronic. There is no cyanosis or clubbing noted. NEUROLOGIC EXAMINATION: Mental status: He is awake, alert, and oriented x3. There is no aphasia. His speech is soft; however, no clear dysarthria was noted. Cranial nerves: Pupils equal, round, and reactive to light. Extraocular movements were smooth and conjugate, with no evidence of nystagmus. No red desaturation was noted. Visual sifuentes were full to confrontation. Face appeared symmetrical. Facial sensation was intact to light touch and temperature. Auditory sensation was intact to finger rub. Palatal elevation was symmetrical. Tongue was midline. Sternocleidomastoid and trapezii are 5/5 bilaterally. Motor: Normal tone and bulk. Muscle strength 5/5 throughout. There is a very mild degree of diffuse atrophy which is likely secondary to disuse. Coordination: [id number] was intact bilaterally, although it required him twice to touch the tip of his nose with his left index finger. He kept touching his upper mustache, however he was able to get it on the 3rd try, and so there was no clear evidence of dysmetria. Reflexes: Deep tendon reflexes 1+ in the upper extremities, 3+ at the patellae bilaterally, and 1+ at the Achilles bilaterally. Plantars were equivocal bilaterally. Gait was deferred. IMPRESSION: Polyuria of unclear etiology. I have reviewed in detail his chart and his magnetic resonance imaging study of the brain. My suspicion is that the white matter lesions seen on the magnetic resonance imaging study are likely due to underlying white matter disease as opposed to a demyelinating process such as multiple sclerosis. However, certainly the possibility does remain for a process such as neurosarcoidosis and in light of this I do recommend obtaining a lumbar puncture and specifically obtaining an opening pressure, as well as cell count, glucose, and protein, in addition to an Bright level, IgG index, myelin basic protein, and oligoclonal bands. An Bright level in the blood was performed; it was 22. I have reviewed all the chart so far and it does not appear that he does have a clear etiology for the polyuria including diabetes insipidus or a cerebral salt-wasting syndrome. Given the clinical history and examination, although the white matter lesions appreciated on the magnetic resonance imaging study of the brain could be seen in the setting of a demyelinating illness such as multiple sclerosis, the diagnosis of multiple sclerosis is primarily a clinical one and his history and examination do not clearly suggest this as a possible etiology for his symptoms. Rather, I suspect that the abnormalities appreciated on the magnetic resonance imaging study of the brain likely represent small-vessel ischemic disease likely secondary to his multiple risk factors including hypertension, diabetes mellitus type 2, and hyperlipidemia. However, in light of the unexplained polyuria as well as the abnormal magnetic resonance imaging study of the brain, I do recommend excluding much rarer etiologies such as neurosarcoidosis versus a vasculitic process which appears to be far less likely, and in light of this I do recommend obtaining a lumbar puncture. He may also benefit from obtaining a magnetic resonance angiogram of his brain; however, given his renal function, this is precluded as it would require contrast. In light of this, I do recommend obtaining the lumbar puncture as distinct abnormalities associated with a vasculitic process would be expected to appear on the lumbar puncture and are less likely to present in such a clinical fashion. Present medications include normal saline, ertapenem, Tylenol p.r.n., Maalox p.r.n., atorvastatin, vitamin D, heparin, insulin, tamsulosin, senna, polyethylene glycol, and ondansetron. Given his multiple cerebrovascular risk factors including hypertension, hyperlipidemia, and diabetes mellitus type 2, as long as there is no contraindication I do recommend that he take a baby aspirin 81 mg daily as this may provide for a measure of protection from further cerebrovascular injury, especially given the abnormalities appreciated on the magnetic resonance imaging study of the brain which likely represent small-vessel ischemic disease. Etiologies such as a vasculitic etiology do appear far less likely. Commonly they do present in the setting of young adults with no identifiable cardiovascular or hypercoagulable risk factors, as well as in patients with the development of cognitive dysfunction with or without headaches, or recurrent or persistent focal neurologic deficits, or in the setting of unexplained spinal cord dysfunction not associated with ischemic disease or any other process. His clinical history is negative for any potential vasculitic etiology such as Bechet syndrome, polyarteritis nodosa, any vasculitides associated with antineutrophil cytoplasmic antibodies, or a cryoglobulinemia, or any systemic rheumatic diseases such as systemic lupus erythematosus, rheumatoid arthritis, or an antiphospholipid antibody syndrome. In this particular setting, given that he does have multiple atherosclerotic risk factors, my suspicion is that the abnormalities on the magnetic resonance imaging study of the brain likely represent small vessel ischemic disease as opposed to underlying vasculitides. I would certainly obtain cerebrospinal fluid as in the majority of cases of patients with vasculitides the cerebrospinal fluid will be abnormal. In general, based on his clinical history and examination, in addition to the abnormalities appreciated on the magnetic resonance imaging study of the brain, my suspicion is that the white matter lesions appreciated on the magnetic resonance imaging study of the brain are likely secondary to small vessel ischemic disease which is likely secondary to the patient's multiple underlying risk factors including hypertension, hyperlipidemia, and diabetes mellitus type 2. I would also check a fasting lipid risk profile in the morning. Thank you, again, Dr. Valverde, for allowing me to participate in this very interesting patient. Please feel free to contact me with any questions or concerns. ADDITIONAL INFORMATION: In the event that the lumbar puncture is unrevealing, another possible etiology for his polyuria is vascular incontinence, which is a disorder of bladder control resulting from cerebral white matter disease. The concept is based on the original observation in 1998, that a correlation between the severity of leukoaraiosis or white matter disease, urinary symptoms, gait disorder, and cognitive impairment. Over the last 20 years, a realization that white matter disease is not a benign incidental finding in the elderly has become generally accepted in several studies. It pointed to an association between geriatric syndromes in this type of pathology. The main brunt of white matter disease is in the frontal regions, the regions recognized to be crucial for bladder control. The pathophysiologic basis for vascular incontinence is thought to be detrusor overactivity and management options are often centered on the use of anticholinergics as well as optimization of control of vascular risk factors. There is some evidence to support the case for vascular incontinence including that the initial manifestation of white matter disease may be overactive bladder and incontinence. As the white matter disease increases significantly with age and preferentially affects the pre-frontal deep white matter, white matter disease becomes an etiology for overactive bladder. Addenda added by DAX 06/04/16 at 7:40am
--- NOTE | 2016-06-01 23:30 | NUR ---
Transfer of Care This RN gave report to Espinoza Lovell RN who is taking over patient care for the rest of the shift.
[2016-06-02] VITALS (10 sets, daily range): BP systolic 121–162; BP diastolic 72–89; PULSE 66–75; RESP 14–18; O2SAT 97–99
--- NOTE | 2016-06-02 00:34 | PCM.PNMED ---
Subjective Date of Service Jun 02, 2016 Subjective Patient has no new complaints he is anxious to go home. However his gait is somewhat unstable and physical therapy is recommending rehabilitation for the patient. Exam Vital Signs Vital Sign - Last Date Time Temp Pulse Resp B/P Pulse Ox O2 Delivery O2 Flow Rate FiO2 06/01/16 20:22 36.5 65 18 157/86 98 Room Air Intake and Output 06/01/16 06/01/16 06/02/16 Cumulative From/Thru 15:00 23:00 07:00 05/11/16 19:40 - 06/01/16 19:05 Intake Total 2310 ml 97515 ml Output Total 1500 ml 930338 ml Balance 810 ml -19232 ml Intake Oral 1120 ml 83375 ml IV Total 1190 ml 69963 ml Output Urine Total 1500 ml 100555 ml # Bowel Movements 18 Exam General: The patient appears comfortable lying in bed today. He is less agitated today. As he continues to the idea of the was transferred [facility] to the hospital for this admission.. HEENT: Head is atraumatic and normocephalic. Eyes: Pupils are equally round and reactive to light and accommodation. Extraocular muscles are intact. Sclera are white, anicteric. Subconjunctival mucosa is pink. Ears and nose are unremarkable. Oropharynx: There is no mucosal lesions, there is no thrush, there is no pharyngitis. Neck: Is supple, there are no nodes, or masses or tenderness. Chest: Is clear to auscultation and percussion. There are no rales, rhonchi, wheezes or rubs. Heart: Rate, rhythm is regular. There is a grade 3/6 systolic ejection murmur heard best at the left sternal border radiating to the base and the right clavicle. There is no rub or gallop. Abdomen: Good bowel sounds are present. Abdomen is soft, nontender, no organomegaly or masses were appreciated. Extremities: Are symmetrical and well perfused. There is no edema, there is no cellulitis, however there is some erythema of the lower extremities which appears to be chronic. The erythema continues to appear to be much less angry than before. Neurologic: There are no focal neurological deficits. Cranial nerves II through XII are intact. There are no sensory or motor deficits. Patient exhibits diffuse weakness. Psychiatric: Patients mood is calm and he shows no sign of agitation. Genital: Deferred Rectal: Deferred Lab and Diagnostics Result Diagram: 06/01/1645 06/01/1645 Microbiology Name: GLADYS CLAY Age/Sex: 70/M Attend Dr: Francisco Benoit MD Acct: [id number] Unit: [id number] Status: ADM IN Location: [facility] 1027-1 Re05/11/16 Disch: Specimen: [id number] Collected: 05/23/16 Status: RES Req#: [id number] Received: 05/23/161115 Source: URINE CC Sp Desc : ROSETTA Corona Dr: Jose G Diana MD Ordered: URINE CULT Procedure Result Verified Site Microbiology PRASANNA CULT URINE Preliminary 05/25/16-736 PRELIMINARY ID GRAM NEGATIVE GABBY ID AND SENS TO FOLLOW COLONY COUNT/QUANTITY >100,000 CFU/ml Blood and stool cultures are negative X-Rays, CTs and MRIs X-RAY CHEST ONE VIEW, PORTABLE 05/11 IMPRESSION: Diffuse scarring and blunted appearance of the left costophrenic angle however unchanged appearance since 04/29/16. No new consolidation Dictated by: Aaron Garcia M.D. on 05/11/2016 at 21:02 Approved by: Aaron Garcia M.D. on 05/11/2016 at 21:03 CT BRAIN WITHOUT CONTRAST 05/11 IMPRESSION: No acute intracranial process Dictated by: Aaron Garcia M.D. on 05/11/2016 at 20:51 US VENOUS LEG DUPLEX BILATERAL IMPRESSION: No DVT of the bilateral lower extremities. Dictated by: Mirlande Thompson M.D. 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 After the administration of contrast, axial and coronal T1 spin echo with fat saturation through the brain. COMPARISON: [facility], CT, CT BRAIN WO CON, 05/11/2016, 20:09. [facility], MR, MR BRAIN WO CON, 01/17/2016, 21:17. FINDINGS: Image quality: Excellent. CSF spaces: Basal cisterns are patent. No extra-axial fluid collections. Ventricles are normal in size and shape. Brain: No midline shift. No intracranial bleeds or masses. No abnormal intracranial enhancement. There is cerebral volume loss for age. No change in moderate patchy-signal intensity within the corpus callosum, pericallosal white matter, as well as the periventricular and subcortical white matter. Several of the lesions demonstrate long axes perpendicular to the long axis of the lateral ventricles. Elevated patchy FLAIR signal intensity within the liang and tectum is present, as before, compatible with demyelinating disorder and/or small vessel disease. The brainstem appears normal. Diffusion-weighted images demonstrate no acute ischemic insults. No chronic ischemic insults. Normal intravascular flow voids are present. Skull and face: Calvarial marrow is normal in signal. Orbits appear normal. Sinuses: Sinuses and mastoids appear clear. IMPRESSION: 1. No evidence of hydrocephalus. 2. No acute process. No recent infarct. 3. Moderate white matter disease, in a configuration which would be consistent with multiple sclerosis in the appropriate clinical setting. Other considerations include small vessel ischemic disease, and vasculitides. Clinical correlation recommended. Dictated by: Tara Martin M.D. on 05/30/2016 at 18:05 Approved by: Tara Martin M.D. on 05/30/2016 at 18:08 Cardiac Echo Impressions Echocardiogram Report Name: GLADYS CLAY Study Date: 05/26/2016 Height: 72 in Hospital Exam Location: [facility] Weight: 172 lb Gender: Male BSA: 2.0 m2 : 1945 Age: 70 yrs BP: 168/87 mmHg Reason For Study: AORTIC VALVE STENOSIS Ordering Physician: Performed By: Ash Palacios Interpretation Summary Left ventricular size is at the upper limits of normal and left ventricular systolic function is borderline reduced with the ejection fraction roughly estimated to be 50% +/- 5%, and appears slightly less dynamic compared to the previous study. There is a significant dyssynchronous contraction pattern, consistent with a conduction abnormality but no other obvious focal wall motion abnormalities. Assessment of diastolic parameters indicates a relaxation abnormality of the left ventricle, consistent with normal filling pressures, and is unchanged compared to the previous study. The right ventricle is normal in size and function, and appears unchanged compared to the previous study. The right ventricular systolic pressure is estimated at 22 mmHg assuming a right atrial pressure of 3 mm Hg, and is likely lower than on the previous study. The left atrial size is normal and the right atrium is mildly dilated. Both are grossly unchanged compared to the previous study. There is mild to moderate mitral regurgitation that is slightly more prominent compared to the previous study and trace tricuspid regurgitation that is less prominent. There is moderate aortic stenosis that is likely mildly progressive compared to the previous study with a peak aortic velocity of 3.0 m/sec compared to 2.4 m/sec on the previous exam, now with a mean gradient of 22 mmHg and a calculated aortic valve area of 1.2 cm2. The ascending aorta is mildly enlarged but is unchanged compared to the previous study. Assessment & Plan The patient is a 70 yo male with history of ESBL Escherichia coli pyelonephritis , hypertension, diabetes mellitus type II, presents to [facility] emergency department via EMS from [facility] complaining of fatigue and found to have renal failure again. # Acute polyuria with underlying disease of obstructive uropathy, present at the time of admission. Cause of polyuria remains unknown. - Patient failed to respond to DDAVP and thiazide diuretics (DDAVP with 4 g subcutaneous once and 2 mg twice a day by nephrology on 05/16,no response, stopped ddavp on 05/16) - ? solute diuresis. - We appreciate nephrology consult. will follow with their recommendations as follows: "continue NS and fludrocortisone to 0.2 mg daily and PO Magnesium 400 mg BID x 5 days". - Discussed with Dr. Dias the possibility of Wellbutrin causing polyuria. Therefore this drug was discontinued. - We have checked an MRI of the brain shows the followin. No evidence of hydrocephalus. 2. No acute process. No recent infarct. 3. Moderate white matter disease, in a configuration which would be consistent with multiple sclerosis in the appropriate clinical setting. Other considerations include small vessel ischemic disease, and vasculitides. Clinical correlation recommended. - Therefore, I have consulted Dr. Salmon of neurology today and he has seen the patient today. He has been a very extensive consultation note and in general Dr. Salmon believes "based on the patient's clinical history and examination, in addition to the abnormalities appreciated on the magnetic resonance imaging study of the brain, my suspicion is that the white matter lesions appreciated on the magnetic resonance imaging study of the brain are likely secondary to small vessel ischemic disease which is likely secondary to the patient's multiple underlying risk factors including hypertension, hyperlipidemia, and diabetes mellitus type I would also check a fasting lipid risk profile in the morning. However, certainly the possibility does remain for a process such as neurosarcoidosis and in light of this I do recommend obtaining a lumbar puncture and specifically obtaining an opening pressure, as well as cell count, glucose, and protein, in addition to an Bright level, IgG index, myelin basic protein, and oligoclonal bands.". # Acute renal failure secondary to obstructive uropathy, present at the time of admission - s/p reyes cath placement. - Tamiflu was restarted - Renal function improved and then worsened with discontinuation of IV fluids, and then improved again with restarting IV fluids. - We will continue with further management per nephrology recommendations for now as follows: - resumed NS 100 ml/hr on 05/23 - started fludrocortisone to increase Na and fluid retention on 05/23 - repeat orthostatic BPs if negative, will d/c IVF. - increase fludrocortisone to 0.2 mg daily. - per earlier notes: "Urology Dr Bermudez consulted by ED, recommended discharging with Reyes and on Flomax and followup with her outpatient" - We will discuss with nephrology again in a.m. # History of hypertension with hypotension due to postobstructive diuresis during this hospital. - Now with acute orthostatic hypotension - The plan as noted above # Recurrent ESBL UTI. This appears to be due to a recurrence of previous infection which may have been partially treated, and not due to patient's Reyes catheter the Escherichia coli has identical susceptibilities to the 1 previously cultured prior to placement of the Reyes catheter. - We have restarted ertapenem day #7 of 14. Patient will need 7 more days of IV antibody therapy. - Dr. Tucker was on consult and is not available at this time - Patient completed a course for Ertapenem on 05/18 - Patient now has greater than 100,000 colonies of gram-negative rods in his urine with pyuria. The gram-negative rods have again been identified as Escherichia coli with extended spectrum beta-lactamase resistance with identical susceptibilities as to the Escherichia coli identified and isolated on 05/23/2016. Therefore, this is not a catheter associated urinary tract infection. - Patient has been placed back in contact isolation - Patient has had Reyes catheter removed and replaced due to obstructive uropathy. - The patient was restarted on Flomax and is tolerating it well. - Patient will eventually need to have Reyes catheter removed at some point in order to clear this infection completely # Diabetes mellitus type 2, present on admission. Active. - Previously on Metformin but was appropriately discontinued due to renal issues - Low correctional Lispro protocol # Acute Encephalopathy. Present on admission - Has resolved - Apparently due to Uremic encephalopathy which is resolved # Anemia, acute on chronic - Patient stool for occult blood positive - We have recommend outpatient workup - The patient's h/h has remained stable Disposition: For now patient requires continued repletion of fluids with IV hydration. Given the MRI findings recommend following Dr. Salmon's recommendations as listed above. Dr. Neal will follow in a.m. Pain Evaluation: Adequate Pain Control GI Prophylaxis: Not indicated VTE Prophylaxis: Sub-Q Heparin (Unfractionated) VTE Mechanical Devices: Intermittant Pneumatic CD Resuscitation Status: CPR: Attempt Resuscitation Glen Valverde MD Jun 02, 2016 00:34
[2016-06-02] MEDS: 0.9% NaCl + KCl 20 mEq/L 1,000 ML IV SCH ×2 (03:14→08:20)
[2016-06-02 07:10] LABS: BASOPHILS % (AUTO) 0.1 % (0-3); EOSINOPHILS % (AUTO) 2.4 % (0-5); MONOCYTES % (AUTO) 10.2 % (4-12); Mean Corpuscular Hemoglobin 30.1 pg (27.0-35.0); Mean Corpuscular Volume 94.6 fL (81-100); NEUTROPHILS % (AUTO) 67.9 % (40-74); Platelet Count 197 bil/L (150-400)
[2016-06-02 07:29] LABS: Magnesium 1.5 mg/dL (1.6-2.6); Phosphorus 2.9 mg/dL (2.5-4.9)
--- NOTE | 2016-06-02 07:59 | NUR ---
Blood glucose Patient sleeping most of night. Blood glucose 179 at 0300. Patient asking for apple juice in morning. Patient informed that he is an ADA diet and that his blood glucose level was elevated. Patient mumbles when speaking. patient compliant with most care.
[2016-06-02] MEDS: Insulin LISPRO 300 Unit/3 mL Inj SUBQ SCH ×4 (08:00→22:00)
[2016-06-02 09:20] LABS: INR 1.01 ratio
[2016-06-02] MEDS: Heparin 5,000 Unit/mL Inj SUBQ SCH ×2 (09:20→22:25)
[2016-06-02] MEDS: Ertapenem Inj 1,000 MG in 0.9% Sodium Chloride 50 ML IV SCH (09:21)
[2016-06-02] MEDS ORDERED: Magnesium Sulf 2 Gm/50mL Water 2 GM in IV Premix 1 EACH IV ONE (11:20)
[2016-06-02] MEDS: 0.9% Sodium Chloride 1,000 ML IV SCH ×2 (11:33→19:19)
--- NOTE | 2016-06-02 14:34 | PCM.PNMED ---
Subjective Date of Service Jun 02, 2016 Subjective He is seen in follow-up of his polyuria and [employer] imaging changes. This is his nd day here. He continues to rapidly diurese all IV fluids infused. He seems to be quite grumpy today and tells me that "I feel okay but like shit." His potassium is 5.3 so the potassium and IV fluids will need to be adjusted. His magnesium has dropped slightly to 1.5. A lumbar puncture will be done today. The neurology consult note is reviewed closely. 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 Exam Vital Signs Vital Sign - Last Date Time Temp Pulse Resp B/P Pulse Ox O2 Delivery O2 Flow Rate FiO2 06/02/16 06:02 36.3 68 18 162/89 97 Room Air Intake and Output 06/01/16 06/01/16 06/02/16 Cumulative From/Thru 15:00 23:00 07:00 05/11/16 19:40 - 06/02/16 06:50 Intake Total 2310 ml 800 ml 54211 ml Output Total 1500 ml 2900 ml 498298 ml Balance 810 ml -2100 ml -04973 ml Intake Oral 1120 ml 800 ml 78076 ml IV Total 1190 ml 79204 ml Output Urine Total 1500 ml 2900 ml 178488 ml # Bowel Movements 18 Exam General: The patient appears comfortable lying in bed today. HEENT: Head is atraumatic and normocephalic. Chest: Is clear to auscultation and percussion. There are no rales, rhonchi, wheezes or rubs. Heart: Rate, rhythm is regular. I did not hear his murmur today. Abdomen: Good bowel sounds are present. Abdomen is soft, nontender, no organomegaly or masses were appreciated. Extremities: Are symmetrical and well perfused. There is no edema, there is no cellulitis. Neurologic: There are no focal neurological deficits. Patient exhibits diffuse weakness. Psychiatric: Patients mood is calm and he shows no sign of agitation. He does appear to be impatient and grumpy. IVs and Medications Medications Reviewed: Medications were reviewed in detail Lab and Diagnostics Result Diagram: 06/02/16 0635 06/02/16 0635 Microbiology Name: GLADYS CLAY Age/Sex: 70/M Attend Dr: Francisco Benoit MD Acct: [id number] Unit: [id number] Status: ADM IN Location: [facility] 1027-1 Re05/11/16 Disch: Specimen: [id number] Collected: 05/23/16 Status: RES Req#: [id number] Received: 05/23/16 Source: URINE CC Sp Desc : ROSETTA Corona Dr: Jose G Diana MD Ordered: URINE CULT Procedure Result Verified Site Microbiology PRASANNA CULT URINE Preliminary 05/25/16-736 PRELIMINARY ID GRAM NEGATIVE GABBY ID AND SENS TO FOLLOW COLONY COUNT/QUANTITY >100,000 CFU/ml Blood and stool cultures are negative X-Rays, CTs and MRIs X-RAY CHEST ONE VIEW, PORTABLE 05/11 IMPRESSION: Diffuse scarring and blunted appearance of the left costophrenic angle however unchanged appearance since 04/29/16. No new consolidation Dictated by: Aaron Garcia M.D. on 05/11/2016 at 21:02 Approved by: Aaron Garcia M.D. on 05/11/2016 at 21:03 CT BRAIN WITHOUT CONTRAST 05/11 IMPRESSION: No acute intracranial process Dictated by: Aaron Garcia M.D. on 05/11/2016 at 20:51 US VENOUS LEG DUPLEX BILATERAL IMPRESSION: No DVT of the bilateral lower extremities. Dictated by: Mirlande Thompson M.D. 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 After the administration of contrast, axial and coronal T1 spin echo with fat saturation through the brain. COMPARISON: [facility], CT, CT BRAIN WO CON, 05/11/2016, 20:09. [facility], MR, MR BRAIN WO CON, 01/17/2016, 21:17. FINDINGS: Image quality: Excellent. CSF spaces: Basal cisterns are patent. No extra-axial fluid collections. Ventricles are normal in size and shape. Brain: No midline shift. No intracranial bleeds or masses. No abnormal intracranial enhancement. There is cerebral volume loss for age. No change in moderate patchy-signal intensity within the corpus callosum, pericallosal white matter, as well as the periventricular and subcortical white matter. Several of the lesions demonstrate long axes perpendicular to the long axis of the lateral ventricles. Elevated patchy FLAIR signal intensity within the liang and tectum is present, as before, compatible with demyelinating disorder and/or small vessel disease. The brainstem appears normal. Diffusion-weighted images demonstrate no acute ischemic insults. No chronic ischemic insults. Normal intravascular flow voids are present. Skull and face: Calvarial marrow is normal in signal. Orbits appear normal. Sinuses: Sinuses and mastoids appear clear. IMPRESSION: 1. No evidence of hydrocephalus. 2. No acute process. No recent infarct. 3. Moderate white matter disease, in a configuration which would be consistent with multiple sclerosis in the appropriate clinical setting. Other considerations include small vessel ischemic disease, and vasculitides. Clinical correlation recommended. Dictated by: Tara Martin M.D. on 05/30/2016 at 18:05 Approved by: Tara Martin M.D. on 05/30/2016 at 18:08 Cardiac Echo Impressions Echocardiogram Report Name: GLADYS CLAY Study Date: 05/26/2016 Height: 72 in Hospital Exam Location: [facility] Weight: 172 lb Gender: Male BSA: 2.0 m2 : 1945 Age: 70 yrs BP: 168/87 mmHg Reason For Study: AORTIC VALVE STENOSIS Ordering Physician: Performed By: Ash Palacios Interpretation Summary Left ventricular size is at the upper limits of normal and left ventricular systolic function is borderline reduced with the ejection fraction roughly estimated to be 50% +/- 5%, and appears slightly less dynamic compared to the previous study. There is a significant dyssynchronous contraction pattern, consistent with a conduction abnormality but no other obvious focal wall motion abnormalities. Assessment of diastolic parameters indicates a relaxation abnormality of the left ventricle, consistent with normal filling pressures, and is unchanged compared to the previous study. The right ventricle is normal in size and function, and appears unchanged compared to the previous study. The right ventricular systolic pressure is estimated at 22 mmHg assuming a right atrial pressure of 3 mm Hg, and is likely lower than on the previous study. The left atrial size is normal and the right atrium is mildly dilated. Both are grossly unchanged compared to the previous study. There is mild to moderate mitral regurgitation that is slightly more prominent compared to the previous study and trace tricuspid regurgitation that is less prominent. There is moderate aortic stenosis that is likely mildly progressive compared to the previous study with a peak aortic velocity of 3.0 m/sec compared to 2.4 m/sec on the previous exam, now with a mean gradient of 22 mmHg and a calculated aortic valve area of 1.2 cm2. The ascending aorta is mildly enlarged but is unchanged compared to the previous study. Assessment & Plan The patient is a 70 yo male with history of ESBL Escherichia coli pyelonephritis , hypertension, diabetes mellitus type II, presents to [facility] emergency department via EMS from [facility] complaining of fatigue and found to have renal failure again. # Acute polyuria with underlying disease of obstructive uropathy, present at the time of admission. Cause of polyuria remains unknown. - Patient failed to respond to DDAVP and thiazide diuretics (DDAVP with 4 g subcutaneous once and 2 mg twice a day by nephrology on 05/16,no response, stopped ddavp on 05/16) - ? solute diuresis. - We appreciate nephrology consult. will follow with their recommendations as follows: "continue NS and fludrocortisone to 0.2 mg daily and PO Magnesium 400 mg BID x 5 days". - Discussed with Dr. Dias the possibility of Wellbutrin causing polyuria. Therefore this drug was discontinued. - We have checked an MRI of the brain shows the followin. No evidence of hydrocephalus. 2. No acute process. No recent infarct. 3. Moderate white matter disease, in a configuration which would be consistent with multiple sclerosis in the appropriate clinical setting. Other considerations include small vessel ischemic disease, and vasculitides. Clinical correlation recommended. Dr. Salmon believes "based on the patient's clinical history and examination, in addition to the abnormalities appreciated on the magnetic resonance imaging study of the brain, my suspicion is that the white matter lesions appreciated on the magnetic resonance imaging study of the brain are likely secondary to small vessel ischemic disease which is likely secondary to the patient's multiple underlying risk factors including hypertension, hyperlipidemia, and diabetes mellitus type I would also check a fasting lipid risk profile in the morning. However, certainly the possibility does remain for a process such as neurosarcoidosis and in light of this I do recommend obtaining a lumbar puncture and specifically obtaining an opening pressure, as well as cell count, glucose, and protein, in addition to an Bright level, IgG index, myelin basic protein, and oligoclonal bands.". # Acute renal failure secondary to obstructive uropathy, present at the time of admission - s/p reyes cath placement. - Renal function improved and then worsened with discontinuation of IV fluids, and then improved again with restarting IV fluids. - We will continue with further management per nephrology recommendations for now as follows: - resumed NS 100 ml/hr on 05/23 - started fludrocortisone to increase Na and fluid retention on 05/23 - repeat orthostatic BPs if negative, will d/c IVF. - increase fludrocortisone to 0.2 mg daily. - per earlier notes: "Urology Dr Bermudez consulted by ED, recommended discharging with Reyes and on Flomax and followup with her outpatient" # History of hypertension with hypotension due to postobstructive diuresis during this hospital. - Now with acute orthostatic hypotension - The plan as noted above # Recurrent ESBL UTI. This appears to be due to a recurrence of previous infection which may have been partially treated, and not due to patient's Reyes catheter the Escherichia coli has identical susceptibilities to the 1 previously cultured prior to placement of the Reyes catheter. - We have restarted ertapenem day #8 of . Patient will need 6 more days of IV antibiotic therapy. - Dr. Tucker was on consult and is not available at this time - Patient completed a course for Ertapenem on 05/18 - Patient now has greater than 100,000 colonies of gram-negative rods in his urine with pyuria. The gram-negative rods have again been identified as Escherichia coli with extended spectrum beta-lactamase resistance with identical susceptibilities as to the Escherichia coli identified and isolated on 05/23/2016. Therefore, this is not a catheter associated urinary tract infection. - Patient has been placed back in contact isolation - Patient has had Reyes catheter removed and replaced due to obstructive uropathy. - The patient was restarted on Flomax and is tolerating it well. - Patient will eventually need to have Reyes catheter removed at some point in order to clear this infection completely # Diabetes mellitus type 2, present on admission. Active. - Previously on Metformin but was appropriately discontinued due to renal issues - Low correctional Lispro protocol # Acute Encephalopathy. Present on admission - Has resolved - Apparently due to Uremic encephalopathy which is resolved # Anemia, acute on chronic - Patient stool for occult blood positive - We have recommend outpatient workup - The patient's h/h has remained stable Disposition: I attempted a lumbar puncture today. I was unsuccessful and so asked anesthesia and radiology. Radiology will be doing it again today under fluoroscopic guidance. The tests recommended by Dr. Salmon have been ordered. Manjeet Neal MD GI Prophylaxis: Not indicated VTE Prophylaxis: Sub-Q Heparin (Unfractionated) VTE Mechanical Devices: Intermittant Pneumatic CD Resuscitation Status: CPR: Attempt Resuscitation Dianne Neal MD Jun 02, 2016 11:19
--- NOTE | 2016-06-02 14:47 | DRSVH ---
PROCEDURE: X-RAY LUMBAR PUNCTURE ([id number]) INDICATIONS: Neurosarcoidosis TECHNIQUE: The indications, alternatives, benefits, risks, and complications were explained to the patient. Maria M miller informed consent was obtained and placed in the chart. The patient was placed in a prone positi on on the fluoroscopy table, and a level was chosen for percutaneous access under fluoroscopic guidan ce. The site was prepped and draped in a sterile fashion. After local anaesthetic, a spinal needle was then used to enter the intrathecal space, with return of cerebrospinal fluid. After obtaining sufficient fluid, the needle was then withdrawn, and a bandage applied to the punctur e site. FINDINGS: Puncture level: L2-L3 Needle: Spinal needle. Opening pressure: 3 cm water CSF volume and description: Roughly 5 cc of clear CSF Medications: 1% lidocaine for anaesthesia. Complications: None Laboratories: As ordered by referring clinician. IMPRESSION: Successful fluoroscopically guided lumbar puncture. Dictated by: Tara Martin M.D. on 06/02/2016 at 14:40 Approved by: Tara Martin M.D. on 06/02/2016 at 14:41
[2016-06-02 16:46] LABS: APPEARANCE,CSF CLEAR (CLEAR); COLOR,CSF COLORLESS (COLORLESS); WHITE BLOOD CELL,CSF 1 /mm3 (0-5)
--- NOTE | 2016-06-02 18:03 | NUR ---
Activity Pt up to the [facility] SBA steady gait. Pt on bedrest until 1500 per orders and VSS thus far after lumbar puncture. Pt denies any pain but states he is "tired of being here." Care continues.
--- NOTE | 2016-06-03 04:21 | NUR ---
Activity VSS post LP, check Qh while awake. No SOB or chest pain. [place] alarm in place. PICC running NS at 125 for polyuria. Newman patent and draining to gravity. CS require no insulin coverage this shift. Care continues
[2016-06-03 05:16] VITALS: BP 158/84; PULSE 69; RESP 18; O2SAT 98
[2016-06-03 05:51] LABS: BASOPHILS % (AUTO) 0.1 % (0-3); EOSINOPHILS % (AUTO) 1.6 % (0-5); MONOCYTES % (AUTO) 8.2 % (4-12); Mean Corpuscular Hemoglobin 30.2 pg (27.0-35.0); Mean Corpuscular Volume 94.9 fL (81-100); NEUTROPHILS % (AUTO) 70.2 % (40-74); Platelet Count 185 bil/L (150-400)
[2016-06-03 06:15] LABS: Magnesium 1.7 mg/dL (1.6-2.6)
[2016-06-03] MEDS: Ertapenem Inj 1,000 MG in 0.9% Sodium Chloride 50 ML IV SCH (07:57)
[2016-06-03] MEDS: Insulin LISPRO 300 Unit/3 mL Inj SUBQ SCH ×4 (07:58→21:35)
[2016-06-03] MEDS: Heparin 5,000 Unit/mL Inj SUBQ SCH ×2 (07:58→21:28)
[2016-06-03] MEDS: 0.9% Sodium Chloride 1,000 ML IV SCH ×3 (08:02→16:36)
--- NOTE | 2016-06-03 10:42 | NUR ---
Social Work- Readiness for Discharge Data: EMR reviewed. Pt is on day 23 of hospitalization for acute renal failure per H&P. Pt is not medically stable to discharge, anticipate 1-2 more days. PT continues to recommend SNF. Pt to discharge back to [facility] via cabulance with MD Clarke to follow. Paperwork in chart. SW continues to follow. Assessment: Pt who would benefit from SNF. Plan: Pt to discharge back to [facility] with Dr. Clarke to follow. Paperwork in chart. SW continues to follow. Mellisa Cheatham, EXPLOSIVE OPERATOR FUSE
--- NOTE | 2016-06-03 11:00 | NUR ---
NESHA signed. Pt alert and oriented x3. Verbal signature obtained due to contact precautions. Mellisa Cheatham MSW
--- NOTE | 2016-06-03 11:10 | PCM.PNMED ---
Subjective Date of Service Jun 03, 2016 Subjective He has a good appetite for breakfast. The CSF basic studies were all normal. The advanced CSF studies are still pending - BRIGHT level, etc. Polyuria continues, with IVF infusion just keeping up. Electrolytes and renal function are normal now. Hgb is at 8.9 Needs 5 more days of IV Ertapenem. Exam Vital Signs Vital Sign - Last Date Time Temp Pulse Resp B/P Pulse Ox O2 Delivery O2 Flow Rate FiO2 06/03/16 05:16 36.4 69 18 158/84 98 Room Air Intake and Output 06/02/16 06/02/16 06/03/16 Cumulative From/Thru 15:00 23:00 07:00 05/11/16 19:40 - 06/03/16 06:04 Intake Total 3414 ml 1822 ml 96887 ml Output Total 1420 ml 2600 ml 709889 ml Balance 1994 ml -778 ml -66348 ml Intake Oral 800 ml 463 ml 12482 ml IV Total 2614 ml 1359 ml 05085 ml Output Urine Total 1420 ml 2600 ml 951927 ml # Bowel Movements 18 Exam General: The patient appears comfortable lying in bed today. HEENT: Head is atraumatic and normocephalic. Chest: Is clear to auscultation and percussion. There are no rales, rhonchi, wheezes or rubs. Heart: Rate, rhythm is regular. I did not hear his murmur today. Extremities: Are symmetrical and well perfused. There is no edema, there is no cellulitis. Large scabs on the right mcmahan. Neurologic: There are no focal neurological deficits. Patient exhibits diffuse weakness. No headaches from the LP. Psychiatric: Patients mood is calm and he shows no sign of agitation. Lab and Diagnostics Result Diagram: 06/03/16 0540 06/03/16 0540 Microbiology Name: GLADYS CLAY Age/Sex: 70/M Attend Dr: Francisco Benoit MD Acct: [id number] Unit: [id number] Status: ADM IN Location: [facility] [place] 1027-1 Re05/11/16 Disch: Specimen: [id number] Collected: 05/23/16 Status: RES Req#: [id number] Received: 05/23/16 Source: URINE CC Sp Desc : PP Subm Dr: Jose G Diana MD Ordered: URINE CULT Procedure Result Verified Site Microbiology PRASANNA CULT URINE Preliminary 05/25/16 PRELIMINARY ID GRAM NEGATIVE GABBY ID AND SENS TO FOLLOW COLONY COUNT/QUANTITY >100,000 CFU/ml Blood and stool cultures are negative X-Rays, CTs and MRIs X-RAY CHEST ONE VIEW, PORTABLE 05/11 IMPRESSION: Diffuse scarring and blunted appearance of the left costophrenic angle however unchanged appearance since 04/29/16. No new consolidation Dictated by: Aaron Garcia M.D. on 05/11/2016 at 21:02 Approved by: Aaron Garcia M.D. on 05/11/2016 at 21:03 CT BRAIN WITHOUT CONTRAST 05/11 IMPRESSION: No acute intracranial process Dictated by: Aaron Garcia M.D. on 05/11/2016 at 20:51 US VENOUS LEG DUPLEX BILATERAL IMPRESSION: No DVT of the bilateral lower extremities. Dictated by: Mirlande Thompson M.D. 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 After the administration of contrast, axial and coronal T1 spin echo with fat saturation through the brain. COMPARISON: [facility], CT, CT BRAIN WO CON, 05/11/2016, 20:09. [facility], MR, MR BRAIN WO CON, 01/17/2016, 21:17. FINDINGS: Image quality: Excellent. CSF spaces: Basal cisterns are patent. No extra-axial fluid collections. Ventricles are normal in size and shape. Brain: No midline shift. No intracranial bleeds or masses. No abnormal intracranial enhancement. There is cerebral volume loss for age. No change in moderate patchy-signal intensity within the corpus callosum, pericallosal white matter, as well as the periventricular and subcortical white matter. Several of the lesions demonstrate long axes perpendicular to the long axis of the lateral ventricles. Elevated patchy FLAIR signal intensity within the liang and tectum is present, as before, compatible with demyelinating disorder and/or small vessel disease. The brainstem appears normal. Diffusion-weighted images demonstrate no acute ischemic insults. No chronic ischemic insults. Normal intravascular flow voids are present. Skull and face: Calvarial marrow is normal in signal. Orbits appear normal. Sinuses: Sinuses and mastoids appear clear. IMPRESSION: 1. No evidence of hydrocephalus. 2. No acute process. No recent infarct. 3. Moderate white matter disease, in a configuration which would be consistent with multiple sclerosis in the appropriate clinical setting. Other considerations include small vessel ischemic disease, and vasculitides. Clinical correlation recommended. Dictated by: Tara Martin M.D. on 05/30/2016 at 18:05 Approved by: Tara Martin M.D. on 05/30/2016 at 18:08 Cardiac Echo Impressions Echocardiogram Report Name: GLADYS CLAY Study Date: 05/26/2016 Height: 72 in Hospital Exam Location: [facility] Weight: 172 lb Gender: Male BSA: 2.0 m2 : 1945 Age: 70 yrs BP: 168/87 mmHg Reason For Study: AORTIC VALVE STENOSIS Ordering Physician: Performed By: Ash Palacios Interpretation Summary Left ventricular size is at the upper limits of normal and left ventricular systolic function is borderline reduced with the ejection fraction roughly estimated to be 50% +/- 5%, and appears slightly less dynamic compared to the previous study. There is a significant dyssynchronous contraction pattern, consistent with a conduction abnormality but no other obvious focal wall motion abnormalities. Assessment of diastolic parameters indicates a relaxation abnormality of the left ventricle, consistent with normal filling pressures, and is unchanged compared to the previous study. The right ventricle is normal in size and function, and appears unchanged compared to the previous study. The right ventricular systolic pressure is estimated at 22 mmHg assuming a right atrial pressure of 3 mm Hg, and is likely lower than on the previous study. The left atrial size is normal and the right atrium is mildly dilated. Both are grossly unchanged compared to the previous study. There is mild to moderate mitral regurgitation that is slightly more prominent compared to the previous study and trace tricuspid regurgitation that is less prominent. There is moderate aortic stenosis that is likely mildly progressive compared to the previous study with a peak aortic velocity of 3.0 m/sec compared to 2.4 m/sec on the previous exam, now with a mean gradient of 22 mmHg and a calculated aortic valve area of 1.2 cm2. The ascending aorta is mildly enlarged but is unchanged compared to the previous study. Assessment & Plan The patient is a 70 yo male with history of ESBL Escherichia coli pyelonephritis , hypertension, diabetes mellitus type II, presents to [facility] emergency department via EMS from [facility] complaining of fatigue and found to have renal failure again. # Acute polyuria with underlying disease of obstructive uropathy, present at the time of admission. Cause of polyuria remains unknown. - Patient failed to respond to DDAVP and thiazide diuretics (DDAVP with 4 g subcutaneous once and 2 mg twice a day by nephrology on 05/16,no response, stopped ddavp on 05/16) - ? solute diuresis. - We appreciate nephrology consult. will follow with their recommendations as follows: "continue NS and fludrocortisone to 0.2 mg daily and PO Magnesium 400 mg BID x 5 days". - Discussed with Dr. Dias the possibility of Wellbutrin causing polyuria. Therefore this drug was discontinued. - We have checked an MRI of the brain shows the followin. No evidence of hydrocephalus. 2. No acute process. No recent infarct. 3. Moderate white matter disease, in a configuration which would be consistent with multiple sclerosis in the appropriate clinical setting. Other considerations include small vessel ischemic disease, and vasculitides. Clinical correlation recommended. Dr. Salmon believes "based on the patient's clinical history and examination, in addition to the abnormalities appreciated on the magnetic resonance imaging study of the brain, my suspicion is that the white matter lesions appreciated on the magnetic resonance imaging study of the brain are likely secondary to small vessel ischemic disease which is likely secondary to the patient's multiple underlying risk factors including hypertension, hyperlipidemia, and diabetes mellitus type I would also check a fasting lipid risk profile in the morning. However, certainly the possibility does remain for a process such as neurosarcoidosis and in light of this I do recommend obtaining a lumbar puncture and specifically obtaining an opening pressure, as well as cell count, glucose, and protein, in addition to an Bright level, IgG index, myelin basic protein, and oligoclonal bands.". These tests are all pending as of yesterday. # Acute renal failure secondary to obstructive uropathy, present at the time of admission - s/p reyes cath placement. - Renal function improved and then worsened with discontinuation of IV fluids, and then improved again with restarting IV fluids. - We will continue with further management per nephrology recommendations for now as follows: - resumed NS 100 ml/hr on 05/23 - started fludrocortisone to increase Na and fluid retention on 05/23 - repeat orthostatic BPs if negative, will d/c IVF. - increase fludrocortisone to 0.2 mg daily. - per earlier notes: "Urology Dr Bermudez consulted by ED, recommended discharging with Reyes and on Flomax and followup with her outpatient" # History of hypertension with hypotension due to postobstructive diuresis during this hospital. - Now with acute orthostatic hypotension - The plan as noted above # Recurrent ESBL UTI. This appears to be due to a recurrence of previous infection which may have been partially treated, and not due to patient's Reyes catheter the Escherichia coli has identical susceptibilities to the 1 previously cultured prior to placement of the Reyes catheter. - We have restarted ertapenem day #9 of . Patient will need 5 more days of IV antibiotic therapy. - Dr. Tucker was on consult and is not available at this time - Patient completed a course for Ertapenem previously on 05/18 - Patient now has greater than 100,000 colonies of gram-negative rods in his urine with pyuria. The gram-negative rods have again been identified as Escherichia coli with extended spectrum beta-lactamase resistance with identical susceptibilities as to the Escherichia coli identified and isolated on 05/23/2016. Therefore, this is not a catheter associated urinary tract infection. - Patient has been placed back in contact isolation - Patient has had Reyes catheter removed and replaced due to obstructive uropathy. - The patient was restarted on Flomax and is tolerating it well. - Patient will eventually need to have Reyes catheter removed at some point in order to clear this infection completely # Diabetes mellitus type 2, present on admission. Active. - Previously on Metformin but was appropriately discontinued due to renal issues - Low correctional Lispro protocol # Acute Encephalopathy. Present on admission - Has resolved - Apparently due to Uremic encephalopathy which is resolved # Anemia, acute on chronic - Patient stool for occult blood positive - We have recommend outpatient workup - The patient's h/h has remained stable Disposition: Waiting for further Nephrology guidance on timing for stopping IVF and reassessing the Polyuria. Manjeet Neal MD GI Prophylaxis: Not indicated VTE Prophylaxis: Sub-Q Heparin (Unfractionated) VTE Mechanical Devices: Intermittant Pneumatic CD Resuscitation Status: CPR: Attempt Resuscitation Dianne Neal MD Jun 03, 2016 07:47
[2016-06-03 14:29] VITALS: BP 132/74; PULSE 72; RESP 17; O2SAT 98
--- NOTE | 2016-06-03 17:53 | NUR ---
Agitation / Activity Entered pt's room this AM. Slightly grumpy demeanor. When asked what his name and date of was he started swearing and was very upset. I explained to him it was a safety measure and that I hadn't worked with him prior. 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 I allowed him to express himself and expressed empathy. Pt calm and appropriate throughout rest of the shift. Pt up to BSC only w/ this nursing staff shift w/ unsteady gait. Bed down and locked, call light w/in reach, chana alarm on
[2016-06-03 20:35] VITALS: BP 144/83; PULSE 72; RESP 16; O2SAT 98
[2016-06-04] MEDS: 0.9% Sodium Chloride 1,000 ML IV SCH ×2 (01:27→10:23)
--- NOTE | 2016-06-04 03:24 | NUR ---
Activity Pt has no complaints of pain or discomfort, SOB, or chest pain this shift. Newman is patent and draining copious amounts of pale urine, NS infusing in PICC at 125 ml/h. Pt uses call light to make needs known, he remains appropriate this shift but does curse about prior caregivers. 1 Person assist to commode as needed. Care continues
[2016-06-04 05:42] LABS: BASOPHILS % (AUTO) 0.2 % (0-3); EOSINOPHILS % (AUTO) 2.1 % (0-5); NEUTROPHILS % (AUTO) 66.9 % (40-74); Platelet Count 187 bil/L (150-400)
--- NOTE | 2016-06-04 05:57 | PCM.PNMED ---
Subjective Date of Service Jun 04, 2016 Subjective PAtient appears to be irate. He says he is tired of the hospital, somewhat incoherent at times and mumbling. He denies fevers, chills. He says he walks with the walker. He lives "at home" in [facility]. He does nto recall Karen Pino. Exam Vital Signs Vital Sign - Last Date Time Temp Pulse Resp B/P Pulse Ox O2 Delivery O2 Flow Rate FiO2 06/03/16 20:35 36.7 72 16 144/83 98 Room Air Intake and Output 06/03/16 06/03/16 06/04/16 Cumulative From/Thru 15:00 23:00 07:00 05/11/16 19:40 - 06/03/16 18:29 Intake Total 180 ml 1832 ml 83181 ml Output Total 2200 ml 374083 ml Balance 180 ml -368 ml -23475 ml Intake Oral 670 ml 99787 ml IV Total 180 ml 1162 ml 92219 ml Output Urine Total 2200 ml 649930 ml # Bowel Movements 18 Exam GENERAL: The patient in no apparent distress HEENT: Head is normocephalic and atraumatic. Mouth is well hydrated and without lesions. Mucous membranes are moist. Posterior pharynx clear of any exudate or lesions. NECK: Supple, no elevation of JVD, No carotid bruits. No lymphadenopathy or thyromegaly. LUNGS: Clear to auscultation, equal breath sounds bilaterally, no wheezing, no rhonchi no rales. HEART: Normal S1/S2, Regular rate and rhythm, no murmurs, rubs or gallops. 2+ pules throughout. ABDOMEN: Soft, nontender, and nondistended. Positive bowel sounds. No hepatosplenomegaly was noted. EXTREMITIES: Without any cyanosis, clubbing, rash, lesions or edema. : Reyes catheter in place with yellowish urine. NEUROLOGIC: TNo focal deficits SKIN: mild erythema and vascular ulcers on both lower legs. IVs and Medications IV Fluids nss 125 cc/hr Medications Reviewed: Medications were reviewed in detail Lab and Diagnostics CBC Test 06/04/16 05:30 White Blood Count 5.7th/mm3 (3.8-10.1) Red Blood Count 2.83mil/mm3 (4.40-5.80) Hemoglobin 8.5g/dL (13.8-17.2) Hematocrit 26.6% (41.0-50.0) Mean Corpuscular Volume 94.0fL (81-100) Mean Corpuscular Hemoglobin 30.0pg (27.0-35.0) Mean Corpuscular Hemoglobin Concent 32.0% (32.0-37.0) Red Cell Distribution Width 14.4% (12.3-15.4) Platelet Count 187bil/L (150-400) Neutrophils (%) (Auto) 66.9% (40-74) Lymphocytes (%) (Auto) 19.6% (14-46) Monocytes (%) (Auto) 11.0% (4-12) Eosinophils (%) (Auto) 2.1% (0-5) Basophils (%) (Auto) 0.2% (0-3) CMP Test 05/11/16 21:00 05/13/16 02:45 05/16/16 05:00 05/23/16 08:15 Lactic Acid Level 1.2mmol/L Vitamin D 25-Hydroxy 25.1ng/mL Iron Level 49ug/dL Total Iron Binding Capacity 213ug/dL Percent Iron Saturation 23%sat Unsaturated Iron Binding 164.3ug/dL Osmolality 300 Test 05/30/16 05:20 06/02/16 06:35 06/02/16 15:55 06/03/16 05:40 Pro-B-Type Natriuretic Peptide 1349pg/mL Phosphorus Level 2.9mg/dL Triglycerides Level 144mg/dL Cholesterol Level 109mg/dL LDL Cholesterol, Calculated 36.200mg/dL VLDL Cholesterol 28.800mg/dL HDL Cholesterol 44mg/dL Cholesterol/HDL Ratio 2.48 Magnesium Level 1.7mg/dL Test 06/04/16 05:30 Sodium Level 136mEq/L Potassium Level 4.2mEq/L Chloride Level 102mEq/L Carbon Dioxide Level 22mmol/L Blood Urea Nitrogen 22mg/dL Creatinine 1.00mg/dL Estimat Glomerular Filtration Rate 78mL/min Glucose Level 170mg/dL Calcium Level 8.0mg/dL Total Bilirubin 0.2mg/dL Aspartate Amino Transf (AST/SGOT) 15U/L Alanine Aminotransferase (ALT/SGPT) 24U/L Alkaline Phosphatase 99U/L Total Protein 6.1g/dL Albumin 3.1g/dL Result Diagram: 3/6/17 0530 06/03/16 0540 Microbiology Name: GLADYS CLAY Age/Sex: 70/M Attend Dr: Francisco Benoit MD Acct: [id number] Unit: [id number] Status: ADM IN Location: [facility] [place] 1027-1 Re05/11/16 Disch: Specimen: [id number] Collected: 05/23/16-1034 Status: RES Req#: [id number] Received: 05/23/16-1115 Source: URINE CAPO Zavala Desc : PP Chloe Dr: Jose G Diana MD Ordered: URINE CULT Procedure Result Verified Site Microbiology PRASANNA CULT URINE Preliminary 05/25/16-736 PRELIMINARY ID GRAM NEGATIVE GABBY ID AND SENS TO FOLLOW COLONY COUNT/QUANTITY >100,000 CFU/ml Blood and stool cultures are negative X-Rays, CTs and MRIs X-RAY CHEST ONE VIEW, PORTABLE 05/11 IMPRESSION: Diffuse scarring and blunted appearance of the left costophrenic angle however unchanged appearance since 04/29/16. No new consolidation Dictated by: Aaron Garcia M.D. on 05/11/2016 at 21:02 Approved by: Aaron Garcia M.D. on 05/11/2016 at 21:03 CT BRAIN WITHOUT CONTRAST 05/11 IMPRESSION: No acute intracranial process Dictated by: Aaron Garcia M.D. on 05/11/2016 at 20:51 US VENOUS LEG DUPLEX BILATERAL IMPRESSION: No DVT of the bilateral lower extremities. Dictated by: Mirlande Thompson M.D. 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 After the administration of contrast, axial and coronal T1 spin echo with fat saturation through the brain. COMPARISON: [facility], CT, CT BRAIN WO CON, 05/11/2016, 20:09. [facility], MR, MR BRAIN WO CON, 01/17/2016, 21:17. FINDINGS: Image quality: Excellent. CSF spaces: Basal cisterns are patent. No extra-axial fluid collections. Ventricles are normal in size and shape. Brain: No midline shift. No intracranial bleeds or masses. No abnormal intracranial enhancement. There is cerebral volume loss for age. No change in moderate patchy-signal intensity within the corpus callosum, pericallosal white matter, as well as the periventricular and subcortical white matter. Several of the lesions demonstrate long axes perpendicular to the long axis of the lateral ventricles. Elevated patchy FLAIR signal intensity within the liang and tectum is present, as before, compatible with demyelinating disorder and/or small vessel disease. The brainstem appears normal. Diffusion-weighted images demonstrate no acute ischemic insults. No chronic ischemic insults. Normal intravascular flow voids are present. Skull and face: Calvarial marrow is normal in signal. Orbits appear normal. Sinuses: Sinuses and mastoids appear clear. IMPRESSION: 1. No evidence of hydrocephalus. 2. No acute process. No recent infarct. 3. Moderate white matter disease, in a configuration which would be consistent with multiple sclerosis in the appropriate clinical setting. Other considerations include small vessel ischemic disease, and vasculitides. Clinical correlation recommended. Dictated by: Tara Martin M.D. on 05/30/2016 at 18:05 Approved by: Tara Martin M.D. on 05/30/2016 at 18:08 Cardiac Echo Impressions Echocardiogram Report Name: GLADYS CLAY Study Date: 05/26/2016 Height: 72 in Hospital Exam Location: [facility] Weight: 172 lb Gender: Male BSA: 2.0 m2 : 1945 Age: 70 yrs BP: 168/87 mmHg Reason For Study: AORTIC VALVE STENOSIS Ordering Physician: Performed By: Ash Palacios Interpretation Summary Left ventricular size is at the upper limits of normal and left ventricular systolic function is borderline reduced with the ejection fraction roughly estimated to be 50% +/- 5%, and appears slightly less dynamic compared to the previous study. There is a significant dyssynchronous contraction pattern, consistent with a conduction abnormality but no other obvious focal wall motion abnormalities. Assessment of diastolic parameters indicates a relaxation abnormality of the left ventricle, consistent with normal filling pressures, and is unchanged compared to the previous study. The right ventricle is normal in size and function, and appears unchanged compared to the previous study. The right ventricular systolic pressure is estimated at 22 mmHg assuming a right atrial pressure of 3 mm Hg, and is likely lower than on the previous study. The left atrial size is normal and the right atrium is mildly dilated. Both are grossly unchanged compared to the previous study. There is mild to moderate mitral regurgitation that is slightly more prominent compared to the previous study and trace tricuspid regurgitation that is less prominent. There is moderate aortic stenosis that is likely mildly progressive compared to the previous study with a peak aortic velocity of 3.0 m/sec compared to 2.4 m/sec on the previous exam, now with a mean gradient of 22 mmHg and a calculated aortic valve area of 1.2 cm2. The ascending aorta is mildly enlarged but is unchanged compared to the previous study. Assessment & Plan The patient is a 70 yo male with history of ESBL Escherichia coli pyelonephritis , hypertension, diabetes mellitus type II, presents to [facility] emergency department via EMS from [facility] complaining of fatigue and found to have renal failure again. # Acute polyuria with underlying disease of obstructive uropathy, present at the time of admission. Cause of polyuria remains unknown. - Patient failed to respond to DDAVP and thiazide diuretics (DDAVP with 4 g subcutaneous once and 2 mg twice a day by nephrology on 05/16,no response, stopped ddavp on 05/16) - ? solute diuresis. - We appreciate nephrology consult. will follow with their recommendations as follows: "continue NS and fludrocortisone to 0.2 mg daily and PO Magnesium 400 mg BID x 5 days". - Discussed with Dr. Dias the possibility of Wellbutrin causing polyuria. Therefore this drug was discontinued. - We have checked an MRI of the brain shows the followin. No evidence of hydrocephalus. 2. No acute process. No recent infarct. 3. Moderate white matter disease, in a configuration which would be consistent with multiple sclerosis in the appropriate clinical setting. Other considerations include small vessel ischemic disease, and vasculitides. Clinical correlation recommended. Dr. Struck believes "based on the patient's clinical history and examination, in addition to the abnormalities appreciated on the magnetic resonance imaging study of the brain, my suspicion is that the white matter lesions appreciated on the magnetic resonance imaging study of the brain are likely secondary to small vessel ischemic disease which is likely secondary to the patient's multiple underlying risk factors including hypertension, hyperlipidemia, and diabetes mellitus type I would also check a fasting lipid risk profile in the morning. However, certainly the possibility does remain for a process such as neurosarcoidosis and in light of this I do recommend obtaining a lumbar puncture and specifically obtaining an opening pressure, as well as cell count, glucose, and protein, in addition to an Bright level, IgG index, myelin basic protein, and oligoclonal bands.". These tests are all performed yesterday: awaiting neuro recommendations on these , will call them tomorrow # Acute renal failure secondary to obstructive uropathy, present at the time of admission - s/p reyes cath placement. - Renal function improved and then worsened with discontinuation of IV fluids, and then improved again with restarting IV fluids. - We will continue with further management per nephrology recommendations for now as follows: - resumed NS 100 ml/hr on 05/23 - started fludrocortisone to increase Na and fluid retention on 05/23 - repeat orthostatic BPs if negative, will d/c IVF. - increase fludrocortisone to 0.2 mg daily. - per earlier notes: "Urology Dr Bermudez consulted by ED, recommended discharging with Reyes and on Flomax and followup with her outpatient" # History of hypertension with hypotension due to postobstructive diuresis during this hospital. - Now with acute orthostatic hypotension - The plan as noted above # Recurrent ESBL UTI. This appears to be due to a recurrence of previous infection which may have been partially treated, and not due to patient's Reyes catheter the Escherichia coli has identical susceptibilities to the 1 previously cultured prior to placement of the Reyes catheter. - We have restarted ertapenem day #10 of . Patient will need 4 more days of IV antibiotic therapy. - Dr. Tucker was on consult and is not available at this time - Patient completed a course for Ertapenem previously on 05/18 - Patient now has greater than 100,000 colonies of gram-negative rods in his urine with pyuria. The gram-negative rods have again been identified as Escherichia coli with extended spectrum beta-lactamase resistance with identical susceptibilities as to the Escherichia coli identified and isolated on 05/23/2016. Therefore, this is not a catheter associated urinary tract infection. - Patient has been placed back in contact isolation - Patient has had Reyes catheter removed and replaced due to obstructive uropathy. - The patient was restarted on Flomax and is tolerating it well. - Patient will eventually need to have Reyes catheter removed at some point in order to clear this infection completely # Diabetes mellitus type 2, present on admission. Active. - Previously on Metformin but was appropriately discontinued due to renal issues - Low correctional Lispro protocol # Acute Encephalopathy. Present on admission - Has resolved - Apparently due to Uremic encephalopathy which is resolved # Anemia, acute on chronic - Patient stool for occult blood positive - We have recommend outpatient workup - The patient's h/h has remained stable Disposition: Waiting for further Nephrology guidance on timing for stopping IVF and reassessing the Polyuria. They have signed off today. Palliative care is consulted to figure our POA as patient does not appear to be mentally competent to make his own decisions. His friend Jovana Evans is his POA now. Will follow with palliative care/social work tomorrow. He may be able to go home. He is DNR/DNI as of this evening. GI Prophylaxis: Not indicated VTE Prophylaxis: Sub-Q Heparin (Unfractionated) VTE Mechanical Devices: Intermittant Pneumatic CD Resuscitation Status: CPR: Attempt Resuscitation Juany Sierra DO Jun 04, 2016 05:56 Juany Sierra DO Jun 04, 2016 05:56
[2016-06-04 06:24] VITALS: BP 158/83; PULSE 69; RESP 17; O2SAT 97
[2016-06-04] MEDS: Heparin 5,000 Unit/mL Inj SUBQ SCH ×2 (08:21→21:40)
[2016-06-04] MEDS: Ertapenem Inj 1,000 MG in 0.9% Sodium Chloride 50 ML IV SCH (08:21)
[2016-06-04] MEDS: Insulin LISPRO 300 Unit/3 mL Inj SUBQ SCH ×4 (08:21→22:00)
--- NOTE | 2016-06-04 10:44 | NUR ---
Palliative Care Palliative Care received verbal order from Dr Peter Sierra 06/04/16 to assist with goals of care. Patient is a 70 year man with history of ESBL Escherichia coli pyelonephritis, hypertension and DM2. He was recently at [facility] 04/27-05/05/2016 for care of Sepsis. He presented to the ED complaining of fatigue, was admitted 05/11/16 and is receiving care for renal failure again. Patient has been residing at [facility]. Was living home with Carin before SNF. Carin Myers (friend) [phone], Palliative Care to follow. Marilynn Osullivan
--- NOTE | 2016-06-04 12:42 | PCM.PNMED ---
Subjective Date of Service Jun 04, 2016 Subjective Patient is doing about the same. There was no acute issue overnight. He offers no new complaints today. He wants to go home. Exam Vital Signs Vital Sign - Last Date Time Temp Pulse Resp B/P Pulse Ox O2 Delivery O2 Flow Rate FiO2 06/04/16 06:24 37.1 69 17 158/83 97 Room Air Intake and Output 06/03/16 06/03/16 06/04/16 Cumulative From/Thru 15:00 23:00 07:00 05/11/16 19:40 - 06/04/16 06:24 Intake Total 180 ml 1832 ml 2366 ml 59884 ml Output Total 2200 ml 2300 ml 873829 ml Balance 180 ml -368 ml 66 ml -88194 ml Intake Oral 670 ml 800 ml 97459 ml IV Total 180 ml 1162 ml 1566 ml 64662 ml Output Urine Total 2200 ml 2300 ml 367499 ml # Bowel Movements 18 Exam GENERAL: The patient in no apparent distress, and alert and oriented x3. HEENT: Head is normocephalic and atraumatic. Extraocular muscles are intact. Pupils are equal, round, and reactive to light and accommodation. Nares appeared normal. Mouth is well hydrated and without lesions. Mucous membranes are moist. Posterior pharynx clear of any exudate or lesions. NECK: Supple, no elevation of JVD, No carotid bruits. No lymphadenopathy or thyromegaly. LUNGS: Clear to auscultation, equal breath sounds bilaterally, no wheezing, no rhonchi no rales. HEART: Normal S1/S2, Regular rate and rhythm, no murmurs, rubs or gallops. 2+ pules throughout. ABDOMEN: Soft, nontender, and nondistended. Positive bowel sounds. No hepatosplenomegaly was noted. EXTREMITIES: Without any cyanosis, clubbing, rash, lesions or edema. : Reyes catheter in place with yellowish urine. NEUROLOGIC: The patient is oriented to person, place and time. Strength and sensation are grossly intact. SKIN: No ulceration or induration present. Lab and Diagnostics Result Diagram: 06/04/16 0530 06/04/1630 Microbiology Name: GLADYS CLAY Age/Sex: 70/M Attend Dr: Francisco Benoit MD Acct: [id number] Unit: [id number] Status: ADM IN [place] [facility] [place]27-1 Re05/11/16 Disch: Specimen: [id number] Collected: 05/23/16 Status: RES Req#: [id number] Received: 05/23/16 Source: URINE CC Sp Desc : ROSETTA Corona Dr: Jose G Diana MD Ordered: URINE CULT Procedure Result Verified Site Microbiology PRASANNA CULT URINE Preliminary 05/25/16-736 PRELIMINARY ID GRAM NEGATIVE GABBY ID AND SENS TO FOLLOW COLONY COUNT/QUANTITY >100,000 CFU/ml Blood and stool cultures are negative X-Rays, CTs and MRIs X-RAY CHEST ONE VIEW, PORTABLE 05/11 IMPRESSION: Diffuse scarring and blunted appearance of the left costophrenic angle however unchanged appearance since 04/29/16. No new consolidation Dictated by: Aaron Garcia M.D. on 05/11/2016 at 21:02 Approved by: Aaron Garcia M.D. on 05/11/2016 at 21:03 CT BRAIN WITHOUT CONTRAST 05/11 IMPRESSION: No acute intracranial process Dictated by: Aaron Garcia M.D. on 05/11/2016 at 20:51 US VENOUS LEG DUPLEX BILATERAL IMPRESSION: No DVT of the bilateral lower extremities. Dictated by: Mirlande Thompson M.D. 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 After the administration of contrast, axial and coronal T1 spin echo with fat saturation through the brain. COMPARISON: [facility], CT, CT BRAIN WO CON, 05/11/2016, 20:09. [facility], MR, MR BRAIN WO CON, 01/17/2016, 21:17. FINDINGS: Image quality: Excellent. CSF spaces: Basal cisterns are patent. No extra-axial fluid collections. Ventricles are normal in size and shape. Brain: No midline shift. No intracranial bleeds or masses. No abnormal intracranial enhancement. There is cerebral volume loss for age. No change in moderate patchy-signal intensity within the corpus callosum, pericallosal white matter, as well as the periventricular and subcortical white matter. Several of the lesions demonstrate long axes perpendicular to the long axis of the lateral ventricles. Elevated patchy FLAIR signal intensity within the liang and tectum is present, as before, compatible with demyelinating disorder and/or small vessel disease. The brainstem appears normal. Diffusion-weighted images demonstrate no acute ischemic insults. No chronic ischemic insults. Normal intravascular flow voids are present. Skull and face: Calvarial marrow is normal in signal. Orbits appear normal. Sinuses: Sinuses and mastoids appear clear. IMPRESSION: 1. No evidence of hydrocephalus. 2. No acute process. No recent infarct. 3. Moderate white matter disease, in a configuration which would be consistent with multiple sclerosis in the appropriate clinical setting. Other considerations include small vessel ischemic disease, and vasculitides. Clinical correlation recommended. Dictated by: Tara Martin M.D. on 05/30/2016 at 18:05 Approved by: Tara Martin M.D. on 05/30/2016 at 18:08 Cardiac Echo Impressions Echocardiogram Report Name: GLADYS CLAY Study Date: 05/26/2016 Height: 72 in Hospital Exam Location: [facility] Weight: 172 lb Gender: Male BSA: 2.0 m2 : 1945 Age: 70 yrs BP: 168/87 mmHg Reason For Study: AORTIC VALVE STENOSIS Ordering Physician: Performed By: Ash Palacios Interpretation Summary Left ventricular size is at the upper limits of normal and left ventricular systolic function is borderline reduced with the ejection fraction roughly estimated to be 50% +/- 5%, and appears slightly less dynamic compared to the previous study. There is a significant dyssynchronous contraction pattern, consistent with a conduction abnormality but no other obvious focal wall motion abnormalities. Assessment of diastolic parameters indicates a relaxation abnormality of the left ventricle, consistent with normal filling pressures, and is unchanged compared to the previous study. The right ventricle is normal in size and function, and appears unchanged compared to the previous study. The right ventricular systolic pressure is estimated at 22 mmHg assuming a right atrial pressure of 3 mm Hg, and is likely lower than on the previous study. The left atrial size is normal and the right atrium is mildly dilated. Both are grossly unchanged compared to the previous study. There is mild to moderate mitral regurgitation that is slightly more prominent compared to the previous study and trace tricuspid regurgitation that is less prominent. There is moderate aortic stenosis that is likely mildly progressive compared to the previous study with a peak aortic velocity of 3.0 m/sec compared to 2.4 m/sec on the previous exam, now with a mean gradient of 22 mmHg and a calculated aortic valve area of 1.2 cm2. The ascending aorta is mildly enlarged but is unchanged compared to the previous study. Assessment & Plan 1. Acute kidney injury secondary to obstructive uropathy s/p reyes cath placement. - resolved. 2. Polyuria with underlying disease of obstructive uropathy. 3. History of hypertension. 4. Recurrent UTI, ESBL E.coli. 5. 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 6. Hypomagnesemia. 7. Recent history of ESBL E. coli, acute pyelonephritis, status post IV ertapenem. Plan: Per renal standpoint, patient can be discharged. No fluid restriction. He can drink when being thirsty. Repeat BMP every week. Follow up with renal in 1-2 weeks. Follow up with urology. GI Prophylaxis: Not indicated VTE Prophylaxis: Sub-Q Heparin (Unfractionated) VTE Mechanical Devices: Intermittant Pneumatic CD Resuscitation Status: CPR: Attempt Resuscitation Jose G Diana MD Jun 04, 2016 12:42
--- NOTE | 2016-06-04 14:46 | PCM.CONPAL ---
Date of Service Jun 04, 2016 Date of Hospital Admission: May 11, 2016 at 22:53 Date of Palliative Consult: Jun 04, 2016 Requesting Provider: Juany Sierra DO Reason Palliative Care Consult: Advance Care Planning, Goals of Care Discussion Hospital Unit @time of consult: Orthopedic/Surgical Care Palliative Care Recommendation 70-year-old male, admitted with acute renal failure, with persistent polyuria of undetermined etiology. By history, several years of slow decline with patient practically bedridden at home and very limited activity or social interaction. Palliative medicine consulted to assist patient and family with determination of goals of care. Summary of palliative recommendations: -Symptom management (Pain/other)- reported being comfortable at this time. Continued management per medical/hospitalist team. -DPOA/Advanced Directives/POLST- his test development engineer/POA Carin Myers told me that she will fax his POA paperwork to [facility] this afternoon. Her contact phone numbers include: Primary- [phone] Home- [phone] Work- [phone] I talked with patient about his advanced care wishes. He clearly expresses the wish that he does not want to be intubated or be on a ventilator, and also indicated that he would not want CPR/defibrillation. These wishes were reviewed with his POA who agreed with them. Both patient and POA are willing for him to have other ongoing medical care, in the hopes that he still might recover to some degree. CODE STATUS is therefore changed to DO NOT RESUSCITATE/ DO NOT INTUBATE. We will plan on assisting patient and his POA in completing a POLST prior to discharge As noted, Carin requests home health support to assist with diabetic education/ blood sugar monitoring, other medical monitoring and treatment. Patient will also require very close follow-up (per nephrology, weekly BMP and visit in nephrology office in 1-2 weeks). -Family/emotional support- good support at home where both patient and Carin want him to be discharged to as soon as practical Additional Medical Diagnoses with primary management by Hospitalist team include : # Acute polyuria with underlying disease of obstructive uropathy, present at the time of admission. Cause of polyuria remains unknown. # Acute renal failure secondary to obstructive uropathy, present at the time of admission # History of hypertension with hypotension due to postobstructive diuresis during this hospital. # Recurrent ESBL UTI. # Diabetes mellitus type 2, present on admission. Active. # Acute Encephalopathy. Present on admission # Anemia, acute on chronic Problems: End of Life Preferences DO NOT RESUSCITATE/DO NOT INTUBATE per patient wishes Goals of Care Recovery and return home Disposition Discharge to home, with caregiver support there and possible home health nurse to follow Resuscitation Status Resuscitation Status: DNR/DNI:Do Not Resuscitate/Intubate POLST Updates/Changes Previous POLST?: No . Advanced Care Planning Address: POLST, Code status change, Durable Power of Power Driven Brush Maker Pain: None Pt History History of Present Illness Per admission H&P: Dawit Hansen is a 70 yo male with ESBL Escherichia coli pyelonephritis, hypertension, diabetes mellitus type II, presents to [facility] emergency department via EMS from [facility] complaining of fatigue. For the last few days patient has been complaining of vague diffuse generalized pain. Denies any fever, dyspnea, cough, dysuria, abdominal pain, vomiting, diarrhea, rash, or swelling. He was noted to be confused and poor historian Per [facility]'s report, they attempted to place a Reyes catheter 4 times without success. They also noted a bump in his creatinine to >5.0. It is unclear if the patient was exposed to a nephrotoxic medication at [facility] Patient was on Ertapenem Iv till May 11 for treatment of ESBL E coli pyelonephritis. He also had renal issues during last hospitalization that resolved by the time of discharge. Case discussed with Dr Gregory, reyes placed with significant amount of urine output. Patient noted to be confused with some speech delay noted in the department. CT head negative. Patient has sustained a lengthy hospitalization because of persistent polyuria of undetermined etiology. This has resisted extensive efforts on behalf of the nephrology, medicine and neurology services to determine an etiology or definitively control his polyuria. Palliative medicine was consulted to assist in determination of goals of care in this setting. Prior to visiting today, I reviewed his updated records in the EMR in detail. I spoke with his bedside nurse and with his hospitalist. I also spoke at length by phone with his test development engineer/POA Carin Kishoranitha When I arrived, patient was lying comfortably in bed. He denies any significant symptoms. He definitely wants to go home as soon as possible. He is forgetful at times but answers most questions appropriately. We were able to review his past social and medical history. 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 Has lived in this area almost his entire life- moved here with his family when 1 years old from [place]. Lives with friends/POA Jovana Myers in her home where there are a number of other people living who can participate in his care if needed Family Members Issues: Ms. Myers says that she needs to have visiting nurses who can help monitor his health status, particularly his diabetes. She also requests instruction in how to monitor and manage blood sugars. She says that she has a professional caregiver who is there part of every day who can help change his diapers, but she may need more help. She already has a hospital bed for him at home She notes that he has been deteriorating over the last 2-3 years. (She has been with him for about 6 years.) In the last 2 years he has become increasingly bedridden, has to wear diapers all the time, and has been increasingly uninterested in participating in usual interactions. 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 She noted that she has POA documentation and was going to fax that to [facility] today He reportedly has a daughter Elle and a son Regino who live in the area but are not in close contact. Patient defers all decisions to Carin. Living Situation: As above Palliative Performance Scale PPS Patient Status: Baseline PPS Ambulation: Mainly Bed PPS Activity: Unable to do most activity PPS Self-Care: Considerable assistance required PPS Intake: Normal or reduced PPS Conscious Level: Full or confusion Performance Scale: 40% ADLs ADL Patient Status: Baseline ADL Ambulation: Mainly Bed ADL Dressing: Considerable assistance required ADL Feeding: Considerable assistance required ADL Hygene/bathing: Considerable assistance required ADL Transfers: Considerable assistance required POLST at Time of Admission Previous POLST?: No Allergy Allergies Reviewed: Yes Medications Scheduled Amlodipine (Amlodipine) 10 Mg Tablet 10 MG PO DAILY Atorvastatin Calcium (Atorvastatin Calcium) 20 Mg Tablet 20 MG PO PM Bupropion ER (Bupropion ER) 150 Mg Tablet.er 150 MG PO BID Chlorthalidone (Chlorthalidone) 25 Mg Tablet 25 MG PO DAILY Ertapenem Sodium (Invanz) 1 Gm Vial.port 1 GM IV DAILY Insulin Human Lispro (HumaLOG U100 Insulin Vial) 100 Unit/Ml Unit 5 UNIT SUBQ TIDAC Check blood sugars before meals and at bedtime. Use correction factor only before meals. Blood Sugar Lispro Correction: <151, 0 units; 151-175, 1 unit; 176-200, 2 units; 201-225, 3 units; 226-250, 4 units; 251-275, 5 units; 276-300 , 6 units; 301-325, 7 units; 326-350, 8 units; 351-375, 9 units; 376-400, 10 units; >400, 12 units. Magnesium Oxide (Magnesium) 400 Mg Tablet 400 MG PO DAILY Objective Findings Exam Vital Sign - Last Date Time Temp Pulse Resp B/P Pulse Ox O2 Delivery O2 Flow Rate FiO2 06/04/16 06:24 37.1 69 17 158/83 97 Room Air Intake and Output 06/03/16 06/03/16 06/04/16 Cumulative From/Thru 15:00 23:00 07:00 05/11/16 19:40 - 06/04/16 06:24 Intake Total 180 ml 1832 ml 2366 ml 03188 ml Output Total 2200 ml 2300 ml 689885 ml Balance 180 ml -368 ml 66 ml -47796 ml Intake Oral 670 ml 800 ml 51451 ml IV Total 180 ml 1162 ml 1566 ml 83342 ml Output Urine Total 2200 ml 2300 ml 288949 ml # Bowel Movements 18 Objective Elderly gentleman lying comfortably in bed. No obvious distress. Vital signs noted. Skin pale, warm and dry. Head and neck exam without acute focal findings. Lungs clear anterolaterally, heart sounds irregularly irregular with controlled rate. Soft systolic murmur at base. Abdomen is soft, nontender, without masses or peritoneal signs. Extremities without edema but do show chronic erythema and scaling over both lower legs with several large patches of eschar, particularly on the right lower leg. No evidence of acute cellulitis. Neurologic exam limited due to poor cooperation. Lab/Diagnostics Lab and Imaging results reviewed in detail in EMR. Time spent Total time 100 minutes; >50% face to face with patient and family, providing counselling regarding plans and recommendations, and in care coordination with his medical teams. All the above total time, 20 minutes counseling for advanced care planning with the patient and his test development engineer/POA, confirming his CODE STATUS and then adjusting his orders Narayan Bautista MD Jun 04, 2016 14:46
[2016-06-04 17:19] VITALS: BP 165/90; PULSE 68; RESP 16; O2SAT 98
--- NOTE | 2016-06-04 17:50 | NUR ---
Activity Patient pleasant this shift. Denies any pain or nausea. PICC SL. Patient up to chair for meals. Ambulated in stone x2. Newman patent and draining to gravity. Call light appropriate. Call light and tray table within reach. Will continue to monitor patient hourly.
[2016-06-04 20:32] VITALS: BP 176/68; PULSE 70; RESP 18; O2SAT 97
--- NOTE | 2016-06-05 03:49 | NUR ---
Activity Pt remains in room this shift, does not want to ambulate in hallway as he did earlier with PT. IVF have been DCd, picc flushes easily and pt able to take fluids PO. Contact for ecoli in urine. No SOB, chest pain, or other complaints this shift. Care continues
[2016-06-05 05:40] VITALS: BP 153/81; PULSE 67; RESP 20; O2SAT 97
[2016-06-05 06:15] LABS: BASOPHILS % (AUTO) 0.2 % (0-3); EOSINOPHILS % (AUTO) 2.4 % (0-5); MONOCYTES % (AUTO) 10.2 % (4-12); Mean Corpuscular Hemoglobin 30.1 pg (27.0-35.0); Mean Corpuscular Volume 94.3 fL (81-100); NEUTROPHILS % (AUTO) 65.5 % (40-74); Platelet Count 185 bil/L (150-400)
[2016-06-05] MEDS: Insulin LISPRO 300 Unit/3 mL Inj SUBQ SCH ×3 (08:00→17:30)
--- NOTE | 2016-06-05 09:18 | NUR ---
NESHA: Patient unable to accept NESHA asked AUTOMOBILE CONTRACT CLERK to follow up via phone with MARIBEL
[2016-06-05] MEDS: Ertapenem Inj 1,000 MG in 0.9% Sodium Chloride 50 ML IV SCH (10:24)
[2016-06-05] MEDS: Heparin 5,000 Unit/mL Inj SUBQ SCH (11:30)
--- NOTE | 2016-06-05 13:04 | NUR ---
Social Work- Readiness for Discharge Data: EMR reviewed. Pt is on day 25 of hospitalization for acute renal failure per H&P. Pt is not medically ready for discharge, anticipate 1 more day. Pt to discharge home with caregivers and HH. CARLOS spoke with pt at bedside where he remains adamant that he is going home vs SNF. CARLOS spoke with pt's DPOA, Carin Myers [phone]. regarding discharge planning. CARLOS informed Carin that [facility] assessment will be conducted 06/07 at 9 am. CARLOS provided Carin with the number for [facility] Carpet Installer Radha [phone]. CARLOS provided HH choice list over the phone. Carin was familiar with [facility] , requested referral be made. CARLOS made referral to [facility] for RN, PT, OT, and Bath Aide. CARLOS spoke with Eric Mauro, [facility] liaison, informing him of referral. F2F signed. Pt to discharge home with friend Carin to transport. CARLOS will continue to follow. Assessment: Pt who would benefit from [facility] RN, PT OT Bath Aide and caregiving. Plan: Referral made to [facility] RN PT OT Bath Aide and caregivers. F2F signed. Pt to discharge home with friend Carin to transport. ISMAEL Aquino
[2016-06-05 14:06] VITALS: BP 107/66; PULSE 61; RESP 18; O2SAT 99
--- NOTE | 2016-06-05 15:17 | NUR ---
NUTRITION FOLLOW-UP: ASSESS: 70 YO male admitted for acute renal failure which has improved. Nephrology continues to follow. Blood glucose slightly elevated. Pt met with palliative care and code status changed to DNR/DNI. PMHx: ESBL E Coli pyelonephritis, obstructive uropathy, HTN, DM type 2, depression, asthma, COPD, Cancer, CAD, Stroke. LABS: Reviewed. Glu 187, Alb 3.5 MEDS: Reviewed. GI: BM x 1 (05/31) CURRENT WT: 78.2 kg. Admit wt: 82 kg. Wt changes likely due to fluid losses. DIET: RENAL/DIABETIC, LOW PROTEIN (60 G PER DAY). PO 75-100% of meals. EST. NEEDS (ESTELA, COPD): 2724-1109 kcals (25-35 kcals/kg BW), 65-95 g protein (0.8-1.2 g/kg BW) NUTRITION DIAGNOSIS: 1.) Increased nutrient needs related to increased demand for nutrients for disease state as evidenced by ESTELA and COPD-PERSISTS. NUTRITION INTERVENTION: 1.) Continue current diet at this time as po intake appears adequate to meet pt est. needs. MONITOR / EVAL: PO intake, labs, weights, nutritional status. Follow per low nutritional risk guidelines.
--- NOTE | 2016-06-05 15:41 | NUR ---
Activity Patient pleasant this shift. Call light appropriate. Denies pain and nausea. OOB to chair for meals. Call light and tray table within reach. Will continue to monitor patient hourly.
--- NOTE | 2016-06-05 15:56 | PCM.DIMED ---
Discharge Instructions Date of Service Jun 05, 2016 Dates of Hospitalization May 11, 2016 at 22:53 Discharge Diagnosis Discharge Diagnosis Acute kidney failure, obstructive uropathy, urine retention, expressive aphasia , acute on chronic anemia, acute encephalopthy-resolved Test Results Laboratory Tests Test 06/05/16 05:30 White Blood Count 5.3th/mm3 (3.8-10.1) Red Blood Count 2.99mil/mm3 (4.40-5.80) Hemoglobin 9.0g/dL (13.8-17.2) Hematocrit 28.2% (41.0-50.0) Mean Corpuscular Volume 94.3fL (81-100) Mean Corpuscular Hemoglobin 30.1pg (27.0-35.0) Mean Corpuscular Hemoglobin Concent 31.9% (32.0-37.0) Red Cell Distribution Width 14.4% (12.3-15.4) Platelet Count 185bil/L (150-400) Neutrophils (%) (Auto) 65.5% (40-74) Lymphocytes (%) (Auto) 21.7% (14-46) Monocytes (%) (Auto) 10.2% (4-12) Eosinophils (%) (Auto) 2.4% (0-5) Basophils (%) (Auto) 0.2% (0-3) Sodium Level 138mEq/L (134-144) Potassium Level 4.2mEq/L (3.5-5.2) Chloride Level 102mEq/L (97-108) Carbon Dioxide Level 24mmol/L (18-29) Blood Urea Nitrogen 23mg/dL (8-27) Creatinine 1.11mg/dL (0.76-1.27) Estimat Glomerular Filtration Rate 69mL/min (>59) Glucose Level 187mg/dL (60-99) Calcium Level 8.5mg/dL (8.5-10.1) Total Bilirubin 0.5mg/dL (0.0-1.2) Aspartate Amino Transf (AST/SGOT) 16U/L (0-50) Alanine Aminotransferase (ALT/SGPT) 25U/L (0-44) Alkaline Phosphatase 99U/L (25-160) Total Protein 6.8g/dL (6.4-8.4) Albumin 3.5g/dL (3.4-5.0) Microbiology 05/12/16 Blood Culture - Final, Complete NO GROWTH AFTER 5 DAYS 05/14/16 Stool Occult Blood (PRASANNA) - Final, Complete 05/23/16 Urine Culture - Final, Complete E. Coli Esbl Beverage Distiller Activity Home Health Phyical Therapy, Other (wheeled walker) Call your provider Fever or Chills, Shortness of breath, Bleeding, Chest pain, Vomitting, Excessive diarrhea, Weakness (unilateral), Other Patient Instructions Please have Renal function labs drawn in one week and follow up with Nephrology Follow-up plan Please return to hospital for Ertapenem infusions for 3 more days Follow-up Provider: Son Dias DO Follow-up with PCP in: 1 week Provider: Carla Bermudez MD Follow-up in: 2 weeks Juany Sierra DO Jun 05, 2016 15:56
[2016-06-05 16:00] VITALS: BP 135/84; PULSE 70; RESP 16; O2SAT 98
[2016-06-05] MEDS ORDERED: ERTA1VIA2 IV (16:08)
[2016-06-05] MEDS ORDERED: BUPR150T12 PO (16:08)
[2016-06-05] MEDS ORDERED: ATOR20TA65 PO (16:08)
[2016-06-05] MEDS ORDERED: INSLIS SUBQ (16:08)
[2016-06-05] MEDS ORDERED: HYG25 PO (16:08)
[2016-06-05] MEDS ORDERED: AMLO10TA3 PO (16:08)
--- NOTE | 2016-06-05 18:05 | NUR ---
Mentation Patient is alert and oriented, able to make needs known. Blood sugar before dinner 92. patient having dinner in chair OOB. denies pain or discomfort. Mid line to right arm clean, dry and intact. Newman patent and draining urine. stable mood. patient's ride is here. Discharge done by charge nurse.
--- NOTE | 2016-06-06 08:50 | NUR ---
Arranged hospital follow up appointment and establishment for 06/07/16 check in at 115PM for 130PM appointment with They are aware patient needs Home Health and will be doing 3 days of ABX on MOC. Called and updated patient's caregiver regarding appointment, her name is Derrell. She will be attending all appointments with him. Gave her address and phone number to residency clinic. Also gave her phone number for [facility] and let her know they can rent them at that location. Updated ELECTRICAL ELECTRONICS ENGINEER station supervisor.
[2016-06-06 13:09] LABS: CSF IgG Index 0.5 (0.0-0.7); IgG Quant CSF 5.7 mg/dL (0.0-8.6)
[2016-06-07 09:13] LABS: Angiotensin-Converting Enzyme 25 U/L (14-82)
--- NOTE | 2016-06-11 12:35 | PCM.DC.MED ---
Discharge Summary Date of Service Jun 11, 2016 Dates of Hospitalization Date of Hospital Admission May 11, 2016 at 22:53 Date of Discharge: Jun 05, 2016 Providers: Admitting Physician: Francisco Benoit MD Primary Care Physician: César Attending Physician: Francisco Benoit MD Diagnosis at Time of Discharge Diagnosis at Time of Discharge Acute kidney failure, obstructive uropathy, urine retention, expressive aphasia , acute on chronic anemia, acute encephalopthy-resolved Consultations Nephrology, Neurology, Urology Procedures XRay, CTs & MRIs X-RAY CHEST ONE VIEW, PORTABLE 05/11 IMPRESSION: Diffuse scarring and blunted appearance of the left costophrenic angle however unchanged appearance since 04/29/16. No new consolidation Dictated by: Aaron Garcia M.D. on 05/11/2016 at 21:02 Approved by: Aaron Garcia M.D. on 05/11/2016 at 21:03 CT BRAIN WITHOUT CONTRAST 05/11 IMPRESSION: No acute intracranial process Dictated by: Aaron Garcia M.D. on 05/11/2016 at 20:51 US VENOUS LEG DUPLEX BILATERAL IMPRESSION: No DVT of the bilateral lower extremities. Dictated by: Mirlande Thompson M.D. 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 After the administration of contrast, axial and coronal T1 spin echo with fat saturation through the brain. COMPARISON: [facility], CT, CT BRAIN WO CON, 05/11/2016, 20:09. [facility], MR, MR BRAIN WO CON, 01/17/2016, 21:17. FINDINGS: Image quality: Excellent. CSF spaces: Basal cisterns are patent. No extra-axial fluid collections. Ventricles are normal in size and shape. Brain: No midline shift. No intracranial bleeds or masses. No abnormal intracranial enhancement. There is cerebral volume loss for age. No change in moderate patchy-signal intensity within the corpus callosum, pericallosal white matter, as well as the periventricular and subcortical white matter. Several of the lesions demonstrate long axes perpendicular to the long axis of the lateral ventricles. Elevated patchy FLAIR signal intensity within the liang and tectum is present, as before, compatible with demyelinating disorder and/or small vessel disease. The brainstem appears normal. Diffusion-weighted images demonstrate no acute ischemic insults. No chronic ischemic insults. Normal intravascular flow voids are present. Skull and face: Calvarial marrow is normal in signal. Orbits appear normal. Sinuses: Sinuses and mastoids appear clear. IMPRESSION: 1. No evidence of hydrocephalus. 2. No acute process. No recent infarct. 3. Moderate white matter disease, in a configuration which would be consistent with multiple sclerosis in the appropriate clinical setting. Other considerations include small vessel ischemic disease, and vasculitides. Clinical correlation recommended. Dictated by: Tara Martin M.D. on 05/30/2016 at 18:05 Approved by: Tara Martin M.D. on 05/30/2016 at 18:08 [facility] Diagnostic [place] [address] Patient Name: GLADYS CLAY MR#: [id number] [place] [facility] [place] Phys: Dianne Neal MD Date of Service: 06/02/16 1310 PROCEDURE: X-RAY LUMBAR PUNCTURE ([id number]) INDICATIONS: Neurosarcoidosis TECHNIQUE: The indications, alternatives, benefits, risks, and complications were explained to the patient. Written informed consent was obtained and placed in the chart. The patient was placed in a prone position on the fluoroscopy table , and a level was chosen for percutaneous access under fluoroscopic guidance. The site was prepped and draped in a sterile fashion. After local anaesthetic, a spinal needle was then used to enter the intrathecal space, with return of cerebrospinal fluid. After obtaining sufficient fluid, the needle was then withdrawn, and a bandage applied to the puncture site. FINDINGS: Puncture level: L2-L3 Needle: Spinal needle. Opening pressure: 3 cm water CSF volume and description: Roughly 5 cc of clear CSF Medications: 1% lidocaine for anaesthesia. Complications: None Laboratories: As ordered by referring clinician. IMPRESSION: Successful fluoroscopically guided lumbar puncture. Dictated by: Tara Martin M.D. on 06/02/2016 at 14:40 Approved by: Tara Martin M.D. on 06/02/2016 at 14:41 [facility] Diagnostic Imaging Department [place], [place] [id number] Patient Name: GLADYS CLAY MR#: [id number] Location: [facility] Ordering Phys: Navneet Gregory MD Date of Service: 05/11/162099 PROCEDURE: US VENOUS LEG DUPLEX BILATERAL INDICATIONS: L>R leg swelling in immobilized pt ro DVT TECHNIQUE: Real-time imaging, as well as color and pulse Doppler interrogation, were performed of the deep veins of both legs from the inguinal ligament to the popliteal fossa. COMPARISON: None. FINDINGS: The deep veins are normally compressible, and free of intraluminal thrombus. Color and pulse Doppler demonstrate normal phasic intravascular flow. There is normal augmentation response to distal compression maneuver. IMPRESSION: No DVT of the bilateral lower extremities. Dictated by: Mirlande Thompson M.D. on 05/12/2016 at 7:53 Approved by: Mirlande Thompson M.D. on 05/12/2016 at 7:54 [facility] Diagnostic Imaging Department [place], [place] [id number] Patient Name: GLADYS CLAY MR#: [id number] [place] [facility] [place]ing Phys: Nanveet Gregory MD Date of Service: 05/11/162002 PROCEDURE: CT BRAIN WITHOUT CONTRAST ([id number]) INDICATIONS: altered LOC TECHNIQUE: Noncontrast 4.5 mm thick angled axial sections acquired from the foramen magnum to the vertex, with coronal reformats. COMPARISON: [facility], CT, CT BRAIN WO CON, 01/17/2016, 20:23. FINDINGS: Image quality: Excellent. CSF spaces: Basal cisterns are patent. No extra-axial fluid collections. The ventricles are symmetric in size and shape. Brain: No intracranial bleeds or masses. There is cerebral volume loss for age , with resultant ventricular and sulcal prominence. There are periventricular and deep white matter chronic small vessel ischemic changes. There is intracranial internal carotid artery atherosclerosis. Skull and face: Calvarium and visualized facial bones appear intact, without suspicious lesions. Possible subcutaneous stranding involving the left posterior neck and base of skull however the appearance is grossly unchanged since 01/17/16. Recommend clinical correlation Sinuses: Visualized sinuses and mastoids are clear. IMPRESSION: No acute intracranial process Dictated by: Aaron Garcia M.D. on 05/11/2016 at 20:51 Approved by: Aaron Garcia M.D. 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 After the administration of contrast, axial and coronal T1 spin echo with fat saturation through the brain. COMPARISON: [facility], CT, CT BRAIN WO CON, 05/11/2016, 20:09. [facility], MR, MR BRAIN WO CON, 01/17/2016, 21:17. FINDINGS: Image quality: Excellent. CSF spaces: Basal cisterns are patent. No extra-axial fluid collections. Ventricles are normal in size and shape. Brain: No midline shift. No intracranial bleeds or masses. No abnormal intracranial enhancement. There is cerebral volume loss for age. No change in moderate patchy-signal intensity within the corpus callosum, pericallosal white matter, as well as the periventricular and subcortical white matter. Several of the lesions demonstrate long axes perpendicular to the long axis of the lateral ventricles. Elevated patchy FLAIR signal intensity within the liang and tectum is present, as before, compatible with demyelinating disorder and/or small vessel disease. The brainstem appears normal. Diffusion-weighted images demonstrate no acute ischemic insults. No chronic ischemic insults. Normal intravascular flow voids are present. Skull and face: Calvarial marrow is normal in signal. Orbits appear normal. Sinuses: Sinuses and mastoids appear clear. IMPRESSION: 1. No evidence of hydrocephalus. 2. No acute process. No recent infarct. 3. Moderate white matter disease, in a configuration which would be consistent with multiple sclerosis in the appropriate clinical setting. Other considerations include small vessel ischemic disease, and vasculitides. Clinical correlation recommended. Dictated by: Tara Martin M.D. on 05/30/2016 at 18:05 Approved by: Tara Martin M.D. on 05/30/2016 at 18:08 Cardiac Echo Impression Echocardiogram Report Name: GLADYS CLAY Study Date: 05/26/2016 Height: 72 in Hospital Exam Location: [facility] Weight: 172 lb Gender: Male BSA: 2.0 m2 : 1945 Age: 70 yrs BP: 168/87 mmHg Reason For Study: AORTIC VALVE STENOSIS Ordering Physician: Performed By: Ash Palacios Interpretation Summary Left ventricular size is at the upper limits of normal and left ventricular systolic function is borderline reduced with the ejection fraction roughly estimated to be 50% +/- 5%, and appears slightly less dynamic compared to the previous study. There is a significant dyssynchronous contraction pattern, consistent with a conduction abnormality but no other obvious focal wall motion abnormalities. Assessment of diastolic parameters indicates a relaxation abnormality of the left ventricle, consistent with normal filling pressures, and is unchanged compared to the previous study. The right ventricle is normal in size and function, and appears unchanged compared to the previous study. The right ventricular systolic pressure is estimated at 22 mmHg assuming a right atrial pressure of 3 mm Hg, and is likely lower than on the previous study. The left atrial size is normal and the right atrium is mildly dilated. Both are grossly unchanged compared to the previous study. There is mild to moderate mitral regurgitation that is slightly more prominent compared to the previous study and trace tricuspid regurgitation that is less prominent. There is moderate aortic stenosis that is likely mildly progressive compared to the previous study with a peak aortic velocity of 3.0 m/sec compared to 2.4 m/sec on the previous exam, now with a mean gradient of 22 mmHg and a calculated aortic valve area of 1.2 cm2. The ascending aorta is mildly enlarged but is unchanged compared to the previous study. Brief History Per admission H&P: Gladys Clay is a 70 yo male with ESBL Escherichia coli pyelonephritis, hypertension, diabetes mellitus type II, presents to [facility] emergency department via EMS from [facility] complaining of fatigue. For the last few days patient has been complaining of vague diffuse generalized pain. Denies any fever, dyspnea, cough, dysuria, abdominal pain, vomiting, diarrhea, rash, or swelling. He was noted to be confused and poor historian Per [facility]'s report, they attempted to place a Reyes catheter 4 times without success. They also noted a bump in his creatinine to >5.0. It is unclear if the patient was exposed to a nephrotoxic medication at [facility] Patient was on Ertapenem Iv till May 11 for treatment of ESBL E coli pyelonephritis. He also had renal issues during last hospitalization that resolved by the time of discharge. Case discussed with Dr Gregory, reyes placed with significant amount of urine output. Patient noted to be confused with some speech delay noted in the department. CT head negative. Patient has sustained a lengthy hospitalization because of persistent polyuria of undetermined etiology. This has resisted extensive efforts on behalf of the nephrology, medicine and neurology services to determine an etiology or definitively control his polyuria. Palliative medicine was consulted to assist in determination of goals of care in this setting. Hospital Course The patient is a 70 yo male with history of ESBL Escherichia coli pyelonephritis , hypertension, diabetes mellitus type II, presents to [facility] emergency department via EMS from [facility] complaining of fatigue and found to have renal failure again. # Acute polyuria with underlying disease of obstructive uropathy, present at the time of admission. Cause of polyuria remains unknown. - Patient failed to respond to DDAVP and thiazide diuretics (DDAVP with 4 g subcutaneous once and 2 mg twice a day by nephrology on 05/16,no response, stopped ddavp on 05/16) - Nephrology was consulted and tried continued IV fluids, fludrocortisone to 0.2 mg daily and PO Magnesium 400 mg BID x 5 days". Patient's home medication Wellbutrin was discontinued to ruleout that as the etiology for his polyuria. His brin MRI showed Moderate white matter disease, in a configuration which would be consistent with multiple sclerosis in the appropriate clinical setting. Other considerations include small vessel ischemic disease, and vasculitides. Nurology was consulted and Dr. Salmon believes "based on the patient's clinical history and examination, in addition to the abnormalities appreciated on the magnetic resonance imaging study of the brain, my suspicion is that the white matter lesions appreciated on the magnetic resonance imaging study of the brain are likely secondary to small vessel ischemic disease which is likely secondary to the patient's multiple underlying risk factors including hypertension, hyperlipidemia, and diabetes mellitus type I would also check a fasting lipid risk profile in the morning. However, certainly the possibility does remain for a process such as neurosarcoidosis and in light of this I do recommend obtaining a lumbar puncture and specifically obtaining an opening pressure, as well as cell count, glucose, and protein, in addition to an Bright level, IgG index, myelin basic protein, and oligoclonal bands.". Palliative care is consulted, they contacted patient's closest kin and worked with her as she and patient agreed she should be his POA. Patient and his POA decided they are not interested in seeking any more interventions, he would like to go home with her and try conservative measures. They also asked for him to be DNR/DNI. # Acute renal failure secondary to obstructive uropathy, present at the time of admission: reyes catheter is placed, urology is consulted by ED, recommended discharging with Reyes and on Flomax and followup with her outpatient. This will be the follow up plan for him. # History of hypertension with hypotension due to postobstructive diuresis during this hospital. This was believed to be orthostatic. # Recurrent ESBL UTI. This appears to be due to a recurrence of previous infection which may have been partially treated, and not due to patient's Reyes catheter the Escherichia coli has identical susceptibilities to the 1 previously cultured prior to placement of the Reyes catheter. PAtient was treated with 14 days of Ertapenem, last few doses of which were to be given as outpatient ( he will come to [facility] to receive the infusion.) - We have restarted ertapenem day #10 of 14. Patient will need 4 more days of IV antibiotic therapy. - Dr. Tucker was on consult and is not available at this time - Patient completed a course for Ertapenem previously on 05/18 - Patient now has greater than 100,000 colonies of gram-negative rods in his urine with pyuria. The gram-negative rods have again been identified as Escherichia coli with extended spectrum beta-lactamase resistance with identical susceptibilities as to the Escherichia coli identified and isolated on 05/23/2016. Therefore, this is not a catheter associated urinary tract infection. - Patient will eventually need to have Reyes catheter removed at some point in order to clear this infection completely # Diabetes mellitus type 2, present on admission. Active. - Previously on Metformin but was appropriately discontinued due to renal issues - Low correctional Lispro protocol was used. # Acute Encephalopathy. Present on admission - Has resolved - Apparently due to Uremic encephalopathy which is resolved # Anemia, acute on chronic - Patient stool for occult blood positive - We have recommend outpatient workup - The patient's h/h has remained stable Exam Vital Signs (Last) Date Time Temp Pulse Resp B/P Pulse Ox O2 Delivery O2 Flow Rate FiO2 06/05/16 16:00 36.6 70 16 135/84 98 Room Air Exam General: Laying in bed, mumbling HEENT: NCAT Heart: RRR, no s3/s4 Lungs: CTA, anteriorly. No crackles or wheezes Abd: Flat, non tender, non-distended. Normal bowel sounds Ext: Healing vascular ulcers Psych: Mood is pleasant, affect is polite Neuro: Appears to have alf memory loss Test 05/11/16 21:00 05/13/16 02:45 05/16/16 05:00 05/21/16 14:57 Lactic Acid Level 1.2mmol/L (0.4-2.0) Vitamin D 25-Hydroxy 25.1ng/mL (30.0-100.0) Iron Level 49ug/dL (35-150) Total Iron Binding Capacity 213ug/dL (250-450) Percent Iron Saturation 23%sat (15-50) Unsaturated Iron Binding 164.3ug/dL Urine Random Sodium 53mEq/L Test 05/23/16 08:15 05/23/16 10:35 05/30/16 05:20 06/02/16 06:35 Osmolality 300 (275-300) Urine Color Straw (YELLOW) Urine Appearance Cloudy (CLEAR,HAZY) Urine pH 6.0 (5.0-8.0) Urine Specific [place] 1.015 (1.003-1.035) Urine Protein 30mg/dL (NEG,TRACE) Urine Glucose (UA) Negativemg/dL (NEGATIVE) Urine Ketones Negativemg/dL (NEGATIVE) Urine Occult Blood Small (NEGATIVE) Urine Nitrite Positive (NEGATIVE) Urine Bilirubin Negative (NEGATIVE) Urine Urobilinogen Normalmg/dL (NORMAL) Urine Leukocyte Esterase Large (NEGATIVE) Urine RBC 0-2/hpf (0-2) Urine WBC >50/hpf (0-5) Urine Epithelial Cells Occasional/hpf (NONE-MOD) Urine Crystals None seen (NONE SEEN) Urine Bacteria Many/hpf (NONE-FEW) Urine Hyaline Casts None/lpf (NONE) Urine Granular Casts None seen (NONE SEEN) Urine Waxy Casts None seen (NONE SEEN) Urine Red Blood Cell Casts None seen (NONE SEEN) Urine White Blood Cell Casts None seen (NONE SEEN) Urine Mucus None seen (None Seen) Urine Trichomonas None seen (NONE SEEN) Urine Yeast None (NONE SEEN) Urinalysis Comment None Urine Culture Reflexed Indicated Urine Osmolality 323mOs/kH2O (250-1200) Pro-B-Type Natriuretic Peptide 1349pg/mL (0-376) Phosphorus Level 2.9mg/dL (2.5-4.9) Triglycerides Level 144mg/dL (0-149) Cholesterol Level 109mg/dL (100-199) LDL Cholesterol, Calculated 36.200mg/dL (0-99) VLDL Cholesterol 28.800mg/dL HDL Cholesterol 44mg/dL (>39) Cholesterol/HDL Ratio 2.48 (0.0-4.4) Test 06/02/16 08:25 06/02/16 15:55 06/03/16 05:40 06/05/16 05:30 Prothrombin Time 10.8sec (8.1-12.5) Prothromb Time International Ratio 1.01ratio Activated Partial Thromboplast Time 30.0sec (22.8-33.0) CSF Appearance Clear (CLEAR) CSF Color Colorless (COLORLESS) CSF WBC 1/mm3 (0-5) CSF RBC 128/mm3 CSF Mononuclear WBCs % CSF Polynuclear WBCs % CSF Other Cells CSF Glucose 75mg/dL (45-90) CSF Total Protein 40mg/dL (15-45) CSF Albumin 30mg/dL (11-48) CSF Immunoglobulin G 5.7mg/dL (0.0-8.6) CSF IgG/Albumin Ratio 0.19 (0.00-0.25) CSF Albumin/Serum Albumin Index 9 (0-8) CSF Immunoglobulin G Index 0.5 (0.0-0.7) CSF Immunoglobulin G Synthesis Rate -.1mg/day (-9.9 TO +3.3) CSF Myelin Basic Protein 1.6ng/mL (0.0-1.2) CSF Oligoclonal Banding Interpret Comment (.) Angiotensin Converting Enzyme 25U/L (14-82) Immunoglobulin G 1204mg/dL (700-1600) Magnesium Level 1.7mg/dL (1.6-2.6) White Blood Count 5.3th/mm3 (3.8-10.1) Red Blood Count 2.99mil/mm3 (4.40-5.80) Hemoglobin 9.0g/dL (13.8-17.2) Hematocrit 28.2% (41.0-50.0) Mean Corpuscular Volume 94.3fL (81-100) Mean Corpuscular Hemoglobin 30.1pg (27.0-35.0) Mean Corpuscular Hemoglobin Concent 31.9% (32.0-37.0) Red Cell Distribution Width 14.4% (12.3-15.4) Platelet Count 185bil/L (150-400) Neutrophils (%) (Auto) 65.5% (40-74) Lymphocytes (%) (Auto) 21.7% (14-46) Monocytes (%) (Auto) 10.2% (4-12) Eosinophils (%) (Auto) 2.4% (0-5) Basophils (%) (Auto) 0.2% (0-3) Sodium Level 138mEq/L (134-144) Potassium Level 4.2mEq/L (3.5-5.2) Chloride Level 102mEq/L (97-108) Carbon Dioxide Level 24mmol/L (18-29) Blood Urea Nitrogen 23mg/dL (8-27) Creatinine 1.11mg/dL (0.76-1.27) Estimat Glomerular Filtration Rate 69mL/min (>59) Glucose Level 187mg/dL (60-99) Calcium Level 8.5mg/dL (8.5-10.1) Total Bilirubin 0.5mg/dL (0.0-1.2) Aspartate Amino Transf (AST/SGOT) 16U/L (0-50) Alanine Aminotransferase (ALT/SGPT) 25U/L (0-44) Alkaline Phosphatase 99U/L (25-160) Total Protein 6.8g/dL (6.4-8.4) Albumin 3.5g/dL (3.4-5.0) Microbiology Results Name: GLADYS CLAY Age/Sex: 70/M Attend Dr: Francisco Benoit MD Acct: [id number] Unit: [id number] Status: [place] [facility] [place]27-1 Re05/11/16 Disch: Specimen: [id number] Collected: 05/23/16-1034 Status: RES Req#: [id number] Received: 05/23/161115 Source: URINE CC Sp Desc : ROSETTA Corona Dr: Jose G Diana MD Ordered: URINE CULT Procedure Result Verified Site Microbiology PRASANNA CULT URINE Preliminary 05/25/16 PRELIMINARY ID GRAM NEGATIVE GABBY ID AND SENS TO FOLLOW COLONY COUNT/QUANTITY >100,000 CFU/ml Blood and stool cultures are negative Discharge Medications Discharge Medications Amlodipine (Amlodipine) 10 Mg Tablet 10 MG PO DAILY Prescribed by: LISA LEE DO Atorvastatin Calcium (Atorvastatin Calcium) 20 Mg Tablet 20 MG PO PM Prescribed by: LISA LEE DO Bupropion ER (Bupropion ER) 150 Mg Tablet.er 150 MG PO BID Prescribed by: LISA LEE DO Chlorthalidone (Chlorthalidone) 25 Mg Tablet 25 MG PO DAILY Prescribed by: LISA LEE DO Ertapenem Sodium (Invanz) 1 Gm Vial.port 1 GM IV DAILY Prescribed by: LISA LEE DO Insulin Human Lispro (HumaLOG U100 Insulin Vial) 100 Unit/Ml Unit 5 UNIT SUBQ TIDAC Check blood sugars before meals and at bedtime. Use correction factor only before meals. Blood Sugar Lispro Correction: <151, 0 units; 151-175, 1 unit; 176-200, 2 units; 201-225, 3 units; 226-250, 4 units; 251-275, 5 units; 276-300 , 6 units; 301-325, 7 units; 326-350, 8 units; 351-375, 9 units; 376-400, 10 units; >400, 12 units. Prescribed by: LISA LEE DO Magnesium Oxide (Magnesium) 400 Mg Tablet 400 MG PO DAILY Prescribed by: ALEKSANDER MONTALVO MD Followup Plan Follow-up plan Please return to hospital for Ertapenem infusions for 3 more days Discharge Activity: Home Health Phyical Therapy, Other (wheeled walker) Patient Instructions Please have Renal function labs drawn in one week and follow up with Nephrology Follow-up Provider: Son Dias DO Follow-up with PCP in: 1 week Provider: Carla Bermudez MD Follow-up in: 2 weeks Lisa Lee DO Jun 11, 2016 12:35
--- NOTE | 2016-06-15 13:44 | NUR ---
Palliative care note D/A: Phone call to pt home to make post admit f/u phone call. Pt CG Jovana is out and will be back later. This worker leaves message. P: Palliative care to follow. Rosaura MOONEY, CCM
--- NOTE | 2016-06-29 12:34 | NUR ---
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 Note that pt is currently in the hospital and plans are in process for SNF discharge. No further need for post dc follow up. P: NO further need for PC followup. Rosaura MOONEY, CCM
== END 2016-06-05 16:32 | disposition home health service (06) | DRG 682 ==
LOC: EDUNIT# 19:35 → EDBD 19:35 → SED 19:35 → PCC 22:53 → OSC 05-14 02:24
PROVIDERS: ADMIT Hospitalist; ATTEND Hospitalist
PROC: 009U3ZX Drainage of Spinal Canal, Percutaneous Approach, Diagnostic (ICD-10-PCS; principal; 2016-06-02)
DX: N17.9 Acute kidney failure, unspecified (principal); G93.49 Other encephalopathy; R47.01 Aphasia; N39.0 Urinary tract infection, site not specified; N12 Tubulo-interstitial nephritis, not specified as acute or chronic; B96.20 Unspecified Escherichia coli [E. coli] as the cause of diseases classified elsewhere; R33.9 Retention of urine, unspecified; N13.9 Obstructive and reflux uropathy, unspecified; D63.8 Anemia in other chronic diseases classified elsewhere; I95.1 Orthostatic hypotension; I10 Essential (primary) hypertension; Z79.4 Long term (current) use of insulin; E11.21 Type 2 diabetes mellitus with diabetic nephropathy; E11.319 Type 2 diabetes mellitus with unspecified diabetic retinopathy without macular edema; F10.21 Alcohol dependence, in remission; Z87.898 Personal history of other specified conditions; E83.42 Hypomagnesemia; R90.82 White matter disease, unspecified

== ENCOUNTER 2016-06-22 15:01 | Inpatient (IN) | payer MEDICARE, MEDICAID ==
[~2016-06-22] VITALS: Ht 182.9 cm; Wt 77.8 kg
[~2016-06-22 15:01] MED LIST changes: -DOXY100C PO; -ZOV800 PO
[2016-06-22] MEDS: 0.9% Sodium Chloride 1,000 ML IV SCH (15:26)
[2016-06-22] MEDS ORDERED: 0.9% Sodium Chloride 1,000 ML IV SCH (15:26)
--- NOTE | 2016-06-22 15:26 | PCM.HPMED ---
Subjective Date of Service Jun 22, 2016 Primary Provider: Admitting Physician: Nannette Almeida MD Primary Care Physician: César Attending Physician: Nannette Almeida MD Chief Complaint: urine cath is cloudy, leg is red, diarrhea HISTORY was OBTAINED FROM PATIENT / MEDITECH NOTES History of present illness 70 y m, with diabetes/recurrent UTI 05/18 ertapnem treated, last hospitalized - 06/11/2016 - treated for recurrent ARF due to obstructive uropathy-Dr Gregory -reyes placed/uremic encephalopath-expressive aphasia-LP/MRI per Dr Salmon/mid- line placed with ertapnem course completion/ associated polyuria-unknown etiology per nephro unresponsive to DDAVP/Thiazide but continued IV fluids, fludrocortisone to 0.2 mg daily and PO Magnesium 400 mg BID x 5 days, metfomin stopped. Currently on abx, NOW sent by RN for the above complaints to . Prior admission discharged w/ palliative care consulted and DNR/DNI/. kind designiated POA, home w/ ertapenem for 4 more days to complete 2 week course. Seen by Dr. Haas Pt indicates no blood in vomiting and diarrhea of 1 day, roommate w/ 1 week hx of diarrhea. no cough, no SOB, no breathing device. very fatigued. finished abx not on abx now. 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 Use correction factor only before meals. Blood Sugar Lispro Correction: <151, 0 units; 151-175, 1 unit; 176-200, 2 units; 201-225, 3 units; 226-250, 4 units; 251-275, 5 units; 276-300 , 6 units; 301-325, 7 units; 326-350, 8 units; 351-375, 9 units; 376-400, 10 units; >400, 12 units. Prescribed by: LISA LEE DO Magnesium Oxide (Magnesium) 400 Mg Tablet 400 MG PO DAILY Prescribed by: ALEKSANDER MONTALVO MD Past Medical/Surgical HX HTN Chronic anemia sepsis 04/29/2016, recurrent UTI - ESBL e coli,recurrent DM Left leg/ankle/ achilles wound DM a1c 7.8 04/2016 baseline BNP 1349 baseline Cr 1.1 05/12/2016 No DVT of the bilateral lower extremities. AoValve stenosis moderate, mild-mod MR, EF 45-55%, significant dyssynchronous contraction pattern, consistent with a conduction abnormality recurrent AMS admissions, LP 06/02/2016, 05/30/2016 MRI INDICATIONS: Polyuria to r /o possible NPH/neuro sarcoidosis 1. No evidence of hydrocephalus.2. No acute process. No recent infarct. 3. Moderate white matter disease, in a configuration which would be consistent with multiple sclerosis in the appropriate clinical setting. Other considerations include small vessel ischemic disease, and vasculitides. Clinical correlation recommended. Depression COPD/pneumonia Neck surgery Exam on admission on room air, snoring, easily awakened NAD A and O x 3 mood affect fatigued NC/AT no icterus no injected eyes EOMI PERRL /no pharyngeal lesions/ no oral lesions / hearing intact CTAB equal chest rise / no accessory muscle use / speaks in full sentences / no rrw RRR S1 S2 / no mrg / 2+ radial pulses Soft nt nd + BS no hepatosplenomegaly No edema no cyanosis no ecchymosis of lower extremities no jaundice LING symmetrical facies left leg proximal/mid mcmahan erytheamtous w/ healing exocriations multiple on both shins reyes mildly cloudy. UA leuk est and WBC are positive, but this is from his indwelling, no report on bacteria noted on UC labs, pending UCx LFT normal Active issues and reason for admission gastroenteritis w/diarrhea/vomiting, leukocytosis, left leg cellulitis, indwelling catheter w/ prior ESBL, w/o abdominal discomfort, very fatigued --ertapenem --pending stool/blood/urine cx, pending c diff --IVF 100/hr Chronic issues known prior to admission, present on admission HTN Chronic anemia sepsis 04/29/2016, recurrent UTI - ESBL e coli,recurrent DM Left leg/ankle/ achilles wound DM a1c 7.8 04/2016 baseline BNP 1349 baseline Cr 1.1 05/12/2016 No DVT of the bilateral lower extremities. AoValve stenosis moderate, mild-mod MR, EF 45-55%, significant dyssynchronous contraction pattern, consistent with a conduction abnormality recurrent AMS admissions, LP 06/02/2016, Moderate white matter disease, in a configuration which would be consistent with multiple sclerosis in the appropriate clinical setting. Depression COPD/pneumonia Neck surgery --hold chlorthalidone until diarrhea/vomit completely resolved --prn duonebs Diet DM / SSI DVT prophylaxis lovenox Code DNR Assessment and plan were discussed with patient . anticipate days for ABX IV Allergies Coded Allergies: No Known Allergies (Unverified , 05/11/16) PMH Social History Hx Alcohol Use: Yes (does not quantify) Hx Substance Use: Yes (meth, THC) Hx Tobacco Use: No Smoking Status: Never Smoker Nnanette Almeida MD Jun 22, 2016 15:26 Diet DM / SSI DVT prophylaxis lovenox Code DNR Assessment and plan were discussed with patient family. anticipate days for ABX IV Allergies Coded Allergies: No Known Allergies (Unverified , 05/11/16) PMH Social History Hx Alcohol Use: Yes (does not quantify) Hx Substance Use: Yes (meth, THC) Hx Tobacco Use: No Smoking Status: Never Smoker Nannette Almeida MD Jun 22, 2016 15:26
[2016-06-22] MEDS ORDERED: Alum-Mag Hydrox-Simeth 30 mL Suspension PO PRN (15:30)
[2016-06-22] MEDS ORDERED: Ondansetron 2 mg/mL 2 mL Inj IVPUSH PRN (15:30)
[2016-06-22 16:03] VITALS: BP 118/81; PULSE 86; RESP 16; O2SAT 100
[2016-06-22] MEDS: Ertapenem Inj 1,000 MG in 0.9% Sodium Chloride 50 ML IV SCH (16:05)
[2016-06-22] MEDS: buPROPion SR 150 mg ER12 Tablet PO SCH (20:01)
[2016-06-22 20:58] VITALS: BP 110/67; PULSE 79; RESP 16; O2SAT 98
[2016-06-23] MEDS ORDERED: Lidocaine 2% 6mL Topical Jelly MUC_MEMBRM ONE
[2016-06-23 01:02] VITALS: BP 101/64; PULSE 74; RESP 20; O2SAT 97
[2016-06-23 03:46] LABS: APPEARANCE,URINE HAZY (CLEAR,HAZY); COLOR,URINE YELLOW (YELLOW)
[2016-06-23 03:47] LABS: OCCULT BLOOD,URINE LARGE (NEGATIVE); UROBILINOGEN,URINE NORMAL (NORMAL)
--- NOTE | 2016-06-23 03:58 | NUR ---
Pain/ paged Pt. was in a lot of pain after Newman that was present during admission was taken out, as ordered by Elle MOHAN. This RN also observed, mucus threads coming out of genitals. paged. IV antibotics ongoing for pt. Elle MOHAN ordered IV morphine and tylenol for pain, which seemed to be effective. Pt. went to sleep after IV morphine given. Will continue to monitor.
[2016-06-23] MEDS: 0.9% Sodium Chloride 1,000 ML IV SCH ×3 (04:31→21:40)
[2016-06-23 05:04] LABS: BASOPHILS % (AUTO) 0.3 % (0-3); EOSINOPHILS % (AUTO) 2.3 % (0-5); MONOCYTES % (AUTO) 12.3 % (4-12); Mean Corpuscular Hemoglobin 29.3 pg (27.0-35.0); Mean Corpuscular Volume 93.7 fL (81-100); NEUTROPHILS % (AUTO) 63.7 % (40-74); Platelet Count 250 bil/L (150-400)
[2016-06-23 05:28] LABS: Magnesium 1.8 mg/dL (1.6-2.6)
[2016-06-23 05:35] VITALS: BP 98/59; PULSE 75; RESP 18; O2SAT 96
[2016-06-23] MEDS: Ertapenem Inj 1,000 MG in 0.9% Sodium Chloride 50 ML IV SCH (08:33)
[2016-06-23] MEDS: buPROPion SR 150 mg ER12 Tablet PO SCH ×2 (08:33→21:37)
[2016-06-23 08:55] VITALS: BP 103/65; PULSE 76; RESP 18; O2SAT 96
[2016-06-23] MEDS ORDERED: Glucose 40% Oral Gel 15 Gm Tube PO PRN (12:50)
[2016-06-23 13:26] VITALS: BP 99/65; PULSE 74; RESP 16; O2SAT 99
--- NOTE | 2016-06-23 15:12 | NUR ---
Social Work Note: Initial Assessment Data& Assessment: EMR reviewed. SW met with pt at bedside to discuss discharge planning, SW role explained. Dawit Hansen is a 70 year old male admitted on 06/22/2016 for cellulitis. Pt has Medicare and [facility] insurance coverage. Pt lives in [place] with his roommates/friends who help care give for him. SW obtained verbal permission to speak with his friend Carin Dove. Pt confirmed that he is open with [facility] PT and RN. Pt uses his 4WW at baseline and is otherwise independent with his ADL's. Pt has had SNF hx at [facility] in the past. Pt does not have LTC insurance or VA benefits. SW spoke to pt friend Derrell who is in the process of becoming a JACOB caregiver for pt. Pt and pt friend do not remember who their JACOB CM is (clinicals faxed cc [email or web address] per previous SW notes from past admission). Derrell to visit pt at bedside on Saturday if pt is still here and is interested in brief blood sugar check education from RN for when pt discharges home. Pt friends to transport pt home when medically ready. SW requested copy of DPOA/Advance Directive paperwork when possible. SW provided pt and pt friend/roommate with phone number. Pt and pt friend/roommate deny any other needs at this time. SW to continue to follow if any needs arise. Plan: Anticipated discharge back home with friends/roommates and resume [facility] PT, RN and [facility]. Pt and pt friend/roommate deny any other needs at this time. SW to continue to follow if any needs arise. ISMAEL Miranda Addendum: 06/23/16 at 1522 by DIRK VALDIVIA Amended: Links added.
[2016-06-23] MEDS ORDERED: Insulin LISPRO 300 Unit/3 mL Inj SUBQ SCH (17:00)
[2016-06-23] MEDS: Insulin LISPRO 300 Unit/3 mL Inj SUBQ SCH ×2 (17:14→21:41)
--- NOTE | 2016-06-23 19:34 | NUR ---
Rest Patient reports feeling somewhat tired this shift, rested often. Patient alert and oriented, denies pain, nausea or other difficulty. Care is ongoing.
[2016-06-23 20:50] VITALS: BP 111/61; PULSE 74; RESP 16; O2SAT 97
--- NOTE | 2016-06-23 21:53 | PCM.PNMED ---
Subjective Date of Service Jun 23, 2016 Subjective Patient is seen examined is very grumpy and states that his friend and is visiting with him occasionally at home his doctor told him his urine is cloudy and asked him to go to the ER so there was some concern about his leg cellulitis. He states that he followed instructions after his last discharge and only got 3 more doses of ertapenem as recommended to him for ESBL urinary infection. He denies fevers chills and all other review of systems states his morning to go home. In the ER it appears that the urine showed concern for methamphetamines. So far the cultures did not grow anything negative todate Exam Vital Signs Vital Sign - Last Date Time Temp Pulse Resp B/P Pulse Ox O2 Delivery O2 Flow Rate FiO2 06/23/16 20:50 36.7 74 16 111/61 97 Room Air Intake and Output 06/22/16 06/22/16 06/23/16 Cumulative From/Thru 15:00 23:00 07:00 06/22/16 16:28 - 06/23/16 06:49 Intake Total 536 ml 2171 ml 2707 ml Output Total 200 ml 750 ml 950 ml Balance 336 ml 1421 ml 1757 ml Intake Oral 536 ml 1076 ml 1612 ml IV Total 1095 ml 1095 ml Output Urine Total 200 ml 750 ml 950 ml # Bowel Movements 2 2 Exam General: No acute distress, appears angry HEENT: Normocephalic, atraumatic Heart: Regular rate and rhythm no S3-S4 Lungs: clear to auscultation bilaterally abdomen soft flat nontender Neuro: Oriented to time and person Psych: Affect mcmahon, mood resigned IVs and Medications Medications Reviewed: Medications were reviewed in detail Lab and Diagnostics Result Diagram: 06/23/16 0445 06/23/16 0445 Assessment & Plan #1 concern for UTI: Follow blood and urine cultures continue ertapenem IV #2 acute kidney injury: This is not a new diagnosis in the sense that patient has had problems at bedtime fluids were discontinued in the previous admission that lasted for over a month. And he left hospital last time with the understanding that without radiation and continuous follow-up with lab work he is expected to have kidney injury again and that appears to be the case. The diagnosis was polyuria of unknown etiology. Currently he is getting IV fluids we will continue to monitor daily labs CBC and BMP Chronic diagnosis: Hypertension Chronic anemia leg cellulitis: Start him on doxycycline 100 mg by mouth twice a day, follow blood cultures DVT prophylaxis: heparin subcutaneous 3 times a day Disposition: When patient's kidney function improves if all cultures continue to be negative he may be able to go home on by mouth doxycycline Pain Evaluation: Adequate Pain Control VTE Mechanical Devices: Intermittant Pneumatic CD Juany Sierra DO Jun 23, 2016 21:53
[2016-06-24 05:10] VITALS: BP 110/70; PULSE 76; RESP 20; O2SAT 96
--- NOTE | 2016-06-24 06:42 | NUR ---
actvitiy patient encouraged to turn side to side throughout the night assisted with 3 turns , propped with pillows. given sparkle / reyes catheter care. denies pain
[2016-06-24 07:07] LABS: BASOPHILS % (AUTO) 0.5 % (0-3); EOSINOPHILS % (AUTO) 3.1 % (0-5); MONOCYTES % (AUTO) 12.5 % (4-12); Mean Corpuscular Hemoglobin 29.4 pg (27.0-35.0); Mean Corpuscular Volume 91.8 fL (81-100); Platelet Count 239 bil/L (150-400)
[2016-06-24] MEDS: Insulin LISPRO 300 Unit/3 mL Inj SUBQ SCH ×4 (07:56→22:00)
[2016-06-24] MEDS: 0.9% Sodium Chloride 1,000 ML IV SCH ×2 (07:57→17:44)
[2016-06-24] MEDS: buPROPion SR 150 mg ER12 Tablet PO SCH ×2 (08:00→20:22)
[2016-06-24] MEDS: Ertapenem Inj 1,000 MG in 0.9% Sodium Chloride 50 ML IV SCH (08:00)
--- NOTE | 2016-06-24 13:39 | NUR ---
Rest Patient continues to rest most of shift. Patient denies any pain, nausea or other difficulty. Patient eating and drinking well, reyes catheter draining pale colored urine. Care is ongoing.
[2016-06-24 15:13] VITALS: BP 97/55; PULSE 76; RESP 18; O2SAT 98
--- NOTE | 2016-06-24 15:41 | NUR ---
NESHA NESHA signed
--- NOTE | 2016-06-24 18:21 | PCM.PNMED ---
Subjective Date of Service Jun 24, 2016 Subjective Patient is seen and examined. He states that his left heel still hurts even though the ulcer has closed and healed. He is not very clear about the details of why he has a urine culture from Saturday in the urgent care. He just says his nurse at home told him to come to the hospital because of his cloudy urine. He states he had no fevers chills, nausea or vomiting overnight. When asked about his urinary symptoms he is "not a thing" that he felt. Culture results were called in from Saturday urgent care visit to the micro-lab and it showed enterococcus sensitive to vancomycin and Levaquin, Cipro and resistant to penicillin. Because of the weekend schedule wound care is not available at this time. An attempt was made to reach for his friend Jovana who is also his POA, she will did not have an answering machine at her personal number. A message was left at her work number for her to at call back the nursing desk about her friend. Exam Vital Signs Vital Sign - Last Date Time Temp Pulse Resp B/P Pulse Ox O2 Delivery O2 Flow Rate FiO2 06/24/16 05:10 36.8 76 20 110/70 96 Room Air Intake and Output 06/23/16 06/23/16 06/24/16 Cumulative From/Thru 14:59 22:59 06:59 06/22/16 16:28 - 06/24/16 05:11 Intake Total 880 ml 1200 ml 4787 ml Output Total 1600 ml 2550 ml Balance -720 ml 1200 ml 2237 ml Intake Oral 880 ml 2492 ml IV Total 1200 ml 2295 ml Output Urine Total 1600 ml 2550 ml # Bowel Movements 2 Exam Gen.: Thin-appearing, unkempt, speech is garbled at times HEENT: Normocephalic, atraumatic Heart: Positive for grade 1+ systolic murmur with radiation to axilla, regular rate and rhythm Lungs: Clear to auscultation crackles or wheezes Abdomen flat nontender nondistended normal bowel sounds Extremities he has open wound draining ulcer on the lateral side of right lower tibia. There are several other small excoriations and healing stages on both legs again right lower leg is more erythematous than the left. She does not appear to have any swelling. Vascular: 2+ dorsalis pedis bilaterally Neuro: Oriented to person but not to date. IVs and Medications IV Fluids Normal saline 100 mL per hour Medications Reviewed: Medications were reviewed in detail Lab and Diagnostics Laboratory Tests Test 06/24/16 06:27 White Blood Count 6.1th/mm3 (3.8-10.1) Red Blood Count 2.82mil/mm3 (4.40-5.80) Hemoglobin 8.3g/dL (13.8-17.2) Hematocrit 25.9% (41.0-50.0) Mean Corpuscular Volume 91.8fL (81-100) Mean Corpuscular Hemoglobin 29.4pg (27.0-35.0) Mean Corpuscular Hemoglobin Concent 32.0% (32.0-37.0) Red Cell Distribution Width 13.2% (12.3-15.4) Platelet Count 239bil/L (150-400) Neutrophils (%) (Auto) 62.0% (40-74) Lymphocytes (%) (Auto) 21.7% (14-46) Monocytes (%) (Auto) 12.5% (4-12) Eosinophils (%) (Auto) 3.1% (0-5) Basophils (%) (Auto) 0.5% (0-3) Sodium Level 137mEq/L (134-144) Potassium Level 3.8mEq/L (3.5-5.2) Chloride Level 102mEq/L (97-108) Carbon Dioxide Level 22mmol/L (18-29) Blood Urea Nitrogen 17mg/dL (8-27) Creatinine 1.27mg/dL (0.76-1.27) Estimat Glomerular Filtration Rate 59mL/min (>59) Glucose Level 109mg/dL (60-99) Calcium Level 8.5mg/dL (8.5-10.1) Total Bilirubin 0.3mg/dL (0.0-1.2) Aspartate Amino Transf (AST/SGOT) 11U/L (0-50) Alanine Aminotransferase (ALT/SGPT) 10U/L (0-44) Alkaline Phosphatase 77U/L (25-160) Total Protein 6.4g/dL (6.4-8.4) Albumin 3.2g/dL (3.4-5.0) Microbiology 06/22/16 Blood Culture - Preliminary, Resulted No growth at 2 days; culture examined... 3/24/17 Campylobacter (PCR) - Final, Complete Not Detected 06/22/16 Clostridium difficile Toxin A&B (M) - Final, Complete Not Detected 06/22/16 Plesiomonas shigelloides (PCR) - Final, Complete Not Detected 06/22/16 Salmonella (PCR)(PRASANNA) - Final, Complete Not Detected 06/22/16 Yersinia enterocolitica (PCR) - Final, Complete Not Detected 06/22/16 Vibrio Species (PCR) - Final, Complete Not Detected 06/22/16 Vibrio Cholerae (PCR) - Final, Complete Not Detected 06/22/16 Enteroaggregative E. coli (PCR) - Final, Complete Not Detected 06/22/16 Enteropathogenic E. coli (PCR) - Final, Complete Not Detected 06/22/16 Enterotoxigenic E. coli (PCR) - Final, Complete Not Detected 06/22/16 E. coli Shiga-like Toxin (PCR) - Final, Complete Not Detected 06/22/16 Escherichia coli 0157 (PCR) - Final, Complete Not Detected 06/22/16 Enteroinvasive E. coli/Shigella PCR - Final, Complete Not Detected 06/22/16 Cryptosporidium (PCR) - Final, Complete Not Detected 06/22/16 Cyclospora cayetanensis (PCR) - Final, Complete Not Detected 06/22/16 Entamoeba histolytica (PCR) - Final, Complete Not Detected 06/22/16 Giardia lamblia (PCR) - Final, Complete Not Detected 06/22/16 Adenovirus Type F 40/41 (PCR) - Final, Complete Not Detected 06/22/16 Astrovirus (PCR) - Final, Complete Not Detected 06/22/16 Norovirus (PCR) - Final, Complete Not Detected 06/22/16 Rotavirus A (PCR) - Final, Complete Not Detected 06/22/16 Sapovirus I/II/IV/V (PCR) - Final, Complete 06/23/16 Urine Culture - Preliminary, Resulted No growth to date Result Diagram: 06/23/16 0445 06/23/16 0445 Microbiology Laboratory Tests Test 06/23/16 01:30 Urine Color Yellow Urine Appearance Hazy Urine pH 6.0 Urine Specific [place] 1.020 Urine Protein 100mg/dL Urine Glucose (UA) Negativemg/dL Urine Ketones Negativemg/dL Urine Occult Blood Large Urine Nitrite Negative Urine Bilirubin Negative Urine Urobilinogen Normalmg/dL Urine Leukocyte Esterase Small Urine RBC >50/hpf Urine WBC 11-50/hpf Urine Epithelial Cells Occasional/hpf Urine Crystals Amorphous urates Urine Bacteria Few/hpf Urine Hyaline Casts None/lpf Urine Granular Casts None seen Urine Waxy Casts None seen Urine Red Blood Cell Casts None seen Urine White Blood Cell Casts None seen Urine Mucus Present Urine Trichomonas None seen Urine Yeast None Urinalysis Comment None Urine Culture Reflexed Indicated Assessment & Plan #1 concern for UTI: Follow blood and urine cultures continue ertapenem IV -- Urine cultures from his admission here this time showed no growth to date. However cultures from Saturday the from the urgent care showed enterococcus sensitive to vancomycin, Cipro, Levaquin and resistance to penicillin. Patient is poor and ertapenem IV antibiotic at the time of his admission. This was switched to Levaquin today. -- Plan to continue to follow urine cultures from [facility] #2 acute kidney injury present on admission: This is not a new diagnosis in the sense that patient has had problems at bedtime fluids were discontinued in the previous admission that lasted for over a month. And he left hospital last time with the understanding that without radiation and continuous follow-up with lab work he is expected to have kidney injury again and that appears to be the case. The diagnosis at the time was polyuria of unknown etiology. Currently he is getting IV fluids we will continue to monitor daily labs CBC and BMP -- Improving, continue to hydrate -- Urine output continues to be high, urine still looks somewhat cloudy leg cellulitis present at admission: -Start him on doxycycline 100 mg by mouth twice a day, follow blood cultures, -- plan to consult wound care on Saturday the Chronic diagnosis: Hypertension: Continue home medications Chronic anemia : Continue her medications Diabetes mellitus: Last A1c was done 04/19/16, 7.4. No need to repeat. Is not needing much coverage here. Continue low-dose sliding scale insulin Chronic depression: Continue home medications bupropion DVT prophylaxis: heparin subcutaneous 3 times a day Disposition: Currently waiting culture results from [facility] lab, if they are negative, patient can go home on by mouth antibiotics Pain Evaluation: Adequate Pain Control VTE Prophylaxis: Sub-Q Heparin (Unfractionated) VTE Mechanical Devices: Intermittant Pneumatic CD Resuscitation Status: DNR/DNI:Do Not Resuscitate/Intubate Juany Sierra DO Jun 24, 2016 06:19
[2016-06-24 19:54] VITALS: BP 127/70; PULSE 78; RESP 18; O2SAT 98
[2016-06-24] MEDS ORDERED: Ciprofloxacin Inj 400 MG in IV Premix 1 EACH IV SCH (20:30)
--- NOTE | 2016-06-24 22:59 | NUR ---
Communication Friend Crain phoned, stated she had message from hospital MD wanting medical info. She was not sure who called. She stated to call Veneta his daughter as she will have info. Paged manager of information to be sure it was not him and not urgent. He stated it would have been day shift MD. Notified in report to pass on to AM MD.
[2016-06-25] MEDS: 0.9% Sodium Chloride 1,000 ML IV SCH ×2 (03:32→14:44)
[2016-06-25 05:31] VITALS: BP 111/69; PULSE 75; RESP 20; O2SAT 96
[2016-06-25 06:40] LABS: BASOPHILS % (AUTO) 0.4 % (0-3); EOSINOPHILS % (AUTO) 3.3 % (0-5); MONOCYTES % (AUTO) 13.9 % (4-12); Mean Corpuscular Volume 92.8 fL (81-100); NEUTROPHILS % (AUTO) 52.4 % (40-74); Platelet Count 245 bil/L (150-400)
[2016-06-25] MEDS: Insulin LISPRO 300 Unit/3 mL Inj SUBQ SCH ×5 (08:00→22:50)
[2016-06-25] MEDS ORDERED: Levofloxacin 750 mg/150 mL D5W IV SCH (08:30)
[2016-06-25] MEDS: buPROPion SR 150 mg ER12 Tablet PO SCH ×2 (10:11→20:32)
--- NOTE | 2016-06-25 11:19 | NUR ---
Social Work-continued d/c planning: Data:EMR reviewed. Pt is on day 3 of hospitalization for Cellulitis per H&P. pt is not medically stable for discharge at this time, anticipate several more days. Pt resides at home with roommate and has JACOB caregivers. Pt is open with [facility] and will need resume HH orders at discharge. Pt's family to provide transport home at discharge. SW will continue to follow. Assessment:Pt who would benefit from resume HH. Plan:Pt to discharge home with support of roommate and JACOB via POV. Pt will need Resume HH orders through [facility]. SW will continue to follow. ISMAEL Newton
[2016-06-25 14:20] VITALS: BP 118/66; PULSE 77; RESP 20; O2SAT 97
[2016-06-25] MEDS: Vancomycin Dose per Pharmacist XX SCH ×2 (15:00→15:30)
--- NOTE | 2016-06-25 15:04 | PCM.PNMED ---
Subjective Date of Service Jun 25, 2016 Subjective Patient wondering about going home. He denies any chest pain, dyspnea, nausea or vomiting Exam Vital Signs Vital Sign - Last Date Time Temp Pulse Resp B/P Pulse Ox O2 Delivery O2 Flow Rate FiO2 06/25/16 14:20 36.4 77 20 118/66 97 Room Air Intake and Output 06/24/16 06/24/16 06/25/16 Cumulative From/Thru 15:00 23:00 07:00 06/22/16 16:28 - 06/25/16 06:52 Intake Total 800 ml 1910 ml 2072 ml 9569 ml Output Total 2200 ml 1900 ml 2100 ml 8750 ml Balance -1400 ml 10 ml -28 ml 819 ml Intake Oral 800 ml 700 ml 1000 ml 4992 ml IV Total 1210 ml 1072 ml 4577 ml Output Urine Total 2200 ml 1900 ml 2100 ml 8750 ml # Bowel Movements 0 2 Exam Gen.- A+ O 3 no apparent distress. Eyes- open conjunctiva clear, pupils equal nonicteric ENT- ears normal, nose normal Neck- supple/trach midline CVS- RRR no murmur or gallop Lungs- CTA GI- NABS/NT soft Musc- moving 4 no obvious deformity Neuro- cranial nerves II through XII intact to gross examination, nonfocal Skin- warm and dry, no rashes/lesions/wounds noted left lower extremity bright red mid calf down Psych- pleasant and appropriate, Lab and Diagnostics Result Diagram: 06/25/16 0550 06/25/16 0550 Microbiology Laboratory Tests Test 06/23/16 01:30 Urine Color Yellow Urine Appearance Hazy Urine pH 6.0 Urine Specific [place] 1.020 Urine Protein 100mg/dL Urine Glucose (UA) Negativemg/dL Urine Ketones Negativemg/dL Urine Occult Blood Large Urine Nitrite Negative Urine Bilirubin Negative Urine Urobilinogen Normalmg/dL Urine Leukocyte Esterase Small Urine RBC >50/hpf Urine WBC 11-50/hpf Urine Epithelial Cells Occasional/hpf Urine Crystals Amorphous urates Urine Bacteria Few/hpf Urine Hyaline Casts None/lpf Urine Granular Casts None seen Urine Waxy Casts None seen Urine Red Blood Cell Casts None seen Urine White Blood Cell Casts None seen Urine Mucus Present Urine Trichomonas None seen Urine Yeast None Urinalysis Comment None Urine Culture Reflexed Indicated Assessment & Plan 06/22 admitted for potential recurrent UTI. 06/25 Patient is growing enterococcus 06/22. Trial vancomycin to cover both enterococcus/cellulitis repeat UA today. Meeting medically complex patient first time today. # concern for UTI: -- Urine cltr 06/22 from urgent care (+ )enterococcus PCN resistant -- urine 06/23 [facility] no growth # ESTELA/CKD3 - back to baseline Cr 1.12 # leg cellulitis present at admission: -Leg is bright red 06/25 #Anemia-likely chronic disease -Repeating anemia panel last done in May and reticulocyte count not done Cronic diagnosis: Hx CVA with aphasia Hypertension: Continue home medications Diabetes mellitus: Last A1c was done 04/19/16, 7.4. No need to repeat. Is not needing much coverage here. Continue low-dose sliding scale insulin Chronic depression: Continue home medications bupropion DVT prophylaxis: heparin subcutaneous 3 times a day VTE Prophylaxis: Sub-Q Heparin (Unfractionated) VTE Mechanical Devices: Intermittant Pneumatic CD Resuscitation Status: DNR/DNI:Do Not Resuscitate/Intubate Romulo Sanchez MD Jun 25, 2016 15:04 Disposition: Currently waiting culture results from [facility] lab, if they are negative, patient can go home on by mouth antibiotics VTE Prophylaxis: Sub-Q Heparin (Unfractionated) VTE Mechanical Devices: Intermittant Pneumatic CD Resuscitation Status: DNR/DNI:Do Not Resuscitate/Intubate Romulo Sanchez MD Jun 25, 2016 15:04
--- NOTE | 2016-06-25 15:42 | PCM.PHAPRO ---
Progress Vancomycin Management by Pharmacy: -Indication: for urine cultured from urgent care that grew enterococcus sensitive to Vancomycin -serum creatinine 1.12, est clearance~ 60ml/min, wbc 5.5, afebrile -pt with previous esbl e.coli uti -nephrotoxic risks: hx howard, dm, age -Plan: will initiate Vancomycin 1.25gm iv q24hrs with trough level prior to 4th dose (15:30 on 06/28) or sooner if creatinine increases. Rosa Shea [facility] Jun 25, 2016 15:42
[2016-06-25 16:22] LABS: APPEARANCE,URINE CLEAR (CLEAR,HAZY); COLOR,URINE STRAW (YELLOW); OCCULT BLOOD,URINE LARGE (NEGATIVE); PH,URINE 6.5 (5.0-8.0); UROBILINOGEN,URINE NORMAL (NORMAL)
[2016-06-25] MEDS: Vancomycin Inj 1,250 MG in 0.9% Sodium Chloride 250 ML IV SCH (16:52)
--- NOTE | 2016-06-25 19:37 | NUR ---
Pain Patient reports some pain to the left lower extremity. Ordered pain medication administered, patient lower extremities repositioned on pillows. Patient states that pain decreased to tolerable level. Care is ongoing.
[2016-06-25 20:13] VITALS: BP 128/72; PULSE 75; RESP 18; O2SAT 96
[2016-06-26] MEDS: 0.9% Sodium Chloride 1,000 ML IV SCH ×3 (01:55→23:49)
[2016-06-26 05:46] VITALS: BP 151/75; PULSE 75; RESP 18; O2SAT 98
--- NOTE | 2016-06-26 06:09 | NUR ---
Activity Pt has denied pain all shift. Left leg cellulitis appears more erythematous than right. Newman patent. Pt has slept intermittently throughout night.
[2016-06-26 07:10] LABS: BASOPHILS % (AUTO) 0.5 % (0-3); EOSINOPHILS % (AUTO) 2.7 % (0-5); MONOCYTES % (AUTO) 11.8 % (4-12); Mean Corpuscular Hemoglobin 29.8 pg (27.0-35.0); Mean Corpuscular Volume 92.5 fL (81-100); NEUTROPHILS % (AUTO) 58.7 % (40-74); Platelet Count 239 bil/L (150-400)
[2016-06-26 07:45] LABS: Unsaturated Iron Binding 157.6 ug/dL
[2016-06-26 08:20] VITALS: BP 124/71; PULSE 69; RESP 16; O2SAT 96
[2016-06-26] MEDS: buPROPion SR 150 mg ER12 Tablet PO SCH ×2 (08:42→21:09)
[2016-06-26] MEDS: Insulin LISPRO 300 Unit/3 mL Inj SUBQ SCH ×4 (08:42→22:00)
--- NOTE | 2016-06-26 10:29 | PCM.PNMED ---
Subjective Date of Service Jun 26, 2016 Subjective Wondering about when he is going home, sleeping comfortably no chest pain, dyspnea, nausea or vomiting Exam Vital Signs Vital Sign - Last Date Time Temp Pulse Resp B/P Pulse Ox O2 Delivery O2 Flow Rate FiO2 06/26/16 08:20 36.5 69 16 124/71 96 Room Air Intake and Output 06/25/16 06/25/16 06/26/16 Cumulative From/Thru 15:00 23:00 07:00 06/22/16 16:28 - 06/26/16 06:34 Intake Total 1212 ml 3401 ml 23689 ml Output Total 2000 ml 1950 ml 80469 ml Balance -788 ml 1451 ml 1482 ml Intake Oral 1212 ml 920 ml 7124 ml IV Total 2481 ml 7058 ml Output Urine Total 2000 ml 1950 ml 14678 ml # Bowel Movements 0 2 Exam Gen.- A+ O 3 no apparent distress. Easily woken from sleep Eyes- open conjunctiva clear, pupils equal nonicteric ENT- ears normal, nose normal Neck- supple/trach midline CVS-normal rate Lungs-respirations regular and nonlabored GI-flat Musc- moving 4 no obvious deformity Neuro- cranial nerves II through XII intact to gross examination, nonfocal Skin- warm and dry, no rashes/lesions/wounds noted left lower extremity redis mid calf down, much improved, skin tightness/edema totally resolved Lab and Diagnostics Result Diagram: 06/26/16 0555 06/26/16 0555 Microbiology Laboratory Tests Test 06/23/16 01:30 Urine Color Yellow Urine Appearance Hazy Urine pH 6.0 Urine Specific [place] 1.020 Urine Protein 100mg/dL Urine Glucose (UA) Negativemg/dL Urine Ketones Negativemg/dL Urine Occult Blood Large Urine Nitrite Negative Urine Bilirubin Negative Urine Urobilinogen Normalmg/dL Urine Leukocyte Esterase Small Urine RBC >50/hpf Urine WBC 11-50/hpf Urine Epithelial Cells Occasional/hpf Urine Crystals Amorphous urates Urine Bacteria Few/hpf Urine Hyaline Casts None/lpf Urine Granular Casts None seen Urine Waxy Casts None seen Urine Red Blood Cell Casts None seen Urine White Blood Cell Casts None seen Urine Mucus Present Urine Trichomonas None seen Urine Yeast None Urinalysis Comment None Urine Culture Reflexed Indicated Assessment & Plan 06/22 admitted for potential recurrent UTI. 06/25 Patient is growing enterococcus 06/22. Trial vancomycin to cover both enterococcus/cellulitis repeat UA today. Meeting medically complex patient first time today. 06/26 clinically stable/improved call out/msg Jovana Myers [phone] # concern for UTI: Vancomycin 06/25-06/27 3 days, Lactobacillus started 06/26 -- Urine cltr 06/22 from urgent care (+ )enterococcus PCN resistant -- urine 06/23 [facility] no growth, repeat 06/26 pending # leg cellulitis present at admission: -L leg/calf much improved continuing vancomycin, considering Keflex on discharge for a few more days. 06/26 Hyperglycemia Diabetes mellitus: Last A1c was done 04/19/16, 7.4. -continue low-dose sliding scale insulin -Blood sugar 200 am 06/26, continue to follow, no changes for now 06/26 # ESTELA/CKD3 - back to baseline Cr 1.12 #Anemia-likely chronic disease -Iron studies WNL 06/26 b12 P, reticulocyte count low we will give 1 dose Aranesp Hypertension: Continue home medications controlled 06/26 Chronic depression: Continue home medications bupropion Hx CVA with aphasia DVT prophylaxis: heparin subcutaneous 3 times a day Disposition: Patient DO NOT RESUSCITATE apparently independently living with a roommate VTE Prophylaxis: Sub-Q Heparin (Unfractionated) VTE Mechanical Devices: Intermittant Pneumatic CD Resuscitation Status: DNR/DNI:Do Not Resuscitate/Intubate Romulo Sanchez MD Jun 26, 2016 10:29
--- NOTE | 2016-06-26 11:32 | NUR ---
CELLULITES P-Patient has lower left cellulites, redness but denies pain. I-Patient to receive antibiotics (IV Vanco). E-Monitor LLE, pain, signs of continued infection. Possible d/c tomorrow.
--- NOTE | 2016-06-26 12:29 | NUR ---
Social Work-Readiness for Discharge Data:EMR reviewed. Pt is on day 4 of hospitalization for Cellulitis per H&P. Pt is not medically stable for discharge at this time, anticipate 1-2 more days. Pt is open with [facility] and will need resume HH orders at discharge. Pt's family to provide transport home at discharge. SW will continue to follow. Assessment: Pt who would benefit from resume HH. Plan: Pt to discharge home with support of roommate and JACOB via POV. Pt will need Resume HH orders through [facility]. SW will continue to follow. ISMAEL Aquino
[2016-06-26 13:38] VITALS: BP 111/65; PULSE 75; RESP 14; O2SAT 97
[2016-06-26] MEDS: Vancomycin Inj 1,250 MG in 0.9% Sodium Chloride 250 ML IV SCH (16:16)
[2016-06-26 17:16] VITALS: BP 134/76; PULSE 64; RESP 16; O2SAT 98
[2016-06-26 21:00] VITALS: BP 132/73; PULSE 75; RESP 20; O2SAT 97
--- NOTE | 2016-06-27 04:39 | NUR ---
Blood glucose Patient not OOB this shift. Blood glucose within normal limits. Newman catheter patent and draining. Room air. Vitals stable.
[2016-06-27 05:11] VITALS: BP 137/78; PULSE 70; RESP 20; O2SAT 96
[2016-06-27] MEDS: 0.9% Sodium Chloride 1,000 ML IV SCH ×2 (05:26→15:26)
[2016-06-27] MEDS: Insulin LISPRO 300 Unit/3 mL Inj SUBQ SCH ×4 (08:00→21:51)
[2016-06-27] MEDS: Vancomycin Dose per Pharmacist XX SCH (08:30)
[2016-06-27] MEDS: buPROPion SR 150 mg ER12 Tablet PO SCH ×2 (10:16→20:45)
[2016-06-27] MEDS: Vancomycin Inj 1,250 MG in 0.9% Sodium Chloride 250 ML IV SCH (12:00)
--- NOTE | 2016-06-27 12:10 | PCM.PNMED ---
Subjective Date of Service Jun 27, 2016 Subjective Patient without complaints of chest pain, dyspnea, nausea or vomiting. He is Asleep but says he feels fine Exam Vital Signs Vital Sign - Last Date Time Temp Pulse Resp B/P Pulse Ox O2 Delivery O2 Flow Rate FiO2 06/27/16 05:11 36.8 70 20 137/78 96 Room Air Intake and Output 06/26/16 06/26/16 06/27/16 Cumulative From/Thru 15:00 23:00 07:00 06/22/16 16:28 - 06/27/16 06:03 Intake Total 2212 ml 1032 ml 40790 ml Output Total 1800 ml 84609 ml Balance 412 ml 1032 ml 2926 ml Intake Oral 772 ml 7896 ml IV Total 1440 ml 1032 ml 9530 ml Output Urine Total 1800 ml 01578 ml # Bowel Movements 2 Exam Gen.-Sleeping soundly, mumbling responses not sure he ever really woke up Eyes-eyes close, normal eyelids, no drainage ENT- ears normal, nose normal Neck- supple/trach midline CVS-normal rate Lungs-respirations regular and nonlabored GI-flat Musc- moving 4 no obvious deformity Neuro- cranial nerves II through XII intact to gross examination, nonfocal Skin- warm and dry, no rashes/lesions/wounds noted left lower extremity redis mid calf down, much improved, skin tightness/edema totally resolved Lab and Diagnostics Result Diagram: 06/26/16 0555 06/27/16 0608 Microbiology Laboratory Tests Test 06/23/16 01:30 Urine Color Yellow Urine Appearance Hazy Urine pH 6.0 Urine Specific [place] 1.020 Urine Protein 100mg/dL Urine Glucose (UA) Negativemg/dL Urine Ketones Negativemg/dL Urine Occult Blood Large Urine Nitrite Negative Urine Bilirubin Negative Urine Urobilinogen Normalmg/dL Urine Leukocyte Esterase Small Urine RBC >50/hpf Urine WBC 11-50/hpf Urine Epithelial Cells Occasional/hpf Urine Crystals Amorphous urates Urine Bacteria Few/hpf Urine Hyaline Casts None/lpf Urine Granular Casts None seen Urine Waxy Casts None seen Urine Red Blood Cell Casts None seen Urine White Blood Cell Casts None seen Urine Mucus Present Urine Trichomonas None seen Urine Yeast None Urinalysis Comment None Urine Culture Reflexed Indicated Assessment & Plan 06/22 admitted for potential recurrent UTI. 06/25 Patient is growing enterococcus 06/22. Trial vancomycin to cover both enterococcus/cellulitis repeat UA today. Meeting medically complex patient first time today. 06/26 clinically stable/improved call out/msg Jovana Myers [phone] 06/27 spoke to Jovana Myers [phone] she expressed concern patient was walking and they were not really managing with him. They were thinking he needed assisted living, I explained that he cannot go to assisted living he needs SNF if he is not walking. Physical therapy evaluation requested. #Candiduria-patient started on fluconazole 100 mg daily 06/27-07/04 (7 days) #Weakness-PT eval, care management re: SNF placement #Hx CVA with aphasia-speech swallow/cognition evaluation # concern for UTI: Vancomycin 06/25-06/27 3 days, Lactobacillus started 06/26 -- Urine cltr 06/22 from urgent care (+ )enterococcus PCN resistant -- urine 06/23 [facility] no growth, repeat 06/26 pending # leg cellulitis present at admission: -L leg/calf much improved continuing vancomycin, considering Keflex on discharge for a few more days. 06/26 Hyperglycemia Diabetes mellitus: Last A1c was done 04/19/16, 7.4. -continue low-dose sliding scale insulin -Blood sugar 200 am 06/26, continue to follow, no changes for now 06/26 # ESTELA/CKD3 - back to baseline Cr 1.12 #Anemia-likely chronic disease -Iron studies WNL 06/26 b12 P, reticulocyte count low we will give 1 dose Aranesp Hypertension: Continue home medications controlled 06/26 Chronic depression: Continue home medications bupropion DVT prophylaxis: heparin subcutaneous 3 times a day Disposition: Patient DO NOT RESUSCITATE apparently independently living with a roommate VTE Prophylaxis: Sub-Q Heparin (Unfractionated) VTE Mechanical Devices: Intermittant Pneumatic CD Resuscitation Status: DNR/DNI:Do Not Resuscitate/Intubate Romulo Sanchez MD Jun 27, 2016 12:10
[2016-06-27 13:00] VITALS: BP 126/71; PULSE 68; RESP 16; O2SAT 97
--- NOTE | 2016-06-27 13:14 | NUR ---
Social Work- Continued Discharge Planning Data: EMR reviewed. Pt is on day 5 of hospitalization for cellulitis and complicated UTI. Met with pt's roommate Kenyatta Dove at bedside. Pt was sleeping. Explained that PT will assess the pt today to determine if they are recommending he go to SNF vs returning home with HH. Roommate stated that she has been acting as his caregiver and applied to be his JACOB worker but was denied. She stated that she believed he would be very resistant to returning to SNF. SW stated that he would need to go by choice, and we are still awaiting recommendations from PT. SW will continue to follow. Assessment: Pt who would benefit from HH vs. SNF Plan: Pt to either discharge home with resume [facility] and caregiver support vs SNF. SW will follow up post PT evaluation. SW will continue to follow for needs. ISMAEL Ramirez
[2016-06-27 20:09] VITALS: BP 136/90; PULSE 75; RESP 15; O2SAT 98
[2016-06-28] MEDS: 0.9% Sodium Chloride 1,000 ML IV SCH ×2 (01:26→11:26)
--- NOTE | 2016-06-28 03:38 | NUR ---
Ambulation/ BM Pt. ambulating safely to bedside commode with LACQUER SHADER. Pt. had a moderate BM this shift. Pt. denies pain. Will continue to monitor.
[2016-06-28 06:04] VITALS: BP 127/77; PULSE 74; RESP 16; O2SAT 96
[2016-06-28] MEDS: Insulin LISPRO 300 Unit/3 mL Inj SUBQ SCH ×2 (08:00→12:15)
[2016-06-28] MEDS: buPROPion SR 150 mg ER12 Tablet PO SCH (08:22)
[2016-06-28] MEDS: Vancomycin Dose per Pharmacist XX SCH (08:23)
--- NOTE | 2016-06-28 11:25 | NUR ---
Social Work- Continued D/C Planning Data: EMR reviewed. Pt is on day 6 of hospitalization for cellulitis and complicated UTI. PT assessed pt, recommending SNF due to generalized weakness, decreased upright activity tolerance and decreased dynamic balance. SW spoke with pt regarding PT recommendations, pt agreeable to SNF placement at discharge. SNF choice list provided. Pt choice 1) [facility] and 2) [facility]. UR Specialist to fax referrals. SW will continue to follow. Assessment: Pt who would benefit from SNF Plan: PT recommending SNF at this time. Referrals given to [facility] and [facility] per pt's preference. SW will continue to follow. ISMAEL Aquino
[2016-06-28] MEDS ORDERED: Vancomycin Serum Trough XX ONE (11:30)
--- NOTE | 2016-06-28 11:30 | NUR ---
Scheduled hospital follow up for July 10 check in at 420 PM for 430 appointment with at the residency clinic. Updated [employer]PLIANCE TECH
--- NOTE | 2016-06-28 11:42 | NUR ---
Gave access and faxed facesheet to [facility] and [facility] per TURBINE OPERATOR Addendum: 06/28/16 at 1351 by BETTY CALZADA CM [facility] will accept patient and is planning to transport at 1500. Updated TURBINE OPERATOR
--- NOTE | 2016-06-28 11:52 | PCM.DIMED ---
Discharge Instructions Date of Service Jun 28, 2016 Dates of Hospitalization Jun 22, 2016 at 15:59 Discharge Diagnosis Discharge Diagnosis Enterococcus UTI, candiduria, cellulitis left lower extremity Test Results UA positive for enterococcus resistant to penicillins/Marcie Diet Diabetic Activity No restrictions Call your provider Fever or Chills, Other (the vigilant of generalized malaise and change in urine output color/cloudiness) Patient Instructions Follow-up Provider: Nannette Almeida MD Follow-up with PCP in: Other (call to advise and schedule as needed) Romulo Sanchez MD Jun 28, 2016 11:52
[2016-06-28] MEDS ORDERED: Lactobacillus Acidophilus PO (11:57)
[2016-06-28] MEDS ORDERED: DIF100A PO (11:57)
[2016-06-28] MEDS ORDERED: Acetaminophen PO (11:57)
[2016-06-28] MEDS ORDERED: CEPH500C PO (11:57)
[2016-06-28] MEDS ORDERED: TAMS0.4C98 PO (11:57)
[2016-06-28] MEDS ORDERED: Al Hydrox/Mg Hydrox/Simeth PO (11:57)
[2016-06-28] MEDS ORDERED: INSLIS SUBQ (11:57)
--- NOTE | 2016-06-28 11:57 | PCM.DIMED ---
Discharge Instructions Date of Service Jun 28, 2016 Dates of Hospitalization Jun 22, 2016 at 15:59 Discharge Diagnosis Discharge Diagnosis Enterococcus UTI, candiduria, cellulitis left lower extremity Diet Heart Healthy, Diabetic Activity No restrictions Call your provider Fever or Chills, Other (the vigilant of generalized malaise and change in urine output color/cloudiness) Patient Instructions Follow-up Provider: Nannette Almeida MD Follow-up with PCP in: Other (call to advise and schedule as needed) Romulo Sanchez MD Jun 28, 2016 11:57
[2016-06-28] MEDS: Vancomycin Inj 1,250 MG in 0.9% Sodium Chloride 250 ML IV SCH (13:08)
--- NOTE | 2016-06-28 14:00 | NUR ---
Social Work- Readiness for Discharge Data: EMR reviewed. Pt is on day 6 of hospitalization for cellulitis and complicated UTI. PT assessed pt, recommending SNF due to generalized weakness, decreased upright activity tolerance and decreased dynamic balance. [facility] accepted pt with Vince to follow. UR Specialist created packet and faxed orders. Paperwork and PASRR in chart. Pt to discharge to [facility] via cabulance at 1500 with MD [facility] to follow. RN and Pt updated and agreeable to plan. SW will continue to follow Assessment: Pt who would benefit from SNF Plan: PT recommending SNF at this time. [facility] with MD Clarke to follow. Transportation coordinated at 1500 via cabulance. Paperwork and PASRR in chart. SW will continue to follow. ISMAEL Aquino
--- NOTE | 2016-06-28 14:22 | NUR ---
Discharge Note Pt has denied any pain today, VSS, up to BSC and chair with one assist using FWW. Report given to Lisa at [facility]. Pt ready to discharge to SNF with all belongings.
--- NOTE | 2016-06-28 15:04 | NUR ---
Social Work- Discharge Data: EMR reviewed. Pt is on day 6 of hospitalization for cellulitis and complicated UTI. Pt is medically stable for discharge. PT continues to recommend SNF. UR Specialist spoke with Tabitha, catia at [facility], who is agreeable to accepting pt today. Tabitha arranged transportation via cabulance at 1500. UR Specialist created packet and faxed orders. SW updated pt at bedside and informed pt's friend Carin of discharge. RN, UC, pt/family, and [facility] all updated and agreeable to plan. Assessment: Pt who would benefit from SNF Plan: Pt to discharge to [facility] today via cabulance at 1500. RN, UC, pt/family, and [facility] all updated and agreeable to plan. ISMAEL Aquino
--- NOTE | 2016-06-28 17:12 | PCM.DC.MED ---
Discharge Summary Date of Service Jun 28, 2016 Dates of Hospitalization Date of Hospital Admission Jun 22, 2016 at 15:59 Date of Discharge: Jun 28, 2016 Providers: Admitting Physician: Nannette Almeida MD Primary Care Physician: César Attending Physician: Nannette Almeida MD Diagnosis at Time of Discharge Diagnosis at Time of Discharge Enterococcus UTI, candiduria, cellulitis left lower extremity Consultations None Procedures XRay, CTs & MRIs None ECG 12 Lead None Invasive Procedures None Other Diagnostics None Brief History 70-year-old male whose indication for admission is not entirely clear. It sounds in one breath like he was sent to the emergency room with cloudy urine and yet when I look at the admitting note reason for admission gastroenteritis w /diarrhea/vomiting, leukocytosis, left leg cellulitis, indwelling catheter w/ prior ESBL, w/o abdominal discomfort, very fatigued. He presented him where the ER noticed neither of which are clear to me at this point in time. He had just been in the hospital was discharged on her M and was getting home health and not thriving at home as far as I can tell. When I finally spoke with his caregivers sounded like they were not managing with him he was unable to ambulate without max assist and they could not manage him any longer. Hospital Course 06/22 admitted for potential recurrent UTI. 06/25 Patient is growing enterococcus 06/22. Trial vancomycin to cover both enterococcus/cellulitis repeat UA today. Meeting medically complex patient first time today. 06/26 clinically stable/improved call out/msg Jovanabienvenido Wileylora [phone] 06/27 spoke to Jovana Myers [phone] she expressed concern patient was walking and they were not really managing with him. They were thinking he needed assisted living, I explained that he cannot go to assisted living he needs SNF if he is not walking. Physical therapy evaluation requested. 06/28 patient was discharged to [facility]F. #Candiduria-patient started on fluconazole 100 mg daily 06/27-07/04 (7 days) #Weakness-PT eval, recommended SNF placement #Hx CVA with aphasia-speech swallow/cognition evaluation not clear this ever got done. It would give us much better idea of his cognitive capacities. # concern for UTI: Vancomycin 06/25-06/27 3 days, Lactobacillus started 06/26 -- Urine cltr 06/22 from urgent care (+ )enterococcus PCN resistant -- urine 06/23 [facility] no growth, repeat 06/26 pending # leg cellulitis present at admission: -L leg/calf much improved continuing vancomycin, considering Keflex on discharge for a few more days. 06/26 Hyperglycemia Diabetes mellitus: Last A1c was done 04/19/16, 7.4. -continue low-dose sliding scale insulin -Blood sugar 200 am 06/26, continue to follow, no changes for now 06/26 # ESTELA/CKD3 - back to baseline Cr 1.12 #Anemia-likely chronic disease -Iron studies WNL 06/26 b12 P, reticulocyte count low consider a dose Aranesp Hypertension: Continue home medications controlled 06/26 Chronic depression: Continue home medications bupropion DVT prophylaxis: heparin subcutaneous 3 times a day while he was hospitalized. Disposition: Patient DO NOT RESUSCITATE apparently independently living with a roommate Exam Vital Signs (Last) Date Time Temp Pulse Resp B/P Pulse Ox O2 Delivery O2 Flow Rate FiO2 06/28/16 06:04 36.7 74 16 127/77 96 Room Air Exam Gen.-Sleeping arousals, woke up and spoke to me, grumbled about eating sent to SNF but understands he needs to do it Eyes-eyes close, normal eyelids, no drainage ENT- ears normal, nose normal Neck- supple/trach midline CVS-normal rate Lungs-respirations regular and nonlabored GI-flat Musc- moving 4 no obvious deformity Neuro- cranial nerves II through XII intact to gross examination, nonfocal Skin- warm and dry, no rashes/lesions/wounds noted left lower extremity redis mid calf down, much improved, skin tightness/edema totally resolved Test 06/22/16 16:45 06/23/16 01:41 06/23/16 04:45 06/24/16 06:27 Hold Purple Top Tube Received (Received) Hold [place] Top Tube Received (Received) Hold [place] Top Tube Received (Received) Urine Opiates Screen Negative Urine Methadone Screen Negative Urine Barbiturates Screen Negative Urine Amphetamines Screen Positive Urine Benzodiazepines Screen Negative Urine Cocaine Metabolite Screen Negative Urine Cannabinoids Screen Negative Magnesium Level 1.8mg/dL (1.6-2.6) Total Bilirubin 0.3mg/dL (0.0-1.2) Aspartate Amino Transf (AST/SGOT) 11U/L (0-50) Alanine Aminotransferase (ALT/SGPT) 10U/L (0-44) Alkaline Phosphatase 77U/L (25-160) Total Protein 6.4g/dL (6.4-8.4) Albumin 3.2g/dL (3.4-5.0) Test 06/25/16 15:47 06/26/16 05:55 06/27/16 06:08 06/28/16 11:32 Urine Color Straw (YELLOW) Urine Appearance Clear (CLEAR,HAZY) Urine pH 6.5 (5.0-8.0) Urine Specific Leopold 1.010 (1.003-1.035) Urine Protein Negativemg/dL (NEG,TRACE) Urine Glucose (UA) Negativemg/dL (NEGATIVE) Urine Ketones Negativemg/dL (NEGATIVE) Urine Occult Blood Large (NEGATIVE) Urine Nitrite Negative (NEGATIVE) Urine Bilirubin Negative (NEGATIVE) Urine Urobilinogen Normalmg/dL (NORMAL) Urine Leukocyte Esterase Moderate (NEGATIVE) Urine RBC 11-50/hpf (0-2) Urine WBC 6-10/hpf (0-5) Urine Epithelial Cells None/hpf (NONE-MOD) Urine Crystals None seen (NONE SEEN) Urine Bacteria Few/hpf (NONE-FEW) Urine Hyaline Casts None/lpf (NONE) Urine Granular Casts None seen (NONE SEEN) Urine Waxy Casts None seen (NONE SEEN) Urine Red Blood Cell Casts None seen (NONE SEEN) Urine White Blood Cell Casts None seen (NONE SEEN) Urine Mucus None seen (None Seen) Urine Trichomonas None seen (NONE SEEN) Urine Yeast None (NONE SEEN) Urinalysis Comment None Urine Culture Reflexed Indicated White Blood Count 6.0th/mm3 (3.8-10.1) Red Blood Count 2.92mil/mm3 (4.40-5.80) Hemoglobin 8.7g/dL (13.8-17.2) Hematocrit 27.0% (41.0-50.0) Mean Corpuscular Volume 92.5fL (81-100) Mean Corpuscular Hemoglobin 29.8pg (27.0-35.0) Mean Corpuscular Hemoglobin Concent 32.2% (32.0-37.0) Red Cell Distribution Width 13.2% (12.3-15.4) Platelet Count 239bil/L (150-400) Neutrophils (%) (Auto) 58.7% (40-74) Lymphocytes (%) (Auto) 26.1% (14-46) Monocytes (%) (Auto) 11.8% (4-12) Eosinophils (%) (Auto) 2.7% (0-5) Basophils (%) (Auto) 0.5% (0-3) Reticulocyte Count,Calculated 1.1% (0.6-2.6) Sodium Level 140mEq/L (134-144) Potassium Level 3.8mEq/L (3.5-5.2) Chloride Level 104mEq/L (97-108) Carbon Dioxide Level 23mmol/L (18-29) Blood Urea Nitrogen 18mg/dL (8-27) Estimat Glomerular Filtration Rate 68mL/min (>59) Glucose Level 148mg/dL (60-99) Calcium Level 8.9mg/dL (8.5-10.1) Iron Level 58ug/dL (35-150) Total Iron Binding Capacity 216ug/dL (250-450) Percent Iron Saturation 27%sat (15-50) Unsaturated Iron Binding 157.6ug/dL Ferritin 231ng/mL (30-400) Vitamin B12 Level 470pg/mL (211-946) Creatinine 1.00mg/dL (0.76-1.27) Vancomycin Level Trough 8.4mcg/mL Microbiology Results Urine from outpatient setting positive for enterococcus, here Marcie albicans Laboratory Tests Test 06/23/16 01:30 Urine Color Yellow Urine Appearance Hazy Urine pH 6.0 Urine Specific Leopold 1.020 Urine Protein 100mg/dL Urine Glucose (UA) Negativemg/dL Urine Ketones Negativemg/dL Urine Occult Blood Large Urine Nitrite Negative Urine Bilirubin Negative Urine Urobilinogen Normalmg/dL Urine Leukocyte Esterase Small Urine RBC >50/hpf Urine WBC 11-50/hpf Urine Epithelial Cells Occasional/hpf Urine Crystals Amorphous urates Urine Bacteria Few/hpf Urine Hyaline Casts None/lpf Urine Granular Casts None seen Urine Waxy Casts None seen Urine Red Blood Cell Casts None seen Urine White Blood Cell Casts None seen Urine Mucus Present Urine Trichomonas None seen Urine Yeast None Urinalysis Comment None Urine Culture Reflexed Indicated Discharge Medications Discharge Medications ([Lactobacillus Acidophilus]) 1 TABLET TABLET 2 TABLET PO PCHS Prescribed by: NATHAN GUTIERREZ MD Atorvastatin Calcium (Atorvastatin Calcium) 20 Mg Tablet 20 MG PO PM Prescribed by: LISA LEE DO Bupropion ER (Bupropion ER) 150 Mg Tablet.er 150 MG PO BID Prescribed by: LISA LEE DO Cephalexin (Cephalexin) 500 Mg Capsule 500 MG PO QID Prescribed by: NATHAN GUTIERREZ MD Fluconazole (Diflucan) 100 Mg Tab 100 MG PO DAILY Prescribed by: NATHAN GUTIERREZ MD Insulin Human Lispro (HumaLOG U100 Insulin Vial) 100 Unit/Ml Unit 0 UNIT SUBQ WMHS Check blood sugars before meals and at bedtime. Use correction factor only before meals. Blood Sugar Lispro Correction: <151, 0 units; 151-175, 1 unit; 176-200, 2 units; 201-225, 3 units; 226-250, 4 units; 251-275, 5 units; 276-300 , 6 units; 301-325, 7 units; 326-350, 8 units; 351-375, 9 units; 376-400, 10 units; >400, 12 units. Prescribed by: NATHAN GUTIERREZ MD Magnesium Oxide (Magnesium) 400 Mg Tablet 400 MG PO DAILY Prescribed by: ALEKSANDER MONTALVO MD Tamsulosin (Flomax) 0.4 Mg Capsule 0.4 MG PO 2030 Prescribed by: NATHAN GUTIERREZ MD As needed ([Acetaminophen]) 325 MG TABLET 650 MG PO Q6H PRN PRN For Mild Pain or Fever Prescribed by: NATHAN GUTIERREZ MD ([Al Hydrox/Mg Hydrox/Simeth]) 30 ML SUSP 30 ML PO Q6H PRN PRN For Dyspepsia or Heartburn Prescribed by: NATHAN GUTIERREZ MD Followup Plan Disposition: Karen Pino Follow-up plan Facility provider and primary care provider. Hopefully he is only there for brief. He can return home once he is able to ambulate to some extent enough so that his caregivers can look after him. Discharge Diet: Heart Healthy, Diabetic Discharge Activity: No restrictions Follow-up Provider: Nannette Almeida MD Follow-up with PCP in: Other (call to advise and schedule as needed) Time spent Greater than 30 minutes copies to: Nannette Almeida MD, Andris E MD Jun 28, 2016 17:12
== END 2016-06-28 15:10 | DRG 699 ==
LOC: OSC 15:59
PROVIDERS: ADMIT Urology; ATTEND Urology
DX: T83.511A Infection and inflammatory reaction due to indwelling urethral catheter, initial encounter (principal); N17.9 Acute kidney failure, unspecified; L03.116 Cellulitis of left lower limb; B37.49 Other urogenital candidiasis; N39.0 Urinary tract infection, site not specified; Z66 Do not resuscitate; D64.9 Anemia, unspecified; F32.9 Major depressive disorder, single episode, unspecified; N18.3 Chronic kidney disease, stage 3 (moderate); I12.9 Hypertensive chronic kidney disease with stage 1 through stage 4 chronic kidney disease, or unspecified chronic kidney disease; Z86.73 Personal history of transient ischemic attack (TIA), and cerebral infarction without residual deficits; B95.2 Enterococcus as the cause of diseases classified elsewhere; R53.1 Weakness; E11.65 Type 2 diabetes mellitus with hyperglycemia